=== PATIENT | female | born 1955 | race Caucasian/White ===

== ENCOUNTER → 2020-03-30 | Outpatient (BNVA) | payer OTHER, SELFPAY | PROVIDERS: PCP Internal Medicine; Referring Provider Internal Medicine; Visit Provider Nurse Practitioner Gerontology | CPT/HCPCS: 99213 ==

== ENCOUNTER → 2020-05-26 10:14 | Outpatient (BNVA) | payer OTHER, SELFPAY | PROVIDERS: PCP Internal Medicine; Referring Provider Internal Medicine; Visit Provider Nurse Practitioner | DX: Z76.89 Persons encountering health services in other specified circumstances (principal) ==

== ENCOUNTER → 2020-06-22 10:46 | Outpatient (BNVA) | payer OTHER, SELFPAY | PROVIDERS: PCP Internal Medicine; Visit Provider Advanced Practice Midwife | DX: Z76.89 Persons encountering health services in other specified circumstances (principal) ==

== ENCOUNTER → 2020-07-04 08:49 | Outpatient (BNVA) | payer OTHER, SELFPAY | PROVIDERS: PCP Internal Medicine; Visit Provider Nurse Practitioner Gerontology | DX: Z76.89 Persons encountering health services in other specified circumstances (principal) ==

== ENCOUNTER 2020-09-14 12:01 | Outpatient (REF) | payer OTHER, SELFPAY ==
--- NOTE | ~2020-09-14 | MM_ITS ---
EXAMINATION: MM SCREENING DIGITAL BREAST TOMOSYNTHESIS, BILATERAL CLINICAL INFORMATION: Screening. Asymptomatic. The lifetime risk of breast cancer based on the Tyrer-Cuzick Model is 4%. COMPARISON: Mammography: 07/14/2019, 04/14/2019, 09/26/2018, 09/11/2017 TECHNIQUE: Digital breast tomosynthesis is performed in both the craniocaudal and mediolateral oblique views along with computer-aided detection (CAD). Synthesized 2D images are generated from the tomosynthesis. FINDINGS: The breasts are almost entirely fatty (ACR BI-RADS breast composition Category a). There are no significant masses, abnormal calcifications, or other abnormalities. There is a small nodule mid upper outer right breast decreased in size 2018. No significant changes from prior studies. MM/MM tomosynthesis screening BI IMPRESSION: No mammographic evidence of malignancy. ASSESSMENT: BI-RADS 2: Benign RECOMMENDATION: Routine annual mammography screening. This patient's information was entered into a reminder system with a target due date for their next mammogram.
== END 2020-09-14 12:02 | disposition home or self-care (01) ==
LOC: HO.MAMMO 12:01
PROVIDERS: Visit Provider Internal Medicine
DX: Z12.31 Encounter for screening mammogram for malignant neoplasm of breast (principal)
CPT/HCPCS: 77063; 77067

== ENCOUNTER → 2020-11-24 10:02 | Outpatient (BNVA) | payer OTHER, SELFPAY | PROVIDERS: PCP Internal Medicine; Visit Provider Nurse Practitioner ==

== ENCOUNTER → 2020-12-28 12:03 | Outpatient (BNVA) | payer OTHER, SELFPAY | PROVIDERS: PCP Internal Medicine; Visit Provider Nurse Practitioner Gerontology | DX: E11.65 Type 2 diabetes mellitus with hyperglycemia (principal); E78.5 Hyperlipidemia, unspecified; E66.01 Morbid (severe) obesity due to excess calories; I10 Essential (primary) hypertension; L60.0 Ingrowing nail; Z79.4 Long term (current) use of insulin; Z68.36 Body mass index [BMI] 36.0-36.9, adult | CPT/HCPCS: 82947; 99212 ==

== ENCOUNTER 2021-06-16 10:15 | Outpatient (REF) | payer MEDICARE, MEDICAID, SELFPAY ==
[2021-06-16 11:06] LABS: Alanine Aminotransferase 41 U/L (0-31); Albumin Level 3.8 g/dL (3.5-5.0); Alkaline Phosphatase 112 U/L (39-117); Anion Gap 11 (12-20); Aspartate Amino Transferase 37 U/L (5-31); Bilirubin Total 0.8 mg/dL (0.0-1.0); Blood Urea Nitrogen 19 mg/dL (9-16); Calcium 9.2 mg/dL (8.4-10.2); Carbon Dioxide 27 mmol/L (22-29); Chloride 106 mmol/L (96-108); Cholesterol 202 mg/dL; Estimated Glomerular Filt Rate > 60; Glucose Fasting 164 mg/dL (60-99); HDL Cholesterol 40 mg/dL; LDL Cholesterol Calculated 139 mg/dl; Potassium 4.5 mmol/L (3.3-5.1); Sodium 139 mmol/L (135-145); Triglycerides 119 mg/dL
[2021-06-16 11:24] LABS: Microalbum/Creatinine Ratio Ur 44.4 ug/mg cr
[2021-06-18 06:16] LABS: LDL Cholesterol Direct 159 mg/dL (<100)
== END 2021-06-16 10:16 | disposition home or self-care (01) ==
LOC: HO.LAB 10:15
PROVIDERS: Absent Provider Nurse Practitioner Gerontology; Visit Provider Internal Medicine
DX: E11.65 Type 2 diabetes mellitus with hyperglycemia (principal); E78.5 Hyperlipidemia, unspecified; Z79.4 Long term (current) use of insulin
CPT/HCPCS: 36415; 80053; 80061; 82043; 83721

== ENCOUNTER → 2021-08-09 12:29 | Outpatient (BNVA) | payer MEDICARE, MEDICAID, SELFPAY | PROVIDERS: PCP Internal Medicine; Visit Provider Nurse Practitioner Gerontology | DX: E11.65 Type 2 diabetes mellitus with hyperglycemia (principal); E78.5 Hyperlipidemia, unspecified; E66.01 Morbid (severe) obesity due to excess calories; I10 Essential (primary) hypertension; L60.0 Ingrowing nail; Z79.4 Long term (current) use of insulin; Z68.35 Body mass index [BMI] 35.0-35.9, adult | CPT/HCPCS: 82947; 99212 ==

== ENCOUNTER → 2021-08-29 13:15 | Outpatient (BNVA) | payer MEDICARE, MEDICAID, SELFPAY | PROVIDERS: PCP Internal Medicine; Referring Provider Internal Medicine; Visit Provider Nurse Practitioner | DX: K21.9 Gastro-esophageal reflux disease without esophagitis (principal); K59.00 Constipation, unspecified; I10 Essential (primary) hypertension | CPT/HCPCS: 99212 ==

== ENCOUNTER → 2021-09-14 14:04 | Outpatient (BNVA) | payer MEDICARE, MEDICAID, SELFPAY | PROVIDERS: Visit Provider Advanced Practice Midwife | DX: Z13.89 Encounter for screening for other disorder (principal) ==

== ENCOUNTER 2021-09-18 12:18 | Outpatient (REF) | payer MEDICARE, MEDICAID, SELFPAY ==
--- NOTE | ~2021-09-18 | MM_ITS ---
EXAMINATION: MM SCREENING DIGITAL BREAST TOMOSYNTHESIS, BILATERAL CLINICAL INFORMATION: Screening. Asymptomatic. The lifetime risk of breast cancer based on the Tyrer-Cuzick Model is 4%. COMPARISON: Mammography: 09/14/2020, 07/14/2019, 04/14/2019, 09/26/2018 TECHNIQUE: Digital breast tomosynthesis is performed in both the craniocaudal and mediolateral oblique views along with computer-aided detection (CAD). Synthesized 2D images are generated from the tomosynthesis. FINDINGS: The breasts are almost entirely fatty (ACR BI-RADS breast composition Category a). Background stromal markings are stable. There are no significant masses, abnormal calcifications, or other abnormalities. There is no developing density or interval mass or architectural abnormality. No significant change from prior study. The axilla are unremarkable. MM/MM tomosynthesis screening BI IMPRESSION: No mammographic evidence of malignancy. ASSESSMENT: BI-RADS 2: Benign RECOMMENDATION: Routine annual mammography screening. This patient's information was entered into a reminder system with a target due date for their next mammogram.
== END 2021-09-18 12:19 | disposition home or self-care (01) ==
LOC: HO.MAMMO 12:18
PROVIDERS: Visit Provider Internal Medicine
DX: Z12.31 Encounter for screening mammogram for malignant neoplasm of breast (principal)
CPT/HCPCS: 77063; 77067

== ENCOUNTER → 2021-10-20 13:38 | Outpatient (BNVA) | payer MEDICARE, MEDICAID, SELFPAY | PROVIDERS: Visit Provider Nurse Practitioner | DX: K59.00 Constipation, unspecified (principal); K21.9 Gastro-esophageal reflux disease without esophagitis | CPT/HCPCS: 99212 ==

== ENCOUNTER → 2021-10-23 13:57 | Outpatient (BNVA) | payer MEDICARE, MEDICAID, SELFPAY | PROVIDERS: Visit Provider Registered Nurse Diabetes Educator | DX: E11.9 Type 2 diabetes mellitus without complications (principal) | CPT/HCPCS: 95250 ==

== ENCOUNTER → 2021-11-06 13:14 | Outpatient (BNVA) | payer MEDICARE, MEDICAID, SELFPAY | PROVIDERS: PCP Internal Medicine; Visit Provider Nurse Practitioner Gerontology | DX: E78.5 Hyperlipidemia, unspecified (principal); E11.9 Type 2 diabetes mellitus without complications; E66.01 Morbid (severe) obesity due to excess calories; I10 Essential (primary) hypertension; Z68.35 Body mass index [BMI] 35.0-35.9, adult; Z79.84 Long term (current) use of oral hypoglycemic drugs; Z79.4 Long term (current) use of insulin | CPT/HCPCS: 82947; 99212 ==

== ENCOUNTER → 2022-03-21 14:38 | Outpatient (BNVA) | payer MEDICARE, MEDICAID, SELFPAY | PROVIDERS: PCP Internal Medicine; Visit Provider Nurse Practitioner | DX: K21.9 Gastro-esophageal reflux disease without esophagitis (principal); E73.9 Lactose intolerance, unspecified; K59.00 Constipation, unspecified | CPT/HCPCS: 99212 ==

== ENCOUNTER → 2022-05-23 12:13 | Outpatient (BNVA) | payer MEDICARE, MEDICAID, SELFPAY | PROVIDERS: PCP Internal Medicine; Referring Provider Internal Medicine; Visit Provider Nurse Practitioner | DX: K21.9 Gastro-esophageal reflux disease without esophagitis (principal); K59.00 Constipation, unspecified | CPT/HCPCS: 99212 ==

== ENCOUNTER 2022-09-20 12:04 | Outpatient (REF) | payer MEDICARE, MEDICAID, SELFPAY ==
--- NOTE | ~2022-09-20 | MM_ITS ---
EXAMINATION: MM SCREENING DIGITAL BREAST TOMOSYNTHESIS, BILATERAL CLINICAL INFORMATION: Screening. Asymptomatic. The lifetime risk of breast cancer based on the Tyrer-Cuzick Model is 3.7%. COMPARISON: Mammography: September 18, 2021 and studies dating back to September 11, 2017 TECHNIQUE: Digital breast tomosynthesis is performed in both the craniocaudal and mediolateral oblique views along with computer-aided detection (CAD). Synthesized 2D images are generated from the tomosynthesis. FINDINGS: The breasts are almost entirely fatty (ACR BI-RADS breast composition Category a). There are no new significant masses, abnormal calcifications, or other abnormalities. MM/MM tomosynthesis screening BI IMPRESSION: No significant changes from prior exam. ASSESSMENT: BI-RADS 1: Negative RECOMMENDATION: Routine annual mammography screening. This patient's information was entered into a reminder system with a target due date for their next mammogram.
== END 2022-09-20 12:05 | disposition home or self-care (01) ==
LOC: HO.MAMMO 12:04
PROVIDERS: PCP Internal Medicine; Visit Provider Internal Medicine
DX: Z12.31 Encounter for screening mammogram for malignant neoplasm of breast (principal)
CPT/HCPCS: 77063; 77067

== ENCOUNTER 2022-10-02 12:27 | Outpatient (REF) | payer MEDICARE, MEDICAID, SELFPAY ==
--- NOTE | ~2022-10-02 | US_ITS ---
EXAMINATION: US SOFT TISSUE HEAD/NECK CLINICAL INFORMATION: Benign lipomatous neoplasm, unspecified, right supraclavicular fossa. COMPARISON: None available. TECHNIQUE: Linear transducer grayscale and color Doppler examination of the right supraclavicular area with left side for comparison. FINDINGS: Ultrasound imaging to the right supraclavicular area reveals isoechoic lesion to surrounding fat measuring 2.6 x 1.2 x 2.8 cm consistent with lipoma. Imaging of left supra clavicular area was performed for comparison. No abnormality seen. US/US soft tiss head and/or neck IMPRESSION: Benign lipoma right supraclavicular area.
== END 2022-10-02 12:28 | disposition home or self-care (01) ==
LOC: HO.US 12:27
PROVIDERS: Visit Provider Internal Medicine
DX: D17.9 Benign lipomatous neoplasm, unspecified (principal)
CPT/HCPCS: 76536

== ENCOUNTER 2022-10-25 12:06 | Outpatient (REF) | payer MEDICARE, MEDICAID, SELFPAY ==
[2022-10-25 13:29] LABS: Alanine Aminotransferase 31 U/L (0-31); Albumin Level 3.8 g/dL (3.5-5.0); Alkaline Phosphatase 129 U/L (39-117); Anion Gap 15 (12-20); Aspartate Amino Transferase 25 U/L (5-31); Bilirubin Total 0.5 mg/dL (0.0-1.0); Blood Urea Nitrogen 23 mg/dL (9-16); Calcium 9.1 mg/dL (8.4-10.2); Carbon Dioxide 27 mmol/L (22-29); Chloride 104 mmol/L (96-108); Cholesterol 174 mg/dL; Estimated Glomerular Filt Rate > 60; Glucose Fasting 145 mg/dL (60-99); HDL Cholesterol 33 mg/dL; LDL Cholesterol Calculated 121 mg/dl; Potassium 5.6 mmol/L (3.3-5.1); Sodium 140 mmol/L (135-145); Total Protein 6.8 g/dL (6.5-8.0); Triglycerides 101 mg/dL
[2022-10-25 13:37] LABS: Vitamin D 25-OH Total 24.6 ng/mL (>30)
[2022-10-25 15:29] LABS: Creatinine Urine 112.03 mg/dL; Microalbumin Urine < 5.0 mg/L
== END 2022-10-25 12:07 | disposition home or self-care (01) ==
LOC: HO.LAB 12:06
PROVIDERS: PCP Internal Medicine; Referring Provider Nurse Practitioner; Visit Provider Internal Medicine
DX: E11.9 Type 2 diabetes mellitus without complications (principal); E78.5 Hyperlipidemia, unspecified; E55.9 Vitamin D deficiency, unspecified
CPT/HCPCS: 36415; 80053; 80061; 82043; 82306

== ENCOUNTER 2022-11-06 11:27 | Outpatient (REF) | payer MEDICARE, MEDICAID, SELFPAY ==
--- NOTE | 2022-11-06 11:33 | ECG_ITS ---
Test Reason : HYPERKALEMIA Blood Pressure : / mmHG Vent. Rate : 063 BPM Atrial Rate : 063 BPM P-R Int : 154 ms QRS Dur : 080 ms QT Int : 410 ms P-R-T Axes : 042 023 013 degrees QTc Int : 419 ms Normal sinus rhythm Normal ECG When compared with ECG of 21-APR-2019 09:49, T wave inversion now evident in Inferior leads Referred By: Carolina Mahoney Electronically Signed By:Kris Villarreal
[2022-11-06 13:14] LABS: Alanine Aminotransferase 23 U/L (0-31); Albumin Level 3.9 g/dL (3.5-5.0); Alkaline Phosphatase 110 U/L (39-117); Anion Gap 12 (12-20); Aspartate Amino Transferase 23 U/L (5-31); Bilirubin Total 0.6 mg/dL (0.0-1.0); Blood Urea Nitrogen 18 mg/dL (9-16); Calcium 9.1 mg/dL (8.4-10.2); Carbon Dioxide 28 mmol/L (22-29); Chloride 105 mmol/L (96-108); Cholesterol 201 mg/dL; Estimated Glomerular Filt Rate > 60; Glucose Fasting 159 mg/dL (60-99); Glucose Random 158 mg/dL (60-115); HDL Cholesterol 38 mg/dL; LDL Cholesterol Calculated 137 mg/dl; Potassium 5.1 mmol/L (3.3-5.1); Sodium 140 mmol/L (135-145); Triglycerides 131 mg/dL
[2022-11-06 13:17] LABS: Vitamin D 25-OH Total 21.4 ng/mL (>30)
[2022-11-06 13:25] LABS: Creatinine Urine 140.67 mg/dL; Microalbum/Creatinine Ratio Ur 4.2 ug/mg cr
== END 2022-11-06 11:28 | disposition home or self-care (01) ==
LOC: HO.LAB 11:27
PROVIDERS: PCP Internal Medicine; Visit Provider Internal Medicine
DX: E55.9 Vitamin D deficiency, unspecified (principal); E78.5 Hyperlipidemia, unspecified; E87.5 Hyperkalemia; E11.9 Type 2 diabetes mellitus without complications
CPT/HCPCS: 36415; 80053; 80061; 82043; 82306; 93005

== ENCOUNTER → 2022-11-08 08:06 | Outpatient (BNVA) | payer MEDICARE, MEDICAID, SELFPAY | PROVIDERS: PCP Internal Medicine; Referring Provider Internal Medicine; Visit Provider Surgery | DX: D17.0 Benign lipomatous neoplasm of skin and subcutaneous tissue of head, face and neck (principal) | CPT/HCPCS: 99202 ==

== ENCOUNTER → 2022-11-21 12:52 | Outpatient (BNVA) | payer MEDICARE, MEDICAID, SELFPAY | PROVIDERS: PCP Internal Medicine; Visit Provider Nurse Practitioner | DX: K21.9 Gastro-esophageal reflux disease without esophagitis (principal); E73.9 Lactose intolerance, unspecified; K59.00 Constipation, unspecified; Z79.899 Other long term (current) drug therapy | CPT/HCPCS: 99212 ==

== ENCOUNTER 2023-01-03 12:21 | Outpatient (REF) | payer MEDICARE, MEDICAID, SELFPAY ==
[2023-01-03 12:28] VITALS: BP 148/74; PULSE 62; RESP 16; TEMP 36.3; O2SAT 97
[2023-01-03 12:29] VITALS: BMI 32.6
[2023-01-03 13:38] VITALS: BP 165/7; PULSE 62; RESP 16; O2SAT 96
--- NOTE | 2023-01-03 13:46 | W.PM.OPN ---
Operative Note Operative Note Date of Service: 01/03/23 Narrative: Preoperative diagnosis: Right supraclavicular lipoma Postoperative diagnosis: Same Procedure: Excision of right supraclavicular lipoma Surgeon: Maged Stokes MD Director Of Customer Service: None Anesthesia: Local Indications for procedure: 67-year-old female patient presenting with a soft tissue mass located over the right supraclavicular region, lesion measures approximately 3 cm in diameter and is mobile within the subcutaneous tissue. Operative findings: Lipoma measuring 3 cm in diameter Specimen: Lipoma Estimated blood loss: Less than 1 mL Complications: None Procedure details: Patient was brought to the minor surgery suite and placed in a supine position. The site of surgery was confirmed by the patient in the right supraclavicular region. After assuring informed consent the patient is right supraclavicular region was prepped with Betadine and draped in a sterile fashion. Local anesthesia was then infiltrated in a longitudinal fashion over the lesion. Incision was then made with a scalpel carried out through subcutaneous tissue up to the lipoma. The lipoma was then grasped with an Allis clamp and gently dissected from the surrounding subcutaneous tissue using Metzenbaum scissors. Lesion was completely excised and sent to pathology for further examination. Hemostasis was assured using 3-0 Polysorb suture ligature. Dermis was then reapproximated using interrupted 3-0 Polysorb sutures. Skin was closed using a running subcuticular 4-0 Polysorb suture. Steri-Strips, 2 x 2 gauze and Tegaderm were then applied. The patient tolerated the procedure well. She was discharged to home in stable condition.
== END 2023-01-03 12:22 | disposition home or self-care (01) ==
LOC: HO.MS 12:21
PROVIDERS: PCP Internal Medicine; Visit Provider Surgery
PROC: (CPT 11403; principal; 2023-01-03 13:20)
DX: D17.1 Benign lipomatous neoplasm of skin and subcutaneous tissue of trunk (principal)
CPT/HCPCS: 11403; 88304

== ENCOUNTER → 2023-01-03 12:21 | Outpatient (BNV) | payer MEDICARE, MEDICAID, SELFPAY | PROVIDERS: PCP Internal Medicine; Visit Provider Surgery | DX: D17.0 Benign lipomatous neoplasm of skin and subcutaneous tissue of head, face and neck (principal) | CPT/HCPCS: 21552 ==

== ENCOUNTER 2023-01-10 10:12 | Outpatient (AMB) | payer MEDICARE, MEDICAID, SELFPAY ==
--- NOTE | 2023-01-10 10:31 | MHC.OFFVIS ---
Intake Vital Signs 01/10/23 10:41 Height 5 ft 3 in Weight 195 lb 6 oz BMI 34.6 BP 164/79 H Blood Pressure Location Lt brachial Position Sitting Pulse 58 Intake Visit Reasons: S/P exc. lipoma Rt supraclavicular fossa Intake Note: Patient is seen in office for post excision of lipoma of the right supraclavicular fossa. Patient c/o: denies any concerns at the time of visit Extension Course Counselor Required: Yes Extension Course Counselor Language: Label Press Operator Name: Lynnette PRICE Accompanied by: Self / Same As Patient Allergies penicillin G [Penicillin G] Allergy (Severe, Verified 01/10/23 10:38) RASH,SWELLING atorvastatin Allergy (Intermediate, Verified 01/10/23 10:38) myalgia, muscle cramps latex [LATEX] Allergy (Intermediate, Verified 01/10/23 10:38) ITCHY,SKIN TEARS simvastatin Allergy (Intermediate, Verified 01/10/23 10:38) sedation Medication List - Last Reconciled 01/10/23 by Maged Stokes MD albuterol sulfate 90 mcg/actuation 1 puff PO Q4H PRN 30 days alcohol swabs (Alcohol Prep Pads) 1 pad topical DAILY amlodipine 10 mg PO DAILY aspirin 81 mg PO BEDTIME bisacodyl 10 mg (2 x 5 mg) PO BEDTIME blood sugar diagnostic (FreeStyle Lite Strips) As directed twice a day blood sugar diagnostic (FreeStyle Lite Strips) 1 strip miscellaneous QID 30 days blood-glucose meter (FreeStyle Lite Meter kit) As directed 2 times a day jskntkyklm-upoxtqpagqrqp-nays 50-325-40 mg 1 tab PO ONCE PRN 90 days cholecalciferol (vitamin D3) 50 mcg PO DAILY 90 days clonazepam 1 mg PO BID PRN clotrimazole 1% 1 appl topical BID [diabetic sandals As directed] [diabetic shoes with inserts with template As directed] [diabetic sneakers As directed] diclofenac sodium 75 mg PO BID dicyclomine 20 mg (2 x 10 mg) PO QID PRN ezetimibe 10 mg PO DAILY fluticasone furoate 100 mcg/actuation (Arnuity Ellipta) 1 inh inhalation DAILY hydrocortisone 2.5% (Proctosol HC) 1 appl [place] BID PRN insulin glargine (Lantus Solostar U-100 Insulin) 25 units (0.25 mL) subcut DAILY 90 days lancets (TRUEplus Lancets) 1 gauge miscellaneous TID 30 days loperamide mg PO magnesium hydroxide (Milk of Magnesia) 5 mL PO BEDTIME metformin 1,000 mg (2 x 500 mg) PO BID miconazole nitrate 2% 1 appl topical DAILY PRN 30 days montelukast 10 mg PO QPM oxycodone-acetaminophen 5-325 mg 1 tab PO Q6H PRN 30 days pantoprazole 40 mg PO QAM peg [id number] 1-0.2-0.2 % drps ophthalmic (eye) DAILY PRN pen needle, diabetic As directed rosuvastatin 40 mg PO DAILY 90 days sertraline 200 mg PO QAM sodium polystyrene sulfonate 15 grams PO DAILY 3 days valsartan 160 mg PO BEDTIME zolpidem 10 mg PO BEDTIME PRN HPI HPI Comments History of Present Illness Details 57-year-old female patient returning 1 week following excision of a lipoma of the right supraclavicular fossa. She reports a small amount of tenderness in the upper portion of the incision but otherwise feels well. She denies any bleeding or discharge from the incision. [facility] Medical History (Updated 11/26/22 @ 14:24 by Carolina Mahoney MD) Diabetes mellitus with hyperglycemia Diarrhea DM2 (diabetes mellitus, type 2) Essential hypertension Hyperlipidemia LDL goal <100 Knee osteoarthritis Mild asthma Mild recurrent major depression Obesity due to excess calories Physical exam Surgical History (Updated 01/09/23 @ 10:06 by DEE Feldman) History of excision of lesion (05/09/17) History of left knee replacement History of phacoemulsification of cataract of left eye with intraocular lens implantation History of phacoemulsification of cataract of right eye with intraocular lens implantation History of surgery on right wrist (01/31/16) Hx of section Hx of cholecystectomy (05/09/17) Hx of colonoscopy S/P excision of lipoma (01/03/23) Family History Father Ischemic cardiomyopathy CVD (cardiovascular disease) Mother No problems noted. Brother Diabetes Social History Household Members: Children Housing: Apartment Alcohol intake: never Patient Tobacco Use Status: Never used Tobacco e-Cigarette/Vaping Use: Never Used Second Hand Smoke Exposure: No service: No Current occupational status: disabled Cognitive needs: Yes Hearing needs: No Vision needs: Yes Physical Exam Const General: no acute distress Nutritional Appearance: well nourished Orientation/consciousness: patient oriented x3 Chest Other: Excision site in the right supraclavicular fossa is clean, dry, and intact without redness, seroma or hematoma. Chest/axillae images: 1. Incision right supraclavicular fossa. Skin Other: Warm, dry, no rash Neuro General: patient oriented x3 Extrem Other: No edema Assessment & Plan Assessment & Plan (1) Lipoma: Code(s): D17.9 - Benign lipomatous neoplasm, unspecified Plan 67-year-old female patient status post excision of a lipoma of the right supraclavicular fossa. She tolerated the procedure well the wounds are healing nicely. She should follow up as needed. Coding Level of Care Code Global (47613) Diagnoses Lipoma D17.9
[2023-01-10 10:41] VITALS: BP 164/79; PULSE 58; BMI 34.6
== END 2023-01-10 10:44 | disposition home or self-care (01) ==
PROVIDERS: PCP Internal Medicine; Visit Provider Surgery
DX: D17.9 Benign lipomatous neoplasm, unspecified (principal)
CPT/HCPCS: 99024

== ENCOUNTER → 2023-01-10 10:12 | Outpatient (BNVA) | payer MEDICARE, MEDICAID, SELFPAY | PROVIDERS: PCP Internal Medicine; Visit Provider Surgery ==

== ENCOUNTER 2023-01-16 12:46 | Outpatient (AMB) | payer MEDICARE, MEDICAID, SELFPAY ==
[2023-01-16 12:53] VITALS: BP 142/90; PULSE 60; O2SAT 99; BMI 34.7
--- NOTE | 2023-01-16 12:53 | MHC.PC.OV ---
Vital Signs 01/16/23 12:53 Height 5 ft 3 in Weight 196 lb BMI 34.7 BP 142/90 H Blood Pressure Location Lt brachial Position Sitting Pulse 60 Pulse Source Pulse Oximeter Temp Source Skin Pulse Oximetry (%) 99 Oxygen Delivery Method Room Air Intake Visit Reasons: Otalgia Intake Note: pt states right ear discomfort with trouble hearing X3days Operations Manager Assistant Required: Yes Operations Manager Assistant Language: Bruneian Allergies penicillin G [Penicillin G] Allergy (Severe, Verified 01/16/23 13:18) RASH,SWELLING atorvastatin Allergy (Intermediate, Verified 01/16/23 13:18) myalgia, muscle cramps latex [LATEX] Allergy (Intermediate, Verified 01/16/23 13:18) ITCHY,SKIN TEARS simvastatin Allergy (Intermediate, Verified 01/16/23 13:18) sedation Medication List - Last Reconciled 01/16/23 by Silvano English PA-C albuterol sulfate 90 mcg/actuation 1 puff PO Q4H PRN 30 days alcohol swabs (Alcohol Prep Pads) 1 pad topical DAILY amlodipine 10 mg PO DAILY aspirin 81 mg PO BEDTIME bisacodyl 10 mg (2 x 5 mg) PO BEDTIME blood sugar diagnostic (FreeStyle Lite Strips) As directed twice a day blood sugar diagnostic (FreeStyle Lite Strips) 1 strip miscellaneous QID 30 days blood-glucose meter (FreeStyle Lite Meter kit) As directed 2 times a day umocoavrqh-ujvsjlhdtcchh-ygoe 50-325-40 mg 1 tab PO ONCE PRN 90 days cholecalciferol (vitamin D3) 50 mcg PO DAILY 90 days clonazepam 1 mg PO BID PRN clotrimazole 1% 1 appl topical BID [diabetic sandals As directed] [diabetic shoes with inserts with template As directed] [diabetic sneakers As directed] diclofenac sodium 75 mg PO BID dicyclomine 20 mg (2 x 10 mg) PO QID PRN ezetimibe 10 mg PO DAILY fluticasone furoate 100 mcg/actuation (Arnuity Ellipta) 1 inh inhalation DAILY hydrocortisone 2.5% (Proctosol HC) 1 appl [place] BID PRN insulin glargine (Lantus Solostar U-100 Insulin) 25 units (0.25 mL) subcut DAILY 90 days lancets (TRUEplus Lancets) 1 gauge miscellaneous TID 30 days loperamide mg PO magnesium hydroxide (Milk of Magnesia) 5 mL PO BEDTIME metformin 1,000 mg (2 x 500 mg) PO BID miconazole nitrate 2% 1 appl topical DAILY PRN 30 days montelukast 10 mg PO QPM oxycodone-acetaminophen 5-325 mg 1 tab PO Q6H PRN 30 days pantoprazole 40 mg PO QAM peg [id number] 1-0.2-0.2 % drps ophthalmic (eye) DAILY PRN pen needle, diabetic As directed rosuvastatin 40 mg PO DAILY 90 days sertraline 200 mg PO QAM sodium polystyrene sulfonate 15 grams PO DAILY 3 days valsartan 160 mg PO BEDTIME zolpidem 10 mg PO BEDTIME PRN Tobacco use date assessed: 01/16/23 Fall risk assessment: No Falls in past year Last assessed Fall Risk: 01/16/23 Dental Screening Dental Screen Date: 01/16/23 Did you have a dental visit in the last 12 months?: Yes Did you have a dental problem in the last 6 months where you did not have access to dental care?: No Was dental information given to patient?: Patient has dentist HPI Otalgia HPI Details Reports having right distortions in her right ear and ear congestion. Also report some light headedness over the last week. She reports she had watched her hearing and gotten water in her ear. She has since been having a feeling of congestion in her right ear. [facility] Medical History (Updated 01/16/23 @ 13:25 by Silvano English PA-C) Diabetes mellitus with hyperglycemia Diarrhea DM2 (diabetes mellitus, type 2) Essential hypertension Hyperlipidemia LDL goal <100 Knee osteoarthritis Mild asthma Mild recurrent major depression Obesity due to excess calories Physical exam Surgical History History of excision of lesion (05/09/17) History of left knee replacement History of phacoemulsification of cataract of left eye with intraocular lens implantation History of phacoemulsification of cataract of right eye with intraocular lens implantation History of surgery on right wrist (01/31/16) Hx of section Hx of cholecystectomy (05/09/17) Hx of colonoscopy S/P excision of lipoma (01/03/23) Family History Father Ischemic cardiomyopathy CVD (cardiovascular disease) Mother No problems noted. Brother Diabetes Social History Household Members: Children Housing: Apartment Alcohol intake: never Patient Tobacco Use Status: Never used Tobacco e-Cigarette/Vaping Use: Never Used Second Hand Smoke Exposure: No service: No Current occupational status: disabled Cognitive needs: Yes Hearing needs: No Vision needs: Yes Questionnaire PHQ-9 Over the last 2 weeks, how often have you been bothered by any of the following problems? 1. Little interest or pleasure in doing things: not at all 2. Feeling down, depressed, or hopeless: several days 3. Trouble falling or staying asleep, or sleeping too much: several days 4. Feeling tired or having little energy: several days 5. Poor appetite or overeating: not at all 6. Feeling bad about yourself - or that you are a failure or have let yourself or your family down: not at all 7. Trouble concentrating on things, such as reading the newspaper or watching television: not at all 8. Moving or speaking so slowly that other people could have noticed. Or the opposite - being so fidgety or restless that you have been moving around a lot more than usual: not at all 9. Thoughts that you would be better off or of hurting yourself in some way: not at all Total score: 3 Depression Screening Interpretation: Positive Depression Screening Follow-up: Existing condition and In treatment 68860 - PHQ-9 Billing: Yes Source: Developed by Drs. Haroon Valencia, Colleen Tam, Jose Guadalupe Castellanos and colleagues, with an educational varinder from [employer]. Thrive Questionnaire Date Thrive assessed: 07/25/22 AUDIT C Alcohol Use Questionnaire (AUDIT-C) 1. How often do you have a drink containing alcohol?: Never 3. How often do you have six or more drinks on one occasion?: Never Total Score: 0 Score Reviewed/Action Taken: No ROBERTA-7 AMB Questionnaire ROBERTA-7 Date ROBERTA - 7 assessed: 07/25/22 Source: Developed by Drs. Haroon Valencia, Jose Guadalupe Harriske and colleagues, with an educational varinder from [employer]. Review of Systems Const Denies headache(s) Eyes Denies loss of vision ENT Denies vertigo, Denies dizziness, Denies headache(s) and Denies sore throat Card Denies chest pain, Denies leg edema and Denies lightheadedness Resp Denies cough, Denies hemoptysis and Denies wheezing GI Denies abdominal pain, Denies melena, Denies constipation, Denies diarrhea and Denies vomiting Denies urinary frequency, Denies dysuria and Denies urinary urgency Musc Denies arthralgias, Denies joint swelling, Denies numbness and Denies tingling Neuro Denies Abnormal speech present, Denies behavioral changes, Denies vertigo, Denies dizziness, Denies headache(s), Denies loss of vision, Denies memory loss, Denies numbness and Denies tingling Psych Denies anxiety, Denies behavioral changes, Denies depression, Denies memory loss and Denies panic attacks Shaan/Lymph Denies easy bleeding and Denies easy bruising Aller/Immun Denies wheezing Physical exam (Primary Care) Vital Signs: Last Vital Signs Pulse 60 01/16/23 12:53 BP 142/90 H 01/16/23 12:53 Pulse Ox 99 01/16/23 12:53 Oxygen Delivery Method Room Air 01/16/23 12:53 BMI result Body Mass Index 34.7 Tobacco/Smoking Status: Tobacco use Status Tobacco use date assessed 01/16/23 01/16/23 12:54 Patient Tobacco Use Status Never used Tobacco 01/16/23 12:54 e-Cigarette/Vaping Use Never Used 01/16/23 12:54 PHQ-9: PHQ-9 Score PHQ-9: Total score 3 01/16/23 13:32 Depression Screening Interpretation: Positive Depression Screening Follow-up: Existing condition and In treatment Thrive Assessment: Date of Thrive Assessment Date Thrive assessed 07/25/22 01/16/23 12:54 Const General: healthy appearing, no acute distress, alert and awake Nutritional Appearance: well nourished Orientation/consciousness: oriented to person, oriented to place and oriented to time HENMT Other: RIGHT EAR TYMPANIC MEMBRANE SLIGHTLY ERYTHEMATOUS AND BULGING General nose exam: Normal nasal mucous membranes and turbinates present Eyes Conjunctivae: conjunctivae normal Sclerae: sclerae normal Pupils: Equal, round and reactive pupils present Neck Neck: Yes no lymphadenopathy and Yes no JVD Thyroid: Thyroid normal Carotids: no bruits Resp Effort & Inspection: normal respiratory effort and not tachypneic Auscultation: no crackles, no rales, no rhonchi and no wheezes Cardio Rate: regular rate Rhythm: regular rhythm Heart sounds: no murmurs and normal S1 and S2 GI Palpation (GI): Soft to palpation, nontender, no hepatomegaly and no splenomegaly Auscultation: normal bowel sounds Skin General skin exam: no rashes or lesions noted and dry skin Neuro General: oriented to person, oriented to place and oriented to time Cranial nerves: Yes Equal, round and reactive pupils present Speech: No Abnormal speech present Gait exam (Neuro): Normal gait present Motor exam (neuro): no tremor noted Extrem Right upper extremity: full ROM Left upper extremity: full ROM Right lower extremity: full ROM; no edema Left lower extremity: full ROM; no edema Psych Mental Status: mental status grossly normal Speech and movement: Normal speech and movement present Affect: normal affect Attitude: cooperative Thought process: Normal thought process present Assessment and Plan Assessment & Plan (1) Right otitis media: Code(s): H66.91 - Otitis media, unspecified, right ear Qualifiers: Chronicity: acute Otitis media type: suppurative Recurrence: non-recurrent Spontaneous tympanic membrane rupture: without spontaneous rupture Qualified Code(s): H66.001 - Acute suppurative otitis media without spontaneous rupture of ear drum, right ear Plan: Six patient's signs and symptoms most consistent with a right-sided otitis media. Like I has somewhat of order eustachian tube dysfunction as well. Advised on how to medication and nasal spray use. Will supply patient with antibiotic for possible infection as well. Medications: New doxycycline monohydrate 100 mg PO BID 5 days 10 caps 0RF H66.001 - Acute suppurative otitis media without spontaneous rupture of ear drum, right ear loratadine (Allergy Relief (loratadine)) 10 mg PO DAILY 14 days 14 tabs 0RF H66.001 - Acute suppurative otitis media without spontaneous rupture of ear drum, right ear fluticasone propionate 50 mcg/actuation (Flonase Allergy Relief) administer into each nostril 1 spray intranasal BID 30 days 16 grams 0RF H66.001 - Acute suppurative otitis media without spontaneous rupture of ear drum, right ear Coding Level of Care Code Est Pt Level 3 (04215) Diagnoses Right otitis media H66.001 Chronicity: acute Otitis media type: suppurative Recurrence: non-recurrent Spontaneous tympanic membrane rupture: without spontaneous rupture
== END 2023-01-16 13:34 | disposition home or self-care (01) ==
PROVIDERS: PCP Internal Medicine; Visit Provider Physician Assistant
DX: H66.001 Acute suppurative otitis media without spontaneous rupture of ear drum, right ear (principal)
CPT/HCPCS: 99213

== ENCOUNTER 2023-04-04 12:51 | Outpatient (AMB) | payer MEDICARE, MEDICAID, SELFPAY ==
--- NOTE | 2023-04-04 13:03 | MHC.PC.OV ---
Vital Signs 04/04/23 13:04 04/04/23 14:03 Height 5 ft 3 in Weight 194 lb BMI 34.4 BP 140/92 H 140/90 H Blood Pressure Location Lt brachial Lt brachial Position Sitting Sitting Pulse 71 Pulse Source Pulse Oximeter Pulse Oximetry (%) 96 Oxygen Delivery Method Room Air Intake Visit Reasons: dm Intake Note: Patient here for a follow up DM, c/o right hand arm pain Clinical Trials Systems Administrator Required: No Accompanied by: Significant Other Allergies penicillin G [Penicillin G] Allergy (Severe, Verified 04/04/23 13:28) RASH,SWELLING atorvastatin Allergy (Intermediate, Verified 04/04/23 13:28) myalgia, muscle cramps latex [LATEX] Allergy (Intermediate, Verified 04/04/23 13:28) ITCHY,SKIN TEARS simvastatin Allergy (Intermediate, Verified 04/04/23 13:28) sedation Medication List - Last Reconciled 04/04/23 by Carolina Mahoney MD albuterol sulfate 90 mcg/actuation 1 puff PO Q4H PRN 30 days alcohol swabs (Alcohol Prep Pads) 1 pad topical DAILY amlodipine 10 mg PO DAILY aspirin 81 mg PO BEDTIME bisacodyl 10 mg (2 x 5 mg) PO BEDTIME blood sugar diagnostic (FreeStyle Lite Strips) As directed twice a day blood sugar diagnostic (FreeStyle Lite Strips) 1 strip miscellaneous QID 30 days blood-glucose meter (FreeStyle Lite Meter kit) As directed 2 times a day [id number]-gekwzxluhzpfw-ydqp 50-325-40 mg 1 tab PO ONCE PRN 90 days cholecalciferol (vitamin D3) 50 mcg PO DAILY 90 days clonazepam 1 mg PO BID PRN clotrimazole 1% 1 appl topical BID [diabetic sandals As directed] [diabetic shoes with inserts with template As directed] [diabetic sneakers As directed] diclofenac sodium 75 mg PO BID dicyclomine 20 mg (2 x 10 mg) PO QID PRN ezetimibe 10 mg PO DAILY flu vacc [id number] 6mos up(PF) 0.5 mL IM ONCE fluticasone furoate 100 mcg/actuation (Arnuity Ellipta) 1 inh inhalation DAILY fluticasone propionate 50 mcg/actuation (Flonase Allergy Relief) 1 spray intranasal BID 30 days hydrocortisone 2.5% 1 appl SD BID PRN insulin glargine (Lantus Solostar U-100 Insulin) 25 units (0.25 mL) subcut DAILY 90 days lancets (TRUEplus Lancets) 1 gauge miscellaneous TID 30 days loperamide mg PO loratadine (Allergy Relief (loratadine)) 10 mg PO DAILY 14 days magnesium hydroxide (Milk of Magnesia) 5 mL PO BEDTIME metformin 1,000 mg (2 x 500 mg) PO BID miconazole nitrate 2% 1 appl topical DAILY PRN 30 days montelukast 10 mg PO QPM oxycodone-acetaminophen 5-325 mg 1 tab PO Q6H PRN 30 days pantoprazole 40 mg PO QAM peg [id number]-jcamordn 1-0.2-0.2 % drps ophthalmic (eye) DAILY PRN pen needle, diabetic As directed rosuvastatin 40 mg PO DAILY 90 days sertraline 200 mg PO QAM sodium polystyrene sulfonate 15 grams PO DAILY 3 days valsartan 160 mg PO BEDTIME zolpidem 10 mg PO BEDTIME PRN Tobacco use date assessed: 01/16/23 Fall risk assessment: No Falls in past year Last assessed Fall Risk: 04/04/23 Dental Screening Dental Screen Date: 04/04/23 Did you have a dental visit in the last 12 months?: Yes Did you have a dental problem in the last 6 months where you did not have access to dental care?: No Was dental information given to patient?: Patient has dentist HPI HPI Comments History of Present Illness Details This is a 68-year-old female with diabetes mellitus type 2 on long-term current use of insulin, hypertension, hyperlipidemia and mild recurrent major depression that comes accompanied by complaining of right wrist pain and right elbow pain that has been present for few weeks. Has full active range of motion. A1c slightly elevated and she admits not been compliant with diet. She refused to change her medications and said will do a change in diet. Blood pressure borderline normal to elevated and will be recheck in 3 weeks by nurse navigator. LDL not on goal and she admits not been compliant with diet. Lipid panel and other labs will be repeated in 4 months. Depression stable with medications. No chest pain or shortness of breath. [facility] Medical History (Updated 04/04/23 @ 13:37 by Carolina Mahoney MD) DM2 (diabetes mellitus, type 2) Physical exam Mild recurrent major depression Mild asthma Obesity due to excess calories Diarrhea Diabetes mellitus with hyperglycemia Hyperlipidemia LDL goal <100 Essential hypertension Knee osteoarthritis Surgical History S/P excision of lipoma (01/03/23) History of excision of lesion (05/09/17) History of surgery on right wrist (01/31/16) History of phacoemulsification of cataract of right eye with intraocular lens implantation History of phacoemulsification of cataract of left eye with intraocular lens implantation Hx of colonoscopy Hx of cholecystectomy (05/09/17) History of left knee replacement Hx of section Family History Father Ischemic cardiomyopathy CVD (cardiovascular disease) Mother No problems noted. Brother Diabetes Social History Household Members: Children Housing: Apartment Alcohol intake: never Patient Tobacco Use Status: Never used Tobacco e-Cigarette/Vaping Use: Never Used Second Hand Smoke Exposure: No service: No Current occupational status: disabled Cognitive needs: Yes Hearing needs: No Vision needs: Yes Questionnaire Thrive Questionnaire Date Thrive assessed: 07/25/22 ROBERTA-7 AMB Questionnaire ROBERTA-7 Date ROBERTA - 7 assessed: 07/25/22 Source: Developed by Drs. Haroon Valencia, Colleen Tam, Jose Guadalupe Castellanos and colleagues, with an educational varinder from [employer]. Review of Systems Const All systems reviewed & are unremarkable except as noted in HPI and below Eyes Reports no additional complaints, Denies change in vision and Denies other visual disturbances Card Denies chest pain at rest, Denies chest pain with activity, Denies edema, Denies irregular heart rhythm, Denies claudication, Denies dyspnea, Denies dyspnea on exertion, Denies orthopnea, Denies paroxysmal nocturnal dyspnea and Denies slow heart rate Resp Denies cough, Denies dyspnea and Denies dyspnea on exertion GI Denies abdominal pain, Denies change in bowel habits, Denies excessive flatus, Denies nausea and Denies vomiting Denies urinary incontinence, Denies urinary hesitancy and Denies urinary urgency Musc Denies abnormal gait, Denies atrophy, Denies deformity and Denies limited range of motion Skin/Breast Denies bleeding lesions, Denies changing lesions and Denies rash Neuro Denies abnormal gait and Denies lack of coordination Physical exam (Primary Care) Vital Signs: Last Vital Signs Pulse 71 04/04/23 13:04 BP 140/92 H 04/04/23 13:04 Pulse Ox 96 04/04/23 13:04 Oxygen Delivery Method Room Air 04/04/23 13:04 BMI result Body Mass Index 34.4 Tobacco/Smoking Status: Tobacco use Status Tobacco use date assessed 01/16/23 04/04/23 13:14 Patient Tobacco Use Status Never used Tobacco 04/04/23 13:14 e-Cigarette/Vaping Use Never Used 04/04/23 13:14 Thrive Assessment: Date of Thrive Assessment Date Thrive assessed 07/25/22 04/04/23 13:14 Eyes General: appearance normal, both eyes and all related structures Eyelids: Yes eyelids normal Conjunctivae: conjunctivae normal Neck Neck: Yes normal visual inspection and Yes supple Resp Effort & Inspection: normal respiratory effort Auscultation: clear to auscultation bilaterally Cardio Jugular venous distension: no JVD Rate: regular rate Rhythm: regular rhythm Heart sounds: S1 normal heart sound present and S2 normal heart sound present Extrem General: Yes full ROM Office Procedures Flu Questionnaire Does the patient have a severe egg allergy?: No Does the patient have severe life threatening allergies?: No Does the patient have a fever or illness today?: No Has the patient ever had Guillain-Renault Syndrome?: No Has the patient ever had any past reaction to a flu shot?: No Results AMB Hemoglobin A1c AMB Hemoglobin A1c 7.7 % Last Edit by DEE Mancera on 04/04/23 13:20 Immunizations flu vacc [id number] 6mos up(PF) 60 mcg(15 mcgx4)/0.5 mL IM syringe Performing Provider: Carolina Mahoney MD Performing Location[facility] Administered by: DEE Mancera on 04/04/23 13:39 Dose Route Admin Location Dispensed Lot Number Expiration Date NDC Senior Project Manager 0.5 mL IM Left Deltoid 0.5 mL [id number] 12/22/23 72286-921-64 [employer] VIS Given Date VIS Provided VIS Publication Date 04/04/23 Single Vaccine 21 Eligibility Eligibility Date Funding Source Not VFC Eligible 04/04/23 Private Results Reviewed Results Reviewed: Laboratory Last Values Hgb A1c (Clinic) 7.7 % (4.0-6.0) H 04/04/23 13:03 Assessment and Plan Assessment & Plan (1) DM2 (diabetes mellitus, type 2): Code(s): E11.9 - Type 2 diabetes mellitus without complications Plan: Continue metformin and insulin. A1c goal is equal or less than 7%. (2) Hyperlipidemia LDL goal <70: Code(s): E78.5 - Hyperlipidemia, unspecified Plan: Continue statins and ezetimibe. LDL goal is less than 70. (3) Mild recurrent major depression: Code(s): F33.0 - Major depressive disorder, recurrent, mild Plan: Continue SSRIs. (4) Essential hypertension: Code(s): I10 - Essential (primary) hypertension Plan: Continue amlodipine and valsartan. Blood pressure goal is equal or less than 130/80. Recheck blood pressure with nurse navigator in 3 weeks. Orders: Orders XR wrist RT 2V Today M25.531 - Pain in right wrist XR elbow RT 2V Today M25.521 - Pain in right elbow Lipid Panel 4 Months E78.5 - Hyperlipidemia, unspecified Comprehensive [place]. Panel Fast 4 Months E78.5 - Hyperlipidemia, unspecified PT Evaluation and Treatment Today M54.31 - Sciatica, right side AMB Hemoglobin A1c Today E11.9 - Type 2 diabetes mellitus without complications Influenza [id number] Immunization Today Z23 - Encounter for immunization Microalbumin, Random (w Creat) 4 Months E11.9 - Type 2 diabetes mellitus without complications Vitamin D 25-OH Total 4 Months E55.9 - Vitamin D deficiency, unspecified Coding Level of Care Code Est Pt Level 4 (51244) Diagnoses DM2 (diabetes mellitus, type 2) E11.9 Hyperlipidemia LDL goal <70 E78.5 Mild recurrent major depression F33.0 Essential hypertension I10 Time Spent (min) 24
[2023-04-04 13:04] VITALS: BP 140/92; PULSE 71; O2SAT 96; BMI 34.4
[2023-04-04 14:03] VITALS: BP 140/90
== END 2023-04-04 13:39 | disposition home or self-care (01) ==
PROVIDERS: PCP Internal Medicine; Visit Provider Internal Medicine
DX: E11.9 Type 2 diabetes mellitus without complications (principal); E78.5 Hyperlipidemia, unspecified; F33.0 Major depressive disorder, recurrent, mild; I10 Essential (primary) hypertension; Z23 Encounter for immunization
CPT/HCPCS: 83036; 90471; 90686; 99214

== ENCOUNTER 2023-04-08 10:25 | Outpatient (REF) | payer MEDICARE, MEDICAID, SELFPAY ==
--- NOTE | ~2023-04-08 | XR_ITS ---
EXAMINATION: XR WRIST, RIGHT CLINICAL INFORMATION: Pain in the right wrist COMPARISON: None available. TECHNIQUE: PA, lateral, and oblique views of the right wrist. FINDINGS: There are changes of degenerative osteoarthritis of the first carpometacarpal joint with soft tissue calcifications, marginal spurring, narrowing of the joint space and subchondral sclerosis. There are mild degenerative changes at the radioulnar junction also. XR/XR wrist RT 2V IMPRESSION: Changes of osteoarthritis of the first carpometacarpal joint on the right
--- NOTE | ~2023-04-08 | XR_ITS ---
EXAMINATION: XR ELBOW, RIGHT CLINICAL INFORMATION: Pain in right elbow COMPARISON: None available. TECHNIQUE: AP, lateral, and oblique views of the right elbow. FINDINGS: There is soft tissue calcification adjacent to the medial epicondyles consistent with medial epicondylitis. There is minimal spurring of the radial head also. There is no fracture or joint effusion seen. XR/XR elbow RT 2V IMPRESSION: Medial epicondylitis on the right
== END 2023-04-08 10:26 | disposition home or self-care (01) ==
LOC: HO.XRAY 10:25
PROVIDERS: PCP Internal Medicine; Visit Provider Internal Medicine
DX: M25.531 Pain in right wrist (principal); M25.521 Pain in right elbow
CPT/HCPCS: 73070; 73100

== ENCOUNTER 2023-04-19 09:53 | Outpatient (REF) | payer MEDICARE, MEDICAID, SELFPAY ==
--- NOTE | ~2023-04-19 | XR_ITS ---
EXAMINATION: XR HIP, LEFT CLINICAL INFORMATION: Pain in left hip COMPARISON: KUB 12/09/2017 TECHNIQUE: Two views of the left hip. FINDINGS: Mild degenerative changes in the left hip with joint space narrowing and hypertrophic change. Rounded pelvic calcifications redemonstrated, likely vascular. Alignment preserved. XR/XR hip LT min 2V IMPRESSION: Mild degenerative changes in the left hip. Additional imaging with CT scan or MRI should be considered for better visualization as these modalities are much more sensitive for detection of fracture or other underlying pathology.
== END 2023-04-19 09:54 | disposition home or self-care (01) ==
LOC: HO.XRAY 09:53
PROVIDERS: PCP Internal Medicine; Visit Provider Internal Medicine
DX: M25.552 Pain in left hip (principal)
CPT/HCPCS: 73502

== ENCOUNTER 2023-05-23 14:49 | Outpatient (AMB) | payer MEDICARE, MEDICAID, SELFPAY ==
--- NOTE | 2023-05-23 14:52 | A.OFFVIS_ITS ---
Intake Vital Signs 05/23/23 14:53 Height 5 ft 3 in Weight 195 lb BMI 34.5 BP 152/76 H Blood Pressure Location Lt brachial Position Sitting Pulse 68 Intake Visit Reasons: 6 month fu Intake Note: Patient presents to in office 6 months follow up. CC: Patient reports having constipation, abdominal bloating, and LUQ abd inflammation when constipated. Patient states that MOM helps her have BMs but small ones. Denies other GI symptoms. Studio Artist Required: Yes Accompanied by: Self / Same As Patient Allergies penicillin G [Penicillin G] Allergy (Severe, Verified 05/23/23 14:55) RASH,SWELLING atorvastatin Allergy (Intermediate, Verified 05/23/23 14:55) myalgia, muscle cramps latex [LATEX] Allergy (Intermediate, Verified 05/23/23 14:55) ITCHY,SKIN TEARS simvastatin Allergy (Intermediate, Verified 05/23/23 14:55) sedation HPI 6 month fu HPI Details Assessment & Plan (1) GERD (gastroesophageal reflux diseas e): Code(s): K21.9 - Gastro-esophageal reflux disease without esophagitis Plan: [place]ian #Lopez, Mazin She continues on biscodyl and MOM although there was some confusion about what laxative did not sit well with her (? senna). She is happy with this. The TSH I wanted last visit was not obtained, given her new onset CIC we will re order this. She continues to avoid lactose. She also continues on protonix 40mg qd and bentyl. She asks me why do I keep losing wt even if I am not dieting? This is a big multifactorial question. She is NOT on any of the newer NIDDM meds that promote wt loss, she is on metformin and lantus. She says her diabetes is well controlled. She is active with housework etc all day long. She is down 3 lbs since the past few months. I encouraged her to continue to work with her primary care provider on this but it may just be that she is eating better and exercising The roid cream helped her very well. ROV in 6 months (2) Lactose intolerance: Code(s): E73.9 - Lactose intolerance, unspecified (3) Constipation: Code(s): K59.00 - Constipation, unspecified Orders: Orders TSH reflex Free T4 Today K59.00 - Constipation, unspecified Medications: New magnesium hydroxide (Milk of Magnesia) 5 mL PO BEDTIME 355 mL 6RF bisacodyl 10 mg (2 x 5 mg) PO BEDTIME 60 tabs 6RF Refilled dicyclomine 20 mg (2 x 10 mg) PO QID PRN 240 caps 1R F for cramps hydrocortisone 2.5% (Proctosol HC) 1 appl MI BID PRN 30 grams 3RF hemorrho ids Discontinued docusate sodium Discontinued Reason: Doctor's Order 100 mg PO QPM 30 caps 6RF TODAY'S VISIT Panamanian #[id number] Efra She says she is doing much better with the constipation utilizing bisacodyl and milk of magnesia along with dicyclomine for occasional cramping. She also continues on her pantoprazole with good control of her GERD. With this she is happy with her GI regimen. She has no new health problems to report. Her last colonoscopy was in 2018 and since she has no family history of colon cancer or polyps we can repeat this in 10 years or 2028. Return office visit in 6 months. [facility] Medical History DM2 (diabetes mellitus, type 2) Physical exam Mild recurrent major depression Mild asthma Obesity due to excess calories Diarrhea Diabetes mellitus with hyperglycemia Hyperlipidemia LDL goal <100 Essential hypertension Knee osteoarthritis Surgical History (Updated 05/23/23 @ 16:17 by JOSE FRANCISCO Bradley) S/P excision of lipoma (01/03/23) History of excision of lesion (05/09/17) History of surgery on right wrist (01/31/16) History of phacoemulsification of cataract of right eye with intraocular lens implantation History of phacoemulsification of cataract of left eye with intraocular lens implantation Hx of colonoscopy Hx of cholecystectomy (05/09/17) History of left knee replacement Hx of section Family History Father Ischemic cardiomyopathy CVD (cardiovascular disease) Mother No problems noted. Brother Diabetes Social History (Reviewed 05/23/23 @ 15:04 by Jered Wilson CCMAlicia Household Members: Children Housing: Apartment Alcohol intake: never Patient Tobacco Use Status: Never used Tobacco e-Cigarette/Vaping Use: Never Used Second Hand Smoke Exposure: No service: No Current occupational status: disabled Cognitive needs: Yes Hearing needs: No Vision needs: Yes Review of Systems Const Denies fatigue, Denies fever(s), Denies night sweats, Denies poor appetite and Denies weight loss Eyes Details: glasses Reports requires corrective lenses ENT Reports Normal hearing present, Denies dental pain, Denies dysphagia, Denies hearing loss, Denies mouth pain, Denies odynophagia, Denies throat swelling, Denies tongue swelling and Reports other (Dentition adequate) Card Reports no additional complaints Resp Reports no additional complaints GI Denies abdominal pain, Denies melena, Reports bloating, Denies hematochezia, Reports constipation, Denies GI cramping, Denies dysphagia, Denies excessive flatus, Denies early satiety, Reports heartburn, Denies diarrhea, Denies nausea, Denies odynophagia, Denies vomiting and Denies hematemesis Skin/Breast Denies pruritus, Denies lesions, Denies rash and Denies jaundice Neuro Reports Normal hearing present and Denies Abnormal speech present Endo Denies fatigue Aller/Immun Denies throat swelling and Denies tongue swelling Physical Exam Vital Signs: Last Vital Signs Pulse 68 05/23/23 14:53 BP 152/76 H 05/23/23 14:53 BMI result Body Mass Index 34.5 Const General: cooperative, no acute distress, well developed and well groomed Nutritional Appearance: well nourished and obese Orientation/consciousness: oriented to person, oriented to place and oriented to time Limitations: language barrier HEENT Head: Yes normocephalic and Yes atraumatic Eyes General: appearance normal, both eyes and all related structures Pupils: Equal, round and reactive pupils present Neck Neck: Yes normal visual inspection and Yes no lymphadenopathy Thyroid: Thyroid normal Resp Effort & Inspection: normal respiratory effort and able to speak in complete sentences Auscultation: clear to auscultation bilaterally Cardio Rate: regular rate Rhythm: regular rhythm Heart sounds: Normal, physiologic split S2 sound present Peripheral pulses: radial pulses present and posterior tibial pulses present GI Inspection: No distended, No Abdominal panniculus present and Yes obesity Palpation (GI): Soft to palpation, nontender, no guarding, not rigid and No hepatosplenomegaly present Percussion: Yes normal to percussion Auscultation: normal bowel sounds Rectal Exam - Female: deferred Skin General skin exam: no rashes or lesions noted, turgor normal, skin not dry, no jaundice, No spider nevi and no striae Rashes: no rashes Nails: normal Neuro General: oriented to person, oriented to place and oriented to time Cranial nerves: Yes Equal, round and reactive pupils present and Yes Normal hearing present Speech: No Abnormal speech present Extrem General: Yes normal to inspection, No clubbing, No cyanosis and No edema Psych Appearance: grossly normal and well kempt Mental Status: mental status grossly normal Speech and movement: Normal speech and movement present Affect: normal affect Attitude: cooperative Thought process: Normal thought process present and not confabulating Thought content: Normal thought content present Insight: Limited insight present (Psych) Judgement: Limited judgement present (Psych) Assessment & Plan Assessment & Plan (1) GERD (gastroesophageal reflux disease): Code(s): K21.9 - Gastro-esophageal reflux disease without esophagitis (2) Lactose intolerance: Code(s): E73.9 - Lactose intolerance, unspecified (3) Constipation: Code(s): K59.00 - Constipation, unspecified Plan Pan[place]ian #[id number] Efra She says she is doing much better with the constipation utilizing bisacodyl and milk of magnesia along with dicyclomine for occasional cramping. She also continues on her pantoprazole with good control of her GERD. With this she is happy with her GI regimen. She has no new health problems to report. Her last colonoscopy was in 2019 and since she has no family history of colon cancer or polyps we can repeat this in 10 years or 2028. Return office visit in 6 months. Medications: Refilled bisacodyl 10 mg (2 x 5 mg) PO BEDTIME 60 tabs 6RF dicyclomine 20 mg (2 x 10 mg) PO QID PRN 240 caps 1RF for cramps magnesium hydroxide (Milk of Magnesia) 5 mL PO BEDTIME 355 mL 6RF pantoprazole 40 mg PO QAM 30 tabs 6RF K21.9 - Gastro-esophageal reflux disease without esophagitis Coding Level of Care Code Est Pt Level 3 (51242) Diagnoses GERD (gastroesophageal reflux disease) K21.9 Lactose intolerance E73.9 Constipation K59.00
[2023-05-23 14:53] VITALS: BP 152/76; PULSE 68; BMI 34.5
== END 2023-05-23 16:19 | disposition home or self-care (01) ==
PROVIDERS: Visit Provider Nurse Practitioner
DX: K21.9 Gastro-esophageal reflux disease without esophagitis (principal); E73.9 Lactose intolerance, unspecified; K59.00 Constipation, unspecified
CPT/HCPCS: 99213

== ENCOUNTER → 2023-05-23 14:49 | Outpatient (BNVA) | payer MEDICARE, MEDICAID, SELFPAY | PROVIDERS: Visit Provider Nurse Practitioner | DX: K21.9 Gastro-esophageal reflux disease without esophagitis (principal); K59.00 Constipation, unspecified; E73.9 Lactose intolerance, unspecified | CPT/HCPCS: 99212 ==

== ENCOUNTER 2023-06-10 13:11 | Outpatient (AMB) | payer MEDICARE, MEDICAID, SELFPAY ==
--- NOTE | 2023-06-10 13:19 | MHC.OFFVIS ---
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 She is doing well with no concerns. Attempting to eat a healthy diet with calcium and vitamin D and stays active with exercise. Currently not sexually active. Denies any vaginal dryness or irritation. Last mammogram; August 2022, BI-RADS 1. Pap 2019. Colonoscopy is UTD. Denies any family history of breast, ovarian or colon cancer. [facility] Medical History DM2 (diabetes mellitus, type 2) Physical exam Mild recurrent major depression Mild asthma Obesity due to excess calories Diarrhea Diabetes mellitus with hyperglycemia Hyperlipidemia LDL goal <100 Essential hypertension Knee osteoarthritis Surgical History S/P excision of lipoma (01/03/23) History of excision of lesion (05/09/17) History of surgery on right wrist (01/31/16) History of phacoemulsification of cataract of right eye with intraocular lens implantation History of phacoemulsification of cataract of left eye with intraocular lens implantation Hx of colonoscopy Hx of cholecystectomy (05/09/17) History of left knee replacement Hx of section Family History Father Ischemic cardiomyopathy CVD (cardiovascular disease) Mother No problems noted. Brother Diabetes Social History Household Members: Children Housing: Apartment Alcohol intake: never Patient Tobacco Use Status: Never used Tobacco e-Cigarette/Vaping Use: Never Used Second Hand Smoke Exposure: No service: No Current occupational status: disabled Cognitive needs: Yes Hearing needs: No Vision needs: Yes Female Reproductive History Menstrual Total pregnancies: 3 Full term: 3 Number of Living Children: 3 Date of last pap smear: 04/13/19 (neg pap and hpv) Date of Mammogram: 09/20/22 (Birad 1) Review of Systems Const All systems reviewed & are unremarkable except as noted in HPI and below Reports as per HPI Eyes Reports no additional complaints ENT Reports no additional complaints Card Reports no additional complaints Resp Reports no additional complaints GI Reports as per HPI and Reports no additional complaints Reports as per HPI Musc Reports no additional complaints Skin/Breast Reports as per HPI Neuro Reports no additional complaints Psych Reports no additional complaints Endo Reports no additional complaints Shaan/Lymph Reports no additional complaints Aller/Immun Reports no additional complaints Physical Exam Vital Signs: Last Vital Signs BP 110/78 06/10/23 13:21 BMI result Body Mass Index 34.7 Const General: cooperative, healthy appearing, no acute distress, well developed and alert Orientation/consciousness: patient oriented x3 HEENT Head: Yes normal to inspection Eyes General: appearance normal, both eyes and all related structures Neck Neck: Yes normal visual inspection Thyroid: Thyroid normal Chest Chest palpation & inspection: normal inspection of the chest and other (no puckering, dimpling, peau de orange, retraction, discharge, masses) Breast/axilla inspection: normal inspection of the breasts Breast/axilla palpation: normal palpation of the breasts Resp Effort & Inspection: normal respiratory effort GI Inspection: Yes normal to inspection and Yes scar Palpation (GI): Soft to palpation Rectal Exam - Female: deferred General: Yes bladder normal to palpation External Female Exam: normal external appearance and normal appearance of the urethra Speculum Exam - Vagina: normal appearance of the vagina, normal palpation and normal vaginal discharge Speculum Exam - Cervix: normal appearance of the cervix and normal palpation Bimanual exam- vagina & uterus: normal bimanual exam, normal palpation, uterine size normal, bladder normal to palpation, normal palpation and non-tender Bimanual Exam- Adnexa, other: no masses Skin General skin exam: no rashes or lesions noted Rashes: no rashes Neuro General: patient oriented x3 Cognition (Neuro): normal cognition Extrem General: Yes normal to inspection Psych Attitude: cooperative Thought process: Normal thought process present Assessment & Plan Assessment & Plan (1) Encounter for well woman exam with routine gynecological exam: Code(s): Z01.419 - Encounter for gynecological examination (general) (routine) without abnormal findings Plan Discussed: Current recommendations for pap smears per ASCCP guidelines. Breast awareness, periodic self breast exams and yearly mammogram. Maintain a healthy lifestyle, well balanced diet including Calcium 1,200 mg and Vitamin D 600 IU daily, and routine exercise. Contact the office with any postmenopausal bleeding. All of her questions and concerns were addressed to the best of my ability. RTO in 1 year for annual gynecology teacher exam. This note is constructed using voice recognition software. While every effort has been made to ensure accuracy, business technology architect errors may have been included. Coding Level of Care Code Est Pt Prev Care >65y(37284) Diagnoses Encounter for well woman exam with routine gynecological exam Z01.419
--- NOTE | 2023-06-10 13:19 | MHC.OFFVIS ---
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 Instrument Inspector Required: Yes Bookbinder Apprentice Language: Optical Instrument Inspector Name: Neris Information Interpreted: non-clinical & clinical Research And Development Technician: Research And Development Technician Present (Neris) Allergies penicillin G [Penicillin G] Allergy (Severe, Verified 06/10/23 13:21) RASH,SWELLING atorvastatin Allergy (Intermediate, Verified 06/10/23 13:21) myalgia, muscle cramps latex [LATEX] Allergy (Intermediate, Verified 06/10/23 13:21) ITCHY,SKIN TEARS simvastatin Allergy (Intermediate, Verified 06/10/23 13:21) sedation PFSH Medical History DM2 (diabetes mellitus, type 2) Physical exam Mild recurrent major depression Mild asthma Obesity due to excess calories Diarrhea Diabetes mellitus with hyperglycemia Hyperlipidemia LDL goal <100 Essential hypertension Knee osteoarthritis Surgical History S/P excision of lipoma (01/03/23) History of excision of lesion (05/09/17) History of surgery on right wrist (01/31/16) History of phacoemulsification of cataract of right eye with intraocular lens implantation History of phacoemulsification of cataract of left eye with intraocular lens implantation Hx of colonoscopy Hx of cholecystectomy (05/09/17) History of left knee replacement Hx of section Family History Father Ischemic cardiomyopathy CVD (cardiovascular disease) Mother No problems noted. Brother Diabetes Social History Household Members: Children Housing: Apartment Alcohol intake: never Patient Tobacco Use Status: Never used Tobacco e-Cigarette/Vaping Use: Never Used Second Hand Smoke Exposure: No service: No Current occupational status: disabled Cognitive needs: Yes Hearing needs: No Vision needs: Yes Female Reproductive History Menstrual Total pregnancies: 3 Full term: 3 Number of Living Children: 3 Date of last pap smear: 04/13/19 (neg pap and hpv) Date of Mammogram: 09/20/22 (Birad 1) Coding
[2023-06-10 13:21] VITALS: BP 110/78; BMI 34.7
== END 2023-06-10 13:50 | disposition home or self-care (01) ==
PROVIDERS: PCP Internal Medicine; Visit Provider Advanced Practice Midwife
DX: Z01.419 Encounter for gynecological examination (general) (routine) without abnormal findings (principal)
CPT/HCPCS: G0101

== ENCOUNTER → 2023-06-10 13:11 | Outpatient (BNVA) | payer MEDICARE, MEDICAID, SELFPAY | PROVIDERS: PCP Internal Medicine; Visit Provider Advanced Practice Midwife | DX: Z01.419 Encounter for gynecological examination (general) (routine) without abnormal findings (principal) | CPT/HCPCS: G0101 ==

== ENCOUNTER 2023-08-05 13:16 | Outpatient (AMB) | payer MEDICARE, MEDICAID, SELFPAY ==
[2023-08-05 13:23] VITALS: BP 130/90; BMI 33.7
--- NOTE | 2023-08-05 13:23 | A.OFFPC_ITS ---
Vital Signs 08/05/23 13:23 Height 5 ft 3 in Weight 190 lb BMI 33.7 BP 130/90 H Blood Pressure Location Lt brachial Position Sitting Intake Visit Reasons: Annual exam Intake Note: Patient here for an annual physical exam, c/o constipation Set Key Driver Required: No Accompanied by: Spouse Allergies penicillin G [Penicillin G] Allergy (Severe, Verified 08/05/23 13:34) RASH,SWELLING atorvastatin Allergy (Intermediate, Verified 08/05/23 13:34) myalgia, muscle cramps latex [LATEX] Allergy (Intermediate, Verified 08/05/23 13:34) ITCHY,SKIN TEARS simvastatin Allergy (Intermediate, Verified 08/05/23 13:34) sedation Medication List - Last Reconciled 08/05/23 by Carolina Mahoney MD albuterol sulfate 90 mcg/actuation 1 puff PO Q4H PRN 30 days alcohol swabs (Alcohol Prep Pads) 1 pad topical DAILY amlodipine 10 mg PO DAILY aspirin 81 mg PO BEDTIME bisacodyl 10 mg (2 x 5 mg) PO BEDTIME blood sugar diagnostic (FreeStyle Lite Strips) As directed twice a day blood sugar diagnostic (FreeStyle Lite Strips) 1 strip miscellaneous QID 30 days blood-glucose meter (FreeStyle Lite Meter kit) As directed 2 times a day tzliycnaoy-euwmensvqierx-wfwz 50-325-40 mg 1 tab PO ONCE PRN 90 days cholecalciferol (vitamin D3) 50 mcg PO DAILY 90 days clonazepam 1 mg PO BID PRN clotrimazole 1% 1 appl topical BID [diabetic sandals As directed] [diabetic shoes with inserts with template As directed] [diabetic sneakers As directed] diclofenac sodium 75 mg PO BID dicyclomine 20 mg (2 x 10 mg) PO QID PRN ezetimibe 10 mg PO DAILY fluticasone furoate 100 mcg/actuation (Arnuity Ellipta) 1 inh inhalation DAILY fluticasone propionate 50 mcg/actuation (Flonase Allergy Relief) 1 spray intranasal BID 30 days hydrocortisone 2.5% 1 appl IN BID PRN insulin glargine (Lantus Solostar U-100 Insulin) 25 units (0.25 mL) subcut DAILY 90 days lancets (TRUEplus Lancets) 1 gauge miscellaneous TID 30 days loratadine (Allergy Relief (loratadine)) 10 mg PO DAILY 14 days magnesium hydroxide (Milk of Magnesia) 5 mL PO BEDTIME metformin 1,000 mg (2 x 500 mg) PO BID miconazole nitrate 2% 1 appl topical DAILY PRN 30 days montelukast 10 mg PO QPM oxycodone-acetaminophen 5-325 mg 1 tab PO Q6H PRN 30 days pantoprazole 40 mg PO QAM peg [id number] 1-0.2-0.2 % drps ophthalmic (eye) DAILY PRN pen needle, diabetic As directed rosuvastatin 40 mg PO DAILY 90 days sertraline 200 mg PO QAM valsartan 160 mg PO BEDTIME zolpidem 10 mg PO BEDTIME PRN Tobacco use date assessed: 08/05/23 Fall risk assessment: No Falls in past year Last assessed Fall Risk: 08/05/23 Dental Screening Dental Screen Date: 08/05/23 Did you have a dental visit in the last 12 months?: No Did you have a dental problem in the last 6 months where you did not have access to dental care?: No Was dental information given to patient?: Patient has dentist HPI HPI Comments History of Present Illness Details This is a 68-year-old female with mild recurrent major depression and diabetes mellitus type 2 on long-term current use of insulin that comes for her physical exam accompanied by . A1c elevated and I will increase Lantus. Depression stable with medications. Last mammogram was August 2022. Last colonoscopy was 2019 and gastroenterology wanted to repeated in 7 years. No need for Pap smear due to age. Complains of right elbow pain due to medial epicondylitis and would like to see ortho. [facility] Medical History (Updated 08/05/23 @ 13:53 by Carolina Mahoney MD) DM2 (diabetes mellitus, type 2) Physical exam Mild recurrent major depression Mild asthma Obesity due to excess calories Diarrhea Diabetes mellitus with hyperglycemia Hyperlipidemia LDL goal <100 Essential hypertension Knee osteoarthritis Surgical History S/P excision of lipoma (01/03/23) History of excision of lesion (05/09/17) History of surgery on right wrist (01/31/16) History of phacoemulsification of cataract of right eye with intraocular lens implantation History of phacoemulsification of cataract of left eye with intraocular lens implantation Hx of colonoscopy Hx of cholecystectomy (05/09/17) History of left knee replacement Hx of section Family History Father Ischemic cardiomyopathy CVD (cardiovascular disease) Mother No problems noted. Brother Diabetes Social History Household Members: Children Housing: Apartment Alcohol intake: never Patient Tobacco Use Status: Never used Tobacco e-Cigarette/Vaping Use: Never Used Second Hand Smoke Exposure: No service: No Current occupational status: disabled Cognitive needs: Yes Hearing needs: No Vision needs: Yes Questionnaire PHQ-9 Over the last 2 weeks, how often have you been bothered by any of the following problems? 1. Little interest or pleasure in doing things: not at all 2. Feeling down, depressed, or hopeless: several days 3. Trouble falling or staying asleep, or sleeping too much: not at all 4. Feeling tired or having little energy: not at all 5. Poor appetite or overeating: several days 6. Feeling bad about yourself - or that you are a failure or have let yourself or your family down: not at all 7. Trouble concentrating on things, such as reading the newspaper or watching television: not at all 8. Moving or speaking so slowly that other people could have noticed. Or the opposite - being so fidgety or restless that you have been moving around a lot more than usual: not at all 9. Thoughts that you would be better off or of hurting yourself in some way: not at all Total score: 2 Depression Screening Interpretation: Negative Depression Screening Done: Yes 30676 - PHQ-9 Billing: Yes Source: Developed by Drs. Haroon Valencia, Colleen Tam, Jose Guadalupe Castellanos and colleagues, with an educational varinder from [employer]. Thrive Questionnaire Date Thrive assessed: 07/25/22 ROBERTA-7 AMB Questionnaire ROBERTA-7 Date ROBERTA - 7 assessed: 08/05/23 Feeling nervous, anxious, or on edge: 1 = Several days Not being able to stop or control worryin = Not at all Worrying too much about different things: 1 = Several days Trouble relaxin = Not at all Being so restless that it is hard to sit still: 0 = Not at all Becoming easily annoyed or irritable: 1 = Several days Feeling afraid as if something awful might happen: 1 = Several days Total ROBERTA-7 score (0-4 normal; 5-9 mild; 10-14 moderate; 15-21 severe): 4 Source: Developed by Drs. Haroon Valencia, Colleen Tam, Jose Guadalupe Castellanos and colleagues, with an educational varinder from [employer]. ROBERTA-7 Assessment Billing ROBERTA-7 Assessment Tool: ROBERTA-7 Assessment 87261 Review of Systems Const All systems reviewed & are unremarkable except as noted in HPI and below Eyes Reports no additional complaints, Denies change in vision and Denies other visual disturbances Card Denies chest pain at rest, Denies chest pain with activity, Denies edema, Denies irregular heart rhythm, Denies claudication, Denies dyspnea, Denies dyspnea on exertion, Denies orthopnea, Denies paroxysmal nocturnal dyspnea and Denies slow heart rate Resp Denies cough, Denies dyspnea and Denies dyspnea on exertion GI Denies abdominal pain, Denies change in bowel habits, Denies excessive flatus, Denies nausea and Denies vomiting Denies urinary incontinence, Denies urinary hesitancy and Denies urinary urgency Musc Denies abnormal gait, Denies atrophy, Denies deformity and Denies limited range of motion Skin/Breast Denies bleeding lesions, Denies changing lesions and Denies rash Neuro Denies abnormal gait, Denies behavioral changes, Denies confusion and Denies lack of coordination Psych Denies behavioral changes and Denies confusion Physical exam (Primary Care) Vital Signs: Last Vital Signs BP 130/90 H 08/05/23 13:23 BMI result Body Mass Index 33.7 Tobacco/Smoking Status: Tobacco use Status Tobacco use date assessed 08/05/23 08/05/23 13:28 Patient Tobacco Use Status Never used Tobacco 08/05/23 13:28 e-Cigarette/Vaping Use Never Used 08/05/23 13:28 PHQ-9: PHQ-9 Score PHQ-9: Total score 2 08/05/23 13:28 Depression Screening Interpretation: Negative Thrive Assessment: Date of Thrive Assessment Date Thrive assessed 07/25/22 08/05/23 13:28 Const General: No confusion Orientation/consciousness: patient oriented x3 and No confusion HENMT Head: Yes normal to inspection, Yes normocephalic and Yes atraumatic Ears: external ears normal Eyes General: appearance normal, both eyes and all related structures Eyelids: Yes eyelids normal Conjunctivae: conjunctivae normal Neck Neck: Yes normal visual inspection and Yes supple Resp Effort & Inspection: normal respiratory effort Auscultation: clear to auscultation bilaterally Cardio Jugular venous distension: no JVD Rate: regular rate Rhythm: regular rhythm Heart sounds: S1 normal heart sound present and S2 normal heart sound present GI Inspection: Yes normal to inspection Palpation (GI): Soft to palpation and nontender Auscultation: normal bowel sounds Skin General skin exam: no rashes or lesions noted Neuro General: patient oriented x3, no focal motor deficits and No confusion Extrem General: Yes full ROM Psych Appearance: grossly normal Results AMB Hemoglobin A1c AMB Hemoglobin A1c 7.4 % Last Edit by DEE Mancera on 08/05/23 13:3 0 Results Reviewed Results Reviewed: Laboratory Last Values Hgb A1c (Clinic) 7.4 % (4.0-6.0) H 08/05/23 13:29 Assessment and Plan Assessment & Plan (1) Physical exam: Code(s): Z00.00 - Encounter for general adult medical examination without abnormal findings Plan: Repeat in a year. (2) Mild recurrent major depression: Code(s): F33.0 - Major depressive disorder, recurrent, mild Plan: Continue SSRIs. 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 A1c goal is equal or less than 7%. 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 To insulin glargine (Lantus Solostar U-100 Insulin) 28 units (0.28 mL) subcut DAILY 90 days 25.2 mL 3RF E11.65 - Type 2 diabetes mellitus with hyperglycemia, 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
== END 2023-08-05 13:48 | disposition home or self-care (01) ==
PROVIDERS: Visit Provider Internal Medicine
DX: Z00.00 Encounter for general adult medical examination without abnormal findings (principal); F33.0 Major depressive disorder, recurrent, mild; E11.65 Type 2 diabetes mellitus with hyperglycemia; Z79.4 Long term (current) use of insulin
CPT/HCPCS: 83036; 99397

== ENCOUNTER 2023-09-12 08:45 | Outpatient (AMB) | payer MEDICARE, MEDICAID, SELFPAY ==
[2023-09-12 09:07] VITALS: BMI 34.4
--- NOTE | 2023-09-12 09:07 | A.OFFVIS_ITS ---
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 States she has had pain for the last 2-3 months and has been constant with no improvement. States its worse in cold weather, not able to lift anything heavy, and pain increase with over use of elbow. At times she has a sharp shooting down her arm. Denies any recent falls, injury to elbow, or past treatment. Allergies penicillin G [Penicillin G] Allergy (Severe, Verified 09/12/23 09:10) RASH,SWELLING atorvastatin Allergy (Intermediate, Verified 09/12/23 09:10) myalgia, muscle cramps latex [LATEX] Allergy (Intermediate, Verified 09/12/23 09:10) ITCHY,SKIN TEARS simvastatin Allergy (Intermediate, Verified 09/12/23 09:10) sedation HPI HPI Comments History of Present Illness Details 2-3 months of right elbow pain. Right rondon nded. On disability. House duties. Points to lateral epicondyle, says it swells 2-3 times a week, feels like electricity. No fever. Denies redness. Admits to nighttime numbness on right hand. Tends to drop things. Noticed on EMR that she had xray done in March 2023 showing calcification medial epicondyle right. Treatment done so far: NSAIDs No brace or therapy yet. [facility] Medical History DM2 (diabetes mellitus, type 2) Physical exam Mild recurrent major depression Mild asthma Obesity due to excess calories Diarrhea Diabetes mellitus with hyperglycemia Hyperlipidemia LDL goal <100 Essential hypertension Knee osteoarthritis Surgical History S/P excision of lipoma (01/03/23) History of excision of lesion (05/09/17) History of surgery on right wrist (01/31/16) History of phacoemulsification of cataract of right eye with intraocular lens implantation History of phacoemulsification of cataract of left eye with intraocular lens implantation Hx of colonoscopy Hx of cholecystectomy (05/09/17) History of left knee replacement Hx of section Family History Father Ischemic cardiomyopathy CVD (cardiovascular disease) Mother No problems noted. 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 MSK: Inspection reveals appropriate head and neck positioning. No pain with palpation over the neck musculature. Cervical ROM was full. Spurling's sign negative. Bilateral shoulder ROM WNL. No ligamentous laxity or crepitance. No increased effusion. Hawkin's test is negative. No intrinsic hand weakness noted. No atrophy noted. Annette test negative. Carpal compression test positive right. Tinel sign negative. Tender along the right common extensor tendons proximal to the lateral epicondyle. No effusion or swelling. Increased pain on lateral epicondyle with resisted wrist extension. Tender along the right common flexor tendons proximal to the medial epicondyle. No effusion or swelling. Increased pain on medial epicondyle with resisted wrist flexion. Strength is 5/5 in all muscle groups tested. No increased tone noted. Neurological: Neurologic examination of the upper and lower extremities was nonfocal with intact sensation, muscle stretch reflexes and without focal motor deficits . Garcia?s negative bilaterally. Gait is non-antalgic without loss of balance. Results Reviewed Results Reviewed: I independently reviewed the results of the following: xray done in March 2023 showing calcification medial epicondyle r I reviewed records from the following: PCP Assessment & Plan Assessment & Plan (1) Right elbow pain: Code(s): M25.521 - Pain in right elbow (2) Medial epicondylitis of right elbow: Code(s): M77.01 - Medial epicondylitis, right elbow (3) Numbness of right hand: Code(s): R20.0 - Anesthesia of skin (4) Left hip pain: Code(s): M25.552 - Pain in left hip Plan Right recurrent chronic elbow pain, with signs of both medial and lateral epicondylitis. No signs of infection on exam today. Will resend for elbow xray today because findings from last March only showed in medial area, there were no findings laterally where she has more pain nowadays. Advised to use counterforce brace daily. Will refer to OT. Will also schedule for EMG to rule out ulnar neuropathy. She mentions left hip/groin pain. She wants to be seen for this on next appointment. Will send for left hip xray today to rule out DJD. Assessment and plan discussed with patient, and patient was agreeable. All questions were answered thoroughly. Ella Sabillon MD, JOSHUA Board Certified, [place] Board [employer] and Rehabilitation (ABPMR) Board Certified, [place] Board of Electrodiagnostic Medicine (ABEM) Orders: Orders XR elbow RT 2V Today M25.521 - Pain in right elbow OT Evaluation and Treatment Today M77.01 - Medial epicondylitis, right elbow, M77.11 - Lateral epicondylitis, right elbow XR hip LT min 2V Today M25.552 - Pain in left hip NE electromyogram (EMG) Today M77.01 - Medial epicondylitis, right elbow, M77.11 - Lateral epicondylitis, right elbow, R20.0 - Anesthesia of skin NE nerve conduction velocity Today M77.01 - Medial epicondylitis, right elbow, M77.11 - Lateral epicondylitis, right elbow, R20.0 - Anesthesia of skin Coding Level of Care Code New Pt Level 4 (74855) Diagnoses Right elbow pain M25.521 Medial epicondylitis of right elbow M77.01 Numbness of right hand R20.0 Left hip pain M25.552
== END 2023-09-12 09:36 | disposition home or self-care (01) ==
PROVIDERS: PCP Internal Medicine; Visit Provider Physical Medicine & Rehabilitation
DX: M25.521 Pain in right elbow (principal); M77.01 Medial epicondylitis, right elbow; R20.0 Anesthesia of skin; M25.552 Pain in left hip
CPT/HCPCS: 99204

== ENCOUNTER 2023-09-12 08:45 | Outpatient (REF) | payer MEDICARE, MEDICAID, SELFPAY ==
--- NOTE | ~2023-09-12 | XR_ITS ---
EXAMINATION: XR ELBOW, RIGHT CLINICAL INFORMATION: Pain COMPARISON: 04/08/2023 TECHNIQUE: AP, lateral, and oblique views of the right elbow. FINDINGS: There is persistent spurring causing medial epicondyles on the right consistent with medial epicondylitis there is minimal spurring of the radial head is well there is no joint effusion seen. XR/XR elbow RT 2V IMPRESSION: Medial epicondylitis and degenerative changes at the radial head. No acute abnormalities
--- NOTE | ~2023-09-12 | XR_ITS ---
EXAMINATION: XR HIP, LEFT CLINICAL INFORMATION: Left hip pain COMPARISON: 04/19/2023 TECHNIQUE: Two views of the left hip. FINDINGS: No fracture. Alignment is anatomic. Hip joint space is maintained. There is mild changes of enthesopathy in the greater trochanter Soft tissues are unremarkable. XR/XR hip LT min 2V IMPRESSION: No interval change
== END 2023-09-12 08:46 | disposition home or self-care (01) ==
LOC: HO.HOSX 08:45
PROVIDERS: PCP Internal Medicine; Visit Provider Physical Medicine & Rehabilitation
DX: M25.521 Pain in right elbow (principal); M77.01 Medial epicondylitis, right elbow; R20.0 Anesthesia of skin; M25.552 Pain in left hip
CPT/HCPCS: 73070; 73502; 99202

== ENCOUNTER → 2023-09-26 11:30 | Outpatient (BNV) | payer MEDICARE, MEDICAID, SELFPAY | PROVIDERS: PCP Internal Medicine; Visit Provider Radiology Diagnostic Radiology | DX: Z12.31 Encounter for screening mammogram for malignant neoplasm of breast (principal) | CPT/HCPCS: 77063; 77067 ==

== ENCOUNTER 2023-09-26 11:33 | Outpatient (REF) | payer MEDICARE, MEDICAID, SELFPAY ==
--- NOTE | ~2023-09-26 | MM_ITS ---
EXAMINATION: BONE DENSITOMETRY CLINICAL INDICATION: Unspecified menopausal and perimenopausal disorder. COMPARISON: Previous BD dated 01/03/2018 and baseline BD dated 08/02/2009. TECHNIQUE: Using a [employer] DXA System (software version: 13.1) manufactured by [employer], dual-energy x-ray absorptiometry was performed of the lumbar spine and left hip. The images are of good technical quality. Summary results are attached. FINDINGS: LEFT FEMUR, NECK: Current: BMD 0.953 g/cm2, Z-score 0.2, T-score -0.6, normal. Prior: BMD 0.985 g/cm2. Baseline: BMD 1.105 g/cm2. LEFT FEMUR, TOTAL: Current: BMD 1.004 g/cm2, Z-score 0.5, T-score 0.0, normal, 6.9% decrease from previous, 18.2% decrease from baseline (<5% change is not significant). Prior: BMD 1.078 g/cm2. Baseline: BMD 1.228 g/cm2. AP SPINE L1-L4: Current: BMD 1.272 g/cm2, Z-score 1.2, T-score 0.8, normal, 0.7% decrease from previous, 15.4% increase from baseline (<5% change is not significant). Prior: BMD 1.281 g/cm2. Baseline: BMD 1.102 g/cm2. IDENTIFIED RISK FACTORS: Menopause, glucocorticoids. HISTORY OF FRACTURE: None listed. MEDICATIONS: Vitamin D. MM/XR DEXA axial skeleton IMPRESSION: 1. DIAGNOSIS: Normal bone density based on the lowest T-score value of -0.6 in the femoral neck applying World Health Organization criteria. 2. 10-YEAR FRACTURE RISK PREDICTION, FRAX: According to the guidelines, FRAX calculation should only be performed on patients in the osteopenia bone density category. Therefore, FRAX was not performed on this patient. 3. Treatment Recommendations: NOF guidelines recommend consideration for treatment in postmenopausal women and men age 50 and older presenting with the following: -A hip or vertebral (clinical or morphometric) fracture. -T-score less than or equal to -2.5 at the femoral neck or spine after appropriate evaluation to exclude secondary causes. -Low bone mass at the hip or spine and a 10-year fracture probability by FRAX of greater than or equal to 3% for hip fracture or greater than or equal to 20% for major osteoporotic fracture based on the [place] adapted WHO algorithm. 4. Other Recommendations: All treatment decisions require clinical judgment and consideration of individual patient factors, including patient preferences, comorbidities, previous drug use, risk factors not captured in the FRAX model (e.g. frailty, falls, vitamin D deficiency, increased bone turnover, interval significant decline in bone density) and possible under or overestimation of fracture risk by FRAX. FUTURE SCAN RECOMMENDATION: People with diagnosed cases of osteoporosis or at high risk for fracture should have regular bone mineral density tests. For patients eligible for Medicare, routine testing is allowed once every 2 years. The testing frequency can be increased to one year for patients who have rapidly progressing disease, those who are receiving or discontinuing medical therapy to restore bone mass, or have additional risk factors.
--- NOTE | 2023-09-26 12:28 | EMG_ITS ---
Chief complaint: Right elbow pain Reason for referral: Evaluate for ulnar neuropathy Procedure done: Right upper extremity NCS/EMG Precautions and/or limitations: None The limb temperature was monitored continuously and remained between 32-36 degrees C during the performance of the NCS. Ulnar motor NCS was performed with moderate elbow flexion between 70-90 degrees, with across-elbow distance of 10 cm. Nerve Conduction Studies Anti Sensory Summary Table ?Stim Site NR Onset (ms) Norm Onset (ms) Peak (ms) Norm Peak (ms) O-P Amp (?V) Norm O-P Amp Site1 Site2 Delta-0 (ms) Dist (cm) Darius (m/s) Norm Darius (m/s) Right Median Anti Sensory (2nd Digit) Wrist ? 3.2 4.1 <3.6 13.8 >10 Wrist 2nd Digit 3.2 14.0 44 Right Radial Anti Sensory (Thumb) Forearm ? 1.4 2.1 <3.1 19.6 Forearm Thumb 1.4 0.0 Right Ulnar Anti Sensory (5th Digit) Wrist ? 1.9 2.8 <3.7 14.4 >15.0 Wrist 5th Digit 1.9 14.0 74 Motor Summary Table ?Stim Site NR Onset (ms) Norm Onset (ms) O-P Amp (mV) Norm O-P Amp iAmp (mV) Amp (1st) (%) Site1 Site2 Delta-0 (ms) Dist (cm) Darius (m/s) Norm Darius (m/s) Right Median Motor (Abd Poll Brev) Wrist ? 4.4 <3.9 3.9 >4.5 5.0 100.0 Elbow Wrist 3.6 20.0 56 >45 Elbow ? 8.0 3.5 4.6 89.7 Right Ulnar Motor (Abd Dig Minimi) Wrist ? 2.8 <3.0 7.0 >5 9.1 100.0 B Elbow Wrist 3.1 18.5 60 >45 B Elbow ? 5.9 6.1 8.0 87.1 A Elbow B Elbow 1.4 10.0 71 >45 A Elbow ? 7.3 6.2 8.0 88.6 EMG ?Side Muscle Nerve Root Ins Act Fibs Psw Amp Dur Poly Recrt Int Pat Comment Right 1stDorInt Ulnar C8-T1 Nml Nml Nml Nml Nml 0 Nml Complete Right FlexCarRad Median C6-7 Nml Nml Nml Nml Nml 0 Nml Complete Right Biceps Musculocut C5-6 Nml Nml Nml Nml Nml 0 Nml Complete Right Triceps Radial C6-7-8 Nml Nml Nml Nml Nml 0 Nml Complete Right Deltoid Axillary C5-6 Nml Nml Nml Nml Nml 0 Nml Complete FINDINGS: Right median motor nerve showed prolonged distal latency, small amplitude and normal conduction velocity. Right median sensory nerve showed prolonged peak latency. All other nerves tested were within normal. Concentric needle EMG was performed in selected muscles of the right upper extremity. Study did not reveal signs of electric abnormalities as shown in the table below. IMPRESSION: 1. This is an abnormal study. 2. There is electrodiagnostic evidence for right moderate-severe median neuropathy at the wrist, consistent with carpal tunnel syndrome. 3. There is no electrodiagnostic evidence for ulnar neuropathy, brachial plexopathy, or cervical radiculopathy. CLINICAL COMMENT: Elbow pain improving with OT. Continue OT. We will refer to Dr. Huynh for right Carpal Tunnel Syndrome surgery. Thank you for your kind referral. Ella Sabillon MD, JOSHUA Board Certified, [place] Board [employer] Physical Medicine and Rehabilitation (ABPMR) Board Certified, [place] Board of Electrodiagnostic Medicine (ABEM) [place] [id number] [facility]
== END 2023-09-26 11:34 | disposition home or self-care (01) ==
LOC: HO.MAMMO 11:33
PROVIDERS: PCP Internal Medicine; Visit Provider Internal Medicine
DX: M77.11 Lateral epicondylitis, right elbow (principal); M77.01 Medial epicondylitis, right elbow; R20.0 Anesthesia of skin; N95.9 Unspecified menopausal and perimenopausal disorder; N20.0 Calculus of kidney; Z78.0 Asymptomatic menopausal state; Z12.31 Encounter for screening mammogram for malignant neoplasm of breast
CPT/HCPCS: 77063; 77067; 77080; 95886; 95909

== ENCOUNTER → 2023-09-26 12:28 | Outpatient (BNV) | payer MEDICARE, MEDICAID, SELFPAY | PROVIDERS: PCP Internal Medicine; Visit Provider Physical Medicine & Rehabilitation | DX: G56.01 Carpal tunnel syndrome, right upper limb (principal) | CPT/HCPCS: 95886; 95909 ==

== ENCOUNTER 2023-10-08 10:00 | Outpatient (RCR) | payer MEDICARE, MEDICAID, SELFPAY ==
--- NOTE | 2023-12-17 16:11 | MHC.OT.DC ---
[address] [phone] F: [phone] Occupational Therapy Discharge Note Patient Name: Dot Gil Provider: Ella Sabillon Diagnosis: Lateral epicondylitis , right elbow Medial epicondylitis , right elbow Date of Surgery: Date of Evaluation: 09/13/23 Date of Discharge: Treatments to Date: 6 Cancellations to Date: 2 No Shows to Date: Discharge Status: Discharge Summary: Dot reports right medial and lateral elbow pain improved and upper arm pain improving. Muscle tender points palpated with firm pressure.at biceps , posterior deltoid muscles. She reports improved pain with elbow extension after treatment. Continued mild elbow flexion contracture noted. Upper arm pain probably due to use of cane with ambulation. Dot is independent with self massage and ROM exercise. She reports CTS symptoms improved with wearing her night wrist splint. She has a follow up with Orthopedics for CTS sx. Dot has not scheduled for further OT Electronically Signed By: Leona Wang OT CHT CLT Reviewed/agree with student documentation: Therapist: Please Sign and return to therapist, thank you for your referral.
== END 2023-12-17 16:13 | disposition home or self-care (01) ==
LOC: HO.OT 10:00
PROVIDERS: PCP Internal Medicine; Visit Provider Physical Medicine & Rehabilitation
DX: M77.11 Lateral epicondylitis, right elbow (principal); M77.01 Medial epicondylitis, right elbow
CPT/HCPCS: 97035; 97110; 97140; 97166; 97760

== ENCOUNTER 2023-10-09 13:16 | Outpatient (AMB) | payer MEDICARE, MEDICAID, SELFPAY ==
[2023-10-09 13:22] VITALS: BMI 34.4
--- NOTE | 2023-10-09 13:22 | MHC.OFFVIS ---
Intake Vital Signs 10/09/23 13:22 Height 5 ft 3 in Weight 194 lb BMI 34.4 Intake Visit Reasons: OV - Discuss CTR surgery Intake Note: Dot 68 yr old right hand dominant female presents today to review EMG and discuss surgery. Allergies penicillin G [Penicillin G] Allergy (Severe, Verified 10/09/23 13:23) RASH,SWELLING atorvastatin Allergy (Intermediate, Verified 10/09/23 13:23) myalgia, muscle cramps latex [LATEX] Allergy (Intermediate, Verified 10/09/23 13:23) ITCHY,SKIN TEARS simvastatin Allergy (Intermediate, Verified 10/09/23 13:23) sedation HPI OV - Discuss CTR surgery HPI Details Dot is a 68 year old right hand dominant Bermudian speaking Diabetic woman who presents for a NCS review of her right hand numbness. She complains of numbness in her right thumb, index, and middle finger. Symptoms intermittent, but daily, worse at night. She has been seen by Dr. Fairbanks for right lateral epicondylitis, and has been attending OT for this. She complains of left knee pain and would like to be seen for this. She is a Diabetic, her most recent HgA1c was 7.4% on 08/05/23 [facility] Medical History DM2 (diabetes mellitus, type 2) Physical exam Mild recurrent major depression Mild asthma Obesity due to excess calories Diarrhea Diabetes mellitus with hyperglycemia Hyperlipidemia LDL goal <100 Essential hypertension Knee osteoarthritis Surgical History S/P excision of lipoma (01/03/23) History of excision of lesion (05/09/17) History of surgery on right wrist (01/31/16) History of phacoemulsification of cataract of right eye with intraocular lens implantation History of phacoemulsification of cataract of left eye with intraocular lens implantation Hx of colonoscopy Hx of cholecystectomy (05/09/17) History of left knee replacement Hx of section Family History Father Ischemic cardiomyopathy CVD (cardiovascular disease) Mother No problems noted. 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 Cognitive needs: Yes Hearing needs: No Vision needs: Yes Review of Systems Const All systems reviewed & are unremarkable except as noted in HPI and below Physical Exam Vital Signs: BMI result Body Mass Index 34.4 Const General: cooperative, healthy appearing and no acute distress Orientation/consciousness: patient oriented x3 HEENT Head: Yes normocephalic and Yes atraumatic Eyes EOM: EOMs intact bilaterally Resp Effort & Inspection: normal respiratory effort and able to speak in complete sentences Cardio Jugular venous distension: no JVD Skin General skin exam: turgor normal Rashes: no rashes Neuro General: patient oriented x3 Extrem Other: Evaluation of Right Upper Extremity: The patient is alert, oriented, and in no acute distress Neuro: Persistent mild tingling to the tips of the median nerve distribution. Normal sensation to the ulnar nerve distribution No thenar or intrinsic wasting Good APB muscle belly firing and good finger cross Vascular: Cap refill brisk ROM: She can make a fist and extend all her digits Skin: No lacerations or abrasions. General: No Ecchymosis. No Erythema or evidence of infection. Nerve Conduction Study: Right-side only IMPRESSION: 1. This is an abnormal study. 2. There is electrodiagnostic evidence for right moderate-severe median neuropathy at the wrist, consistent with carpal tunnel syndrome. 3. There is no electrodiagnostic evidence for ulnar neuropathy, brachial plexopathy, or cervical radiculopathy. CLINICAL COMMENT: Elbow pain improving with OT. Continue OT. We will refer to Dr. Huynh for right Carpal Tunnel Syndrome surgery. Ella Sabillon MD, JOSHUA 09/26/23 Psych Appearance: grossly normal Affect: normal affect Attitude: cooperative Assessment & Plan Assessment & Plan (1) Carpal tunnel syndrome of right wrist: Code(s): G56.01 - Carpal tunnel syndrome, right upper limb (2) DM2 (diabetes mellitus, type 2): Code(s): E11.9 - Type 2 diabetes mellitus without complications Qualifiers: Diabetes mellitus complication status: with hyperglycemia Diabetes mellitus long-term insulin use: with long-term use Qualified Code(s): E11.65 - Type 2 diabetes mellitus with hyperglycemia; Z79.4 - senior care (current) use of insulin (3) Left knee pain: Code(s): M25.562 - Pain in left knee Plan Assessment & Plan: 1. Right carpal tunnel syndrome, moderate-severe Symptoms intermittent, but daily, worse at night I educated her about this condition I discussed operative and non-operative treatment options The patient would like to proceed with surgery The risks and benefits of operative treatment were discussed with the patient and the patient wishes to proceed with surgery. These risks include, but are not limited to risk of damage to blood vessels, nerves, tendons, infection, recurrence, incomplete relief of preoperative symptoms, persistent pain, possible need for further surgery and the risks associated with regional blocks and anesthesia. The plan is to take the patient to the operating room sometime in the next few weeks for the following procedures: 1. Right carpal tunnel release, under local All of the preoperative paperwork including the consent was reviewed today. All the patient's questions were answered. The patient understands that they will be contacted by our manager strategic marketing soon to schedule this procedure She denies blood thinners, asthma, heart, lung, kidney issues She is a Diabetic, her most recent HgA1c was 7.4% on 08/05/23. 2. Left knee pain Referred to Dr. Martin for assessment Scribed for Makayla Huynh MD by Daniel De La Torre, medical billing and coding specialist, on 10/09/23 at 1:30 PM, EST. 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
== END 2023-10-09 13:43 | disposition home or self-care (01) ==
PROVIDERS: PCP Internal Medicine; Visit Provider Orthopaedic Surgery
DX: G56.01 Carpal tunnel syndrome, right upper limb (principal); E11.65 Type 2 diabetes mellitus with hyperglycemia; Z79.4 Long term (current) use of insulin; M25.562 Pain in left knee
CPT/HCPCS: 99214

== ENCOUNTER → 2023-10-09 13:16 | Outpatient (BNVA) | payer MEDICARE, MEDICAID, SELFPAY | PROVIDERS: PCP Internal Medicine; Visit Provider Orthopaedic Surgery | DX: G56.01 Carpal tunnel syndrome, right upper limb (principal); M25.562 Pain in left knee; E11.65 Type 2 diabetes mellitus with hyperglycemia; Z79.4 Long term (current) use of insulin | CPT/HCPCS: 99212 ==

== ENCOUNTER 2023-10-31 10:00 | Outpatient (REF) | payer MEDICARE, MEDICAID, SELFPAY ==
--- NOTE | ~2023-10-31 | XR_ITS ---
EXAM: X-RAY LUMBAR SPINE X-RAY SACRUM/COCCYX CLINICAL INFORMATION: Back pain, sacrococcygeal disorders not otherwise classified. COMPARISON: X-ray lumbar spine 12/09/2017. TECHNIQUE: 3 views of the lumbar spine. 3 views of the sacrum/coccyx. FINDINGS: Lumbar spine: The bones are diffusely demineralized. S-shaped thoracolumbar scoliosis. Surgical clips in the right upper quadrant. Facet arthritis in the lower lumbar spine. Interval progression of multilevel degenerative changes in the lumbar spine. Multilevel lumbar spondylosis with advanced degenerative changes and loss of disc space height again most severe at L1-L2. Progression of loss of disc space height with degenerative changes at L4-L5 and L5-S1. Redemonstration of multilevel superior and inferior endplate concavities as previously noted most notable at L1 and L3. Sacrum/coccyx: Moderate degenerative changes in the bilateral sacroiliac joints. Pubic symphysis is maintained. Multiple rounded calcifications in the pelvis. XR/XR sacrum coccyx min 2V IMPRESSION: 1. Interval progression of multilevel degenerative changes in the lumbar spine. 2. Moderate degenerative changes in the bilateral sacroiliac joints. 3. MRI recommended for further evaluation if there is clinical concern for fracture or other underlying pathology.
--- NOTE | ~2023-10-31 | XR_ITS ---
EXAMINATION: XR KNEE, LEFT CLINICAL INFORMATION: Reason for Exam M25.562 - Pain in left knee COMPARISON: Knee radiographs 08/07/2018 TECHNIQUE: 2 views of the left knee. One view of the bilateral knees standing. FINDINGS: No acute fracture or dislocation. Status post total knee arthroplasty in anatomic alignment without evidence of hardware failure or dislocation. No joint effusion. Soft tissues are unremarkable. SINGLE VIEW OF THE CONTRALATERAL RIGHT KNEE: No acute fracture or dislocation. Moderate degenerative changes of the right knee progressed from prior with loss of lateral compartment joint space and medial and lateral compartment osteophytes. Soft tissues are unremarkable. XR/XR knee LT 3V IMPRESSION: 1. Status post left total knee arthroplasty in anatomic alignment without evidence of hardware failure or dislocation. 2. Moderate degenerative changes of the right knee progressed from prior.
--- NOTE | ~2023-10-31 | XR_ITS ---
EXAM: X-RAY LUMBAR SPINE X-RAY SACRUM/COCCYX CLINICAL INFORMATION: Back pain, sacrococcygeal disorders not otherwise classified. COMPARISON: X-ray lumbar spine 12/09/2017. TECHNIQUE: 3 views of the lumbar spine. 3 views of the sacrum/coccyx. FINDINGS: Lumbar spine: The bones are diffusely demineralized. S-shaped thoracolumbar scoliosis. Surgical clips in the right upper quadrant. Facet arthritis in the lower lumbar spine. Interval progression of multilevel degenerative changes in the lumbar spine. Multilevel lumbar spondylosis with advanced degenerative changes and loss of disc space height again most severe at L1-L2. Progression of loss of disc space height with degenerative changes at L4-L5 and L5-S1. Redemonstration of multilevel superior and inferior endplate concavities as previously noted most notable at L1 and L3. Sacrum/coccyx: Moderate degenerative changes in the bilateral sacroiliac joints. Pubic symphysis is maintained. Multiple rounded calcifications in the pelvis. XR/XR lumbar spine 2-3V IMPRESSION: 1. Interval progression of multilevel degenerative changes in the lumbar spine. 2. Moderate degenerative changes in the bilateral sacroiliac joints. 3. MRI recommended for further evaluation if there is clinical concern for fracture or other underlying pathology.
== END 2023-10-31 10:01 | disposition home or self-care (01) ==
LOC: HO.HOSX 10:00
PROVIDERS: PCP Internal Medicine; Visit Provider Physical Medicine & Rehabilitation
DX: M53.3 Sacrococcygeal disorders, not elsewhere classified (principal); Z96.651 Presence of right artificial knee joint; M23.8X1 Other internal derangements of right knee; M46.1 Sacroiliitis, not elsewhere classified; M47.26 Other spondylosis with radiculopathy, lumbar region; M47.27 Other spondylosis with radiculopathy, lumbosacral region
CPT/HCPCS: 72100; 72220; 73562; 99212

== ENCOUNTER 2023-10-31 10:00 | Outpatient (AMB) | payer MEDICARE, MEDICAID, SELFPAY ==
--- NOTE | 2023-10-31 10:11 | A.OFFVIS_ITS ---
Vital Signs 10/31/23 10:29 Height 5 ft 3 in Weight 194 lb BMI 34.4 Intake Visit Reasons: NEWPROB- LT Hip pain Intake Note: Dot 68 yr old female presents today for a new problem visit for her left hip pain. States she is having pain in her left buttocks, radiates down her leg and causes weakness thats has worsen in the last 2 months. States it worsen with prolong sitting and walking. She is also having a hard time when laying on her left side. Denies falling. Last seen for her right elbow, states she will be having CTR sx in 12/12/[address] Huynh. Artist Agent Required: Yes Allergies penicillin G [Penicillin G] Allergy (Severe, Verified 10/31/23 10:30) RASH,SWELLING atorvastatin Allergy (Intermediate, Verified 10/31/23 10:30) myalgia, muscle cramps latex [LATEX] Allergy (Intermediate, Verified 10/31/23 10:30) ITCHY,SKIN TEARS simvastatin Allergy (Intermediate, Verified 10/31/23 10:30) sedation Medication List - Last Reconciled 10/31/23 by Ella Sabillon MD albuterol sulfate 90 mcg/actuation 1 puff PO Q4H PRN 30 days alcohol swabs (Alcohol Prep Pads) 1 pad topical DAILY amlodipine 10 mg PO DAILY aspirin 81 mg PO BEDTIME bisacodyl 10 mg (2 x 5 mg) PO BEDTIME blood sugar diagnostic (FreeStyle Lite Strips) As directed twice a day blood sugar diagnostic (FreeStyle Lite Strips) 1 strip miscellaneous QID 30 days blood-glucose meter (FreeStyle Lite Meter kit) As directed 2 times a day jzszabnzgp-[id number]-lzfm 50-325-40 mg 1 tab PO DAILY PRN 30 days cholecalciferol (vitamin D3) 50 mcg PO DAILY 90 days clonazepam 1 mg PO BID PRN clotrimazole 1% 1 appl topical BID [diabetic sandals As directed] [diabetic shoes with inserts with template As directed] [diabetic sneakers As directed] diclofenac sodium 75 mg PO BID dicyclomine 20 mg (2 x 10 mg) PO QID PRN ezetimibe 10 mg PO DAILY fluticasone furoate 100 mcg/actuation (Arnuity Ellipta) 1 inh inhalation DAILY fluticasone propionate 50 mcg/actuation (Flonase Allergy Relief) 1 spray intranasal BID 30 days hydrocortisone 2.5% 1 appl WA BID PRN insulin glargine (Lantus Solostar U-100 Insulin) 28 units (0.28 mL) subcut DAILY 90 days lancets (TRUEplus Lancets) 1 gauge miscellaneous TID 30 days loratadine (Allergy Relief (loratadine)) 10 mg PO DAILY 14 days magnesium hydroxide (Milk of Magnesia) 5 mL PO BEDTIME metformin 1,000 mg (2 x 500 mg) PO BID miconazole nitrate 2% 1 appl topical DAILY PRN 30 days montelukast 10 mg PO QPM oxycodone-acetaminophen 5-325 mg 1 tab PO Q6H PRN 30 days pantoprazole 40 mg PO QAM peg [id number]-afegidad 1-0.2-0.2 % drps ophthalmic (eye) DAILY PRN pen needle, diabetic As directed rosuvastatin 40 mg PO DAILY 90 days sertraline 200 mg PO QAM valsartan 160 mg PO BEDTIME zolpidem 10 mg PO BEDTIME PRN HPI Comments Details: Initiallyl seen for right elbow pain. Right handed. On disability. House duties. Pointed to lateral epicondyle, says it swells 2-3 times a week, feels like electricity. No fever. Denies redness. Admits to nighttime numbness on right hand. Tends to drop things. Noticed on EMR that she had xray done in March 2023 showing calcification medial epicondyle right. Repeat xray showed medial epicondylitis and arthritic changes. Repeat EMG (see below) showed CTS. To see Dr. Huynh for consideration of surgery for CTS. She has hip pain and wanted to been seen for this today. Pointing to left buttocks and left lateral hip, down to left knee. History of knee replacement, left. Xray left hip did not show arthritis of hip joint. DM good control per patient. [facility] Medical History DM2 (diabetes mellitus, type 2) Physical exam Mild recurrent major depression Mild asthma Obesity due to excess calories Diarrhea Diabetes mellitus with hyperglycemia Hyperlipidemia LDL goal <100 Essential hypertension Knee osteoarthritis Surgical History S/P excision of lipoma (01/03/23) History of excision of lesion (05/09/17) History of surgery on right wrist (01/31/16) History of phacoemulsification of cataract of right eye with intraocular lens implantation History of phacoemulsification of cataract of left eye with intraocular lens implantation Hx of colonoscopy Hx of cholecystectomy (05/09/17) History of left knee replacement Hx of section Family History Father Ischemic cardiomyopathy CVD (cardiovascular disease) Mother No problems noted. 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 Patient was appropriately conversant and oriented. Good historian. MSK: No specific abnormalities found on inspection of the spine and all extremities. Tender left GT, ITB, piriformis and lumbar paraspinals. No tendeness over spinous processes and SI joints. Lumbar ROM was full. Strength is 5/5 in all muscle groups tested. No increased tone noted. Neurological: Neurologic examination of the upper and lower extremities was nonfocal with intact sensation, muscle stretch reflexes and without focal motor deficits . Garcia?s negative bilaterally. Babinski was down going bilaterally. Clonus was negative. Gait is antalgic without loss of balance. Results Reviewed Results Reviewed: EMG 09/26/23: IMPRESSION: 1. This is an abnormal study. 2. There is electrodiagnostic evidence for right moderate-severe median neuropathy at the wrist, consistent with carpal tunnel syndrome. 3. There is no electrodiagnostic evidence for ulnar neuropathy, brachial plexopathy, or cervical radiculopathy. Ordering Physician: Ella Fairbanks Date of Service: 09/12/23 Procedure(s): XR elbow RT 2V Accession Number(s): [id number] cc: Carolina Mendoza MD; Ella Fairbanks~ EXAMINATION: XR ELBOW, RIGHT CLINICAL INFORMATION: Pain COMPARISON: 04/08/2023 TECHNIQUE: AP, lateral, and oblique views of the right elbow. FINDINGS: There is persistent spurring causing medial epicondyles on the right consistent with medial epicondylitis there is minimal spurring of the radial head is well there is no joint effusion seen. XR/XR elbow RT 2V IMPRESSION: Medial epicondylitis and degenerative changes at the radial head. No acute abnormalities Ordering Physician: Ella Fairbanks Date of Service: 09/12/23 Procedure(s): XR hip LT min 2V Accession Number(s): [id number] cc: Carolina Mendoza MD; Ella Fairbanks~ EXAMINATION: XR HIP, LEFT CLINICAL INFORMATION: Left hip pain COMPARISON: 04/19/2023 TECHNIQUE: Two views of the left hip. FINDINGS: No fracture. Alignment is anatomic. Hip joint space is maintained. There is mild changes of enthesopathy in the greater trochanter Soft tissues are unremarkable. XR/XR hip LT min 2V IMPRESSION: No interval change Assessment & Plan Assessment & Plan (1) Trochanteric bursitis, left hip: Code(s): M70.62 - Trochanteric bursitis, left hip Category: Medical (2) Piriformis syndrome of left side: Code(s): G57.02 - Lesion of sciatic nerve, left lower limb Category: Medical (3) Lumbar paraspinal muscle spasm: Code(s): M62.830 - Muscle spasm of back Category: Medical Plan She has several areas of pain, not just left hip. Xray actually did not show hip DJD. Pain areas include ITB/trochanter, piriformis and lumbar paraspinals. Will send to PT to work on these areas. Will do lumbar and tailbone xrays given other history of chronic intermittent back pain and history of tailbone fracture. We would consider injection to either piriformis or GT if not improved with PT. Assessment and plan discussed with patient, and patient was agreeable. All questions were answered thoroughly. Follow up 3 weeks. Ella Sabillon MD, JOSHUA Board Certified, [place] [employer] and [employer] (ABPMR) Board Certified, [place] [employer] Electro[employer] (ABEM) Orders: Orders PT Evaluation and Treatment Today G57.02 - Lesion of sciatic nerve, left lower limb, M62.830 - Muscle spasm of back, M70.62 - Trochanteric bursitis, left hip XR lumbar spine 2-3V Today M54.9 - Dorsalgia, unspecified XR sacrum coccyx min 2V Today M53.3 - Sacrococcygeal disorders, not elsewhere classified Coding Level of Care Code Est Pt Level 4 (76160) Diagnoses Trochanteric bursitis, left hip M70.62 Piriformis syndrome of left side G57.02 Lumbar paraspinal muscle spasm M62.830
[2023-10-31 10:29] VITALS: BMI 34.4
== END 2023-10-31 14:32 | disposition home or self-care (01) ==
PROVIDERS: PCP Internal Medicine; Visit Provider Physical Medicine & Rehabilitation
DX: M70.62 Trochanteric bursitis, left hip (principal); G57.02 Lesion of sciatic nerve, left lower limb; M62.830 Muscle spasm of back
CPT/HCPCS: 99214

== ENCOUNTER 2023-10-31 13:19 | Outpatient (AMB) | payer MEDICARE, MEDICAID, SELFPAY ==
--- NOTE | 2023-10-31 13:38 | A.OFFVIS_ITS ---
Intake Visit Reasons: newprob- LT knee pain had surgery with [facility] 8yrs ago Intake Note: Dot is a 68 year old female who presents today for a new problem visit with complaints of left knee pain. Hx of Left TKA 01/31/2016 Allergies penicillin G [Penicillin G] Allergy (Severe, Verified 10/31/23 13:38) RASH,SWELLING atorvastatin Allergy (Intermediate, Verified 10/31/23 13:38) myalgia, muscle cramps latex [LATEX] Allergy (Intermediate, Verified 10/31/23 13:38) ITCHY,SKIN TEARS simvastatin Allergy (Intermediate, Verified 10/31/23 13:38) sedation HPI HPI newprob- LT knee pain had surgery with [facility] 8yrs ago: Details: Dot is a 68 year old female who presents today for a new problem visit with complaints of left knee pain. Hx of Left TKA 01/31/2016. She states that she was doing extremely well until about 2 months ago when she started having left lateral knee pain. This is aching and she also feels pain in the posterior buttock extending down into the thigh. This is a burning type of pain. She denies fevers and chills. [facility] Medical History (Updated 10/31/23 @ 10:44 by Ella Sabillon MD) DM2 (diabetes mellitus, type 2) Physical exam Mild recurrent major depression Mild asthma Obesity due to excess calories Diarrhea Diabetes mellitus with hyperglycemia Hyperlipidemia LDL goal <100 Essential hypertension Knee osteoarthritis Surgical History (Updated 10/31/23 @ 16:10 by Justin Martin MD) S/P excision of lipoma (01/03/23) History of excision of lesion (05/09/17) History of surgery on right wrist (01/31/16) History of phacoemulsification of cataract of right eye with intraocular lens implantation History of phacoemulsification of cataract of left eye with intraocular lens implantation Hx of colonoscopy Hx of cholecystectomy (05/09/17) History of left knee replacement Hx of section Family History Father Ischemic cardiomyopathy CVD (cardiovascular disease) Mother No problems noted. 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 Resp Other: No audible wheezing Effort & Inspection: normal respiratory effort Back/Spine/Pelvis Cervical Spine: normal cervical lordosis Skin General skin exam: no rashes or lesions noted Neuro General: no focal motor deficits Extrem Other: Sharp tenderness to palpation over the anterolateral tibia. There is trace effusion. 0-120 degrees of motion Psych Appearance: grossly normal and well kempt Mental Status: mental status grossly normal Speech and movement: Normal speech and movement present Affect: normal affect Attitude: cooperative Results Reviewed Results Reviewed: I personally reviewed relevant radiographs. Left total knee arthroplasty in expected post operative position with no hardware complications or evidence of loosening Assessment & Plan Assessment & Plan (1) History of left knee replacement: Comment: 09/06/2015 Code(s): Z96.652 - Presence of left artificial knee joint Category: Surgical Plan: This is a 68-year-old woman with 8 year history of left knee replacement. She was doing very well until about 2 months ago when she has been having increasing lateral pain. Her radiographs are largely unremarkable. I think it is reasonable to obtain a CT scan or loosening although I think this is unlikely. Orders: Orders XR knee LT 3V Today M25.562 - Pain in left knee CT knee LT wo IV con Today Z96.652 - Presence of left artificial knee joint Coding Level of Care Code Est Pt Level 4 (24781) Diagnoses History of left knee replacement Z96.652
== END 2023-10-31 14:31 | disposition home or self-care (01) ==
LOC: HO.HOS 13:19
PROVIDERS: PCP Internal Medicine; Visit Provider Orthopaedic Surgery
DX: M25.562 Pain in left knee (principal); Z96.652 Presence of left artificial knee joint
CPT/HCPCS: 99213

== ENCOUNTER 2023-11-08 14:15 | Outpatient (REF) | payer MEDICARE, MEDICAID, SELFPAY ==
--- NOTE | ~2023-11-08 | CT_ITS ---
EXAMINATION: CT KNEE WITHOUT CONTRAST, LEFT CLINICAL INFORMATION: Left knee pain. Left knee arthroplasty. COMPARISON: Left knee radiograph dated 10/31/2023. TECHNIQUE: Contiguous axial CT images of the left knee were obtained without contrast. Multiplanar reformats were provided and reviewed. This CT examination was performed using dose optimization techniques as appropriate, variously including the following: *Automated exposure control *Adjustment of mA and/or kV according to patient size (this includes techniques or standardized protocols for targeted exams where dose is matched to indication/reason for exam; i.e. extremities or head) *Use of iterative reconstruction technique DLP: 160 mGy-cm. FINDINGS: Left knee arthroplasty in expected anatomic alignment. No hardware fracture or dislocation. No perihardware lucency to suggest loosening or infection. Normal patellofemoral alignment. No acute osseous fracture. No concerning lytic or blastic osseous lesion. No significant joint effusion. Ossified loose body posterosuperior to the medial femoral condyle, measuring up to 2.7 cm in ML dimension. The visualized muscles and tendons are grossly intact; however, evaluation is significantly limited on CT examination. CT/CT knee LT wo IV con IMPRESSION: 1. Left knee arthroplasty in expected anatomic alignment. No evidence of hardware complication. 2. No acute osseous abnormality. 3. Ossified loose body posterosuperior to the medial femoral condyle, measuring up to 2.7 cm.
== END 2023-11-08 14:16 | disposition home or self-care (01) ==
LOC: HO.CT 14:15
PROVIDERS: PCP Internal Medicine; Visit Provider Orthopaedic Surgery
DX: Z96.652 Presence of left artificial knee joint (principal)
CPT/HCPCS: 73700

== ENCOUNTER 2023-11-20 08:34 | Outpatient (AMB) | payer MEDICARE, MEDICAID, SELFPAY ==
[2023-11-20 08:38] VITALS: BMI 34.4
--- NOTE | 2023-11-20 08:38 | MHC.OFFVIS ---
Vital Signs 11/20/23 08:38 Height 5 ft 3 in Weight 194 lb BMI 34.4 Intake Visit Reasons: EP, Lt hip F/U post PT, poss inj Intake Note: Dot is a 68 year old female who presents today for a follow up of her left hip bursitis, left sided sciatica and muscle spasms of the back. At her last visit on 10/31/23 piriformis injection or geniculate trials were discussed. Patient reports that she is feeling mild improvements but is interesting in trying injections. Adult Education Manager Required: Yes Allergies penicillin G [Penicillin G] Allergy (Severe, Verified 11/20/23 08:42) RASH,SWELLING atorvastatin Allergy (Intermediate, Verified 11/20/23 08:42) myalgia, muscle cramps latex [LATEX] Allergy (Intermediate, Verified 11/20/23 08:42) ITCHY,SKIN TEARS simvastatin Allergy (Intermediate, Verified 11/20/23 08:42) sedation Medication List - Last Reconciled 11/20/23 by Ella Sabillon MD albuterol sulfate 90 mcg/actuation 1 puff PO Q4H PRN 30 days alcohol swabs (Alcohol Prep Pads) 1 pad topical DAILY amlodipine 10 mg PO DAILY aspirin 81 mg PO BEDTIME bisacodyl 10 mg (2 x 5 mg) PO BEDTIME blood sugar diagnostic (FreeStyle Lite Strips) As directed twice a day blood sugar diagnostic (FreeStyle Lite Strips) 1 strip miscellaneous QID 30 days blood-glucose meter (FreeStyle Lite Meter kit) As directed 2 times a day tzqtwazwpo-qyqwgzjqepean-ckob 50-325-40 mg 1 tab PO DAILY PRN 30 days cholecalciferol (vitamin D3) 50 mcg PO DAILY 90 days clonazepam 1 mg PO BID PRN clotrimazole 1% 1 appl topical BID [diabetic sandals As directed] [diabetic shoes with inserts with template As directed] [diabetic sneakers As directed] diclofenac sodium 75 mg PO BID dicyclomine 20 mg (2 x 10 mg) PO QID PRN ezetimibe 10 mg PO DAILY fluticasone furoate 100 mcg/actuation (Arnuity Ellipta) 1 inh inhalation DAILY fluticasone propionate 50 mcg/actuation (Flonase Allergy Relief) 1 spray intranasal BID 30 days hydrocortisone 2.5% 1 appl [place] BID PRN insulin glargine (Lantus Solostar U-100 Insulin) 28 units (0.28 mL) subcut DAILY 90 days lancets (TRUEplus Lancets) 1 gauge miscellaneous TID 30 days loratadine (Allergy Relief (loratadine)) 10 mg PO DAILY 14 days magnesium hydroxide (Milk of Magnesia) 5 mL PO BEDTIME metformin 1,000 mg (2 x 500 mg) PO BID miconazole nitrate 2% 1 appl topical DAILY PRN 30 days montelukast 10 mg PO QPM oxycodone-acetaminophen 5-325 mg 1 tab PO Q6H PRN 30 days pantoprazole 40 mg PO QAM peg [id number]-nykptoaj 1-0.2-0.2 % drps ophthalmic (eye) DAILY PRN pen needle, diabetic As directed rosuvastatin 40 mg PO DAILY 90 days sertraline 200 mg PO QAM valsartan 160 mg PO BEDTIME zolpidem 10 mg PO BEDTIME PRN HPI Comments Details: Initiallyl seen for right elbow pain. Right handed. On disability. House duties. Pointed to lateral epicondyle, says it swells 2-3 times a week, feels like electricity. No fever. Denies redness. Admits to nighttime numbness on right hand. Tends to drop things. Noticed on EMR that she had xray done in March 2023 showing calcification medial epicondyle right. Repeat xray showed medial epicondylitis and arthritic changes. Repeat EMG (see below) showed CTS. Now scheduled for surgery for CTS. Seen also has left hip pain. Pointing to left buttocks and left lateral hip, down to left knee. History of knee replacement, left. Xray left hip did not show arthritis of hip joint. Lumbar xrays as below. Has not gone to PT. Says never received a call. DM good control per patient. Denies history in family of RA or rheumatologic disorders. [facility] Medical History (Updated 11/20/23 @ 09:02 by Ella Sabillon MD) Sacroiliac joint dysfunction of left side DM2 (diabetes mellitus, type 2) Physical exam Mild recurrent major depression Mild asthma Obesity due to excess calories Diarrhea Diabetes mellitus with hyperglycemia Hyperlipidemia LDL goal <100 Essential hypertension Knee osteoarthritis Surgical History (Updated 10/31/23 @ 16:10 by Justin Martin MD) S/P excision of lipoma (01/03/23) History of excision of lesion (05/09/17) History of surgery on right wrist (01/31/16) History of phacoemulsification of cataract of right eye with intraocular lens implantation History of phacoemulsification of cataract of left eye with intraocular lens implantation Hx of colonoscopy Hx of cholecystectomy (05/09/17) History of left knee replacement Hx of section Family History Father Ischemic cardiomyopathy CVD (cardiovascular disease) Mother No problems noted. 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 Patient was appropriately conversant and oriented. Good historian. MSK: No specific abnormalities found on inspection of the spine and all extremities. Most of the tenderness is on left SI joint. Mild tenderness over left piriformis. Left GT nontender. Paraspinals nontender. Lumbar ROM was full. Fabere positive left. SLR negative. Strength is 5/5 in all muscle groups tested. No increased tone noted. Neurological: Neurologic examination of the upper and lower extremities was nonfocal with intact sensation, muscle stretch reflexes and without focal motor deficits . Garcia?s negative bilaterally. Babinski was down going bilaterally. Clonus was negative. Gait is non antalgic without loss of balance. Uses cane. Results Reviewed Results Reviewed: Ordering Physician: Ella Fairbanks Date of Service: 10/31/23 Procedure(s): XR sacrum coccyx min 2V Accession Number(s): [id number] cc: Carolina Mendoza MD; Ella Fairbanks~ EXAM: X-RAY LUMBAR SPINE X-RAY SACRUM/COCCYX CLINICAL INFORMATION: Back pain, sacrococcygeal disorders not otherwise classified. COMPARISON: X-ray lumbar spine 12/09/2017. TECHNIQUE: 3 views of the lumbar spine. 3 views of the sacrum/coccyx. FINDINGS: Lumbar spine: The bones are diffusely demineralized. S-shaped thoracolumbar scoliosis. Surgical clips in the right upper quadrant. Facet arthritis in the lower lumbar spine. Interval progression of multilevel degenerative changes in the lumbar spine. Multilevel lumbar spondylosis with advanced degenerative changes and loss of disc space height again most severe at L1-L2. Progression of loss of disc space height with degenerative changes at L4-L5 and L5-S1. Redemonstration of multilevel superior and inferior endplate concavities as previously noted most notable at L1 and L3. Sacrum/coccyx: Moderate degenerative changes in the bilateral sacroiliac joints. Pubic symphysis is maintained. Multiple rounded calcifications in the pelvis. XR/XR sacrum coccyx min 2V IMPRESSION: 1. Interval progression of multilevel degenerative changes in the lumbar spine. 2. Moderate degenerative changes in the bilateral sacroiliac joints. 3. MRI recommended for further evaluation if there is clinical concern for fracture or other underlying pathology. EMG 09/26/23: IMPRESSION: 1. This is an abnormal study. 2. There is electrodiagnostic evidence for right moderate-severe median neuropathy at the wrist, consistent with carpal tunnel syndrome. 3. There is no electrodiagnostic evidence for ulnar neuropathy, brachial plexopathy, or cervical radiculopathy. Ordering Physician: Ella Fairbanks Date of Service: 09/12/23 Procedure(s): XR elbow RT 2V Accession Number(s): [id number] cc: Carolina Mendoza MD; [facility] EXAMINATION: XR ELBOW, RIGHT CLINICAL INFORMATION: Pain COMPARISON: 04/08/2023 TECHNIQUE: AP, lateral, and oblique views of the right elbow. FINDINGS: There is persistent spurring causing medial epicondyles on the right consistent with medial epicondylitis there is minimal spurring of the radial head is well there is no joint effusion seen. XR/XR elbow RT 2V IMPRESSION: Medial epicondylitis and degenerative changes at the radial head. No acute abnormalities Ordering Physician: Ella Fairbanks Date of Service: 09/12/23 Procedure(s): XR hip LT min 2V Accession Number(s): [id number] cc: Carolina Mendoza MD; Ella Oneil EXAMINATION: XR HIP, LEFT CLINICAL INFORMATION: Left hip pain COMPARISON: 04/19/2023 TECHNIQUE: Two views of the left hip. FINDINGS: No fracture. Alignment is anatomic. Hip joint space is maintained. There is mild changes of enthesopathy in the greater trochanter Soft tissues are unremarkable. XR/XR hip LT min 2V IMPRESSION: No interval change I reviewed records from the following: sees ortho Dr. Martin for knee pain Assessment & Plan Assessment & Plan (1) Sacroiliac joint dysfunction of left side: Code(s): M53.3 - Sacrococcygeal disorders, not elsewhere classified Category: Medical Plan Symptoms and exam suggestive of left SI joint dysfunction. X-rays did show degenerative changes on SI joints. We looked at her schedule, and it appears that she is starting PT tomorrow. We discussed trial of left SI joint injection. Referring her to pain management for the injection under fluoroscopy or ultrasound. Patient eager to proceed. I will see her after the injection. If not improved, we will consider ordering a lumbar MRI. Assessment and plan discussed with patient, and patient was agreeable. All questions were answered thoroughly. Follow-up after injection. Ella Sabillon MD, JOSHUA Board Certified, [place] [employer] and Rehabilitation (ABPMR) Board Certified, [place] Board [employer] Electrodiagnostic [employer] (ABEM) Orders: Referrals Pain Management Referral M53.3 - Sacrococcygeal disorders, not elsewhere classified Coding Level of Care Code Est Pt Level 4 (37798) Diagnoses Sacroiliac joint dysfunction of left side M53.3
== END 2023-11-20 09:34 | disposition home or self-care (01) ==
PROVIDERS: PCP Internal Medicine; Visit Provider Physical Medicine & Rehabilitation
DX: M53.3 Sacrococcygeal disorders, not elsewhere classified (principal)
CPT/HCPCS: 99213

== ENCOUNTER → 2023-11-20 08:34 | Outpatient (BNVA) | payer MEDICARE, MEDICAID, SELFPAY | PROVIDERS: PCP Internal Medicine; Visit Provider Physical Medicine & Rehabilitation | DX: M53.3 Sacrococcygeal disorders, not elsewhere classified (principal) | CPT/HCPCS: 99212 ==

== ENCOUNTER 2023-11-21 14:51 | Outpatient (AMB) | payer MEDICARE, MEDICAID, SELFPAY ==
--- NOTE | 2023-11-21 14:58 | A.OFFVIS_ITS ---
Vital Signs 11/21/23 14:59 Height 5 ft 3 in Weight 198 lb BMI 35.1 BP 160/95 H Blood Pressure Location Rt brachial Position Sitting Pulse 67 Intake Visit Reasons: 6 month follow up Intake Note: Dot presents to in office 6 months follow up of GERD. CC: Patient states that she is a little bit constipated and sometimes gets a little bit of abd pain but she is doing a lot better with medications. Manufacturer Representative Required: Yes Allergies penicillin G [Penicillin G] Allergy (Severe, Verified 12/04/23 13:57) RASH,SWELLING atorvastatin Allergy (Intermediate, Verified 12/04/23 13:57) myalgia, muscle cramps latex [LATEX] Allergy (Intermediate, Verified 12/04/23 13:57) ITCHY,SKIN TEARS simvastatin Allergy (Intermediate, Verified 12/04/23 13:57) sedation HPI HPI 6 month follow up: Details: Assessment & Plan (1) GERD (gastroesophageal reflux disease): Code(s): K21.9 - Gastro-esophageal reflux disease without esophagitis (2) Lactose intolerance: Code(s): E73.9 - Lactose intolerance, unspecified (3) Constipation: Code(s): K59.00 - Constipation, unspecified Plan [place] #[id number] Efra She says she is doing much better with the constipation utilizing bisacodyl and milk of magnesia along with dicyclomine for occasional cramping. She also continues on her pantoprazole with good control of her GERD. With this she is happy with her GI regimen. She has no new health problems to report. Her last colonoscopy was in 2019 and since she has no family history of colon cancer or polyps we can repeat this in 10 years or 2028. Return office visit in 6 months. Medications: Refilled bisacodyl 10 mg (2 x 5 mg) PO BEDTIME 60 tabs 6RF dicyclomine 20 mg (2 x 10 mg) PO QID PRN 240 caps 1RF for cramps magnesium hydroxide (Milk of Magnesia) 5 mL PO BEDTIME 355 mL 6RF pantoprazole 40 mg PO QAM 30 tabs 6RF K21.9 - Gastro-esophageal reflux disease without esophagitis TODAY'S VISIT [place] #Dot Retana She is here today with her who is supportive. She continues on her bisacodyl and milk of magnesia along with dicyclomine for occasional cramping. She also continues on her pantoprazole with good control of her GERD. With this she is happy with her GI regimen. She seems to have a bit of a rectal prolapse as she says when I push sometimes the rectum comes out a little bit. I explain the physiology of this and that it is not uncommon in women, and if it worsens she may need to consider surgery; but hopefully not so long as we control the CIC. ROV 6 mos. [facility] Medical History (Updated 12/04/23 @ 14:57 by Carolina Mahoney MD) Physical exam Encounter for annual routine gynecological examination Physical exam Sacroiliac joint dysfunction of left side DM2 (diabetes mellitus, type 2) Mild recurrent major depression Mild asthma Obesity due to excess calories Diarrhea Diabetes mellitus with hyperglycemia Hyperlipidemia LDL goal <100 Essential hypertension Knee osteoarthritis Surgical History S/P excision of lipoma (01/03/23) History of excision of lesion (05/09/17) History of surgery on right wrist (01/31/16) History of phacoemulsification of cataract of right eye with intraocular lens implantation History of phacoemulsification of cataract of left eye with intraocular lens implantation Hx of colonoscopy Hx of cholecystectomy (05/09/17) History of left knee replacement Hx of section Family History Father Ischemic cardiomyopathy CVD (cardiovascular disease) Mother No problems noted. 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 Cognitive needs: Yes Hearing needs: No Vision needs: Yes Review of Systems Const Denies fatigue, Denies fever(s), Denies night sweats, Denies poor appetite and Denies weight loss ENT Reports Normal hearing present, Denies dental pain, Denies dysphagia, Denies hearing loss, Denies mouth pain, Denies odynophagia, Denies throat swelling, Denies tongue swelling and Reports other (Dentition adequate) Card Reports no additional complaints Resp Reports no additional complaints GI Details: Denies abdominal pain, Denies melena, Denies bloating, Denies hematochezia, Reports constipation, Reports GI cramping, Denies dysphagia, Denies excessive flatus, Denies early satiety, Reports heartburn, Denies diarrhea, Denies nausea, Denies odynophagia, Denies vomiting and Denies hematemesis Skin/Breast Denies pruritus, Denies lesions, Denies rash and Denies jaundice Neuro Reports Normal hearing present and Denies Abnormal speech present Endo Denies fatigue Aller/Immun Denies throat swelling and Denies tongue swelling Physical Exam Vital Signs: Last Vital Signs Pulse 67 11/21/23 14:59 BP 160/95 H 11/21/23 14:59 BMI result Body Mass Index 35.1 Const General: cooperative, no acute distress, well developed and well groomed Nutritional Appearance: well nourished and obese Orientation/consciousness: oriented to person, oriented to place and oriented to time Limitations: language barrier and ambulation with cane HEENT Head: Yes normocephalic and Yes atraumatic Eyes General: appearance normal, both eyes and all related structures Pupils: Equal, round and reactive pupils present Neck Neck: Yes normal visual inspection and Yes no lymphadenopathy Thyroid: Thyroid normal Resp Effort & Inspection: normal respiratory effort and able to speak in complete sentences Auscultation: clear to auscultation bilaterally Cardio Rate: regular rate Rhythm: regular rhythm Heart sounds: Normal, physiologic split S2 sound present Peripheral pulses: radial pulses present and posterior tibial pulses present GI Inspection: No distended, No Abdominal panniculus present and Yes obesity Palpation (GI): Soft to palpation, nontender, no guarding, not rigid and No hepatosplenomegaly present Percussion: Yes normal to percussion Auscultation: normal bowel sounds Rectal Exam - Female: deferred Skin General skin exam: no rashes or lesions noted, turgor normal, skin not dry, no jaundice, No spider nevi and no striae Rashes: no rashes Nails: normal Neuro General: oriented to person, oriented to place and oriented to time Cranial nerves: Yes Equal, round and reactive pupils present and Yes Normal hearing present Speech: No Abnormal speech present Extrem General: Yes normal to inspection, No clubbing, No cyanosis and No edema Psych Appearance: grossly normal and well kempt Mental Status: mental status grossly normal Speech and movement: Normal speech and movement present Affect: normal affect Attitude: cooperative Thought process: Normal thought process present and not confabulating Thought content: Normal thought content present Insight: Limited insight present (Psych) Judgement: Limited judgement present (Psych) Assessment & Plan Assessment & Plan (1) GERD (gastroesophageal reflux disease): Code(s): K21.9 - Gastro-esophageal reflux disease without esophagitis Category: Medical Plan [place] #Dot Retana She is here today with her who is supportive. She continues on her bisacodyl and milk of magnesia along with dicyclomine for occasional cramping. She also continues on her pantoprazole with good control of her GERD. With this she is happy with her GI regimen. She seems to have a bit of a rectal prolapse as she says when I push sometimes the rectum comes out a little bit. I explain the physiology of this and that it is not uncommon in women, and if it worsens she may need to consider surgery; but hopefully not so long as we control the CIC. ROV 6 mos. Medications: Refilled magnesium hydroxide (Milk of Magnesia) 5 mL PO BEDTIME 355 mL 6RF pantoprazole 40 mg PO QAM 30 tabs 6RF K21.9 - Gastro-esophageal reflux disease without esophagitis hydrocortisone 2.5% 1 appl [place] BID PRN 30 grams 3RF hemorrhoids bisacodyl 10 mg (2 x 5 mg) PO BEDTIME 60 tabs 6RF dicyclomine 20 mg (2 x 10 mg) PO QID PRN 240 caps 1RF for cramps Coding Level of Care Code Est Pt Level 3 (69307) Diagnoses GERD (gastroesophageal reflux disease) K21.9
[2023-11-21 14:59] VITALS: BP 160/95; PULSE 67; BMI 35.1
== END 2023-11-21 15:22 | disposition home or self-care (01) ==
PROVIDERS: PCP Internal Medicine; Visit Provider Nurse Practitioner
DX: K21.9 Gastro-esophageal reflux disease without esophagitis (principal)
CPT/HCPCS: 99213

== ENCOUNTER → 2023-11-21 14:51 | Outpatient (BNVA) | payer MEDICARE, MEDICAID, SELFPAY | PROVIDERS: PCP Internal Medicine; Visit Provider Nurse Practitioner | DX: K21.9 Gastro-esophageal reflux disease without esophagitis (principal) | CPT/HCPCS: 99212 ==

== ENCOUNTER 2023-12-04 13:35 | Outpatient (AMB) | payer MEDICARE, MEDICAID, SELFPAY ==
--- NOTE | 2023-12-04 13:41 | A.OFFPC_ITS ---
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 Required: No Accompanied by: Spouse Allergies penicillin G [Penicillin G] Allergy (Severe, Verified 12/04/23 13:57) RASH,SWELLING atorvastatin Allergy (Intermediate, Verified 12/04/23 13:57) myalgia, muscle cramps latex [LATEX] Allergy (Intermediate, Verified 12/04/23 13:57) ITCHY,SKIN TEARS simvastatin Allergy (Intermediate, Verified 12/04/23 13:57) sedation Medication List - Last Reconciled 12/04/23 by Carolina Mahoney MD albuterol sulfate 90 mcg/actuation 1 puff PO Q4H PRN 30 days alcohol swabs (Alcohol Prep Pads) 1 pad topical DAILY amlodipine 10 mg PO DAILY aspirin 81 mg PO BEDTIME bisacodyl 10 mg (2 x 5 mg) PO BEDTIME blood pressure monitor As directed blood sugar diagnostic (FreeStyle Lite Strips) As directed twice a day blood sugar diagnostic (FreeStyle Lite Strips) 1 strip miscellaneous QID 30 days blood-glucose meter (FreeStyle Lite Meter kit) As directed 2 times a day qqbxgfmjuh-zwtqctdadqsil-ojkq 50-325-40 mg 1 tab PO DAILY PRN 30 days cholecalciferol (vitamin D3) 50 mcg PO DAILY 90 days clonazepam 1 mg PO BID PRN clotrimazole 1% 1 appl topical BID [diabetic sandals As directed] [diabetic shoes with inserts with template As directed] [diabetic sneakers As directed] diclofenac sodium 75 mg PO BID dicyclomine 20 mg (2 x 10 mg) PO QID PRN ezetimibe 10 mg PO DAILY fluticasone furoate 100 mcg/actuation (Arnuity Ellipta) 1 inh inhalation DAILY fluticasone propionate 50 mcg/actuation (Flonase Allergy Relief) 1 spray intranasal BID 30 days hydrocortisone 2.5% 1 appl MO BID PRN insulin glargine (Lantus Solostar U-100 Insulin) 28 units (0.28 mL) subcut DAILY 90 days lancets (TRUEplus Lancets) 1 gauge miscellaneous TID 30 days loratadine (Allergy Relief (loratadine)) 10 mg PO DAILY 14 days magnesium hydroxide (Milk of Magnesia) 5 mL PO BEDTIME metformin 1,000 mg (2 x 500 mg) PO BID miconazole nitrate 2% 1 appl topical DAILY PRN 30 days montelukast 10 mg PO QPM oxycodone-acetaminophen 5-325 mg 1 tab PO Q6H PRN 30 days pantoprazole 40 mg PO QAM peg [id number] 1-0.2-0.2 % drps ophthalmic (eye) DAILY PRN pen needle, diabetic As directed [pillow As directed] sertraline 200 mg PO QAM valsartan 160 mg PO BEDTIME zolpidem 10 mg PO BEDTIME PRN Tobacco use date assessed: 08/05/23 Fall risk assessment: No Falls in past year Last assessed Fall Risk: 12/04/23 Dental Screening Dental Screen Date: 08/05/23 HPI HPI Comments History of Present Illness Details This is a 68-year-old female with diabetes mellitus type 2 on long-term current use of insulin, hypertension, hyperlipidemia and mild recurrent major depression that complains today of left buttock pain that radiates to the front associated with vesicle like rash that started less than 3 days ago most likely due to herpes zoster. This has happened in the past in the same area. I will start her on valacyclovir. A1c elevated and I will increase Lantus. Her BMI is 34.7 and she does not have any interest in losing weight. Blood pressure stable. Last LDL was not on goal and lipid panel will be repeated. Depression stable with medications and this is follow by Psychiatry. She walks with a cane for gait stability due to knee osteoarthritis and will benefit from having a pillow between her legs. She is accompanied by . [facility] Medical History (Updated 12/04/23 @ 14:57 by Carolina Mahoney MD) Physical exam Encounter for annual routine gynecological examination Physical exam Sacroiliac joint dysfunction of left side DM2 (diabetes mellitus, type 2) Mild recurrent major depression Mild asthma Obesity due to excess calories Diarrhea Diabetes mellitus with hyperglycemia Hyperlipidemia LDL goal <100 Essential hypertension Knee osteoarthritis Surgical History S/P excision of lipoma (01/03/23) History of excision of lesion (05/09/17) History of surgery on right wrist (01/31/16) History of phacoemulsification of cataract of right eye with intraocular lens im plantation History of phacoemulsification of cataract of left eye with intraocular lens implantation Hx of colonoscopy Hx of cholecystectomy (05/09/17) History of left knee replacement Hx of section Family History Father Ischemic cardiomyopathy CVD (cardiovascular disease) Mother No problems noted. 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 1. Little interest or pleasure in doing things: several days 2. Feeling down, depressed, or hopeless: several days 3. Trouble falling or staying asleep, or sleeping too much: several days 4. Feeling tired or having little energy: several days 5. Poor appetite or overeating: several days 6. Feeling bad about yourself - or that you are a failure or have let yourself or your family down: not at all 7. Trouble concentrating on things, such as reading the newspaper or watching television: not at all 8. Moving or speaking so slowly that other people could have noticed. Or the opposite - being so fidgety or restless that you have been moving around a lot more than usual: not at all 9. Thoughts that you would be better off or of hurting yourself in some way: not at all Total score: 5 Depression Screening Interpretation: Positive Depression Screening Follow-up: Existing condition, In treatment, Community Mental Health Worker F/U and Follow- up Visit Requested Depression Screening Done: Yes 32197 - PHQ-9 Billing: Yes Source: Developed by Drs. Haroon Valencia, Colleen Tam, Jose Guadalupe Castellanos and colleagues, with an educational varinder from [employer] Thrive Questionnaire Date Thrive assessed: 07/25/22 Currently or been in a relationship where the following occur: no concerns reported THRIVE Score: 0 ROBERTA-7 AMB Questionnaire ROBERTA-7 Date ROBERTA - 7 assessed: 08/05/23 Source: Developed by Drs. Haroon Valencia, Colleen Tam, Jose Guadalupe Castellanos and colleagues, with an educational varinder from [employer]. Review of Systems Const All systems reviewed & are unremarkable except as noted in HPI and below Card Denies chest pain at rest, Denies chest pain with activity, Denies edema, Denies irregular heart rhythm, Denies claudication, Denies dyspnea, Denies dyspnea on exertion, Denies orthopnea, Denies paroxysmal nocturnal dyspnea and Denies slow heart rate Resp Denies cough, Denies dyspnea and Denies dyspnea on exertion Physical exam (Primary Care) Vital Signs: Last Vital Signs BP 128/80 12/04/23 13:42 BMI result Body Mass Index 34.7 BMI Assessment/Plan discussion: High BMI High, discussed plan: lifestyle, weight reduction, dietary and physical activity Tobacco/Smoking Status: Tobacco use Status Tobacco use date assessed 08/05/23 12/04/23 13:51 Patient Tobacco Use Status Never used Tobacco 12/04/23 13:51 e-Cigarette/Vaping Use Never Used 12/04/23 13:51 Depression Screening Interpretation: Positive Depression Screening Follow-up: Existing condition, In treatment, Community Mental Health Worker F/U and Follow- up Visit Requested Thrive Assessment: Date of Thrive Assessment Date Thrive assessed 07/25/22 12/04/23 13:51 Currently or been in a relationship where the following occur: no concerns reported Const General: cooperative Nutritional Appearance: obese Limitations: ambulation with cane Resp Effort & Inspection: normal respiratory effort Auscultation: clear to auscultation bilaterally Cardio Jugular venous distension: no JVD Rate: regular rate Rhythm: regular rhythm Heart sounds: S1 normal heart sound present and S2 normal heart sound present Extrem General: Yes full ROM Results AMB Hemoglobin A1c AMB Hemoglobin A1c 7.6 % Last Edit by DEE Mancera on 12/04/23 13:5 4 Results Reviewed Results Reviewed: Laboratory Last Values Hgb A1c (Clinic) 7.6 % (4.0-6.0) H 12/04/23 13:41 Assessment and Plan Assessment & Plan (1) Mild recurrent major depression: Code(s): F33.0 - Major depressive disorder, recurrent, mild Plan: Continue sertraline. Follow-up with psychiatry. (2) DM2 (diabetes mellitus, type 2): Code(s): E11.9 - Type 2 diabetes mellitus without complications Qualifiers: Diabetes mellitus mcfp insulin use: with mcfp use Diabetes mellitus complication status: with hyperglycemia Qualified Code(s): E11.65 - Type 2 diabetes mellitus with hyperglycemia; Z79.4 - meterman (current) use of insulin Plan: Continue metformin. Increase Lantus from 28 units to 38 units once a day. A1c goal is equal or less than 7%. (3) Hyperlipidemia LDL goal <70: Code(s): E78.5 - Hyperlipidemia, unspecified Plan: Continue Zetia. Repeat lipid panel. LDL goal is less than 70. (4) Essential hypertension: Code(s): I10 - Essential (primary) hypertension Plan: Continue amlodipine and valsartan. Blood pressure goal is equal or less than 130/80. (5) Herpes zoster: Code(s): B02.9 - Zoster without complications Qualifiers: Herpes zoster complications: without complications Qualified Code(s): B02.9 - Zoster without complications Plan: Start valacyclovir. Orders: Orders AMB Hemoglobin A1c Today E11.65 - Type 2 diabetes mellitus with hyperglycemia, Z79.4 - meterman (current) use of insulin Medications: New blood pressure monitor As directed 1 ea 0RF I10 - Essential (primary) hypertension [pillow] As directed 1 ea 0RF M53.3 - Sacrococcygeal disorders, not elsewhere classified, M54.31 - Sciatica, right side valacyclovir 1,000 mg PO Q8H 7 days 21 tabs 0RF Changed From insulin glargine (Lantus Solostar U-100 Insulin) 28 units (0.28 mL) subcut DAILY 90 days 25.2 mL 3RF E11.65 - Type 2 diabetes mellitus with hyperglycemia, Z79.4 - meterman (current) use of insulin To insulin glargine (Lantus Solostar U-100 Insulin) 32 units (0.32 mL) subcut DAILY 90 days 28.8 mL 3RF E11.65 - Type 2 diabetes mellitus with hyperglycemia, Z79.4 - meterman (current) use of insulin Refilled blood-glucose meter (FreeStyle Lite Meter kit) As directed 2 times a day 1 ea 0RF E11.65 - Type 2 diabetes mellitus with hyperglycemia, Z79.4 - retirement (current) use of insulin Coding Level of Care Code Est Pt Level 4 (26068) Complex EM visit Add On G2211 Diagnoses Mild recurrent major depression F33.0 Type 2 diabetes mellitus with hyperglycemia, with long-term current use of insulin E11.65; Z79.4 Diabetes mellitus mcfp insulin use: with meterman use Diabetes mellitus complication status: with hyperglycemia Hyperlipidemia LDL goal <70 E78.5 Essential hypertension I10 Herpes zoster without complication B02.9 Herpes zoster complications: without complications Time Spent (min) 25
[2023-12-04 13:42] VITALS: BP 128/80; BMI 34.7
== END 2023-12-04 14:13 | disposition home or self-care (01) ==
PROVIDERS: PCP Internal Medicine; Visit Provider Internal Medicine
DX: F33.0 Major depressive disorder, recurrent, mild (principal); E11.65 Type 2 diabetes mellitus with hyperglycemia; Z79.4 Long term (current) use of insulin; E78.5 Hyperlipidemia, unspecified; I10 Essential (primary) hypertension; B02.9 Zoster without complications
CPT/HCPCS: 83036; 99214; G2211

== ENCOUNTER 2023-12-05 13:10 | Outpatient (AMB) | payer MEDICARE, MEDICAID, SELFPAY ==
[2023-12-05 13:13] VITALS: BMI 34.7
--- NOTE | 2023-12-05 13:13 | MHC.OFFVIS ---
Vital Signs 12/05/23 13:13 Height 5 ft 3 in Weight 196 lb BMI 34.7 Intake Visit Reasons: O/V left knee replacement/01/31/2016/ PER [place] Intake Note: Dot is a 68 year old female who presents today for a follow up of her left knee pain. Hx of Left TKA, a CT scan was ordered to rule out hardware loosening. She states that her pain is minimal today due to physical therapy helping her. IMPRESSION: 1. Left knee arthroplasty in expected anatomic alignment. No evidence of hardware complication. 2. No acute osseous abnormality. 3. Ossified loose body posterosuperior to the medial femoral condyle, measuring up to 2.7 cm. Allergies penicillin G [Penicillin G] Allergy (Severe, Verified 12/04/23 13:57) RASH,SWELLING atorvastatin Allergy (Intermediate, Verified 12/04/23 13:57) myalgia, muscle cramps latex [LATEX] Allergy (Intermediate, Verified 12/04/23 13:57) ITCHY,SKIN TEARS simvastatin Allergy (Intermediate, Verified 12/04/23 13:57) sedation HPI HPI O/V left knee replacement/01/31/2016/ PER [place]: Details: Dot returns following CT scan of left knee. She states her knee feels fine but it is her lateral hip and buttock that is problematic. She is scheduled for an injection with pain management. She describes radiating pain in a dermatomal distribution c/w lumbar radicular pain. [facility] Medical History (Updated 12/04/23 @ 14:57 by Carolina Mahoney MD) Physical exam Encounter for annual routine gynecological examination Physical exam Sacroiliac joint dysfunction of left side DM2 (diabetes mellitus, type 2) Mild recurrent major depression Mild asthma Obesity due to excess calories Diarrhea Diabetes mellitus with hyperglycemia Hyperlipidemia LDL goal <100 Essential hypertension Knee osteoarthritis Surgical History S/P excision of lipoma (01/03/23) History of excision of lesion (05/09/17) History of surgery on right wrist (01/31/16) History of phacoemulsification of cataract of right eye with intraocular lens implantation History of phacoemulsification of cataract of left eye with intraocular lens implantation Hx of colonoscopy Hx of cholecystectomy (05/09/17) History of left knee replacement Hx of section Family History Father Ischemic cardiomyopathy CVD (cardiovascular disease) Mother No problems noted. 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 Resp Other: No audible wheezing Effort & Inspection: normal respiratory effort Back/Spine/Pelvis Cervical Spine: normal cervical lordosis Skin General skin exam: no rashes or lesions noted Neuro General: no focal motor deficits Extrem Other: No ttp. There is trace effusion. 0-120 degrees of motion. stable and min pain compared to prior Psych Appearance: grossly normal and well kempt Mental Status: mental status grossly normal Speech and movement: Normal speech and movement present Affect: normal affect Attitude: cooperative Results Reviewed Results Reviewed: I personally reviewed relevant radiographs. 1. Left knee arthroplasty in expected anatomic alignment. No evidence of hardware complication. 2. No acute osseous abnormality. 3. Ossified loose body posterosuperior to the medial femoral condyle, measuring up to 2.7 cm. Assessment & Plan Assessment & Plan (1) History of left knee replacement: Comment: 09/06/2015 Code(s): Z96.652 - Presence of left artificial knee joint Category: Surgical Plan: This is stable. There is no evidence of loosening or infection. She does have intermittant pain and I discussed this with her. I agree that she should focus on her bakd/SI/piriformis with pain/physiatry. (2) Lumbar paraspinal muscle spasm: Code(s): M62.830 - Muscle spasm of back Category: Medical Plan: (3) Sacroiliac joint dysfunction of left side: Code(s): M53.3 - Sacrococcygeal disorders, not elsewhere classified Category: Medical Plan: Coding Level of Care Code Est Pt Level 4 (89508) Diagnoses History of left knee replacement Z96.652 Lumbar paraspinal muscle spasm M62.830 Sacroiliac joint dysfunction of left side M53.3
== END 2023-12-05 13:52 | disposition home or self-care (01) ==
PROVIDERS: PCP Internal Medicine; Visit Provider Orthopaedic Surgery
DX: M25.562 Pain in left knee (principal); Z96.652 Presence of left artificial knee joint; M62.830 Muscle spasm of back; M53.3 Sacrococcygeal disorders, not elsewhere classified
CPT/HCPCS: 99213

== ENCOUNTER → 2023-12-05 13:10 | Outpatient (BNVA) | payer MEDICARE, MEDICAID, SELFPAY | PROVIDERS: PCP Internal Medicine; Visit Provider Orthopaedic Surgery | DX: M25.562 Pain in left knee (principal); M53.3 Sacrococcygeal disorders, not elsewhere classified; M62.830 Muscle spasm of back; Z96.652 Presence of left artificial knee joint | CPT/HCPCS: 99212 ==

== ENCOUNTER 2023-12-27 13:00 | Outpatient (RCR) | payer MEDICARE, MEDICAID, SELFPAY ==
--- NOTE | 2023-11-22 10:29 | MHC.PT.EP ---
[facility] [place] [facility] [place] [facility] [place] [facility] [address] Anh Tavarez [address] [phone] F: [phone] F: [phone] F: [phone] F: [phone] Physical Therapy Plan of Care Date of Evaluation: 11/21/23 Date of Surgery: Diagnosis: LEFT hip trochanteric bursitis, LEFT lower limp lesion of sciatic nerve, muscle spasm of back (MD Dx) LEFT lumbar radiculopathy, LEFT sciatica (PT Dx) (RS) [ End ] Assessment: Patient is a pleasant 68 y.o. [place] speaking female who is referred to PT by Dr. Ella Sabillon MD with Dx of LEFT hip trochanteric bursitis, LEFT lower limp lesion of sciatic nerve, muscle spasm of back. PT diagnosis is LEFT lumbar radiculopathy, LEFT sciatica. Patient impairments include poor posture, pain, weakness, limited ROM, labored transfers, antalgic gait. Patient current functional limitations are difficulty sitting, standing for prolonged period of time, ascend/descend stairs, bending, cooking, cleaning, dressing. Patient will benefit from skilled PT to address aforementioned impairments and functional limitations to meet established goals. Frequency and Duration: The patient will be seen 2x/week for 4 weeks Short Term Goals: 2 weeks Patient demonstrates consistency and independence with HEP to self manage symptoms. Speech Therapy Director Goals: 4 weeks Patient presents with L hip flexion 4+/5 to be able to ascend/descend stairs reciprocally with railing. Patient presents with increased lumbar spine flexion 80 degrees to be able to perform lower body dressing independently Treatment Plan: Modalities to reduce pain, spasms and effusion. Manual therapy to restore motion and function. Therapeutic exercise to improve strength and flexibility. Neuromuscular re-education for posture and balance. Therapeutic activities to return to functional activities of daily living. Electronically signed by: Estrella Simental, PT, DPT Please sign and return to therapist. Thank you for your referral.
--- NOTE | 2024-02-13 10:56 | MHC.PT.DC ---
[facility] [place] Office [place] Office [place] Office [address] Anh Tavarez [address] [phone] F: [phone] F: [phone] F: [phone] F: [phone] Physical Therapy Discharge Report Diagnosis: LEFT hip trochanteric bursitis, LEFT lower limp lesion of sciatic nerve, muscle spasm of back (MD Dx) LEFT lumbar radiculopathy, LEFT sciatica (PT Dx) (RS) [ End ] Date of Surgery: Date of Evaluation: 11/21/23 Date of Discharge: 02/13/24 Treatments to Date: 10 Cancellations to Date: 3 No Shows to Date: 1 Discharge Status: Independent with HEP Patient Elected to Stop Discharge Summary: Dot ceased attending PT on her own accord as she was having a scheduled injection for her sxs. Her last PT session was on 12/27/23 and the assessment reads, Pt was sore at start of session so PT was focused on STM and gentle table level exercises. PT displayed extreme tightness in L ITB, quad, TFL, and hamstring. Pt had difficulty w/ SLR d/t hamstring cramp but pt could do bent knee fall out and reverse clamshells w/o pain. Pt also displayed tightness in hip flexors so she completed standing hip flexor stretch. Pt is getting injections in L hip on December 30 so pt was educated on not attending PT a few days after injection. Future sessions will continue hip (especially quad strengthening) in comfortable range. She is discharged from PT at this time. Electronically signed by: Estrella Simental, PT, DPT Please sign and return to therapist. Thank you for your referral.
== END 2024-02-13 10:57 | disposition home or self-care (01) ==
LOC: HO.PT 13:00
PROVIDERS: PCP Internal Medicine; Visit Provider Physical Medicine & Rehabilitation
DX: G57.02 Lesion of sciatic nerve, left lower limb (principal); M70.62 Trochanteric bursitis, left hip; M62.830 Muscle spasm of back
CPT/HCPCS: 97110; 97140; 97162; 97530; 97535

== ENCOUNTER 2023-12-31 06:14 | Outpatient (REF) | payer MEDICARE, MEDICAID, SELFPAY ==
--- NOTE | ~2023-12-31 | FL_ITS ---
EXAMINATION: XR FLUOROSCOPY WITH IMAGES CLINICAL INFORMATION: Sacrococcygeal disorders. COMPARISON: None available. TECHNIQUE: Fluoroscopy Supervised By: Dr. Lavon Roberts. Fluoroscopy Time: 0.2 minutes. Cumulative Dose: 2.63 mGy. DAP: 0.0456 Gycm2. Images: 1. FINDINGS: Intraoperative fluoroscopy and spot films were performed during a procedure in the OR. There is a needle seen in the region of the left SI joint with contrast media seen largely medial to the tip. Please correlate with Dr. Roberts's report for complete details. FL/FL guidance in treatment room IMPRESSION: Intraoperative fluoroscopy and spot films were obtained. Please see Dr. Roberts's report for complete details.
== END 2023-12-31 06:15 | disposition home or self-care (01) ==
LOC: CF 06:14
PROVIDERS: Visit Provider Anesthesiology
DX: M53.3 Sacrococcygeal disorders, not elsewhere classified (principal)
CPT/HCPCS: 27096; J2795; J3301; Q9967

== ENCOUNTER 2023-12-31 10:49 | Outpatient (AMB) | payer MEDICARE, MEDICAID, SELFPAY ==
--- NOTE | 2023-12-31 10:58 | A.OFFVIS_ITS ---
Vital Signs 12/31/23 12:40 12/31/23 12:41 Height 5 ft 3 in 5 ft 3 in Weight 196 lb 196 lb BMI 34.7 34.7 BP 162/85 H 164/92 H Blood Pressure Location Lt brachial Lt brachial Position Sitting Sitting Respiration 16 16 Pulse 64 66 Pulse Source Pulse Oximeter Pulse Oximeter Pulse Oximetry (%) 95 96 Oxygen Delivery Method Room Air Room Air Comment pre-op post-op Intake Visit Reasons: LEFT SIJ INJECTION Allergies penicillin G [Penicillin G] Allergy (Severe, Verified 12/31/23 12:42) RASH,SWELLING atorvastatin Allergy (Intermediate, Verified 12/31/23 12:42) myalgia, muscle cramps latex [LATEX] Allergy (Intermediate, Verified 12/31/23 12:42) ITCHY,SKIN TEARS simvastatin Allergy (Intermediate, Verified 12/31/23 12:42) sedation [facility] Medical History (Updated 12/04/23 @ 14:57 by Carolina Mahoney MD) Physical exam Encounter for annual routine gynecological examination Physical exam Sacroiliac joint dysfunction of left side DM2 (diabetes mellitus, type 2) Mild recurrent major depression Mild asthma Obesity due to excess calories Diarrhea Diabetes mellitus with hyperglycemia Hyperlipidemia LDL goal <100 Essential hypertension Knee osteoarthritis Surgical History S/P excision of lipoma (01/03/23) History of excision of lesion (05/09/17) History of surgery on right wrist (01/31/16) History of phacoemulsification of cataract of right eye with intraocular lens implantation History of phacoemulsification of cataract of left eye with intraocular lens implantation Hx of colonoscopy Hx of cholecystectomy (05/09/17) History of left knee replacement Hx of section Family History Father Ischemic cardiomyopathy CVD (cardiovascular disease) Mother No problems noted. 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 This patient was referred to us by Dr. Martin. His diagnosis is sacroiliac joint dysfunction on the left. My brief examination was concurrent with this diagnosis. Patient was given an option to have either diagnostic or therapeutic sacroiliac joint injection. [facility] [place] us to maintain the conversation with the patient. Informed consent was explained thoroughly to the patient.? All questions about benefits and risks for the procedure were answered. Patient came to the operating room and was positioned prone on the operating table with the pillow under the pelvis.? The lower back and buttocks of the patient were prepped with ChloraPrep prepped and draped with sterile utility towels.? Sterilely draped C-arm was brought over the operating field and sq picture of patient's pelvis was demonstrated on the screen.? For the left joint tilting C-arm contralateral to the site of the joint the most posterior portion of the joints was superimposed with anterior silhouette of the joint.? Skin was injected in the projection of the joint slightly medial to the location of the joint with 25 gauge 1/2 inch needle using local lidocaine 2% . After that 22 gauge 3 and 1/2 inch needle was driven to the left joint in tunnel vision fashion.? When needle entered the joint capsule injection of the contrast was performed demonstrating intra-articular and minimally periarticular spread of the contrast.? After that 4 cc. of ropivacaine 0.5% mixed with Kenalog 40 mg was injected into each joint.? Upon completion of the injections the needle was removed and Band-Aid dressing was applied.? Upon completion of the injection patient was taken outside of the operating room to the recovery room where she recovered uneventfully. Orders: Orders FL guidance in treatment room 12/31/23 M53.3 - Sacrococcygeal disorders, not elsewhere classified Coding Level of Care Code Procedure Only Diagnoses Sacroiliac joint dysfunction of left side M53.3
[2023-12-31 12:40] VITALS: BP 162/85; PULSE 64; RESP 16; O2SAT 95; BMI 34.7
[2023-12-31 12:41] VITALS: BP 164/92; PULSE 66; RESP 16; O2SAT 96; BMI 34.7
== END 2023-12-31 11:52 | disposition home or self-care (01) ==
LOC: HO.PMCPRC 10:49
PROVIDERS: PCP Internal Medicine; Visit Provider Anesthesiology
DX: M53.3 Sacrococcygeal disorders, not elsewhere classified (principal)
CPT/HCPCS: 27096

== ENCOUNTER 2024-01-20 10:32 | Outpatient (AMB) | payer MEDICARE, MEDICAID, SELFPAY ==
[2024-01-20 10:36] VITALS: BP 148/87; BMI 34.2
--- NOTE | 2024-01-20 10:36 | A.OFFVIS_ITS ---
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 This patient was referred to this office by Dr. Martin orthopedic surgeon. She reports that her pain started 2 years ago after accidental fall at home. She reports that cause of the problem is arthritis. She reports today minor ache in the projection of the LS trochanter. She denies low back pain associated with sacroiliitis has she had before. She admits pain in projection of the trochanter as 3/10. Because of her pain she reports that she could not sleep normally. She could not do activities of daily living she can take care of herself but she can not function normally. She stated that she is unemployed. She is 69 years old. Per the changes in movements aggravate her pain. Heat is the oral medications alleviate her pain. In terms of tissue damage he reports her pain is dull, sore, hurting, aching, heavy sensation. She had x-rays and CT scans of her lumbar spine. She had physical therapy. Her past medical history significant for hypertension asthma diabetes gallstones and arthritis. Her past surgical history significant for carotid endarterectomy, total knee replacement and gallbladder surgery. She denies smoking cigarettes drinking alcohol she admits coffee but not soda and she denies recreational drugs. [facility] Medical History (Updated 01/20/24 @ 12:44 by Lavon Roberts MD) Physical exam Encounter for annual routine gynecological examination Physical exam Sacroiliac joint dysfunction of left side DM2 (diabetes mellitus, type 2) Mild recurrent major depression Mild asthma Obesity due to excess calories Diarrhea Diabetes mellitus with hyperglycemia Hyperlipidemia LDL goal <100 Essential hypertension Knee osteoarthritis Surgical History S/P excision of lipoma (01/03/23) History of excision of lesion (05/09/17) History of surgery on right wrist (01/31/16) History of phacoemulsification of cataract of right eye with intraocular lens implantation History of phacoemulsification of cataract of left eye with intraocular lens implantation Hx of colonoscopy Hx of cholecystectomy (05/09/17) History of left knee replacement Hx of section Family History Father Ischemic cardiomyopathy CVD (cardiovascular disease) Mother No problems noted. 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 Cognitive needs: Yes Hearing needs: No Vision needs: Yes Review of Systems Const All systems reviewed & are unremarkable except as noted in HPI and below Card Denies chest pain at rest, Denies chest pain with activity, Denies edema, Denies irregular heart rhythm and Denies claudication Resp Denies cough Musc Reports as per HPI Neuro Reports no additional complaints Psych Reports no additional complaints Endo Reports as per HPI Physical Exam Vital Signs: Last Vital Signs BP 148/87 H 01/20/24 10:36 BMI result Body Mass Index 34.2 Const General: cooperative, healthy appearing, no acute distress, well developed and alert HEENT Head: Yes normal to inspection, Yes normocephalic and Yes atraumatic Mouth: moist mucous membranes Eyes General: appearance normal, both eyes and all related structures EOM: EOMs intact bilaterally Back/Spine/Pelvis Other: On the physical exam before the injection Johnny test was positive on the left as well as Gaenslen test was positive on the left, as well as 14 finger test was positive on the left as well as Stinchfield test was positive on the left. Cervical Spine: normal cervical lordosis Skin General skin exam: no rashes or lesions noted Neuro General: no focal motor deficits Extrem Other: No ttp. There is trace effusion. 0-120 degrees of motion. stable and min pain compared to prior Psych Appearance: grossly normal and well kempt Mental Status: mental status grossly normal Speech and movement: Normal speech and movement present Affect: normal affect Attitude: cooperative Assessment & Plan Assessment & Plan (1) Sacroiliitis: Code(s): M46.1 - Sacroiliitis, not elsewhere classified Category: Medical (2) Left-sided temporomandibular joint pain-dysfunction syndrome: Code(s): M26.622 - Arthralgia of left temporomandibular joint Category: Medical (3) Trochanteric bursitis, left hip: Code(s): M70.62 - Trochanteric bursitis, left hip Category: Medical (4) Chronic pain syndrome: Code(s): G89.4 - Chronic pain syndrome Category: Medical Plan Very good and impressive results of the left sacroiliac joint injection. I will be willing to see and observed for how long this therapeutic injection w ill last. Further treatment of this patient's pain as a series of sacroiliac joint injection versus sacroiliac joint stabilization with fusion versus sacroiliac joint innervation stimulation were carefully explained to the patient. The patient expressed understanding. She will give us a call when her sacroiliac joint pain will come back and injection will become necessary. I will see this patient in the future as needed. Coding Level of Care Code New Pt Level 3 (26088) Diagnoses Sacroiliitis M46.1 Left-sided temporomandibular joint pain-dysfunction syndrome M26.622 Trochanteric bursitis, left hip M70.62 Chronic pain syndrome G89.4
== END 2024-01-20 11:40 | disposition home or self-care (01) ==
PROVIDERS: PCP Internal Medicine; Visit Provider Anesthesiology
DX: M46.1 Sacroiliitis, not elsewhere classified (principal); M26.622 Arthralgia of left temporomandibular joint; M70.62 Trochanteric bursitis, left hip; G89.4 Chronic pain syndrome
CPT/HCPCS: 99213

== ENCOUNTER → 2024-01-20 10:32 | Outpatient (BNVA) | payer MEDICARE, MEDICAID, SELFPAY | PROVIDERS: PCP Internal Medicine; Visit Provider Anesthesiology | DX: M46.1 Sacroiliitis, not elsewhere classified (principal); M26.622 Arthralgia of left temporomandibular joint; M70.62 Trochanteric bursitis, left hip; G89.4 Chronic pain syndrome | CPT/HCPCS: 99212 ==

== ENCOUNTER 2024-04-27 13:13 | Outpatient (AMB) | payer MEDICARE, MEDICAID, SELFPAY ==
--- NOTE | 2024-04-27 13:19 | MHC.PC.OV ---
Vital Signs 04/27/24 13:27 Height 5 ft 3 in Weight 192 lb BMI 34.0 BP 140/80 H Blood Pressure Location Lt brachial Position Sitting Intake Visit Reasons: 4mth f/u Intake Note: Patient here for a 4 month follow up, abdominal pain, bloating, urinary incontinence Professor Of Chemistry Required: No Accompanied by: Self / Same As Patient Allergies penicillin G [Penicillin G] Allergy (Severe, Verified 04/27/24 13:34) RASH,SWELLING atorvastatin Allergy (Intermediate, Verified 04/27/24 13:34) myalgia, muscle cramps latex [LATEX] Allergy (Intermediate, Verified 04/27/24 13:34) ITCHY,SKIN TEARS simvastatin Allergy (Intermediate, Verified 04/27/24 13:34) sedation Medication List - Last Reconciled 04/27/24 by Carolina Mahoney MD albuterol sulfate 90 mcg/actuation 1 puff PO Q4H PRN 30 days alcohol swabs (Alcohol Prep Pads) 1 pad topical DAILY amlodipine 10 mg PO DAILY aspirin 81 mg PO BEDTIME bisacodyl 10 mg (2 x 5 mg) PO BEDTIME blood pressure monitor As directed blood sugar diagnostic (FreeStyle Lite Strips) As directed twice a day blood sugar diagnostic (FreeStyle Lite Strips) 1 strip miscellaneous QID 30 days blood-glucose meter (FreeStyle Lite Meter kit) As directed 2 times a day tglwizejpa-tuduwosspyuje-dnuj 50-325-40 mg 1 tab PO DAILY PRN 30 days cholecalciferol (vitamin D3) 50 mcg PO DAILY 90 days clonazepam 1 mg PO BID PRN clotrimazole 1% 1 appl topical BID [diabetic sandals As directed] [diabetic shoes with inserts with template As directed] [diabetic sneakers As directed] diclofenac sodium 75 mg PO BID dicyclomine 20 mg (2 x 10 mg) PO QID PRN ezetimibe 10 mg PO DAILY fluticasone furoate 100 mcg/actuation (Arnuity Ellipta) 1 inh inhalation DAILY fluticasone propionate 50 mcg/actuation (Flonase Allergy Relief) 1 spray intranasal BID 30 days hydrocortisone 2.5% 1 appl TN BID PRN insulin glargine (Lantus Solostar U-100 Insulin) 32 units (0.32 mL) subcut DAILY 90 days lancets (TRUEplus Lancets) 1 gauge miscellaneous TID 30 days loratadine (Allergy Relief (loratadine)) 10 mg PO DAILY 14 days magnesium hydroxide (Milk of Magnesia) 5 mL PO BEDTIME metformin 1,000 mg (2 x 500 mg) PO BID miconazole nitrate 2% 1 appl topical DAILY PRN 30 days montelukast 10 mg PO QPM oxycodone-acetaminophen 5-325 mg 1 tab PO Q6H PRN 30 days pantoprazole 40 mg PO QAM peg [id number] 1-0.2-0.2 % drps ophthalmic (eye) DAILY PRN pen needle, diabetic As directed [pillow As directed] rosuvastatin 40 mg PO DAILY 90 days sertraline 200 mg PO QAM valacyclovir 1,000 mg PO Q8H 7 days valsartan 160 mg PO BEDTIME zolpidem 10 mg PO BEDTIME PRN Tobacco use date assessed: 08/05/23 Dental Screening Dental Screen Date: 08/05/23 HPI HPI Comments History of Present Illness Details This is a 69 year old female with diabetes mellitus type 2 on long-term current use of insulin, hypertension, hyperlipidemia and mild major depression that complains of abdominal pain more prominent in the epigastrium and bilateral lower quadrants that started 3 weeks ago. Associated with bloating. Also complains of urge urinary incontinence wetting the bed. Needs bed under pads. A1c slightly elevated but she says at home is 146 to 170. Blood pressure borderline normal to elevated. Lipid panel will be order and her LDL goal should be less than 70. Depression stable with SSRIs. [facility] Medical History Physical exam Encounter for annual routine gynecological examination Physical exam Sacroiliac joint dysfunction of left side DM2 (diabetes mellitus, type 2) Mild recurrent major depression Mild asthma Obesity due to excess calories Diarrhea Diabetes mellitus with hyperglycemia Hyperlipidemia LDL goal <100 Essential hypertension Knee osteoarthritis Surgical History S/P excision of lipoma (01/03/23) History of excision of lesion (05/09/17) History of surgery on right wrist (01/31/16) History of phacoemulsification of cataract of right eye with intraocular lens implantation History of phacoemulsification of cataract of left eye with intraocular lens implantation Hx of colonoscopy Hx of cholecystectomy (05/09/17) History of left knee replacement Hx of section Family History Father Ischemic cardiomyopathy CVD (cardiovascular disease) Mother No problems noted. 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 Haroon Valencia, Colleen Tam, Jose Guadalupe Castellanos and colleagues, with an educational varinder from [employer]. Review of Systems Const All systems reviewed & are unremarkable except as noted in HPI and below Card Denies chest pain at rest, Denies chest pain with activity, Denies edema, Denies irregular heart rhythm, Denies claudication, Denies dyspnea, Denies dyspnea on exertion, Denies orthopnea, Denies paroxysmal nocturnal dyspnea and Denies slow heart rate Resp Denies cough, Denies dyspnea and Denies dyspnea on exertion GI Reports abdominal pain, Denies change in bowel habits, Denies excessive flatus, Denies nausea and Denies vomiting Reports urinary incontinence, Denies urinary hesitancy and Denies urinary urgency Musc Denies abnormal gait, Denies atrophy, Denies deformity and Denies limited range of motion Skin/Breast Denies bleeding lesions, Denies changing lesions and Denies rash Neuro Denies abnormal gait, Denies behavioral changes and Denies lack of coordination Psych Denies behavioral changes Physical exam (Primary Care) Vital Signs: Last Vital Signs BP 140/80 H 04/27/24 13:27 BMI result Body Mass Index 34.0 BMI Assessment/Plan discussion: High BMI High, discussed plan: lifestyle, weight reduction, dietary and physical activity Tobacco/Smoking Status: Tobacco use Status Tobacco use date assessed 08/05/23 04/27/24 13:19 Patient Tobacco Use Status Never used Tobacco 04/27/24 13:19 e-Cigarette/Vaping Use Never Used 04/27/24 13:19 Thrive Assessment: Date of Thrive Assessment Date Thrive assessed 07/25/22 04/27/24 13:19 HENMT Head: Yes normal to inspection, Yes normocephalic and Yes atraumatic Ears: external ears normal General nose exam: Normal external nose present and No nasal discharge present Face and sinus: Yes sinuses nontender Mouth: lip normal Resp Effort & Inspection: normal respiratory effort Auscultation: clear to auscultation bilaterally Cardio Jugular venous distension: no JVD Rate: regular rate Rhythm: regular rhythm Heart sounds: S1 normal heart sound present and S2 normal heart sound present GI Inspection: Yes normal to inspection Palpation (GI): Soft to palpation and Tenderness to palpation present (GI) in the epigastrum, in the LLQ and in the RLQ Auscultation: normal bowel sounds Office Procedures Flu Questionnaire Does the patient have a severe egg allergy?: No Results AMB Hemoglobin A1c AMB Hemoglobin A1c 8.3 % Last Edit by DEE Mancera on 04/27/24 14:03 Immunizations Fluarix Triv [id number] (PF) 45 mcg (15 mcg x 3)/0.5 mL IM syringe Performing Provider: Carolina Mahoney MD [facility] [facility] [place] [facility] Documented (not given) by: DEE Mancera on 04/27/24 13:26 Reason Not Given: Patient Refused Results Reviewed Results Reviewed: Laboratory Last Values Hgb A1c (Clinic) 8.3 % (4.0-6.0) H 04/27/24 13:21 Coding Level of Care Code Est Pt Level 4 (17863) Complex EM visit Add On G2211 Diagnoses Type 2 diabetes mellitus with hyperglycemia, with long-term current use of insulin E11.65; Z79.4 Diabetes mellitus complication status: with hyperglycemia Diabetes mellitus longterm insulin use: with longterm use Mild recurrent major depression F33.0 Hyperlipidemia LDL goal <70 E78.5 Essential hypertension I10 Urge urinary incontinence N39.41 Time Spent (min) 22 Assessment & Plan Assessment & Plan (1) DM2 (diabetes mellitus, type 2): Code(s): E11.9 - Type 2 diabetes mellitus without complications Category: Medical Qualifiers: Diabetes mellitus complication status: with hyperglycemia 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 A1c goal is equal or less than 7%. A1c today of 8.3%. (2) Mild recurrent major depression: Code(s): F33.0 - Major depressive disorder, recurrent, mild Category: Medical Plan: Continue SSRIs. (3) Hyperlipidemia LDL goal <70: Code(s): E78.5 - Hyperlipidemia, unspecified Category: Medical Plan: Continue statins and Zetia. LDL goal is less than 70. (4) Essential hypertension: Code(s): I10 - Essential (primary) hypertension Category: Medical Plan: Continue amlodipine and losartan. Blood pressure goal is equal or less than 130/80. (5) Urge urinary incontinence: Code(s): N39.41 - Urge incontinence Category: Medical Plan: Use bed under pads as needed. Advised to do time bathroom visits also. Orders: Orders US abdomen comp w elastography Today R10.9 - Unspecified abdominal pain Complete Blood Count Auto Diff Today D64.9 - Anemia, unspecified Microalbumin, Random (w Creat) Today R80.9 - Proteinuria, unspecified IRON PROFILE Today D64.9 - Anemia, unspecified Influenza [id number] Immunization Today Z23 - Encounter for immunization AMB Hemoglobin A1c Today E11.65 - Type 2 diabetes mellitus with hyperglycemia, Z13.9 - Encounter for screening, unspecified, Z79.4 - detention (current) use of insulin Lipid Panel Today E78.5 - Hyperlipidemia, unspecified Vitamin B12 and Folate Today E53.8 - Deficiency of other specified B group vitamins Vitamin D 25-OH Total Today E55.9 - Vitamin D deficiency, unspecified Comprehensive [place]. Panel Fast Today E11.65 - Type 2 diabetes mellitus with hyperglycemia, Z79.4 - detention (current) use of insulin Medications: New sennosides (senna) 8.6 mg PO BEDTIME PRN 30 tabs 1RF constipation 30 days underpads (Bed Underpads) Use 5 pads per day prn 150 ea 11RF N39.41 - Urge incontinence
[2024-04-27 13:27] VITALS: BP 140/80; BMI 34.0
== END 2024-04-27 13:45 | disposition home or self-care (01) ==
LOC: HO.HMCH 13:17
PROVIDERS: PCP Internal Medicine; Visit Provider Internal Medicine
DX: E11.65 Type 2 diabetes mellitus with hyperglycemia (principal); Z79.4 Long term (current) use of insulin; F33.0 Major depressive disorder, recurrent, mild; E78.5 Hyperlipidemia, unspecified; I10 Essential (primary) hypertension; N39.41 Urge incontinence; Z13.9 Encounter for screening, unspecified; Z23 Encounter for immunization

== ENCOUNTER → 2024-04-27 13:13 | Outpatient (BNVA) | payer MEDICARE, MEDICAID, SELFPAY | PROVIDERS: PCP Internal Medicine; Visit Provider Internal Medicine | DX: E11.65 Type 2 diabetes mellitus with hyperglycemia (principal); Z79.4 Long term (current) use of insulin; F33.0 Major depressive disorder, recurrent, mild; E78.5 Hyperlipidemia, unspecified; I10 Essential (primary) hypertension; N39.41 Urge incontinence | CPT/HCPCS: 83036; 90471; 99212 ==

== ENCOUNTER 2024-05-04 15:13 | Emergency (ER) | payer MEDICARE, MEDICAID, SELFPAY ==
--- NOTE | ~2024-05-04 | CT_ITS ---
EXAMINATION: CT ABDOMEN AND PELVIS WITH CONTRAST CLINICAL INFORMATION: Left lower quadrant pain. History of diverticulitis. COMPARISON: CT abdomen and pelvis 03/19/2019. TECHNIQUE: Multidetector volumetric images were obtained from the superior aspect of the liver through the pubic symphysis following administration 85 mL of Omnipaque 350 intravenous contrast. Sagittal and coronal reformatted images were obtained on the technologist's workstation. Oral contrast: No This CT examination was performed using dose optimization techniques as appropriate, variously including the following: *Automated exposure control *Adjustment of mA and/or kV according to patient size (this includes techniques or standardized protocols for targeted exams where dose is matched to indication/reason for exam; i.e. extremities or head) *Use of iterative reconstruction technique DLP: 843 mGy-cm FINDINGS: LUNG BASES: A 2 mm calcified pulmonary granulomas present in the right lung base and is benign in appearance watching additional imaging follow-up. Partial visualization is made of at least mild to moderate scattered coronary artery calcific atherosclerosis LIVER, GALLBLADDER, AND BILIARY TREE: The liver is normal in size, shape, and attenuation. No focal hepatic lesion or biliary ductal dilatation is present. Cholecystectomy clips noted. PANCREAS: Unremarkable. SPLEEN: Unremarkable. ADRENAL GLANDS: Unremarkable. KIDNEYS AND URETERS: The kidneys are normal in size, shape, and attenuation. No hydronephrosis, hydroureter, or calculi seen. No perinephric stranding. BLADDER: Unremarkable. GASTROINTESTINAL TRACT: Marked sigmoid diverticulosis. Mild focal mural thickening of the proximal sigmoid colon with minimal reticulation of the adjacent sigmoid mesenteric fat (series 3 image 67). Findings are suspicious for possible acute diverticulitis. Normal appearance of the terminal ileum. The appendix is not visualized. No pericecal inflammatory changes noted. No free intraperitoneal fluid or gas collections identified. Normal appearance of the stomach and duodenum. ABDOMINAL WALL: No significant hernia is appreciated. LYMPH NODES: Normal. VASCULAR: Mild scattered calcific atherosclerosis PELVIC VISCERA: Normal appearance of the uterus and. No adnexal lesions. OSSEOUS STRUCTURES: No suspicious skeletal lesions. Multilevel intervertebral disc space narrowing and vacuum phenomenon of the thoracolumbar spine CT/CT abdomen pelvis w IV con IMPRESSION: *Findings suspicious for acute uncomplicated diverticulitis. Marked sigmoid diverticulosis is present. Mild focal mural thickening and findings suspicious for minimal inflammatory changes of the adjacent sigmoid mesentery are noted in association with the proximal sigmoid colon. No evidence of intestinal perforation. No free intraperitoneal fluid or gas collections. *Status post cholecystectomy. Electronically signed by: Arjun Sharpe MD 05/05/2024 02:23 AM JEIMY PINEDA
[2024-05-04 15:19] VITALS: BP 144/95; PULSE 80; RESP 20; TEMP 37.2; O2SAT 97; BMI 26.6
--- NOTE | 2024-05-04 15:22 | ED.GENADULT ---
HPI - General Adult General Chief complaint: Abdominal Pain Stated complaint: Abd pain Time Seen by Provider: 05/05/24 00:27 Source: patient, old records reviewed and historic interpreter Mode of arrival: ambulatory Limitations: no limitations History of Present Illness ED Provider: GEOVANNY VALENTINE narrative: 69 yo female with PMH of headaches, HLD, DM2, asthma, recurrent depression, GERD, HTN here with c/o LLQ pain and hard stools with straining, pain initially diffuse now LLQ. No fevers, n/v. She is passing flatus and hard stools. No GIB reported. No recent change in meds or diet to cause constipation MD complaint: abdominal pain Onset (ago): week(s) (2) Location: abdomen Radiation: non-radiation Severity: moderate Quality: aching Pain Consistency: constant Relieving factors: none Exacerbating factors: movement Associated symptoms: other (constipation) Related Data Home Medications ?Medication ?Instructions ?Recorded ?Confirmed clonazepam 1 mg tablet 1 mg PO BID PRN anxiety 03/30/20 04/27/24 peg [id number] 1 drp ophthalmic (eye) DAILY PRN 03/30/20 04/27/24 %-0.2 %-0.2 % eye drops sertraline 100 mg tablet 200 mg PO QAM 03/30/20 04/27/24 zolpidem 10 mg tablet 10 mg PO BEDTIME PRN 03/30/20 04/27/24 Previous Rx's ?Medication ?Instructions ?Recorded clotrimazole 1 % topical cream 1 appl topical BID #30 grams 08/30/20 blood sugar diagnostic (FreeStyle 1 strip miscellaneous QID for 10/06/20 Lite Strips) diabetes mellitus 30 days #50 strips diabetic shoes with inserts with #1 ea 12/29/20 template albuterol sulfate 90 mcg/actuation 1 puff PO Q4H PRN bronchospasm 30 03/27/21 aerosol inhaler days #18 grams miconazole nitrate 2 % topical 1 appl topical DAILY PRN rash 30 08/14/21 ointment days #1,692 grams diabetic sandals #1 ea 10/29/22 diabetic sneakers #1 ea 12/03/22 loratadine 10 mg tablet (Allergy 10 mg PO DAILY 14 days #30 tabs 06/19/23 Relief (loratadine)) aspirin 81 mg tablet,delayed 81 mg PO BEDTIME #30 tabs 07/23/23 release pen needle, diabetic 32 gauge x #100 ea 08/09/23 blood sugar diagnostic (FreeStyle #50 ea 09/18/23 Lite Strips) alcohol swabs (Alcohol Prep Pads) 1 pad topical DAILY #100 pad 10/06/23 lancets 33 gauge (TRUEplus Lancets) 1 gauge miscellaneous TID for 10/16/23 diabetes mellitus 30 days #100 ea bisacodyl 5 mg tablet,delayed 10 mg (2 x 5 mg) PO BEDTIME #60 11/21/23 release tabs hydrocortisone 2.5 % topical cream 1 appl VT BID PRN hemorrhoids #30 11/21/23 with perineal applicator grams magnesium hydroxide 400 mg/5 mL 5 ml PO BEDTIME #355 mL 11/21/23 oral suspension (Milk of Magnesia) pantoprazole 40 mg tablet,delayed 40 mg PO QAM #30 tabs 11/21/23 release blood pressure monitor #1 ea 12/04/23 blood-glucose meter (FreeStyle #1 ea 12/04/23 Lite Meter kit) insulin glargine 100 unit/mL (3 32 unit (0.32 mL) subcut DAILY 90 12/04/23 mL) subcutaneous pen ( #28.8 mL Solostar U-100 Insulin) pillow #1 ea 12/04/23 valacyclovir 1 gram tablet 1,000 mg PO Q8H 7 days #21 tabs 12/04/23 cholecalciferol (vitamin D3) 50 50 mcg PO DAILY 90 days #90 caps 12/10/23 mcg (2,000 unit) capsule diclofenac sodium 75 mg 75 mg PO BID #60 tabs 02/02/24 tablet,delayed release fluticasone propionate 50 1 spray intranasal BID 30 days #16 03/01/24 mcg/actuation nasal grams spray,suspension (Flonase Allergy Relief) fluticasone furoate 100 1 inh inhalation DAILY #30 caps 03/06/24 mcg/actuation blister powder for inhalation (Arnuity Ellipta) ezetimibe 10 mg tablet 10 mg PO DAILY #90 tabs 04/02/24 rosuvastatin 40 mg tablet 40 mg PO DAILY 90 days #90 tabs 10/10/24 ijhpexhqkx-dpcrebrgmvfgz-jzywgymb 1 tab PO DAILY PRN pain 30 days 04/03/24 50 mg-325 mg-40 mg tablet #20 tabs amlodipine 10 mg tablet 10 mg PO DAILY #30 tabs 04/04/24 metformin 500 mg tablet 1,000 mg (2 x 500 mg) PO BID #120 04/04/24 tabs montelukast 10 mg tablet 10 mg PO QPM #30 tabs 04/04/24 valsartan 160 mg tablet 160 mg PO BEDTIME #30 tabs 04/04/24 sennosides 8.6 mg tablet (senna) 8.6 mg PO BEDTIME PRN constipation 04/27/24 30 days #30 tabs underpads (Bed Underpads) #150 ea 04/27/24 dicyclomine 10 mg capsule 20 mg (2 x 10 mg) PO QID PRN for 05/04/24 cramps #240 caps oxycodone-acetaminophen 5 mg-325 1 tab PO Q6H PRN pain 30 days #120 05/04/24 mg tablet tabs levofloxacin 750 mg tablet 750 mg PO DAILY #9 tabs 05/05/24 metronidazole 500 mg tablet 500 mg PO BID 10 days #20 tabs 05/05/24 Allergies Allergy/AdvReac Type Severity Reaction Status Date / Time penicillin G [Penicillin G] Allergy Severe RASH,SWELLI Verified 05/04/24 15:21 NG atorvastatin Allergy Intermediate myalgia, Verified 05/04/24 15:21 muscle cramps latex [LATEX] Allergy Intermediate ITCHY,SKIN Verified 05/04/24 15:21 TEARS simvastatin Allergy Intermediate sedation Verified 05/04/24 15:21 Review of Systems Review of Systems: Constitutional : No Weight loss, No Fever, No Chills ENT/Mouth : No sore throat, No Rhinorrhea Eyes: No Swelling, No Redness Cardiovascular : No Chest Pain, No SOB, NoEdema Respiratory : No Cough, No Sputum, No Wheezing Gastrointestinal : Positive Nausea, Positive Vomiting, positive Diarrhea, positive abdominal Pain, No Hematochezia, No Melena Genitourinary : No Dysuria, No Urinary Frequency, No Hematuria, No Urgency Musculoskeletal : No joint pain, No Myalgias, No Joint Swelling Skin : No Skin Lesions, No rash Neuro : No Weakness, No Numbness, No Dizziness, No Headache Psych : No Anxiety/Panic, No Depression All other systems reviewed and are negative. [facility] Past Medical History Attestation statement: The following information was validated with the patient. Source: old records reviewed Medical History Physical exam Encounter for annual routine gynecological examination Physical exam Sacroiliac joint dysfunction of left side DM2 (diabetes mellitus, type 2) Mild recurrent major depression Mild asthma Obesity due to excess calories Diarrhea Diabetes mellitus with hyperglycemia Hyperlipidemia LDL goal <100 Essential hypertension Knee osteoarthritis Surgical History S/P excision of lipoma (01/03/23) History of excision of lesion (05/09/17) History of surgery on right wrist (01/31/16) History of phacoemulsification of cataract of right eye with intraocular lens implantation History of phacoemulsification of cataract of left eye with intraocular lens implantation Hx of colonoscopy Hx of cholecystectomy (05/09/17) History of left knee replacement Hx of section Family History Family History Father Ischemic cardiomyopathy CVD (cardiovascular disease) Mother No problems noted. 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 Oriented X3. No acute distress. Eyes: Pupils equal, round and reactive to light. ENT: Pharynx normal. Neck: Normal inspection. Neck supple. CVS: Normal heart rate and rhythm. Pulses normal. Respiratory: No respiratory distress. Breath sounds normal. Abdomen: Soft and moderate LLQ ttp with rebound or guarding Skin: Skin warm and dry. Normal skin color. Normal skin turgor. Extremities: No lower extremity edema. Neuro: Oriented X 3. No motor deficit. No sensory deficit. Course Course Course Narrative: RME performed by Inocencia Little PA-C. Patient is a 69 year old assigned female at presenting to the emergency department with abdominal pain and constipation. Detailed physical exam and review of systems are deferred to the plastics fabricator and assembler. Labs ordered. Patient placed back in the waiting room pending room availability and results. Medications Administered Discontinued Medications Generic Name Dose Route Start Last Admin Trade Name Freq PRN Reason Stop Dose Admin Iohexol 85 ml 05/05/24 01:26 05/05/24 01:27 Iohexol 350 Mg/Ml 100 Ml Infus..Btl IV 05/05/24 01:27 85 ml ONCE ONE Administration Medical Decision Making Medical Decision Making [facility] Narrative: 69 yo female with PMH of headaches, HLD, DM2, asthma, recurrent depression, GERD, HTN here with c/o constipation and now diffuse abdominal pain has moved to LLQ at this time will obtain basic labs, CT scan for diverticulits. Differential Diagnosis Differential Diagnoses: The differential diagnosis associated with the presentation includes constipation, diverticulitis Admission/Observation Consideration of admission/observation: Escalation of care including admission/observation considered tolerating PO labs reassuring can be treated as outpatient Lab Data [facility] Lab Attestation statement: I reviewed the patient's lab results. 05/04/24 15:31 05/04/24 15:31 Labs: Lab Results 05/04/24 05/04/24 Range/Units 15:31 23:35 WBC 8.6 (4.8-10.8) X10*3/uL RBC 5.07 (4.20-5.50) X10*6/uL Hgb 15.3 (12.0-16.0) g/dl Hct 44.0 (37.0-47.0) % MCV 86.8 (80.0-98.0) fL MCH 30.2 (27.0-33.0) pg MCHC 34.8 (31.0-35.0) g/dl RDW 12.4 (11.0-16.0) % Plt Count 262 (160-400) X10*3/uL MPV 9.5 (9.4-12.3) fL Immature Gran % (Auto) 0.2 (0.0-0.4) % Neut % (Auto) 52.0 (45-73) % Lymph % (Auto) 33.6 (20-40) % [place] % (Auto) 10.8 (2-11) % Eos % (Auto) 2.1 (0-4) % Baso % (Auto) 1.3 (0-2) % Lymph # (Auto) 2.9 (1.2-4.9) X10*3/uL [place] # (Auto) 0.9 (0.1-1.2) X10*3/uL Eos # (Auto) 0.2 (0.0-0.4) X10*3/uL Baso # (Auto) 0.1 (0.0-0.2) X10*3/uL Abs Immat Gran (auto) 0.02 (0.00-0.03) X10*3/uL Absolute Neuts (auto) 4.5 (2.0-8.3) x10*3/uL Absolute Nucleated RBC 0.000 (0.0-0.012) X10*3/uL Nucleated RBC % (auto) 0.0 (0.0-0.2) /100WBC Sodium 140 (135-145) mmol/L Potassium 4.7 (3.3-5.1) mmol/L Chloride 103 (96-108) mmol/L Carbon Dioxide 28 (22-29) mmol/L Anion Gap 14 (12-20) BUN 15 (9-16) mg/dL Creatinine 0.92 (0.5-1.4) mg/dL Estim Creat Clear Calc 60.5 Estimated GFR > 60 Random Glucose 223 H (60-115) mg/dL Calcium 9.7 D (8.4-10.2) mg/dL Magnesium 2.2 (1.6-2.6) mg/dL Total Bilirubin 0.5 (0.0-1.0) mg/dL AST 35 H (5-31) U/L ALT 33 H (0-31) U/L Alkaline Phosphatase 103 (39-117) U/L Total Protein 7.6 (6.5-8.0) g/dL Albumin 4.0 (3.5-5.0) g/dL Lipase 17 (8-78) U/L Urine Color Yellow Urine Appearance Cloudy Urine pH 5.5 (5.0-9.0) Ur Specific Spencer 1.020 (1.005-1.025) Urine Protein Negative (Neg-Trace) mg/dL Urine Glucose (UA) 100 H (Negative) mg/dL Urine Ketones Negative (Negative) mg/dL Urine Blood Negative (Negative) Urine Nitrite Negative (Negative) Ur Leukocyte Esterase Moderate (2+) H (Negative) Urine RBC 0-2 (0-2) /HPF Urine WBC >50 H (0-5) /HPF Ur Squamous Epith Cells 6-10 (0-2) /HPF Urine Bacteria None Seen (None Seen) Hyaline Casts 0-2 (0-2) /LPF Independent Interpretation I performed an independent interpretation of an: CT Scan (uncomplicated diverticulitis) Radiology Impression Discussion of test interpretation with radiology: I have reviewed the radiologist's reading. Independent Historian Clinical information obtained from an independent historian. History obtained from or confirmed by: Spouse External Record Review External record reviewed: Inpatient record and Office record Prescription Management I considered prescription management with: Pain Medication and Antibiotic Discharge Plan Discharge Clinical Impression: Diverticulitis Patient Disposition: Home, Self-Care Instructions: Diverticulitis (ED), Diverticulitis Diet (ED) Additional Instructions: labs reassuring finish all antibioticcs follow up with your doctor return for fevers, vomiting, severe pain, unable to eat or drink or any other concerns. you have diverticulitis on your CT scan CT/CT abdomen pelvis w IV con IMPRESSION: *Findings suspicious for acute uncomplicated diverticulitis. Marked sigmoid diverticulosis is present. Mild focal mural thickening and findings suspicious for minimal inflammatory changes of the adjacent sigmoid mesentery are noted in association with the proximal sigmoid colon. No evidence of intestinal perforation. No free intraperitoneal fluid or gas collections. Prescriptions: New levofloxacin 750 mg tablet 750 mg PO DAILY Qty: 9 0RF metronidazole 500 mg tablet 500 mg PO BID 10 Days Qty: 20 0RF No Action clotrimazole 1 % cream 1 appl topical BID Qty: 30 2RF blood sugar diagnostic [FreeStyle Lite Strips] Strip 1 strip miscellaneous QID 30 Days Qty: 50 1RF (DME) diabetic shoes with inserts with template 8 See Rx Instructions .Route .MEDSUPPLY Qty: 1 0RF Rx Instructions: As directed albuterol sulfate 90 mcg/actuation HFA aerosol inhaler 1 puff PO Q4H PRN (Reason: bronchospasm) 30 Days Qty: 18 6RF Aloe Hyannis Antifungal (micon) 2 % ointment 1 appl topical DAILY PRN (Reason: rash) 30 Days Qty: 1692 3RF (DME) diabetic sandals See Rx Instructions .Route .MEDSUPPLY Qty: 1 0RF Rx Instructions: As directed (DME) diabetic sneakers See Rx Instructions .Route .MEDSUPPLY Qty: 1 0RF Rx Instructions: As directed loratadine [Allergy Relief (loratadine)] 10 mg tablet 10 mg PO DAILY 14 Days Qty: 30 2RF aspirin 81 mg tablet,delayed release (DR/EC) 81 mg PO BEDTIME Qty: 30 11RF (DME) pen needle, diabetic 32 gauge x 5/32 needle See Rx Instructions .ROUTE .MEDSUPPLY Qty: 100 11RF Rx Instructions: As directed (DME) FreeStyle Lite Strips Strip See Rx Instructions .ROUTE .MEDSUPPLY Qty: 50 11RF Rx Instructions: As directed twice a day alcohol swabs [Alcohol Prep Pads] Pads, Medicated 1 pad topical DAILY Qty: 100 11RF lancets [TRUEplus Lancets] 33 gauge misc 1 gauge miscellaneous TID 30 Days Qty: 100 6RF cholecalciferol (vitamin D3) 50 mcg (2,000 unit) capsule 50 mcg PO DAILY 90 Days Qty: 90 1RF diclofenac sodium 75 mg tablet,delayed release (DR/EC) 75 mg PO BID Qty: 60 3RF fluticasone propionate [Flonase Allergy Relief] 50 mcg/actuation spray,suspension 1 spray intranasal BID 30 Days Qty: 16 2RF Rx Instructions: administer into each nostril Arnuity Ellipta 100 mcg/actuation blister with device 1 inh inhalation DAILY Qty: 30 4RF ezetimibe 10 mg tablet 10 mg PO DAILY Qty: 90 1RF rosuvastatin 40 mg tablet 40 mg PO DAILY 90 Days Qty: 90 1RF mgrshvsjev-yngfucmkqcxlv-flvl 50-325-40 mg tablet 1 tab PO DAILY PRN (Reason: pain) 30 Days Qty: 20 0RF amlodipine 10 mg tablet 10 mg PO DAILY Qty: 30 1RF metformin 500 mg tablet 1,000 mg PO BID Qty: 120 1RF montelukast 10 mg tablet 10 mg PO QPM Qty: 30 6RF valsartan 160 mg tablet 160 mg PO BEDTIME Qty: 30 11RF dicyclomine 10 mg capsule 20 mg PO QID PRN (Reason: for cramps) Qty: 240 1RF oxycodone-acetaminophen 5-325 mg tablet 1 tab PO Q6H PRN (Reason: pain) 30 Days Qty: 120 0RF (DME) blood pressure monitor Kit See Rx Instructions .Route Qty: 1 0RF Rx Instructions: As directed (DME) blood-glucose meter [FreeStyle Lite Meter] Kit See Rx Instructions .ROUTE .MEDSUPPLY Qty: 1 0RF Rx Instructions: As directed 2 times a day (DME) pillow See Rx Instructions .Route .MEDSUPPLY Qty: 1 0RF Rx Instructions: As directed insulin glargine [Lantus Solostar U-100 Insulin] 100 unit/mL (3 mL) insulin pen 32 unit subcut DAILY 90 Days Qty: 28.8 3RF valacyclovir 1 gram tablet 1,000 mg PO Q8H 7 Days Qty: 21 0RF clonazepam 1 mg tablet 1 mg PO BID PRN (Reason: anxiety) zolpidem 10 mg tablet 10 mg PO BEDTIME PRN Dry Eye Relief 1-0.2-0.2 % drops ophthalmic (eye) DAILY PRN sertraline 100 mg tablet 200 mg PO QAM bisacodyl 5 mg tablet,delayed release (DR/EC) 10 mg PO BEDTIME Qty: 60 6RF magnesium hydroxide [Milk of Magnesia] 400 mg/5 mL suspension 5 ml PO BEDTIME Qty: 355 6RF pantoprazole 40 mg tablet,delayed release (DR/EC) 40 mg PO QAM Qty: 30 6RF hydrocortisone 2.5 % cream with perineal applicator 1 appl VT BID PRN (Reason: hemorrhoids) Qty: 30 3RF sennosides [senna] 8.6 mg tablet 8.6 mg PO BEDTIME PRN (Reason: constipation) 30 Days Qty: 30 1RF (DME) underpads [Bed Underpads] Pad See Rx Instructions .Route Qty: 150 11RF Rx Instructions: Use 5 pads per day prn Print Language: Singaporean
[2024-05-04 15:36] LABS: Basophils Absolute Auto 0.1 X10*3/uL (0.0-0.2); Basophils Percent Auto 1.3 % (0-2); Eosinophils Absolute Auto 0.2 X10*3/uL (0.0-0.4); Eosinophils Percent Auto 2.1 % (0-4); Hemoglobin 15.3 g/dl (12.0-16.0); Imm Gran Abs Auto 0.02 X10*3/uL (0.00-0.03); Imm Gran Pct Auto 0.2 % (0.0-0.4); Lymphocytes Absolute Auto 2.9 X10*3/uL (1.2-4.9); Lymphocytes Percent Auto 33.6 % (20-40); MANUAL DIFF FLAG NO; Mean Corpuscular HGB Conc 34.8 g/dl (31.0-35.0); Mean Corpuscular Hemoglobin 30.2 pg (27.0-33.0); Mean Corpuscular Volume 86.8 fL (80.0-98.0); Mean Platelet Volume 9.5 fL (9.4-12.3); Monocytes Absolute Auto 0.9 X10*3/uL (0.1-1.2); Monocytes Percent Auto 10.8 % (2-11); Neutrophils Absolute Auto 4.5 x10*3/uL (2.0-8.3); Platelet Count 262 X10*3/uL (160-400); Red Blood Count 5.07 X10*6/uL (4.20-5.50); Red Cell Distribution Width 12.4 % (11.0-16.0); White Blood Count 8.6 X10*3/uL (4.8-10.8)
[2024-05-04 16:06] LABS: Alanine Aminotransferase 33 U/L (0-31); Alkaline Phosphatase 103 U/L (39-117); Anion Gap 14 (12-20); Aspartate Amino Transferase 35 U/L (5-31); Bilirubin Total 0.5 mg/dL (0.0-1.0); Blood Urea Nitrogen 15 mg/dL (9-16); Calcium 9.7 mg/dL (8.4-10.2); Carbon Dioxide 28 mmol/L (22-29); Chloride 103 mmol/L (96-108); Creatinine Clr Calc Pharmacy 60.5; Estimated Glomerular Filt Rate > 60; Glucose Random 223 mg/dL (60-115); Magnesium 2.2 mg/dL (1.6-2.6); Potassium 4.7 mmol/L (3.3-5.1); Sodium 140 mmol/L (135-145); Total Protein 7.6 g/dL (6.5-8.0)
[2024-05-04 23:35] VITALS: BP 168/91; PULSE 65; RESP 15; TEMP 36.9; O2SAT 96
--- NOTE | 2024-05-04 23:37 | MHC.EDTECH ---
Patient urine sample collected and sent to lab ,Patient vitals was recheck in triage by this pct .
[2024-05-05 00:01] LABS: Appearance Urine Cloudy; Color Urine Yellow; Glucose Urine UA 100 mg/dL (Negative); Leukocyte Esterase Urine Moderate (2+) (Negative); Nitrite Urine Negative (Negative); PH 5.5 (5.0-9.0); UMIC TRIGGER UACC YES; Urine Blood Negative (Negative); Urine Ketones Negative (Negative); Urine Protein Negative (Neg-Trace)
[2024-05-05 00:07] LABS: Bacteria Urine None Seen (None Seen); Hyaline Casts Urine 0-2 /LPF (0-2); RBC Urine 0-2 /HPF (0-2); UACC Culture Trigger YES; WBC Urine >50 /HPF (0-5)
[2024-05-05 00:44] LABS: Lipase 17 U/L (8-78)
[2024-05-05] MEDS: iohexoL 350 MG/ML 100 ML INFUS..BTL 85 ML IV (01:27)
[2024-05-05 01:51] VITALS: BP 144/76; PULSE 75; RESP 16; TEMP 36.7; O2SAT 97
[2024-05-05] MEDS: Acetaminophen 325 MG TABLET 650 MG PO (03:08)
[2024-05-05] MEDS: metroNIDAZOLE 500 MG TABLET PO (03:09)
[2024-05-05] MEDS: levoFLOXacin 750 MG TABLET PO (03:09)
[2024-05-05 05:21] VITALS: BP 144/76; PULSE 75; RESP 16; TEMP 36.7; O2SAT 97
== END 2024-05-05 03:15 | disposition home or self-care (01) ==
PROVIDERS: Physician Assistant Medical; Emergency Provider Emergency Medicine; PCP Internal Medicine
DX: K57.32 Diverticulitis of large intestine without perforation or abscess without bleeding (principal); R10.32 Left lower quadrant pain; Z79.899 Other long term (current) drug therapy
CPT/HCPCS: 36415; 74177; 80053; 81001; 81003; 83690; 83735; 85025; 87086; 99284; Q9967

== ENCOUNTER 2024-05-05 10:02 | Outpatient (REF) | payer MEDICARE, MEDICAID, SELFPAY ==
[2024-05-05 10:39] LABS: MANUAL DIFF FLAG NO
[2024-05-05 11:56] LABS: Basophils Absolute Auto 0.1 X10*3/uL (0.0-0.2); Basophils Percent Auto 1.4 % (0-2); Eosinophils Absolute Auto 0.3 X10*3/uL (0.0-0.4); Eosinophils Percent Auto 3.9 % (0-4); Hematocrit 44.8 % (37.0-47.0); Hemoglobin 15.2 g/dl (12.0-16.0); Imm Gran Abs Auto 0.02 X10*3/uL (0.00-0.03); Imm Gran Pct Auto 0.3 % (0.0-0.4); Lymphocytes Absolute Auto 1.9 X10*3/uL (1.2-4.9); Lymphocytes Percent Auto 27.1 % (20-40); Mean Corpuscular HGB Conc 33.9 g/dl (31.0-35.0); Mean Corpuscular Hemoglobin 29.6 pg (27.0-33.0); Mean Corpuscular Volume 87.3 fL (80.0-98.0); Mean Platelet Volume 10.3 fL (9.4-12.3); Monocytes Absolute Auto 0.7 X10*3/uL (0.1-1.2); Monocytes Percent Auto 9.1 % (2-11); Neutrophils Absolute Auto 4.2 x10*3/uL (2.0-8.3); Neutrophils Percent Auto 58.2 % (45-73); Platelet Count 247 X10*3/uL (160-400); Red Blood Count 5.13 X10*6/uL (4.20-5.50); Red Cell Distribution Width 12.1 % (11.0-16.0); White Blood Count 7.2 X10*3/uL (4.8-10.8)
[2024-05-05 12:35] LABS: Creatinine Urine 294.59 mg/dL; Microalbum/Creatinine Ratio Ur 47.8 ug/mg cr (<30)
[2024-05-05 12:44] LABS: Alanine Aminotransferase 27 U/L (0-31); Albumin Level 3.9 g/dL (3.5-5.0); Alkaline Phosphatase 99 U/L (39-117); Anion Gap 15 (12-20); Aspartate Amino Transferase 32 U/L (5-31); Bilirubin Total 0.8 mg/dL (0.0-1.0); Blood Urea Nitrogen 12 mg/dL (9-16); Calcium 9.5 mg/dL (8.4-10.2); Carbon Dioxide 26 mmol/L (22-29); Chloride 103 mmol/L (96-108); Cholesterol 206 mg/dL (<200); Estimated Glomerular Filt Rate > 60; Glucose Fasting 183 mg/dL (60-99); HDL Cholesterol 39 mg/dL (>40); Iron 109 mcg/dL (30-160); LDL Cholesterol Calculated 144 mg/dL (<100); Percent Iron Saturation 48 % (15-50); Sodium 140 mmol/L (135-145); Total Iron Binding Capacity 225 mcg/dL (228-428); Total Protein 7.4 g/dL (6.5-8.0); Triglycerides 117 mg/dL (<150); Unsaturated Iron Binding 116 ug/dL; Vitamin D 25-OH Total 33.4 ng/mL (>30)
[2024-05-05 12:54] LABS: Folate 14.1 ng/mL (> or = 4.0); Vitamin B12 414 pg/mL (200-900)
[2024-05-08 05:28] LABS: TS Negative Control Passed; TS Panel A 0; TS Panel B 0; TS Positive Control Passed; TSpotTB Negative (Negative)
== END 2024-05-05 10:03 | disposition home or self-care (01) ==
LOC: HO.LAB 10:02
PROVIDERS: PCP Internal Medicine; Visit Provider Internal Medicine
DX: D64.9 Anemia, unspecified (principal); E78.5 Hyperlipidemia, unspecified; E11.9 Type 2 diabetes mellitus without complications; E53.8 Deficiency of other specified B group vitamins; Z11.1 Encounter for screening for respiratory tuberculosis; E55.9 Vitamin D deficiency, unspecified
CPT/HCPCS: 36415; 80053; 80061; 82043; 82306; 82570; 82607; 82746; 83540; 85025; 86481

== ENCOUNTER 2024-05-12 13:57 | Outpatient (AMB) | payer MEDICARE, MEDICAID, SELFPAY ==
--- NOTE | 2024-05-12 14:15 | A.OFFPC_ITS ---
Vital Signs 05/12/24 14:16 Height 5 ft 6 in Weight 191 lb 2 oz BMI 30.8 BP 136/84 Blood Pressure Location Lt brachial Position Sitting Pulse 74 Pulse Source Pulse Oximeter Pulse Oximetry (%) 98 Oxygen Delivery Method Room Air Intake Visit Reasons: [facility] 05/04 Diverculitis Trackman Required: Yes Trackman Language: Vietnamese Accompanied by: Significant Other Allergies penicillin G [Penicillin G] Allergy (Severe, Verified 05/12/24 14:15) RASH,SWELLING atorvastatin Allergy (Intermediate, Verified 05/12/24 14:15) myalgia, muscle cramps latex [LATEX] Allergy (Intermediate, Verified 05/12/24 14:15) ITCHY,SKIN TEARS simvastatin Allergy (Intermediate, Verified 05/12/24 14:15) sedation Tobacco use date assessed: 08/05/23 Fall risk assessment: No Falls in past year Last assessed Fall Risk: 05/12/24 Dental Screening Dental Screen Date: 08/05/23 HPI HPI Comments History of Present Illness Details 69 y/o female patient who [facility] for EDF. Pt was admitted at [facility] on 05/04/24 due to Acute Diverticulitis. She was discharged home on oral Abx (Metronidazole and Levaquin). Today reports feeling much better. [facility] Medical History Physical exam Encounter for annual routine gynecological examination Physical exam Sacroiliac joint dysfunction of left side DM2 (diabetes mellitus, type 2) Mild recurrent major depression Mild asthma Obesity due to excess calories Diarrhea Diabetes mellitus with hyperglycemia Hyperlipidemia LDL goal <100 Essential hypertension Knee osteoarthritis Surgical History S/P excision of lipoma (01/03/23) History of excision of lesion (05/09/17) History of surgery on right wrist (01/31/16) History of phacoemulsification of cataract of right eye with intraocular lens implantation History of phacoemulsification of cataract of left eye with intraocular lens implantation Hx of colonoscopy Hx of cholecystectomy (05/09/17) History of left knee replacement Hx of section Family History Father Ischemic cardiomyopathy CVD (cardiovascular disease) Mother No problems noted. 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 Haroon Valencia, Colleen Tam, Jose Guadalupe Castellanos and colleagues, with an educational varinder from [employer]. Review of Systems Const All systems reviewed & are unremarkable except as noted in HPI and below Physical exam (Primary Care) Vital Signs: Last Vital Signs Pulse 74 05/12/24 14:16 BP 136/84 05/12/24 14:16 Pulse Ox 98 05/12/24 14:16 Oxygen Delivery Method Room Air 05/12/24 14:16 BMI result Body Mass Index 30.8 Tobacco/Smoking Status: Tobacco use Status Tobacco use date assessed 08/05/23 05/12/24 14:17 Patient Tobacco Use Status Never used Tobacco 05/12/24 14:17 e-Cigarette/Vaping Use Never Used 05/12/24 14:17 Thrive Assessment: Date of Thrive Assessment Date Thrive assessed 07/25/22 05/12/24 14:17 Const General: comfortable and no acute distress Nutritional Appearance: obese Orientation/consciousness: patient oriented x3 Resp Effort & Inspection: normal respiratory effort Auscultation: clear to auscultation bilaterally Cardio Heart sounds: S1 normal heart sound present and S2 normal heart sound present GI Inspection: Yes Abdominal panniculus present and Yes obesity Palpation (GI): Soft to palpation, not firm, nontender, no guarding and not rigid Auscultation: normal bowel sounds Neuro General: patient oriented x3 Office Procedures Flu Questionnaire Does the patient have a severe egg allergy?: No Does the patient have severe life threatening allergies?: No Does the patient have a fever or illness today?: No Has the patient ever had Guillain-Camden Syndrome?: No Has the patient ever had any past reaction to a flu shot?: No Immunizations Fluarix Triv [id number] (PF) 45 mcg (15 mcg x 3)/0.5 mL IM syringe Performing Provider: Alta Pham NP Performing Location: [facility] Adult Primary [facility] Documented (not given) by: ED Funez on 05/12/24 14:18 Reason Not Given: Patient Refused Coding Level of Care Code Est Pt Level 4 (15627) Diagnoses Diverticulitis K57.92 Time Spent (min) 20 Assessment & Plan Assessment & Plan (1) Diverticulitis: Code(s): K57.92 - Diverticulitis of intestine, part unspecified, without perforation or abscess without bleeding Plan: Continue on Abx as prescribed. Orders: Orders Influenza [id number] Immunization Today Z23 - Encounter for immunization
[2024-05-12 14:16] VITALS: BP 136/84; PULSE 74; O2SAT 98; BMI 30.8
== END 2024-05-12 15:06 | disposition home or self-care (01) ==
PROVIDERS: PCP Internal Medicine; Visit Provider Nurse Practitioner Family
DX: Z23 Encounter for immunization (principal); K57.92 Diverticulitis of intestine, part unspecified, without perforation or abscess without bleeding

== ENCOUNTER → 2024-05-12 13:57 | Outpatient (BNVA) | payer MEDICARE, MEDICAID, SELFPAY | PROVIDERS: PCP Internal Medicine; Visit Provider Nurse Practitioner Family | DX: K57.92 Diverticulitis of intestine, part unspecified, without perforation or abscess without bleeding (principal) | CPT/HCPCS: 90471; 99212 ==

== ENCOUNTER 2024-06-12 13:56 | Outpatient (AMB) | payer MEDICARE, MEDICAID, SELFPAY ==
--- NOTE | 2024-06-12 14:09 | A.OFFVIS_ITS ---
Vital Signs 06/12/24 14:12 Height 5 ft 6 in Weight 191 lb BMI 30.8 BP 142/80 H Intake Visit Reasons: [employer] annual exam/30 mins Intake Note: no concerns Medical Administrative Technician Required: Yes Medical Administrative Technician Language: Manager Purchasing Services: Medical Administrative Technician Present (in person) Medical Administrative Technician Name: Neris PRICE Information Interpreted: non-clinical & clinical Resident Care Manager: Resident Care Manager Present (Neris Red DEE) Accompanied by: Self / Same As Patient Allergies penicillin G [Penicillin G] Allergy (Severe, Verified 06/12/24 14:17) RASH,SWELLING atorvastatin Allergy (Intermediate, Verified 06/12/24 14:17) myalgia, muscle cramps latex [LATEX] Allergy (Intermediate, Verified 06/12/24 14:17) ITCHY,SKIN TEARS simvastatin Allergy (Intermediate, Verified 06/12/24 14:17) sedation Post menopausal: Yes HPI Comments Details: 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 Currently not sexually active. Denies any vaginal dryness or irritation. STI testing offered; she declined. Attempting to eat a healthy diet with calcium and vitamin D, no exercise-knee and back pain. Last pap smear; 2018. Last mammogram; 2023. Colonoscopy is UTD. Denies any family history of breast, ovarian or colon cancer. [facility] Medical History Physical exam Encounter for annual routine gynecological examination Physical exam Sacroiliac joint dysfunction of left side DM2 (diabetes mellitus, type 2) Mild recurrent major depression Mild asthma Obesity due to excess calories Diarrhea Diabetes mellitus with hyperglycemia Hyperlipidemia LDL goal <100 Essential hypertension Knee osteoarthritis Surgical History S/P excision of lipoma (01/03/23) History of excision of lesion (05/09/17) History of surgery on right wrist (01/31/16) History of phacoemulsification of cataract of right eye with intraocular lens implantation History of phacoemulsification of cataract of left eye with intraocular lens implantation Hx of colonoscopy Hx of cholecystectomy (05/09/17) History of left knee replacement Hx of section Family History Father Ischemic cardiomyopathy CVD (cardiovascular disease) Mother No problems noted. 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 Cognitive needs: Yes Hearing needs: No Vision needs: Yes Female Reproductive History Menstrual Menopause type: natural Total pregnancies: 3 Full term: 3 Number of Living Children: 3 Date of last pap smear: 04/13/19 (neg pap and hpv) Date of Mammogram: 09/26/23 (Birad 1) Date of last Bone Density Screenin09/26/23 Review of Systems Const All systems reviewed & are unremarkable except as noted in HPI and below Reports as per HPI Eyes Reports no additional complaints ENT Reports no additional complaints Card Reports no additional complaints Resp Reports no additional complaints GI Reports as per HPI and Reports no additional complaints Reports as per HPI Musc Reports no additional complaints Skin/Breast Reports as per HPI Neuro Reports no additional complaints Psych Reports no additional complaints Endo Reports no additional complaints Shaan/Lymph Reports no additional complaints Aller/Immun Reports no additional complaints Physical Exam Vital Signs: Last Vital Signs BP 142/80 H 06/12/24 14:12 BMI result Body Mass Index 30.8 Const General: cooperative, healthy appearing, no acute distress, well developed and alert Orientation/consciousness: patient oriented x3 HEENT Head: Yes normal to inspection Eyes General: appearance normal, both eyes and all related structures Neck Neck: Yes normal visual inspection Thyroid: Thyroid normal Chest Chest palpation & inspection: normal inspection of the chest and other (no puckering, dimpling, peau de orange, retraction, discharge, masses) Breast/axilla inspection: normal inspection of the breasts Breast/axilla palpation: normal palpation of the breasts Resp Effort & Inspection: normal respiratory effort GI Inspection: Yes normal to inspection and Yes scar Palpation (GI): Soft to palpation Rectal Exam - Female: deferred General: Yes bladder normal to palpation External Female Exam: normal external appearance and normal appearance of the urethra Speculum Exam - Vagina: normal appearance of the vagina, normal palpation, normal vaginal discharge and vagina atrophic Speculum Exam - Cervix: normal appearance of the cervix and normal palpation Bimanual exam- vagina & uterus: normal bimanual exam, normal palpation, uterine size normal, bladder normal to palpation, normal palpation and non-tender Bimanual Exam- Adnexa, other: no masses Skin General skin exam: no rashes or lesions noted Rashes: no rashes Neuro General: patient oriented x3 Cognition (Neuro): normal cognition Extrem General: Yes normal to inspection Psych Attitude: cooperative Thought process: Normal thought process present Assessment & Plan Assessment & Plan (1) Encounter for well woman exam with routine gynecological exam: Code(s): Z01.419 - Encounter for gynecological examination (general) (routine) without abnormal findings Category: Medical Plan Discussed: Current recommendations for pap smears per ASCCP guidelines. Breast awareness, periodic self breast exams and yearly mammogram. Maintain a healthy lifestyle, well balanced diet including Calcium 1,200 mg and Vitamin D 600 IU daily, and routine exercise. Contact the office with any postmenopausal bleeding. Patient verbalizes understanding and agrees to the plan of care. She was given opportunity to ask questions and all questions were answered to the best of my ability. RTO in 1 year for annual freight hustler exam. This note is constructed using voice recognition software. While every effort has been made to ensure accuracy, food and beverage assistant manager errors may have been included. Coding Level of Care Code Est Pt Prev Care >65y(36921) Diagnoses Encounter for well woman exam with routine gynecological exam Z01.419
[2024-06-12 14:12] VITALS: BP 142/80; BMI 30.8
== END 2024-06-12 15:42 | disposition home or self-care (01) ==
LOC: HO.HWS 13:56
PROVIDERS: PCP Internal Medicine; Visit Provider Advanced Practice Midwife
DX: Z72.51 High risk heterosexual behavior (principal)
CPT/HCPCS: G0101

== ENCOUNTER → 2024-06-12 13:56 | Outpatient (BNVA) | payer MEDICARE, MEDICAID, SELFPAY | PROVIDERS: PCP Internal Medicine; Visit Provider Advanced Practice Midwife | DX: Z01.419 Encounter for gynecological examination (general) (routine) without abnormal findings (principal) | CPT/HCPCS: G0101 ==

== ENCOUNTER 2024-08-10 12:33 | Outpatient (AMB) | payer MEDICARE, MEDICAID, SELFPAY ==
--- OUTSIDE RECORDS SUMMARY | 2024-08-10 12:35 | XMS_ITS | Encounter Summary ---
Author Organization [employer] Address [address] [place] [address] [address] [place] [address] Care Team Providers Care Reliability Technologist Name Role Phone Unavailable Primary Care Provider Unavailabl e Encounter Details Date Type Department Care Team (Late st Contact Info) Description 11/29/2022 [facility] Health Information Management [address] [place] [address] Lazaro Edmonds MD Social History Tobacco Use Types Packs/Day Years Used Date Smoking Tobacco: Never Assessed Comments Unknown Sex and Gender Information Value Date Recorded Sex Assigned at Female 04/23/2022 10:17 AM EDT Legal Sex Female 10:17 AM EDT Gender Identity Female 04/23/2022 10:17 AM EDT Sexual Orientation Straight 04/23/2022 10 :17 AM EDT documented as of this encounter Plan of Treatment Upcoming Encounters Date Type Department Care Team (Late st Contact Info) Description 08/19/2024 11:30 AM EST Nurse Only [facility] [address] [place] [address] documented as of this encounter Visit Diagnoses Not on filedocumented in this encounter
--- NOTE | 2024-08-10 12:39 | AM.OFFVISMDC ---
Intake Vital Signs 08/10/24 12:41 Height 5 ft 6 in Weight 190 lb BMI 30.7 BP 132/80 Blood Pressure Location Lt brachial Position Sitting Intake Visit Reasons: awv Shadow Graph Weight Operator Required: Yes Shadow Graph Weight Operator Language: Cleaning Technician Name: Carolina Mahoney MD Information Interpreted: non-clinical & clinical Accompanied by: Spouse Allergies penicillin G [Penicillin G] Allergy (Severe, Verified 08/10/24 13:07) RASH,SWELLING atorvastatin Allergy (Intermediate, Verified 08/10/24 13:07) myalgia, muscle cramps latex [LATEX] Allergy (Intermediate, Verified 08/10/24 13:07) ITCHY,SKIN TEARS simvastatin Allergy (Intermediate, Verified 08/10/24 13:07) sedation Medication List - Last Reconciled 08/10/24 by Carolina Mahoney MD albuterol sulfate 90 mcg/actuation 1 puff PO Q4H PRN 30 days alcohol swabs (Alcohol Prep Pads) 1 pad topical DAILY amlodipine 10 mg PO DAILY aspirin 81 mg PO BEDTIME bisacodyl 10 mg (2 x 5 mg) PO BEDTIME blood pressure monitor As directed blood sugar diagnostic (FreeStyle Lite Strips) As directed twice a day blood sugar diagnostic (FreeStyle Lite Strips) 1 strip miscellaneous QID 30 days blood-glucose meter (FreeStyle Lite Meter kit) As directed 2 times a day yapmyljlfw-rfdflhtmgdsbv-xraz 50-325-40 mg 1 tab PO Q6H PRN 30 days jmdlxavpiz-wcdirjogenqnt-vkkd 50-325-40 mg 1 tab PO DAILY PRN 30 days cholecalciferol (vitamin D3) 50 mcg PO DAILY 90 days clonazepam 1 mg PO BID PRN clotrimazole 1% 1 appl topical BID [diabetic sandals As directed] [diabetic shoes with inserts with template As directed] [diabetic sneakers As directed] diclofenac sodium 75 mg PO BID dicyclomine 20 mg (2 x 10 mg) PO QID PRN ezetimibe 10 mg PO DAILY fluticasone furoate 100 mcg/actuation (Arnuity Ellipta) 1 inh inhalation DAILY fluticasone propion-salmeterol 100-50 mcg/dose (Advair Diskus) 1 inh inhalation BID 30 days fluticasone propion-salmeterol 100-50 mcg/dose 1 inh inhalation BID 30 days fluticasone propionate 50 mcg/actuation (Flonase Allergy Relief) 1 spray intranasal BID 30 days hydrocortisone 2.5% 1 appl topical BID PRN insulin glargine (Lantus Solostar U-100 Insulin) 32 units (0.32 mL) subcut DAILY 90 days lancets (TRUEplus Lancets) 1 gauge miscellaneous BID 30 days levofloxacin 750 mg PO DAILY loratadine (Allergy Relief (loratadine)) 10 mg PO DAILY 14 days magnesium hydroxide (Milk of Magnesia) 5 mL PO BEDTIME metformin 1,000 mg (2 x 500 mg) PO BID metronidazole 500 mg PO BID 10 days miconazole nitrate 2% 1 appl topical DAILY PRN 30 days montelukast 10 mg PO QPM oxycodone-acetaminophen 5-325 mg 1 tab PO Q6H PRN 30 days oxycodone-acetaminophen 5-325 mg 1 tab PO Q6H PRN 30 days pantoprazole 40 mg PO QAM peg 170-utbksoywvozt-tlytltmj 1-0.2-0.2 % drps ophthalmic (eye) DAILY PRN pen needle, diabetic As directed [pillow As directed] rosuvastatin 40 mg PO DAILY 90 days sennosides (senna) 8.6 mg PO BEDTIME PRN 30 days sertraline 200 mg PO QAM underpads (Bed Underpads) Use 5 pads per day prn valacyclovir 1,000 mg PO Q8H 7 days valsartan 160 mg PO BEDTIME Ventolin HFA 90 mcg/actuation (albuterol sulfate) 2 puffs inhalation Q6H PRN 30 days NS zolpidem 10 mg PO BEDTIME PRN HPI HPI Comments History of Present Illness Details The patient is a 69-year-old female presenting for a Medicare annual wellness exam. The patient's primary concern is vaccine updates and management of asthma and diabetes. The patient received the pneumonia vaccine at age 63 and now requires an additional dose. The patient has a history of asthma with symptoms worsening during exertion and recent exacerbations. Asthma management is complicated by lack of inhaler use due to insufficient insurance coverage and prior denial of Advair. The patient reports experiencing mild chest congestion without recent fever and occasional severe sweating. The patient has uncontrolled diabetes with recent A1c of 9.3% and manages it with metformin 1200 mg daily and 32 units of Lantus insulin. Past diverticulitis episode last treated in late 2023 at the ER. Additionally, the patient experiences depression and anxiety, managed with sertraline. The history of diverticulitis, past right wrist surgery, and left knee replacement were mentioned in relation to overall health status. PPP handed to patient. [place] of care reviewed and updated. - Updated pneumonia vaccine recommended - Proper follow-up of diabetes management due to high A1c at 9.3% - Scheduled for colorectal cancer screening with a colonoscopy in 2028 - Bone density scan discussed for osteoporosis screening strategy after 60 PFSH Medical History (Updated 08/10/24 @ 13:36 by Carolina Mahoney MD) Sacroiliitis Physical exam Encounter for annual routine gynecological examination Physical exam Sacroiliac joint dysfunction of left side DM2 (diabetes mellitus, type 2) Mild recurrent major depression Mild asthma Obesity due to excess calories Diarrhea Diabetes mellitus with hyperglycemia Hyperlipidemia LDL goal <100 Essential hypertension Knee osteoarthritis Surgical History S/P excision of lipoma (01/03/23) History of excision of lesion (05/09/17) History of surgery on right wrist (01/31/16) History of phacoemulsification of cataract of right eye with intraocular lens implantation History of phacoemulsification of cataract of left eye with intraocular lens implantation Hx of colonoscopy Hx of cholecystectomy (05/09/17) History of left knee replacement Hx of section Family History Father Ischemic cardiomyopathy CVD (cardiovascular disease) Mother No problems noted. 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 Cognitive needs: Yes Hearing needs: No Vision needs: Yes Questionnaire Medicare Wellness Checkup What [age] What gender do you identify with?: female During the past 4 weeks, how much have you been bothered by emotional problems such as feeling anxious, depressed, irritable, sad or downhearted, and blue?: quite a bit During the past 4 weeks, has your physical & emotional health limited your social activities with family, friends, neighbors, or groups?: moderately During the past 4 weeks, how much bodily pain have you generally had?: severe pain During the past 4 weeks, was someone available to help you if you needed & wanted help?: yes, some During the past 4 weeks, what was the hardest physical activity you could do for at least 2 minutes?: very light Can you get to places out of walking distance without help? (For eg., can you travel alone on buses, taxis or drive your car?): No Can you go shopping for groceries or clothes without someone's help?: No Can you prepare your own meals?: No Can you do your housework without help?: No Because of any health problems, do you need the help of another person with your personal care needs such as eating, bathing, dressing or getting around the house?: Yes Can you handle your own money without help?: No During the past 4 weeks, how would you rate your health in general?: fair During the past 4 weeks how have things been going for you?: good & bad parts about equal Are you having difficulties driving your car?: no Do you always fasten your seat belt when you are in a car?: yes, usually During past 4 weeks, have you been bothered by the following: never: Sexual problems?, Trouble eating well?, Teeth or denture problems? and Problems using the telephone? and often: Falling or dizzy when standing up and Tiredness or fatigue? Have you fallen 2 or more times in the past year?: No Are you afraid of falling?: Yes Are you a smoker?: no During the past 4 weeks, how many drinks of wine, beer, or other alcoholic beverages did you have?: no alcohol at all Do you exercise for about 20 minutes 3 or more times a week?: no, I usually do not exercise this much Have you been given information to help with the following?: no: Hazards in your house that might hurt you? and no: Keeping track of your medications? How often do you have trouble taking medicines the way you have been told to take them?: I always take medicine as prescribed How confident are you that you can control & manage most of your health problems?: somewhat confident What is your race?: or origin or descent Mini Mental State Exam (MMSE) Orientation What is the (year) (season) (date) (day) (month)?: year, season, date, day and month Where are we (state) (county) (town or city) (hospital) (floor)?: state, county, town or city, hospital/clinic and floor Registration Name of 3 unrelated objects clearly and slowly, then ask patient to repeat all 3 of them. (1st repeat determines score. Make sure they can repeat all three): object 1, object 2 and object 3 Attention & Calculation (CHOOSE ONE) Spell WORLD backwards (DLROW): 5 letters Recall Ask patient to repeat the 3 items from question #3.: object 1, object 2 and object 3 Language Show patient a wristwatch & ask what it is. Repeat for pencil.: watch and pencil Ask the patient to repeat the phrase 'No ifs, ands, or buts' after you.: correct Ask the patient to 'take a piece of paper with their right hand' 'fold paper in half' 'place paper on floor': take paper in right hand, fold paper in half and place paper on floor Give patient a blank piece of paper & ask to write a sentence. Score if it contains a noun & verb.: sentence contains subject and verb Score Score: 28 Activity of Daily Living Bathing - sponge bath, tub bath or shower: receives help in bathing more than one body part (or not bathed) Dressing - getting clothes from closets & drawers, including inner/outer garments & fasteners.: gets clothes & gets dressed without help, except for help tying shoes Toileting - going to the 'toilet room' for urine/bowel elimination & cleaning self/arranging clothes: goes to toilet room, cleans self, arranges clothes without help Transfer: moves in & out of bed or chair with help Continence: has occasional 'accidents' Feeding: feeds self without help Total Score: 1 Information obtained from: patient Using telephone: independent Traveling: needs assistance Shopping: needs assistance Preparing meals: needs assistance Housework: needs assistance Taking medicine: independent Managing money: independent PHQ-9 Over the last 2 weeks, how often have you been bothered by any of the following problems? 1. Little interest or pleasure in doing things: several days 2. Feeling down, depressed, or hopeless: several days 3. Trouble falling or staying asleep, or sleeping too much: several days 4. Feeling tired or having little energy: several days 5. Poor appetite or overeating: not at all 6. Feeling bad about yourself - or that you are a failure or have let yourself or your family down: not at all 7. Trouble concentrating on things, such as reading the newspaper or watching television: not at all 8. Moving or speaking so slowly that other people could have noticed. Or the opposite - being so fidgety or restless that you have been moving around a lot more than usual: not at all 9. Thoughts that you would be better off or of hurting yourself in some way: not at all Total score: 4 Depression Screening Interpretation: Positive Depression Screening Follow-up: Existing condition, In treatment, Community Mental Health Worker F/U and Follow-up Visit Requested Depression Screening Done: Yes 57511 - PHQ-9 Billing: Yes Source: Developed by Drs. Haroon Valencia, Colleen Tam, Jose Guadalupe Castellanos and colleagues, with an educational varinder from [employer]. Fall Risk Assessment Fall Risk Assessment Fall risk assessment: No Falls in past year ROBERTA-7 AMB Questionnaire ROBERTA-7 Date ROBERTA - 7 assessed: 08/10/24 Feeling nervous, anxious, or on edge: 1 = Several days Not being able to stop or control worryin = Not at all Worrying too much about different things: 1 = Several days Trouble relaxin = Not at all Being so restless that it is hard to sit still: 0 = Not at all Becoming easily annoyed or irritable: 1 = Several days Feeling afraid as if something awful might happen: 0 = Not at all Total ROBERTA-7 score (0-4 normal; 5-9 mild; 10-14 moderate; 15-21 severe): 3 Source: Developed by Drs. Haroon Valencia, Colleen Tam, Jose Guadalupe Castellanos and colleagues, with an educational varinder from [employer]. ROBERTA-7 Assessment Billing ROBERTA-7 Assessment Tool: ROBERTA-7 Assessment 02320 Thrive Questionnaire Date Thrive assessed: 08/10/24 I am a: Patient What is your living situation today?: I have a steady place to live Within the past 12 months, did the food you bought not last and you didn't have the money to get more?: Never true Within the past 12 months, did you worry whether your food would run out before you got money to buy more?: Never true Do you have trouble paying for medicines?: No Do you have trouble getting transportation to medical appointments?: No Do you have trouble paying your heating and electricity bill?: No Do you have trouble taking care of your child, family member or friend?: No Do you have trouble with day-to-day activities such as bathing, preparing meals, shopping, managing finances, etc.?: No Are you currently unemployed and looking for a job?: No Are you interested in more education?: No Please select the resources that you would like help with: None Currently or been in a relationship where the following occur: No concerns reported THRIVE Score: 0 Review of Systems Const All systems reviewed & are unremarkable except as noted in HPI and below Card Denies chest pain at rest, Denies chest pain with activity, Denies edema, Denies irregular heart rhythm, Denies claudication, Denies dyspnea, Denies dyspnea on exertion, Denies orthopnea, Denies paroxysmal nocturnal dyspnea and Denies slow heart rate Resp Denies cough, Denies dyspnea and Denies dyspnea on exertion GI Denies abdominal pain, Denies change in bowel habits, Denies excessive flatus, Denies nausea and Denies vomiting Reports urinary incontinence, Denies urinary hesitancy and Denies urinary urgency Musc Denies abnormal gait, Reports back pain, Denies atrophy, Denies deformity, Reports arthralgias and Denies limited range of motion Skin/Breast Denies bleeding lesions, Denies changing lesions and Denies rash Neuro Denies abnormal gait, Denies behavioral changes, Denies confusion and Denies lack of coordination Psych Denies behavioral changes and Denies confusion Physical Exam Vital Signs: Last Vital Signs BP 132/80 08/10/24 12:41 BMI result Body Mass Index 30.7 Const General: No confusion Orientation/consciousness: patient oriented x3 and No confusion Resp Effort & Inspection: normal respiratory effort Auscultation: clear to auscultation bilaterally Cardio Jugular venous distension: no JVD Rate: regular rate Rhythm: regular rhythm Heart sounds: S1 normal heart sound present and S2 normal heart sound present Neuro General: patient oriented x3, no focal motor deficits and No confusion Romberg Test: Negative Extrem General: Yes full ROM Psych Appearance: grossly normal Results AMB Hemoglobin A1c AMB Hemoglobin A1c 9.3 % Last Edit by DEE Mancera on 08/10/24 13:14 Immunizations pneumoc 20-corey conj-dip cr(PF) 0.5 mL IM syringe Performing Provider: Carolina Mahoney MD Performing Location: [facility] Administered by: DEE Mancera on 08/10/24 13:31 Dose Route Admin Location Dispensed Lot Number Expiration Date [facility] Humanities Teacher 0.5 mL IM Left Deltoid 0.5 mL [id number] 09/22/25 [id number] [employer] VIS Given Date VIS Provided VIS Publication Date 08/10/24 Single Vaccine 21 Eligibility Eligibility Date Funding Source Not [facility] Eligible 08/10/24 Private Results Reviewed Results Reviewed: Laboratory Last Values Hgb A1c (Clinic) 9.3 % (4.0-6.0) H 08/10/24 13:08 Assessment & Plan Assessment & Plan (1) Encounter for Medicare annual wellness exam: Code(s): Z00.00 - Encounter for general adult medical examination without abnormal findings (2) Moderate persistent asthma: Code(s): J45.40 - Moderate persistent asthma, uncomplicated (3) Mild recurrent major depression: Code(s): F33.0 - Major depressive disorder, recurrent, mild (4) DM2 (diabetes mellitus, type 2): Code(s): E11.9 - Type 2 diabetes mellitus without complications Qualifiers: Diabetes mellitus half-way insulin use: with half-way use Diabetes mellitus complication status: with hyperglycemia Qualified Code(s): E11.65 - Type 2 diabetes mellitus with hyperglycemia; Z79.4 - senior care (current) use of insulin Plan - Administer pneumonia vaccination noting the prior vaccine was given at age 63 - Explore new inhaler options including Brio, and manage asthma with potential addition when insurance allows - Insulin dosage adjustment discussed to better control diabetes, with prescription to be sent to the pharmacy - Continue sertraline for depression and anxiety as prescribed by psychiatry - Recall patient for follow-up testing, particularly for diabetes control targeting a lower A1c Patient was informed and verbally consented to the use of an ambient scribe for clinic note documentation during this visit. I discussed the need for updated pneumonia vaccination due to the patient receiving the initial dose prior to age 66. The patient agreed to take the vaccine. We also focused on uncontrolled diabetes management, discussing increasing insulin dosages given the current high A1c result. Regarding asthma, alternative inhaler options were reviewed given prior insurance issues with prescribed inhalers. Another prescription will be sent pending coverage verification. The patient was advised on the continuation of psychiatric medication for depression and anxiety, confirming these meet her needs. Strategies for ensuring preventative measures like colon cancer screening were reiterated. I emphasized the importance of monitoring diabetes control closely with regular follow-ups, considering potential future complications. Orders: Orders AMB Hemoglobin A1c Today E11.65 - Type 2 diabetes mellitus with hyperglycemia, Z79.4 - customer support technician (current) use of insulin Pneumococcal 20 Immunization Today Z23 - Encounter for immunization Vitamin D 25-OH Total 4 Months E55.9 - Vitamin D deficiency, unspecified Microalbumin, Random (w Creat) 4 Months R80.9 - Proteinuria, unspecified XR DEXA axial skeleton Today Z78.0 - Asymptomatic menopausal state Lipid Panel 4 Months E78.5 - Hyperlipidemia, unspecified Comprehensive [place]. Panel Fast 4 Months E11.65 - Type 2 diabetes mellitus with hyperglycemia, Z79.4 - customer support technician (current) use of insulin Referrals Pulmonology Referral J45.40 - Moderate persistent asthma, uncomplicated Medications: New umeclidinium-vilanterol 62.5-25 mcg/actuation (Anoro Ellipta) 1 inh inhalation DAILY 60 days 60 ea 6RF J45.40 - Moderate persistent asthma, uncomplicated Changed From insulin glargine (Lantus Solostar U-100 Insulin) 32 units (0.32 mL) subcut DAILY 90 days 28.8 mL 3RF E11.65 - Type 2 diabetes mellitus with hyperglycemia, Z79.4 - customer support technician (current) use of insulin To insulin glargine (Lantus Solostar U-100 Insulin) 36 units (0.36 mL) subcut DAILY 90 days 32.4 mL 3RF E11.65 - Type 2 diabetes mellitus with hyperglycemia, Z79.4 - senior care (current) use of insulin Refilled pen needle, diabetic As directed 100 ea 11RF E11.65 - Type 2 diabetes mellitus with hyperglycemia, Z79.4 - senior care (current) use of insulin underpads (Bed Underpads) Use 5 pads per day prn 150 ea 11RF M70.62 - Trochanteric bursitis, left hip, N39.41 - Urge incontinence Patient Instructions: - Receive the recommended pneumonia vaccine at today's visit - Follow the new insulin regimen as prescribed and review glucose levels regularly - Be aware of any respiratory changes and update asthma medication as discussed pending insurance approval - Continue sertraline as directed and remain engaged with existing psychiatric treatment - Schedule follow-up appointment in four months for further labs and ongoing diabetes management Quality Reporting (2019) Fall Risk Screening ([facility] 139) Fall risk assessment: No Falls in past year Depression/Bipolar (159/160/161/177) PHQ-9: Total score: 4 Coding Level of Care Code Medicare First (G0438) Est Pt Level 3 (50323) Diagnoses Encounter for Medicare annual wellness exam Z00.00 Moderate persistent asthma J45.40 Mild recurrent major depression F33.0 Type 2 diabetes mellitus with hyperglycemia, with long-term current use of insulin E11.65; Z79.4 Diabetes mellitus tool and die manager insulin use: with half-way use Diabetes mellitus complication status: with hyperglycemia Additional Codes PHQ-9 - 04705 - PHQ-9 Billing: Yes ([id number]) ROBERTA-7 Assessment Billing - ROBERTA-7 Assessment Tool: ROBERTA-7 Assessment 08068 ([id number]) Time Spent (min) 36 Advance Care Planning Advance Care Planning discussion: Exists, not on file
[2024-08-10 12:41] VITALS: BP 132/80; BMI 30.7
== END 2024-08-10 13:33 | disposition home or self-care (01) ==
PROVIDERS: PCP Internal Medicine; Visit Provider Internal Medicine
DX: Z00.00 Encounter for general adult medical examination without abnormal findings (principal); E11.65 Type 2 diabetes mellitus with hyperglycemia; F33.0 Major depressive disorder, recurrent, mild; Z79.4 Long term (current) use of insulin; J45.40 Moderate persistent asthma, uncomplicated; Z23 Encounter for immunization

== ENCOUNTER → 2024-08-10 12:33 | Outpatient (BNVA) | payer MEDICARE, MEDICAID, SELFPAY | PROVIDERS: PCP Internal Medicine; Visit Provider Internal Medicine | DX: Z00.00 Encounter for general adult medical examination without abnormal findings (principal); Z23 Encounter for immunization; J45.40 Moderate persistent asthma, uncomplicated; F33.0 Major depressive disorder, recurrent, mild; E11.65 Type 2 diabetes mellitus with hyperglycemia; Z79.4 Long term (current) use of insulin; I10 Essential (primary) hypertension | CPT/HCPCS: 83036; 90471; 90677; 96127; 99212 ==

== ENCOUNTER 2024-08-28 09:27 | Outpatient (AMB) | payer MEDICARE, MEDICAID, SELFPAY ==
[2024-08-28 09:32] VITALS: BP 132/74; PULSE 86; O2SAT 96; BMI 30.3
--- NOTE | 2024-08-28 09:32 | MHC.OFFVIS ---
Vital Signs 08/28/24 09:32 Height 5 ft 6 in Weight 187 lb 11.198 oz BMI 30.3 BP 132/74 Blood Pressure Location Rt brachial Position Sitting Pulse 86 Pulse Oximetry (%) 96 Oxygen Delivery Method Room Air Intake Visit Reasons: Asthma Access Clinician Required: Yes Access Clinician Name: Griselda Carpio Allergies penicillin G [Penicillin G] Allergy (Severe, Verified 08/28/24 09:39) RASH,SWELLING atorvastatin Allergy (Intermediate, Verified 08/28/24 09:39) myalgia, muscle cramps latex [LATEX] Allergy (Intermediate, Verified 08/28/24 09:39) ITCHY,SKIN TEARS simvastatin Allergy (Intermediate, Verified 08/28/24 09:39) sedation HPI HPI Asthma: Details: 69-year-old lady, nonsmoker, with underlying history of asthma for 50 years, also environmental allergies, referred for evaluation of chronic cough for the last month that started after an upper respiratory infection and has not resolved. Patient stated her cough does get worse after eating or when laying down. She does have underlying GERD suboptimally controlled on current regimen of pantoprazole once a day. She denies family history of lung disease. She denies exposure to industrial dusts. She does have a dog at home. Patient does not have recent pulmonary function or allergy testing. [facility] Medical History (Updated 08/28/24 @ 10:03 by Caden Irving MD) Sacroiliitis Physical exam Encounter for annual routine gynecological examination Physical exam Sacroiliac joint dysfunction of left side DM2 (diabetes mellitus, type 2) Mild recurrent major depression Mild asthma Obesity due to excess calories Diarrhea Diabetes mellitus with hyperglycemia Hyperlipidemia LDL goal <100 Essential hypertension Knee osteoarthritis Surgical History S/P excision of lipoma (01/03/23) History of excision of lesion (05/09/17) History of surgery on right wrist (01/31/16) History of phacoemulsification of cataract of right eye with intraocular lens implantation History of phacoemulsification of cataract of left eye with intraocular lens implantation Hx of colonoscopy Hx of cholecystectomy (05/09/17) History of left knee replacement Hx of section Family History Father Ischemic cardiomyopathy CVD (cardiovascular disease) Mother No problems noted. 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 Cognitive needs: Yes Hearing needs: No Vision needs: Yes Review of Systems Const Denies daytime sleepiness, Denies excessive sweating, Denies fatigue, Denies fever(s), Denies lethargy, Denies malaise, Denies night sweats, Denies snoring and Denies weight loss Eyes Denies blurry vision and Denies itchy eyes ENT Denies nasal congestion, Denies post nasal drip, Denies sinus pain, Denies sinus pressure and Denies other ( Thrush) Card Denies chest pain, Denies pedal edema, Denies dyspnea, Denies orthopnea and Denies paroxysmal nocturnal dyspnea Resp Reports cough, Denies hemoptysis, Denies excessive phlegm production, Denies dyspnea, Denies snoring and Denies wheezing GI Denies abdominal pain and Reports heartburn Musc Denies myalgias, Denies arthralgias and Denies joint swelling Skin/Breast Denies rash Neuro Denies memory loss and Denies seizure-like activity Psych Denies abnormal sleep pattern, Denies anxiety and Denies memory loss Endo Denies excessive sweating, Denies fatigue and Denies heat intolerance Shaan/Lymph Denies easy bruising Aller/Immun Denies itchy eyes, Denies seasonal rhinorrhea and Denies wheezing Physical Exam Vital Signs: Last Vital Signs Pulse 86 08/28/24 09:32 BP 132/74 08/28/24 09:32 Pulse Ox 96 08/28/24 09:32 Oxygen Delivery Method Room Air 08/28/24 09:32 BMI result Body Mass Index 30.3 Const General: no acute distress and alert Nutritional Appearance: not obese Orientation/consciousness: Other orientation findings ( oriented) HEENT Head: Yes atraumatic Eyes General: appearance normal, both eyes and all related structures Sclerae: sclerae normal EOM: EOMs intact bilaterally Neck Neck: Yes supple Lymphatic: no lymphadenopathy noted Resp Effort & Inspection: normal respiratory effort and no use of accessory muscles Auscultation: clear to auscultation bilaterally Cardio Rate: regular rate Rhythm: regular rhythm Heart sounds: no gallops, no murmurs and no rubs Skin General skin exam: other ( warm) Extrem General: No clubbing, No cyanosis and No edema Assessment & Plan Assessment & Plan (1) Moderate persistent asthma: Code(s): J45.40 - Moderate persistent asthma, uncomplicated Category: Medical Plan: Suboptimally controlled without inhaled corticosteroid. Will change Anoro to Trelegy. Will obtain full PFT. Continue albuterol MDI. (2) Environmental allergies: Code(s): Z91.09 - Other allergy status, other than to drugs and biological substances Category: Medical Plan: Will obtain IgE level, CBC with differential, and RAST panel for further evaluation. Will continue on Flonase at this time. (3) GERD (gastroesophageal reflux disease): Code(s): K21.9 - Gastro-esophageal reflux disease without esophagitis Category: Medical Plan: GERD contributing to underlying cough, suboptimally controlled on PPI once a day. Will increase pantoprazole to 40 mg twice a day and reassess symptoms in 4 weeks. Orders: Orders Complete Blood Count Auto Diff Today J45.40 - Moderate persistent asthma, uncomplicated Resp Allergy Profile Region I Today J45.40 - Moderate persistent asthma, uncomplicated PFT pulmonary function test Today J45.40 - Moderate persistent asthma, uncomplicated Medications: New nulknpsmvlx-lglfkbzfo-qpribnvz 200-62.5-25 mcg (Trelegy Ellipta) 1 inh inhalation DAILY 1 ea 6RF J45.40 - Moderate persistent asthma, uncomplicated Changed From pantoprazole 40 mg PO QAM 30 tabs 6RF K21.9 - Gastro-esophageal reflux disease without esophagitis To pantoprazole 40 mg PO BID 60 tabs 6RF 30 days K21.9 - Gastro-esophageal reflux disease without esophagitis Discontinued levofloxacin Discontinued Reason: Doctor's Order 750 mg PO DAILY 9 tabs 0RF umeclidinium-vilanterol 62.5-25 mcg/actuation (Anoro Ellipta) Discontinued Reason: Doctor's Order 1 inh inhalation DAILY 60 days 60 ea 6RF J45.40 - Moderate persistent asthma, uncomplicated Coding Level of Care Code New Pt Level 4 (67280) Diagnoses Moderate persistent asthma J45.40 Environmental allergies Z91.09 GERD (gastroesophageal reflux disease) K21.9
--- OUTSIDE RECORDS SUMMARY | 2024-08-28 10:12 | XMS_ITS | Encounter Summary ---
Author Organization [employer] Address [address] [place] [address] [address] [place] [address] Care Team Providers Care Table Cover Folder Name Role Phone Unavailable Primary Care Provider Unavailabl e Encounter Details Date Type Department Care Team (Late st Contact Info) Description 11/29/2022 Abstract [facility] [address] [place] [address] Lazaro Edmonds MD Social History Tobacco Use Types Packs/Day Years Used Date Smoking Tobacco: Never Assessed Comments Unknown Sex and Gender Information Value Date Recorded Sex Assigned at Female 04/23/2022 10:17 AM EDT Legal Sex Female 10:17 AM EDT Gender Identity Female 04/23/2022 10:17 AM EDT Sexual Orientation Straight 04/23/2022 10 :17 AM EDT documented as of this encounter Plan of Treatment Not on file documented as of this encounter Visit Diagnoses Not on filedocumented in this encounter
--- OUTSIDE RECORDS SUMMARY | 2024-08-28 10:12 | XMS_ITS | Clinical Summary ---
Author Organization [employer] Address [address] [place] [address] Care Team Providers Care Nursery Teacher Name Role Phone Unavailable Primary Care Provider Unavailabl e Medications ProAir HFA 108 (90 Base) MCG/ACT inhaler Inhale. 8 Active Alcohol Swabs (Alcohol Prep) 70 % pads 5 Active Norvasc 10 MG tablet Take 10 mg by mouth. 8 Active Aspirin EC Adult Low Dose 81 MG EC tablet Take 81 mg by mouth at bedtime. Active Bisacodyl EC 5 MG EC tablet take 2 tablets by mouth every day at bedtime 4 Active butalbital-rean taminophen-caf feine 50-325-40 MG tablet Take 1 tablet by mouth every 6 (six) hours if needed for pain. 5 Active D3 Super Strength 50 MCG (2000 UT) capsule Take 1 capsule by mouth Once per day. 4 Active clonazePAM (KlonoPIN) 1 MG tablet Take 1 tablet by mouth if needed in the morning and at bedtime for anxiety. 5 Active diclofenac (Voltaren) 75 MG EC tablet 5 Active dicyclomine (Bentyl) 10 MG capsule TAKE 2 CAPSULES BY MOUTH FOUR TIMES A DAY NEEDED FOR CRAMPS 4 Active ezetimibe (Zetia) 10 MG tablet 5 Active fluticasone (Flonase) 50 MCG/ACT nasal spray 5 Active FREESTYLE LITE test strip TEST BLOOD SUGAR TWICE DAILY Active hydrocortisone (Anusol-HC) 2.5 % rectal cream 5 Active Lantus SoloStar 100 UNIT/ML pen INJECT 32 UNITS SUBCUTANEOUSLY EVERY DAY 4 Active BD Pen Needle Inez U/F 32G X 4 MM misc 5 Active TRUEplus Lancets 33G [facility] [place] TEST BLOOD SUGAR THREE TIMES DAILY 4 Active Milk of Magnesia 400 MG/5ML suspension TAKE 5 ML BY MOUTH AT BEDTIME 4 Active metFORMIN (Glucophage) 500 MG tablet 5 Active Singulair 10 MG tablet Take 10 mg by mouth. 8 Active oxyCODONE-acet aminophen (Percocet) 5-325 MG tablet Take 1 tablet by mouth every 6 (six) hours if needed for pain. 5 Active Protonix 40 MG EC tablet Take 1 tablet by mouth at bed time. Active rosuvastatin (Crestor) 40 MG tablet Take 40 mg by mouth at bedtime. 4 Active senna (Senokot) 8.6 MG tablet TAKE 1 TABLET BY MOUTH AT BEDTIME NEEDED FOR CONSTIPATION 4 Active sertraline (Zoloft) 100 MG tablet Take 1 tablet by mouth at bed time. Active zolpidem (Ambien) 10 MG tablet Take 10 mg by mouth at bedtime. Active Immunizations Name Administration Dates Next Due Influenza injectable quadriv alent IIV4 with preservative 06/10/2018 Influenza injectable quadriv alent preservative free 04/04/2023,06/15/2021,09/14/2020 Influenza, Split (incl. isai fied surface antigen) 06/02/2013,03/07/2012 Pneumococcal Polysaccharide PPSV23 06/10/2018, TD (adult), 2 Lf tetanus tox oid, preservative free, adsorbed 02/10/2007 Td (adult), 5 Lf tetanus tox oid, preservative free, adsorbed 07/27/2015 Tdap 10/29/2013 Social History Tobacco Use Types Packs/Day Years Used Date Smoking Tobacco: Never Assessed Comments Unknown Sex and Gender Information Value Date Recorded Sex Assigned at Female 04/23/2022 10:17 AM EDT Legal Sex Female 10:17 AM EDT Gender Identity Female 04/23/2022 10:17 AM EDT Sexual Orientation Straight 04/23/2022 10 :17 AM EDT Plan of Treatment Health Maintenance Due Date Last Done Comments CT Colonography 1956 Colonoscopy 1956 Colorectal Cancer Screening 1956 Depression Screening 1956 FIT DNA/Cologuard 1956 FIT 1956 FOBT 1956 Lipid Panel 1956 SDOH Screening 1956 Sigmoidoscopy 1956 Alcohol/Substance Use Screening 1968 Tobacco Screening 1968 Hepatitis C Screening 1974 Mammogram 1996 Zoster Vaccines (1 of 2) 2006 RSV Patients and Patients Aged 60 years or older (1 - Risk 60-74 years 1-dose series) 2016 Pneumococcal Vaccine: 50+ Years (2 of 2 - PCV) 06/10/2019 06/10/2018, 02/10/2007 COVID-19 Vaccine ( - season) 2024 01/23/2022, 06/12/2021, 10/27/2020, Additional history exists Influenza Vaccine (#1) 2024 3, 06/15/2021, 09/14/2020, Additional history exists DTaP/Tdap/Td Vaccines (3 - Td or Tdap) 07/27/2025 07/27/2015, 10/29/2013, 02/10/2007 HIB Vaccines Aged Out No longer eligi ble based on patient's age to complete this topic HPV Vaccines Aged Out No longer eligi ble based on patient's age to complete this topic Hepatitis A Vaccines Aged Out No long er eligible based on patient's age to complete this topic Hepatitis B Vaccines Aged Out No long er eligible based on patient's age to complete this topic IPV Vaccines Aged Out No longer eligi ble based on patient's age to complete this topic Meningococcal Vaccine Aged Out No jeanne nickie eligible based on patient's age to complete this topic RSV under 20 months Aged Out No longe r eligible based on patient's age to complete this topic Rotavirus Vaccines Aged Out No longer eligible based on patient's age to complete this topic Insurance [employer] STANDARD MEDICARE
== END 2024-08-28 10:02 | disposition home or self-care (01) ==
PROVIDERS: PCP Internal Medicine; Referring Provider Internal Medicine; Visit Provider Internal Medicine Pulmonary Disease
DX: J45.40 Moderate persistent asthma, uncomplicated (principal); Z91.09 Other allergy status, other than to drugs and biological substances; K21.9 Gastro-esophageal reflux disease without esophagitis
CPT/HCPCS: 99204

== ENCOUNTER → 2024-08-28 09:27 | Outpatient (BNVA) | payer MEDICARE, MEDICAID, SELFPAY | PROVIDERS: PCP Internal Medicine; Referring Provider Internal Medicine; Visit Provider Internal Medicine Pulmonary Disease | DX: J45.40 Moderate persistent asthma, uncomplicated (principal); K21.9 Gastro-esophageal reflux disease without esophagitis; Z91.09 Other allergy status, other than to drugs and biological substances | CPT/HCPCS: 99202 ==

== ENCOUNTER 2024-09-14 07:37 | Outpatient (REF) | payer MEDICARE, MEDICAID, SELFPAY ==
--- NOTE | ~2024-09-14 | XR_ITS ---
CLINICAL HISTORY: M25.519 - Pain in unspecified shoulder Three views of the left shoulder. COMPARISON: None FINDINGS: Complete loss of glenohumeral joint space with [id number] apposition and prominent osteophytes and sclerosis along the humeral head and acetabulum. Small well corticated ossifications present along the inferior margin of the glenoid measuring 1.5 x 1.1 cm and 1.3 x 0.7 cm. Visualized portions of the proximal left humerus, scapula and clavicle appear intact. Acromioclavicular joint appears maintained. Visualized portions of the left lung are clear. IMPRESSION: 1. Advanced glenohumeral joint degenerative changes with [id number] apposition. 2. Suspect intra-articular ossifications along the inferior margin of the glenoid This document has been electronically signed by: Jose D Adamson MD on 09/15/2024 15:12:10
== END 2024-09-14 07:38 | disposition home or self-care (01) ==
LOC: HO.HOSX 07:37
PROVIDERS: Visit Provider Orthopaedic Surgery
DX: M25.512 Pain in left shoulder (principal); M19.012 Primary osteoarthritis, left shoulder
CPT/HCPCS: 20610; 73030; 99212; J0665; J1100; J2003

== ENCOUNTER 2024-09-14 08:50 | Outpatient (AMB) | payer MEDICARE, MEDICAID, SELFPAY ==
--- NOTE | 2024-09-14 08:54 | MHC.OFFVIS ---
Vital Signs 09/14/24 09:11 Height 5 ft 6 in Weight 187 lb BMI 30.2 Intake Visit Reasons: New prob- LT shoulder pain Intake Note: Dot is a 69 year old female who presents today for a new problem visit with complaints of left shoulder pain.Pt states the pain has been going on for a few years. Pt states she was scheduled for surgery but due to high potassium she has been unable to do the surgery. Pt states she is in worse pain than before. Pt states her ROM is limited. Pt states she has tried PT with no help. Spinning Room Worker Required: Yes Spinning Room Worker Language: Developmental Psychologist Services: Spinning Room Worker Present Spinning Room Worker Name: ROVERTO BrittonA-LM Allergies penicillin G [Penicillin G] Allergy (Severe, Verified 09/14/24 08:54) RASH,SWELLING atorvastatin Allergy (Intermediate, Verified 09/14/24 08:54) myalgia, muscle cramps latex [LATEX] Allergy (Intermediate, Verified 09/14/24 08:54) ITCHY,SKIN TEARS simvastatin Allergy (Intermediate, Verified 09/14/24 08:54) sedation HPI HPI New prob- LT shoulder pain: Details: Dot is a 69 year old female who presents today for a new problem visit with complaints of left shoulder pain.Pt states the pain has been going on for a few years. Pt states she was scheduled for surgery but due to high potassium she has been unable to do the surgery. Pt states she is in worse pain than before. Pt states her ROM is limited. Pt states she has tried PT with no help. [facility] Medical History Sacroiliitis Physical exam Encounter for annual routine gynecological examination Physical exam Sacroiliac joint dysfunction of left side DM2 (diabetes mellitus, type 2) Mild recurrent major depression Mild asthma Obesity due to excess calories Diarrhea Diabetes mellitus with hyperglycemia Hyperlipidemia LDL goal <100 Essential hypertension Knee osteoarthritis Surgical History S/P excision of lipoma (01/03/23) History of excision of lesion (05/09/17) History of surgery on right wrist (01/31/16) History of phacoemulsification of cataract of right eye with intraocular lens implantation History of phacoemulsification of cataract of left eye with intraocular lens implantation Hx of colonoscopy Hx of cholecystectomy (05/09/17) History of left knee replacement Hx of section Family History Father Ischemic cardiomyopathy CVD (cardiovascular disease) Mother No problems noted. 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 Cognitive needs: Yes Hearing needs: No Vision needs: Yes Physical Exam Vital Signs: BMI result Body Mass Index 30.2 Extrem Other: pain with passive ROM Office Procedures Joint Inj/Aspir; Non-Pain Clin Joint Injection/Drain Details: Injected 1 mL of Decadron and 3 mL 1% lidocaine and 3 mL of 0.25% Marcaine. Site was prepped using aseptic technique. Patient tolerated the procedure well. Shoulders, Hips, Knees, Shoulder Injection Large joint : Left Shoulder Coding Procedure code (CPT) selection complete Results Reviewed Results Reviewed: I personally reviewed relevant radiographs. Severe left shoulder OA Assessment & Plan Assessment & Plan (1) Osteoarthritis of left shoulder: Code(s): M19.012 - Primary osteoarthritis, left shoulder Category: Medical Plan: Dot has severe left shoulder OA. Her ROM is limited and she has pain that is preventing her from sleeping and prevents her from engaging in daily activity. I discussed treament options including non operative and operative treatments. I recommend arthroplasty giveh her agen ad limited function. I discussed the risks benefits and alternatives including but not limited to the risk of pain, infection, stiffness, need for further surgery as well as potential medical complications such as blood clots, pulmonary embolism and cardiac complications. She would like to proceed forward with that but in the fall and so I injected her left hsoulder and will put her in touch with Sobia, our nurse navigator. She will f/u in 3 months. Orders: Orders XR shoulder LT min 2V Today M25.519 - Pain in unspecified shoulder Coding Level of Care Code Est Pt Level 4 (58007) Diagnoses Osteoarthritis of left shoulder M19.012 CPT Codes Shoulders, Hips, Knees, - Shoulder Injection Large joint : Left Shoulder ([id number])
[2024-09-14 09:11] VITALS: BMI 30.2
== END 2024-09-14 09:44 | disposition home or self-care (01) ==
LOC: HO.HOS 08:51
PROVIDERS: PCP Internal Medicine; Visit Provider Orthopaedic Surgery
DX: M19.012 Primary osteoarthritis, left shoulder (principal)
CPT/HCPCS: 20610; 99214

== ENCOUNTER → 2024-09-14 08:56 | Outpatient (BNV) | payer MEDICARE, MEDICAID, SELFPAY | PROVIDERS: Visit Provider Radiology Diagnostic Radiology | DX: M25.512 Pain in left shoulder (principal) | CPT/HCPCS: 73030 ==

== ENCOUNTER 2024-09-16 12:17 | Outpatient (AMB) | payer MEDICARE, MEDICAID, SELFPAY ==
[2024-09-16 12:34] VITALS: BP 156/72; PULSE 64; BMI 30.2
--- NOTE | 2024-09-16 12:34 | A.OFFVIS_ITS ---
Vital Signs 09/16/24 12:34 Height 5 ft 6 in Weight 187 lb 6.287 oz BMI 30.2 BP 156/72 H Blood Pressure Location Rt brachial Position Sitting Pulse 64 Intake Visit Reasons: CIC , GERD F/u r/s 07/15 Intake Note: Dot presents to in office follow up of CIC and GERD. CC: Patient c/o constipation LLQ abdominal pain, and lower abdominal pain and cramping. Nipping Machine Operator Required: Yes Allergies penicillin G [Penicillin G] Allergy (Severe, Verified 09/16/24 13:23) RASH,SWELLING atorvastatin Allergy (Intermediate, Verified 09/16/24 13:23) myalgia, muscle cramps latex [LATEX] Allergy (Intermediate, Verified 09/16/24 13:23) ITCHY,SKIN TEARS simvastatin Allergy (Intermediate, Verified 09/16/24 13:23) sedation HPI HPI CIC , GERD F/u r/s 07/15: Details: Assessment & Plan (1) GERD (gastroesophageal reflux disease): Code(s): K21.9 - Gastro-esophageal reflux disease without esophagitis Category: Medical Plan Dominican #Dot Retana She is here today with her who is supportive. She continues on her bisacodyl and milk of magnesia along with dicyclomine for occasional cramping. She also continues on her pantoprazole with good control of her GERD. With this she is happy with her GI regimen. She seems to have a bit of a rectal prolapse as she says when I push sometimes the rectum comes out a little bit. I explain the physiology of this and that it is not uncommon in women, and if it worsens she may need to consider surgery; but hopefully not so long as we control the CIC. ROV 6 mos. Medications: Refilled magnesium hydroxide (Milk of Magnesia) 5 mL PO BEDTIME 355 mL 6RF pantoprazole 40 mg PO QAM 30 tabs 6RF K21.9 - Gastro-esophageal reflux disease without esophagitis hydrocortisone 2.5% 1 appl VA BID PRN 30 grams 3RF hemorrhoids bisacodyl 10 mg (2 x 5 mg) PO BEDTIME 60 tabs 6RF dicyclomine 20 mg (2 x 10 mg) PO QID PRN 240 caps 1RF for cramps TODAY'S VISIT Dominican #Carlotta Retana She is now much more constipated, and she shows me a picture of her rectum that appears to be a rectal prolapse. She has failed MOM, Miralax, colace, fiber, senna and bisacodyl so we will progress to LInzess 145mcg and titrate to effect or s/e. She continues on her pantoprazole and her bentyl. ROV next avail. [facility] Medical History Hyperkalemia Numbness of right hand Left knee pain Herpes zoster Ingrown nail Right wrist pain Right elbow pain Right otitis media Left hip pain Lumbar paraspinal muscle spasm Encounter for well woman exam with routine gynecological exam Encounter for Medicare annual wellness exam Sacroiliitis Physical exam Encounter for annual routine gynecological examination Physical exam Sacroiliac joint dysfunction of left side DM2 (diabetes mellitus, type 2) Mild recurrent major depression Mild asthma Obesity due to excess calories Diarrhea Diabetes mellitus with hyperglycemia Hyperlipidemia LDL goal <100 Essential hypertension Knee osteoarthritis Surgical History History of left knee replacement S/P excision of lipoma (01/03/23) History of excision of lesion (05/09/17) History of surgery on right wrist (01/31/16) History of phacoemulsification of cataract of right eye with intraocular lens implantation History of phacoemulsification of cataract of left eye with intraocular lens implantation Hx of colonoscopy Hx of cholecystectomy (05/09/17) Hx of section Family History Father Ischemic cardiomyopathy CVD (cardiovascular disease) Mother No problems noted. 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 Cognitive needs: Yes Hearing needs: No Vision needs: Yes Review of Systems Const Denies fatigue, Denies fever(s), Denies night sweats, Denies poor appetite and Denies weight loss Eyes Details: glasses Reports requires corrective lenses ENT Reports Normal hearing present, Denies dental pain, Denies dysphagia, Denies hearing loss, Denies mouth pain, Denies odynophagia, Denies throat swelling, Denies tongue swelling and Reports other (Dentition adequate) Card Reports no additional complaints Resp Reports no additional complaints GI Details: Reports abdominal pain, Denies melena, Denies bloating, Denies hematochezia, Reports constipation, Denies GI cramping, Denies dysphagia, Denies excessive flatus, Denies early satiety, Reports heartburn, Denies diarrhea, Denies nausea, Denies odynophagia, Denies vomiting and Denies hematemesis Skin/Breast Denies pruritus, Denies lesions, Denies rash and Denies jaundice Neuro Reports Normal hearing present and Denies Abnormal speech present Endo Denies fatigue Aller/Immun Denies throat swelling and Denies tongue swelling Physical Exam Vital Signs: Last Vital Signs Pulse 64 09/16/24 12:34 BP 156/72 H 09/16/24 12:34 BMI result Body Mass Index 30.2 Const General: cooperative, no acute distress, well developed and well groomed Nutritional Appearance: well nourished and obese Orientation/consciousness: oriented to person, oriented to place and oriented to time Limitations: language barrier HEENT Head: Yes normocephalic and Yes atraumatic Eyes General: appearance normal, both eyes and all related structures Pupils: Equal, round and reactive pupils present Neck Neck: Yes normal visual inspection and Yes no lymphadenopathy Thyroid: Thyroid normal Resp Effort & Inspection: normal respiratory effort and able to speak in complete sentences Auscultation: clear to auscultation bilaterally Cardio Rate: regular rate Rhythm: regular rhythm Heart sounds: Normal, physiologic split S2 sound present Peripheral pulses: radial pulses present and posterior tibial pulses present GI Inspection: Yes distended, No Abdominal panniculus present and Yes obesity Palpation (GI): Soft to palpation, Tenderness to palpation present (GI) in the LLQ, in the LUQ and suprapubicly, no guarding, not rigid and No hepatosplenomegaly present Percussion: Yes normal to percussion Auscultation: normal bowel sounds Rectal Exam - Female: deferred Skin General skin exam: no rashes or lesions noted, turgor normal, skin not dry, no jaundice, No spider nevi and no striae Rashes: no rashes Nails: normal Neuro General: oriented to person, oriented to place and oriented to time Cranial nerves: Yes Equal, round and reactive pupils present and Yes Normal hearing present Speech: No Abnormal speech present Extrem General: Yes normal to inspection, No clubbing, No cyanosis and No edema Psych Appearance: grossly normal and well kempt Mental Status: mental status grossly normal Speech and movement: Normal speech and movement present Affect: normal affect Attitude: cooperative Thought process: Normal thought process present and not confabulating Thought content: Normal thought content present Insight: Limited insight present (Psych) Judgement: Limited judgement present (Psych) Assessment & Plan Assessment & Plan (1) GERD (gastroesophageal reflux disease): Code(s): K21.9 - Gastro-esophageal reflux disease without esophagitis Category: Medical (2) Chronic idiopathic constipation: Code(s): K59.04 - Chronic idiopathic constipation Category: Medical Plan Dominican #Carlotta Live She is now much more constipated, and she shows me a picture of her rectum that appears to be a rectal prolapse. She has failed MOM, Miralax, colace, fiber, senna and bisacodyl so we will progress to LInzess 145mcg and titrate to effect or s/e. She continues on her pantoprazole and her bentyl. ROV next avail. Orders: Orders TSH reflex Free T4 Today K59.04 - Chronic idiopathic constipation Medications: New linaclotide (Linzess) Take first thing in the morning with a full glass of water. 145 mcg PO QAM 30 caps 3RF K58.1 - Irritable bowel syndrome with constipation Refilled magnesium hydroxide (Milk of Magnesia) 5 mL PO BEDTIME 355 mL 6RF On Hold bisacodyl Hold Comment: Doctor's Order 10 mg (2 x 5 mg) PO BEDTIME 60 tabs 6RF sennosides (senna) Hold Comment: Doctor's Order 8.6 mg PO BEDTIME 30 days PRN 30 tabs 1RF constipation Coding Level of Care Code Est Pt Level 3 (60794) Diagnoses GERD (gastroesophageal reflux disease) K21.9 Chronic idiopathic constipation K59.04
--- OUTSIDE RECORDS SUMMARY | 2024-09-16 14:38 | XMS_ITS | Encounter Summary ---
Author Organization [employer] Address [address] [place] [address] 7 [place] [address] Care Team Providers Care Hand Method Lasting Machine Operator Name Role Phone Unavailable Primary Care Provider Unavailabl e Encounter Details Date Type Department Care Team (Late st Contact Info) Description 11/29/2022 Abstract [place] [address] [place] [address] Lazaro Edmonds MD Social History Tobacco Use [...]
--- OUTSIDE RECORDS SUMMARY | 2024-09-16 14:38 | XMS_ITS | Clinical Summary ---
Author Organization [employer] Address [address] [facility] [address] [place] [address] Care Team Providers Care Medical Receptionist Medical Assistant Name Role Phone Unavailable Primary Care Provider [...] mouth every day at bedtime 4 Active butalbital-rena taminophen-caf feine 50-325-40 MG tablet Take 1 [...] MM misc 5 Active TRUEplus Lancets 33G [facility] TEST BLOOD SUGAR THREE TIMES DAILY 4 [...] patient's age to complete this topic Insurance [facility] STANDARD MEDICARE
== END 2024-09-16 14:09 | disposition home or self-care (01) ==
LOC: HO.HGI 12:18
PROVIDERS: PCP Internal Medicine; Visit Provider Nurse Practitioner
DX: K21.9 Gastro-esophageal reflux disease without esophagitis (principal); K59.04 Chronic idiopathic constipation
CPT/HCPCS: 99213

== ENCOUNTER → 2024-09-16 12:17 | Outpatient (BNVA) | payer MEDICARE, MEDICAID, SELFPAY | PROVIDERS: PCP Internal Medicine; Visit Provider Nurse Practitioner | DX: K21.9 Gastro-esophageal reflux disease without esophagitis (principal); K59.04 Chronic idiopathic constipation | CPT/HCPCS: 99212 ==

== ENCOUNTER 2024-10-01 13:36 | Outpatient (REF) | payer MEDICARE, MEDICAID, SELFPAY ==
--- NOTE | 2024-10-01 13:45 | PFT_ITS ---
Flows: FEV1: 98 % of predicted at 2.28 L FVC: 89 % of predicted at 2.67 L FEV1/FVC: 85 % Bronchodilator response: Absent Volumes: Total lung capacity: 75 % of predicted at 3.91 L Residual volume: 59 % of predicted at 1.17 L Slow vital capacity: 87 % of predicted at 2.74 L Expiratory reserve volume: 34 % of predicted at 0.25 L Diffusion capacity: Normal Impression: Mild restrictive ventilatory defect with no bronchodilator response. Decreased expiratory reserve volume suggests extrathoracic restriction likely secondary to abdominal obesity. MTDD
[2024-10-01 14:26] VITALS: PULSE 62; O2SAT 98
--- OUTSIDE RECORDS SUMMARY | 2024-10-01 16:26 | XMS_ITS | Encounter Summary ---
Author Organization [employer] Address [address] [place] [address] [address] [place] [address] Care Team Providers Care Water Filterer Helper Name Role Phone Unavailable Primary Care Provider Unavailabl e Encounter Details Date Type Department Care Team (Late st Contact Info) Description 11/29/2022 Abstract [place] [facility] [address] [place] [address] Lazaro Edmonds MD Social History Tobacco Use [...]
--- OUTSIDE RECORDS SUMMARY | 2024-10-01 16:26 | XMS_ITS | Clinical Summary ---
Author Organization [employer] Address [address] [facility] [address] [place] [address] Care Team Providers Care Slot Floorman Name Role Phone Unavailable Primary Care Provider [...] MM misc 5 Active TRUEplus Lancets 33G [facility] [place] BLOOD SUGAR THREE TIMES DAILY 4 [...] patient's age to complete this topic Insurance [facility] STANDARD MEDICARE
== END 2024-10-01 13:37 | disposition home or self-care (01) ==
LOC: HO.RESP 13:36
PROVIDERS: PCP Internal Medicine; Visit Provider Internal Medicine Pulmonary Disease
DX: J45.40 Moderate persistent asthma, uncomplicated (principal)
CPT/HCPCS: 94010; 94640; 94727; 94729

== ENCOUNTER → 2024-10-01 13:45 | Outpatient (BNV) | payer MEDICARE, MEDICAID, SELFPAY | PROVIDERS: PCP Internal Medicine; Visit Provider Internal Medicine Pulmonary Disease | DX: J45.40 Moderate persistent asthma, uncomplicated (principal) | CPT/HCPCS: 94060; 94727; 94729 ==

== ENCOUNTER 2024-10-13 12:34 | Outpatient (AMB) | payer MEDICARE, MEDICAID, SELFPAY ==
--- NOTE | 2024-10-13 13:19 | MHC.OFFVIS ---
Vital Signs 10/13/24 13:20 Height 5 ft 6 in Weight 188 lb BMI 30.3 BP 130/87 Blood Pressure Location Rt brachial Position Sitting Pulse 65 Pulse Source Doppler Pulse Oximetry (%) 97 Oxygen Delivery Method Room Air Intake Visit Reasons: Asthma Retail Business Development Manager Required: Yes Retail Business Development Manager Name: Griselda NicholsDeborahSeven Allergies penicillin G [Penicillin G] Allergy (Severe, Verified 10/13/24 13:26) RASH,SWELLING atorvastatin Allergy (Intermediate, Verified 10/13/24 13:26) myalgia, muscle cramps latex [LATEX] Allergy (Intermediate, Verified 10/13/24 13:26) ITCHY,SKIN TEARS simvastatin Allergy (Intermediate, Verified 10/13/24 13:26) sedation HPI HPI Asthma: Details: 69-year-old lady, nonsmoker, now followed for asthma, environmental allergies, and cough with significant GERD component. After the last office visit patient increased her PPI to twice a day with significant improvement in her cough/GERD. She also started on Trelegy with significant improvement in her asthma control. She denies recent exacerbations. She did complete her pulmonary function test that showed no significant obstruction, but some restriction likely secondary to abdominal obesity. [facility] Medical History Hyperkalemia Numbness of right hand Left knee pain Herpes zoster Ingrown nail Right wrist pain Right elbow pain Right otitis media Left hip pain Lumbar paraspinal muscle spasm Encounter for well woman exam with routine gynecological exam Encounter for Medicare annual wellness exam Sacroiliitis Physical exam Encounter for annual routine gynecological examination Physical exam Sacroiliac joint dysfunction of left side DM2 (diabetes mellitus, type 2) Mild recurrent major depression Mild asthma Obesity due to excess calories Diarrhea Diabetes mellitus with hyperglycemia Hyperlipidemia LDL goal <100 Essential hypertension Knee osteoarthritis Surgical History History of left knee replacement S/P excision of lipoma (01/03/23) History of excision of lesion (05/09/17) History of surgery on right wrist (01/31/16) History of phacoemulsification of cataract of right eye with intraocular lens implantation History of phacoemulsification of cataract of left eye with intraocular lens implantation Hx of colonoscopy Hx of cholecystectomy (05/09/17) Hx of section Family History Father Ischemic cardiomyopathy CVD (cardiovascular disease) Mother No problems noted. 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 Cognitive needs: Yes Hearing needs: No Vision needs: Yes Review of Systems Const Denies daytime sleepiness, Denies excessive sweating, Denies fatigue, Denies fever(s), Denies lethargy, Denies malaise, Denies night sweats, Denies snoring and Denies weight loss Eyes Denies blurry vision and Denies itchy eyes ENT Denies nasal congestion, Denies post nasal drip, Denies sinus pain, Denies sinus pressure and Denies other ( Thrush) Card Denies chest pain, Denies pedal edema, Denies dyspnea, Denies orthopnea and Denies paroxysmal nocturnal dyspnea Resp Denies cough, Denies hemoptysis, Denies excessive phlegm production, Denies dyspnea, Denies snoring and Denies wheezing GI Denies abdominal pain and Denies heartburn Musc Denies myalgias, Denies arthralgias and Denies joint swelling Skin/Breast Denies rash Neuro Denies memory loss and Denies seizure-like activity Psych Denies abnormal sleep pattern, Denies anxiety and Denies memory loss Endo Denies excessive sweating, Denies fatigue and Denies heat intolerance Shaan/Lymph Denies easy bruising Aller/Immun Denies itchy eyes, Denies seasonal rhinorrhea and Denies wheezing Physical Exam Vital Signs: Last Vital Signs Pulse 65 10/13/24 13:20 BP 130/87 10/13/24 13:20 Pulse Ox 97 10/13/24 13:20 Oxygen Delivery Method Room Air 10/13/24 13:20 BMI result Body Mass Index 30.3 Const General: no acute distress and alert Nutritional Appearance: not obese Orientation/consciousness: Other orientation findings ( oriented) HEENT Head: Yes atraumatic Eyes General: appearance normal, both eyes and all related structures Sclerae: sclerae normal EOM: EOMs intact bilaterally Neck Neck: Yes supple Lymphatic: no lymphadenopathy noted Resp Effort & Inspection: normal respiratory effort and no use of accessory muscles Auscultation: clear to auscultation bilaterally Cardio Rate: regular rate Rhythm: regular rhythm Heart sounds: no gallops, no murmurs and no rubs Skin General skin exam: other ( warm) Extrem General: No clubbing, No cyanosis and No edema Assessment & Plan Assessment & Plan (1) Moderate persistent asthma: Code(s): J45.40 - Moderate persistent asthma, uncomplicated Category: Medical Plan: Significantly improved controlled on Trelegy. Continue current regimen of Treelegy, duo nebs, and albuterol MDI. (2) Environmental allergies: Code(s): Z91.09 - Other allergy status, other than to drugs and biological substances Category: Medical Plan: RAST panel is pending. (3) GERD (gastroesophageal reflux disease): Code(s): K21.9 - Gastro-esophageal reflux disease without esophagitis Category: Medical Plan: Significantly improved control on b.i.d. PPI. Continue current regimen. Medications: New ipratropium-albuterol 0.5 mg-3 mg(2.5 mg base)/3 mL 3 mL inhalation Q4-6H PRN 180 mL 6RF wheezing Coding Level of Care Code Est Pt Level 4 (84310) Diagnoses Moderate persistent asthma J45.40 Environmental allergies Z91.09 GERD (gastroesophageal reflux disease) K21.9
[2024-10-13 13:20] VITALS: BP 130/87; PULSE 65; O2SAT 97; BMI 30.3
--- OUTSIDE RECORDS SUMMARY | 2024-10-13 14:54 | XMS_ITS | Clinical Summary ---
Author Organization [employer] Address [address] [facility] [address] [place] [address] Care Team Providers Care Glass Inserter Name Role Phone Unavailable Primary Care Provider [...] MM misc 5 Active TRUEplus Lancets 33G [facility] [place] [place] BLOOD SUGAR THREE TIMES DAILY 4 [...] patient's age to complete this topic Insurance [facility] STANDARD MEDICARE
--- OUTSIDE RECORDS SUMMARY | 2024-10-13 14:54 | XMS_ITS | Encounter Summary ---
Author Organization [employer] Address [address] [place] [address] [address] [place] [address] Care Team Providers Care Multiple Coil Winder Name Role Phone Unavailable Primary Care Provider Unavailabl e Encounter Details Date Type Department Care Team (Late st Contact Info) Description 11/29/2022 Abstract [place] [facility] [address] [place] [address] Lazaro Edmonds MD Social History Tobacco Use [...]
== END 2024-10-13 13:37 | disposition home or self-care (01) ==
LOC: HO.HPS 12:35
PROVIDERS: PCP Internal Medicine; Visit Provider Internal Medicine Pulmonary Disease
DX: J45.40 Moderate persistent asthma, uncomplicated (principal); Z91.09 Other allergy status, other than to drugs and biological substances; K21.9 Gastro-esophageal reflux disease without esophagitis
CPT/HCPCS: 99214

== ENCOUNTER → 2024-10-13 12:34 | Outpatient (BNVA) | payer MEDICARE, MEDICAID, SELFPAY | PROVIDERS: PCP Internal Medicine; Visit Provider Internal Medicine Pulmonary Disease | DX: J45.40 Moderate persistent asthma, uncomplicated (principal); K21.9 Gastro-esophageal reflux disease without esophagitis; Z91.09 Other allergy status, other than to drugs and biological substances | CPT/HCPCS: 99212 ==

== ENCOUNTER 2024-10-26 07:47 | Outpatient (REF) | payer MEDICARE, MEDICAID, SELFPAY ==
--- NOTE | ~2024-10-26 | CT_ITS ---
CLINICAL HISTORY: M19.012 - Primary osteoarthritis, left shoulder --- Additional Notes or Special Ins tructions: No official read required CT scan of the left shoulder without contrast. Comparisons: Plain films of the left shoulder dated 09/14/2024. Findings: There are severe chronic osteoarthritic changes of the glenohumeral joint with joint space narrowing, bony productive changes and remodeling of the humeral head. Multiple synovial osteochondromas are noted located just inferior to the coracoid process and anterior aspect of the glenohumeral joint. Several additional synovial osteochondromas are seen along humeral neck. Impression: Severe degenerative changes of the glenohumeral joint as above. Multiple synovial osteochondromas. This document has been electronically signed by: Carlos Perea MD on 10/27/2024 11:53:30
--- OUTSIDE RECORDS SUMMARY | 2024-10-26 07:49 | XMS_ITS | Clinical Summary ---
Author Organization [employer] Address [address] [facility] [address] [place] [address] Care Team Providers Care Ecd Name Role Phone Unavailable Primary Care Provider [...] MM misc 5 Active TRUEplus Lancets 33G [facility] TEST BLOOD SUGAR THREE TIMES DAILY 4 [...] patient's age to complete this topic Insurance [facility] STANDARD MEDICARE
--- OUTSIDE RECORDS SUMMARY | 2024-10-26 07:49 | XMS_ITS | Encounter Summary ---
Author Organization [employer] Address [address] [place] [address] [address] [place] [address] Care Team Providers Care Mingle Operator Name Role Phone Unavailable Primary Care Provider Unavailabl e Encounter Details Date Type Department Care Team (Late st Contact Info) Description 11/29/2022 Abstract [place] [facility] [address] [place] [address] Lazaro Edmonds MD Social History Tobacco Use [...]
== END 2024-10-26 07:48 | disposition home or self-care (01) ==
LOC: HO.CT 07:47
PROVIDERS: PCP Internal Medicine; Visit Provider Physician Assistant
DX: M19.012 Primary osteoarthritis, left shoulder (principal)
CPT/HCPCS: 73200

== ENCOUNTER → 2024-10-26 07:48 | Outpatient (BNV) | payer MEDICARE, MEDICAID, SELFPAY | PROVIDERS: PCP Internal Medicine; Visit Provider Radiology Diagnostic Radiology | DX: M19.012 Primary osteoarthritis, left shoulder (principal); M24.012 Loose body in left shoulder | CPT/HCPCS: 73200 ==

== ENCOUNTER 2024-12-08 12:32 | Outpatient (AMB) | payer OTHER, SELFPAY ==
--- NOTE | 2024-12-08 12:53 | A.OFFPC_ITS ---
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 Required: No Accompanied by: Self / Same As Patient Allergies penicillin G [Penicillin G] Allergy (Severe, Verified 12/08/24 13:29) RASH,SWELLING atorvastatin Allergy (Intermediate, Verified 12/08/24 13:29) myalgia, muscle cramps latex [LATEX] Allergy (Intermediate, Verified 12/08/24 13:29) ITCHY,SKIN TEARS simvastatin Allergy (Intermediate, Verified 12/08/24 13:29) sedation Medication List - Last Reconciled 12/08/24 by Carolina Mahoney MD alcohol swabs (Alcohol Prep Pads) 1 pad topical DAILY amlodipine 10 mg PO DAILY aspirin 81 mg PO BEDTIME bisacodyl 10 mg (2 x 5 mg) PO BEDTIME blood pressure monitor As directed blood sugar diagnostic (FreeStyle Lite Strips) 1 strip miscellaneous QID 30 days blood sugar diagnostic (FreeStyle Lite Strips) As directed twice a day blood-glucose meter (FreeStyle Lite Meter kit) As directed 2 times a day enhrdmuutp-arqxxhcdfmziq-unmq 50-325-40 mg 1 tab PO Q6H PRN 30 days cane As directed cholecalciferol (vitamin D3) 50 mcg PO DAILY 90 days clonazepam 1 mg PO BID PRN clotrimazole 1% 1 appl topical BID [diabetic sandals As directed] [diabetic shoes with inserts with template As directed] [diabetic sneakers As directed] diclofenac sodium 75 mg PO BID dicyclomine 20 mg (2 x 10 mg) PO QID PRN ezetimibe 10 mg PO DAILY fluticasone propionate 50 mcg/actuation (Flonase Allergy Relief) 1 spray intranasal BID 30 days ohwapxxkupn-qnqctyypd-ikdrkbrr 200-62.5-25 mcg (Trelegy Ellipta) 1 inh inhalation DAILY hydrocortisone 2.5% 1 appl topical BID PRN insulin glargine (Lantus Solostar U-100 Insulin) 36 units (0.36 mL) subcut DAILY 90 days ipratropium-albuterol 0.5 mg-3 mg(2.5 mg base)/3 mL 3 mL inhalation Q4-6H PRN lancets (TRUEplus Lancets) 1 gauge miscellaneous BID 30 days linaclotide (Linzess) 145 mcg PO QAM loratadine (Allergy Relief (loratadine)) 10 mg PO DAILY 14 days magnesium hydroxide (Milk of Magnesia) 5 mL PO BEDTIME metformin 1,000 mg (2 x 500 mg) PO BID miconazole nitrate 2% 1 appl topical DAILY PRN 30 days montelukast 10 mg PO QPM oxycodone-acetaminophen 5-325 mg 1 tab PO Q6H PRN 30 days pantoprazole 40 mg PO BID 30 days peg 393-hlcdgqhuxiqj-brizibii 1-0.2-0.2 % drps ophthalmic (eye) DAILY PRN pen needle, diabetic As directed [pillow As directed] rosuvastatin 40 mg PO DAILY 90 days sennosides (senna) 8.6 mg PO BEDTIME PRN 30 days sertraline 200 mg PO QAM underpads As directed underpads (Bed Underpads) Use 10 disposable bedpads daily valacyclovir 1,000 mg PO Q8H 7 days valsartan 160 mg PO BEDTIME Ventolin HFA 90 mcg/actuation (albuterol sulfate) 2 puffs inhalation Q6H PRN 30 days NS zolpidem 10 mg PO BEDTIME PRN Tobacco use date assessed: 12/08/24 Fall risk assessment: No Falls in past year Last assessed Fall Risk: 12/08/24 Dental Screening Dental Screen Date: 12/08/24 Did you have a dental visit in the last 12 months?: No Did you have a dental problem in the last 6 months where you did not have access to dental care?: No Was dental information given to patient?: Patient has dentist HPI HPI Comments History of Present Illness Details The patient is a 69-year-old female presenting with right inguinal pain. The pain initially started on the left side but has since moved to the right side, described as severe and persistent. The patient denies diarrhea but reports constipation, which has been a recurring issue. The patient also presents with elevated Hemoglobin A1c, currently at 8.7%, which is an improvement from a previous level of 9.3%. The goal is to reduce the A1c to 7%. The patient has a history of allergies to penicillin, latex, and simvastatin. Current medications include amlodipine, aspirin, vitamin D, clonazepam, diclofenac, rosuvastatin, metformin, sertraline, valsartan, and zolpidem. The patient is under the care of a psychiatrist for depression management. Last LDL was not on goal and this will be repeated. Blood pressure slightly elevated today and will be recheck in 3 weeks by nurse navigator. [facility] Medical History (Updated 12/08/24 @ 13:39 by Carolina Mahoney MD) Hyperkalemia Numbness of right hand Left knee pain Herpes zoster Ingrown nail Right wrist pain Right elbow pain Right otitis media Left hip pain Lumbar paraspinal muscle spasm Encounter for well woman exam with routine gynecological exam Encounter for Medicare annual wellness exam Sacroiliitis Physical exam Encounter for annual routine gynecological examination Physical exam Sacroiliac joint dysfunction of left side DM2 (diabetes mellitus, type 2) Mild recurrent major depression Mild asthma Obesity due to excess calories Diarrhea Diabetes mellitus with hyperglycemia Hyperlipidemia LDL goal <100 Essential hypertension Knee osteoarthritis Surgical History History of left knee replacement S/P excision of lipoma (01/03/23) History of excision of lesion (05/09/17) History of surgery on right wrist (01/31/16) History of phacoemulsification of cataract of right eye with intraocular lens implantation History of phacoemulsification of cataract of left eye with intraocular lens implantation Hx of colonoscopy Hx of cholecystectomy (05/09/17) Hx of section Family History Father Ischemic cardiomyopathy CVD (cardiovascular disease) Mother No problems noted. 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 Yonatan, Jose Guadalupe Castellanos and colleagues, with an educational varinder from [employer]. Review of Systems Const All systems reviewed & are unremarkable except as noted in HPI and below Card Denies chest pain at rest, Denies chest pain with activity, Denies edema, Denies irregular heart rhythm, Denies claudication, Denies dyspnea, Denies dyspnea on exertion, Denies orthopnea, Denies paroxysmal nocturnal dyspnea and Denies slow heart rate Resp Denies cough, Denies dyspnea and Denies dyspnea on exertion GI Reports abdominal pain, Denies change in bowel habits, Reports constipation, Denies excessive flatus, Denies nausea and Denies vomiting Denies urinary incontinence, Denies urinary hesitancy and Denies urinary urgency Musc Denies atrophy, Denies deformity and Denies limited range of motion Skin/Breast Denies bleeding lesions, Denies changing lesions and Denies rash Physical exam (Primary Care) Vital Signs: Last Vital Signs BP 152/90 H 12/08/24 13:11 BMI result Body Mass Index 30.7 BMI Assessment/Plan discussion: High BMI High, discussed plan: lifestyle, weight reduction, dietary and physical activity Tobacco/Smoking Status: Tobacco use Status Tobacco use date assessed 12/08/24 12/08/24 13:19 Patient Tobacco Use Status Never used Tobacco 12/08/24 12:53 e-Cigarette/Vaping Use Never Used 12/08/24 12:53 Thrive Assessment: Date of Thrive Assessment Date Thrive assessed 08/10/24 12/08/24 12:53 Resp Effort & Inspection: normal respiratory effort Auscultation: clear to auscultation bilaterally Cardio Jugular venous distension: no JVD Rate: regular rate Rhythm: regular rhythm Heart sounds: S1 normal heart sound present and S2 normal heart sound present GI Palpation (GI): Tenderness to palpation present (GI) in the RLQ Extrem General: Yes full ROM Results AMB Hemoglobin A1c AMB Hemoglobin A1c 8.7 % Last Edit by DEE Mancera on 12/08/24 13:2 6 Results Reviewed Results Reviewed: Laboratory Last Values Hgb A1c (Clinic) 8.7 % (4.0-6.0) H 12/08/24 12:55 Coding Level of Care Code Est Pt Level 4 (13529) Complex EM visit Add On G2211 Diagnoses Right lower quadrant abdominal pain R10.31 Chronic idiopathic constipation K59.04 Type 2 diabetes mellitus with hyperglycemia, with long-term current use of insulin E11.65; Z79.4 Diabetes mellitus senior care insulin use: with senior care use Diabetes mellitus complication status: with hyperglycemia Mild recurrent major depression F33.0 Hyperlipidemia LDL goal <70 E78.5 Essential hypertension I10 Time Spent (min) 22 Assessment & Plan Assessment & Plan (1) Right lower quadrant abdominal pain: Code(s): R10.31 - Right lower quadrant pain Category: Medical (2) Chronic idiopathic constipation: Code(s): K59.04 - Chronic idiopathic constipation Category: Medical (3) DM2 (diabetes mellitus, type 2): Code(s): E11.9 - Type 2 diabetes mellitus without complications Category: Medical Qualifiers: Diabetes mellitus senior care insulin use: with vermin exterminator use Diabetes mellitus complication status: with hyperglycemia Qualified Code(s): E11.65 - Type 2 diabetes mellitus with hyperglycemia; Z79.4 - skilled nursing (current) use of insulin (4) Mild recurrent major depression: Code(s): F33.0 - Major depressive disorder, recurrent, mild Category: Medical (5) Hyperlipidemia LDL goal <70: Code(s): E78.5 - Hyperlipidemia, unspecified Category: Medical (6) Essential hypertension: Code(s): I10 - Essential (primary) hypertension Category: Medical Plan The plan includes managing the patient's right inguinal pain and addressing the elevated Hemoglobin A1c. For the inguinal pain, further evaluation and imaging may be necessary to determine the underlying cause. For the elevated A1c, the goal is to reduce it to 7%, possibly by adjusting current medications and monitoring dietary habits. The patient should continue current medications, including metformin for diabetes management, and follow up with her psychiatrist for depression management. Regular follow-up appointments are recommended to monitor blood pressure and adjust medications as needed. Patient was informed and verbally consented to the use of an ambient scribe for clinic note documentation during this visit. Orders: Orders AMB Hemoglobin A1c Today E11.65 - Type 2 diabetes mellitus with hyperglycemia, Z79.4 - terminal supervisor (current) use of insulin CT abdomen pelvis wo/w IV con Today R10.31 - Right lower quadrant pain Complete Blood Count Auto Diff Today R10.31 - Right lower quadrant pain Lipase Today R10.9 - Unspecified abdominal pain
[2024-12-08 13:11] VITALS: BP 152/90; BMI 30.7
--- OUTSIDE RECORDS SUMMARY | 2024-12-08 14:12 | XMS_ITS | Clinical Summary ---
Author Organization [employer] Address [address] [place] [address] Care Team Providers Care Perfect Binder Feeder Offbearer Name Role Phone Unavailable Primary Care Provider [...] MM misc 5 Active TRUEplus Lancets 33G [facility] TEST BLOOD SUGAR THREE TIMES DAILY 4 [...] mg by mouth at bedtime. Active Immunizations Immunization Administration Dates Next Due Influenza injectable quadriv [...] PCV) 06/10/2019 06/10/2018, 02/10/2007 COVID-19 Vaccine ( season) 2024 01/23/2022, 06/12/2021, 10/27/2020, Additional history exists Influenza Vaccine (Season Ended) 2025 04/04/2023, 06/15/2021, 09/14/2020, Additional history exists DTaP/Tdap/Td Vaccines [...] patient's age to complete this topic Meningococcal B Vaccine Aged Out No l onger eligible based on patient's age to complete this topic Meningococcal Vaccine Aged Out No jeanne nickie eligible based on patient's age to complete this topic RSV under 20 months Aged Out No longe r eligible based on patient's age to complete this topic Rotavirus Vaccines Aged Out No longer eligible based on patient's age to complete this topic Insurance [facility] STANDARD MEDICARE
== END 2024-12-08 13:47 | disposition home or self-care (01) ==
LOC: HO.HMCH 12:33
PROVIDERS: PCP Internal Medicine; Visit Provider Internal Medicine
DX: R10.31 Right lower quadrant pain (principal); K59.04 Chronic idiopathic constipation; E11.65 Type 2 diabetes mellitus with hyperglycemia; Z79.4 Long term (current) use of insulin; F33.0 Major depressive disorder, recurrent, mild; E78.5 Hyperlipidemia, unspecified; I10 Essential (primary) hypertension

== ENCOUNTER → 2024-12-08 12:32 | Outpatient (BNVA) | payer OTHER, SELFPAY | PROVIDERS: PCP Internal Medicine; Visit Provider Internal Medicine | DX: R10.31 Right lower quadrant pain (principal); K59.04 Chronic idiopathic constipation; E11.65 Type 2 diabetes mellitus with hyperglycemia; F33.0 Major depressive disorder, recurrent, mild; E78.5 Hyperlipidemia, unspecified; I10 Essential (primary) hypertension; Z79.4 Long term (current) use of insulin | CPT/HCPCS: 83036; 99212 ==

== ENCOUNTER 2024-12-09 09:34 | Outpatient (REF) | payer OTHER, SELFPAY ==
[2024-12-09 09:58] LABS: MANUAL DIFF FLAG NO
--- OUTSIDE RECORDS SUMMARY | 2024-12-09 10:34 | XMS_ITS | Clinical Summary ---
Author Organization [employer] Address [address] [place] [address] Care Team Providers Care Rehabilitation Coordinator Name Role Phone Unavailable Primary Care Provider [...] patient's age to complete this topic Insurance [facility] STANDARD MEDICARE
[2024-12-09 10:45] LABS: Basophils Absolute Auto 0.1 X10*3/uL (0.0-0.2); Basophils Percent Auto 1.6 % (0-2); Eosinophils Absolute Auto 0.3 X10*3/uL (0.0-0.4); Eosinophils Percent Auto 4.5 % (0-4); Hematocrit 44.8 % (37.0-47.0); Hemoglobin 15.2 g/dl (12.0-16.0); Imm Gran Abs Auto 0.01 X10*3/uL (0.00-0.03); Imm Gran Pct Auto 0.2 % (0.0-0.4); Lymphocytes Percent Auto 31.2 % (20-40); Mean Corpuscular HGB Conc 33.9 g/dl (31.0-35.0); Mean Corpuscular Hemoglobin 29.4 pg (27.0-33.0); Mean Corpuscular Volume 86.7 fL (80.0-98.0); Mean Platelet Volume 10.1 fL (9.4-12.3); Monocytes Absolute Auto 0.5 X10*3/uL (0.1-1.2); Monocytes Percent Auto 7.8 % (2-11); Neutrophils Absolute Auto 3.5 x10*3/uL (2.0-8.3); Neutrophils Percent Auto 54.7 % (45-73); Platelet Count 270 X10*3/uL (160-400); Red Blood Count 5.17 X10*6/uL (4.20-5.50); White Blood Count 6.3 X10*3/uL (4.8-10.8)
[2024-12-09 10:48] LABS: Basophils Absolute Auto 0.1 X10*3/uL (0.0-0.2); Basophils Percent Auto 1.3 % (0-2); Eosinophils Absolute Auto 0.3 X10*3/uL (0.0-0.4); Eosinophils Percent Auto 4.4 % (0-4); Hematocrit 45.2 % (37.0-47.0); Hemoglobin 15.2 g/dl (12.0-16.0); Imm Gran Abs Auto 0.01 X10*3/uL (0.00-0.03); Imm Gran Pct Auto 0.2 % (0.0-0.4); Lymphocytes Absolute Auto 1.9 X10*3/uL (1.2-4.9); Lymphocytes Percent Auto 30.3 % (20-40); Mean Corpuscular HGB Conc 33.6 g/dl (31.0-35.0); Mean Corpuscular Hemoglobin 29.2 pg (27.0-33.0); Mean Corpuscular Volume 86.8 fL (80.0-98.0); Mean Platelet Volume 10.1 fL (9.4-12.3); Monocytes Absolute Auto 0.5 X10*3/uL (0.1-1.2); Monocytes Percent Auto 7.7 % (2-11); Neutrophils Absolute Auto 3.4 x10*3/uL (2.0-8.3); Neutrophils Percent Auto 56.1 % (45-73); Platelet Count 265 X10*3/uL (160-400); Red Blood Count 5.21 X10*6/uL (4.20-5.50); Red Cell Distribution Width 13.1 % (11.0-16.0); White Blood Count 6.1 X10*3/uL (4.8-10.8)
[2024-12-09 11:29] LABS: Alanine Aminotransferase 25 U/L (0-31); Albumin Level 4.2 g/dL (3.5-5.0); Alkaline Phosphatase 99 U/L (39-117); Anion Gap 11 (12-20); Aspartate Amino Transferase 31 U/L (5-31); Bilirubin Total 0.6 mg/dL (0.0-1.0); Blood Urea Nitrogen 15 mg/dL (9-16); Calcium 9.2 mg/dL (8.4-10.2); Carbon Dioxide 29 mmol/L (22-29); Chloride 105 mmol/L (96-108); Cholesterol 216 mg/dL (<200); Estimated Glomerular Filt Rate > 60; Glucose Fasting 193 mg/dL (60-99); HDL Cholesterol 42 mg/dL (>40); LDL Cholesterol Calculated 147 mg/dL (<100); Lipase 20 U/L (8-78); Potassium 4.3 mmol/L (3.3-5.1); Sodium 141 mmol/L (135-145); Total Protein 7.5 g/dL (6.5-8.0); Triglycerides 139 mg/dL (<150)
[2024-12-09 11:42] LABS: Vitamin D 25-OH Total 34.4 ng/mL (>30)
[2024-12-09 11:47] LABS: TSH reflex Free T4 2.46 uIU/mL (0.32-4.0)
[2024-12-09 12:51] LABS: Microalbum/Creatinine Ratio Ur 179.9 ug/mg cr (<30)
[2024-12-16 17:59] LABS: Class Alternaria alternata 0; Class Aspergillus fumigatus 0; Class Bermuda Grass 0; Class Birch 0; Class Cat Dander 0; Class Cladosporium herbarum 0; Class Cockroach 0; Class Derm. pterony 0; Class Dermatophagoides farinae 0; Class Dog Dander 0; Class Maple Box Elder 0; Class Mountain Cedar 0; Class Mouse Urine Protein 0; Class Penicillium crysogenum 0; Class Timothy Grass 0; D001 IgE D pteronyssinus <0.10 kU/L; D002 - IgE D farinae <0.10 kU/L; E001 - IgE Cat Dander <0.10 kU/L; E005 - IgE Dog Dander <0.10 kU/L; E072-IgE Mouse Urine <0.10 kU/L; G002 IgE Bermuda Grass <0.10 kU/L; G006 - IgE Timothy Grass <0.10 kU/L; I006-IgE Cockroach, German <0.10 kU/L; Immunoglobulin E 7 kU/L (<OR=114); M001 IgE Penicillium chrysogen <0.10 kU/L; M002 - IgE Cladosporium herbar <0.10 kU/L; M003 - IgE Aspergillus fumigat <0.10 kU/L; M006 - IgE Alternaria alternat <0.10 kU/L; T001 IgE Maple/Box Elder <0.10 kU/L; T003 IgE Common Silver Birch <0.10 kU/L; T006 - IgE Cedar, Mountain <0.10 kU/L
== END 2024-12-09 09:35 | disposition home or self-care (01) ==
LOC: HO.LAB 09:34
PROVIDERS: Nurse Practitioner; Absent Provider Internal Medicine Pulmonary Disease; PCP Internal Medicine; Visit Provider Internal Medicine
DX: K59.04 Chronic idiopathic constipation (principal); J45.40 Moderate persistent asthma, uncomplicated; R80.9 Proteinuria, unspecified; E55.9 Vitamin D deficiency, unspecified; E11.65 Type 2 diabetes mellitus with hyperglycemia; Z79.4 Long term (current) use of insulin; E78.5 Hyperlipidemia, unspecified; R10.31 Right lower quadrant pain
CPT/HCPCS: 36415; 80053; 80061; 82043; 82306; 82570; 82785; 83690; 84443; 85025; 86003

== ENCOUNTER 2024-12-10 11:22 | Outpatient (AMB) | payer OTHER, SELFPAY ==
[2024-12-10 11:49] VITALS: BP 159/84; PULSE 68; RESP 18; O2SAT 96; BMI 30.3
--- NOTE | 2024-12-10 11:49 | A.OFFVIS_ITS ---
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 The patient is a 69-year-old female presenting with left sacroiliac joint pain. The patient previously received left therapeutic sacroiliac joint injection, which provided pain relief for at least three months. The pain has since returned to the same area, specifically around the sacroiliac joint, she would like to repeat the injection. The patient describes the pain as being associated with a sensation of a bump in the area, although the location differs slightly from the previous year. Tenderness is noted upon palpation of the sacroiliac joint area, indicating localized discomfort. - Onset: Pain returned after three months of relief from previous injection - Quality: Associated with a sensation of a bump - Location: Sacroiliac joint area - Radiation: Pain radiates to surrounding areas - Exacerbating factors: Tenderness upon palpation - Relieving factors: Previous injection provided temporary relief - Affect: Not discussed - Analgesia: Previous injection provided relief for three months - Adverse Effects: Not discussed - Activities of Daily Living: Not discussed - Aberrant Drug Related Behaviors: Not discussed Previous note with Dr. Roberts: Imelda is very pleasant 68 years old female who presented in my office for the new appointment follow-up after therapeutic sacroiliac joint injection. This patient was referred to this office by Dr. Martin orthopedic surgeon. She reports that her pain started 2 years ago after accidental fall at home. She reports that cause of the problem is arthritis. She reports today minor ache in the projection of the LS trochanter. She denies low back pain associated with sacroiliitis has she had before. She admits pain in projection of the trochanter as 3/10. Because of her pain she reports that she could not sleep normally. She could not do activities of daily living she can take care of herself but she can not function normally. She stated that she is unemployed. She is 69 years old. Per the changes in movements aggravate her pain. Heat is the oral medications alleviate her pain. In terms of tissue damage he reports her pain is dull, sore, hurting, aching, heavy sensation. She had x-rays and CT scans of her lumbar spine. She had physical therapy. Her past medical history significant for hypertension asthma diabetes gallstones and arthritis. Her past surgical history significant for carotid endarterectomy, total knee replacement and gallbladder surgery. She denies smoking cigarettes drinking alcohol she admits coffee but not soda and she denies recreational drugs. [facility] Medical History Hyperkalemia Numbness of right hand Left knee pain Herpes zoster Ingrown nail Right wrist pain Right elbow pain Right otitis media Left hip pain Lumbar paraspinal muscle spasm Encounter for [facility] woman exam with routine gynecological exam Encounter for Medicare annual wellness exam Sacroiliitis Physical exam Encounter for annual routine gynecological examination Physical exam Sacroiliac joint dysfunction of left side DM2 (diabetes mellitus, type 2) Mild recurrent major depression Mild asthma Obesity due to excess calories Diarrhea Diabetes mellitus with hyperglycemia Hyperlipidemia LDL goal <100 Essential hypertension Knee osteoarthritis Surgical History History of left knee replacement S/P excision of lipoma (01/03/23) History of excision of lesion (05/09/17) History of surgery on right wrist (01/31/16) History of phacoemulsification of cataract of right eye with intraocular lens implantation History of phacoemulsification of cataract of left eye with intraocular lens implantation Hx of colonoscopy Hx of cholecystectomy (05/09/17) Hx of section Family History Father Ischemic cardiomyopathy CVD (cardiovascular disease) Mother No problems noted. 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 Answers questions appropriately. Fully engaged in examination. Skin: warm, dry, intact HEENT: Normocephalic. Hearing intact. Cardiac: External chest normal in appearance. Respiratory: No cough, audible wheezing or stridor. Abdomen: without gross distension. MS: No obvious swelling or deformities. Able to transition from sit to stand unassisted. Ambulates with bilaterally normal heel strike and toe off Left SI: Tenderness over left PSIS. That thrust positive, SI compression positive, [place] positive. Neurological: Oriented to person, place, time and situation. Thought process intact. No gait abnormalities appreciated. Psychiatric: Appropriate mood and affect. Good judgment and insight. Assessment & Plan Assessment & Plan (1) Sacroiliitis: Code(s): M46.1 - Sacroiliitis, not elsewhere classified Category: Medical (2) Chronic pain syndrome: Code(s): G89.4 - Chronic pain syndrome Category: Medical Plan The plan is to submit a request to the insurance for approval of a repeat left sacroiliac joint injection to provide pain relief. Once approved, the patient will be contacted to schedule the procedure. Further discussions regarding potential surgical options, such as fusion or stimulation, will be considered post-procedure if necessary. Patient was informed and verbally consented to the use of an ambient scribe for clinic note documentation during this visit. Patient Instructions: - Wait for a call regarding the approval and scheduling of the injection. - Consider discussing further treatment options, such as surgery, after the injection if pain persists. Coding Level of Care Code Est Pt Level 3 (36747) Complex EM visit Add On G2211 Diagnoses Sacroiliitis M46.1 Chronic pain syndrome G89.4
--- OUTSIDE RECORDS SUMMARY | 2024-12-10 12:53 | XMS_ITS | Clinical Summary ---
Author Organization [employer] Address [address] [place] [address] Care Team Providers Care Parking Meter Collector Name Role Phone Unavailable Primary Care Provider [...] MM misc 5 Active TRUEplus Lancets 33G [facility] TEST BLOOD SUGAR THREE TIMES DAILY 4 [...] patient's age to complete this topic Insurance [facility] STANDARD MEDICARE
== END 2024-12-10 14:16 | disposition home or self-care (01) ==
PROVIDERS: PCP Internal Medicine; Visit Provider Registered Nurse Emergency
DX: M46.1 Sacroiliitis, not elsewhere classified (principal); G89.4 Chronic pain syndrome
CPT/HCPCS: 99213; G2211

== ENCOUNTER → 2024-12-10 11:22 | Outpatient (BNVA) | payer OTHER, SELFPAY | PROVIDERS: PCP Internal Medicine; Visit Provider Anesthesiology | DX: M46.1 Sacroiliitis, not elsewhere classified (principal); G89.4 Chronic pain syndrome | CPT/HCPCS: 99212 ==

== ENCOUNTER 2024-12-21 11:29 | Outpatient (REF) | payer OTHER, SELFPAY | END 2024-12-21 11:30 | disposition home or self-care (01) | LOC: HO.MAMMO 11:29 | PROVIDERS: PCP Internal Medicine; Visit Provider Internal Medicine | DX: Z12.31 Encounter for screening mammogram for malignant neoplasm of breast (principal) | CPT/HCPCS: 77063; 77067 ==

== ENCOUNTER → 2024-12-21 12:00 | Outpatient (BNV) | payer OTHER, SELFPAY | PROVIDERS: PCP Internal Medicine; Visit Provider Internal Medicine | DX: Z12.31 Encounter for screening mammogram for malignant neoplasm of breast (principal) | CPT/HCPCS: 77063; 77067 ==

== ENCOUNTER 2024-12-29 08:48 | Outpatient (AMB) | payer OTHER, SELFPAY ==
--- NOTE | 2024-12-29 08:53 | MHC.PC.OV ---
Vital Signs 12/29/24 08:55 Height 5 ft 6 in Weight 189 lb BMI 30.5 BP 130/82 Blood Pressure Location Lt brachial Position Sitting Intake Visit Reasons: Kristen jefferson/Dr. Martin 02/23/25 Leasing Consultant Required: No Accompanied by: Spouse Allergies penicillin G (Penicillin G) Allergy (Severe, Verified 12/29/24 08:53) RASH,SWELLING atorvastatin Allergy (Intermediate, Verified 12/29/24 08:53) myalgia, muscle cramps latex (LATEX) Allergy (Intermediate, Verified 12/29/24 08:53) ITCHY,SKIN TEARS simvastatin Allergy (Intermediate, Verified 12/29/24 08:53) sedation Tobacco use date assessed: 12/08/24 Fall risk assessment: No Falls in past year Last assessed Fall Risk: 12/29/24 Dental Screening Dental Screen Date: 12/08/24 HPI HPI Comments History of Present Illness Details The patient is a 69-year-old female presenting for preoperative evaluation for left shoulder replacement. She has 5-7 Mets of ADLs. EKG pending for medical clearance. The patient has a history of Type 2 Diabetes Mellitus, with a recent HbA1c of 8.7% as of December 08, which is an improvement from a previous level of 9.3%. Her blood glucose levels have been noted to be high, with a reading of 199 mg/dL noted recently. The patient's insulin dosage of Lantus has been increased from 36 to 38 units to better manage her blood glucose levels. The patient also has hyperlipidemia, with an LDL cholesterol level of 147 mg/dL as of November. She is currently on rosuvastatin for cholesterol management. The patient has a history of hypertension, for which she is taking valsartan. Additionally, she has a history of depression, managed with sertraline. Her surgical history includes a left knee replacement in 2016 and excision of a lipoma. She has also undergone a cholecystectomy and two sections, the latter performed in [place]. The patient does not smoke and consumes alcohol occasionally. She reports being able to climb stairs with some difficulty, indicating a need for an electrocardiogram as part of her preoperative assessment. Preventative care measures include a colonoscopy last performed in 2018, with the next one due in 2028. [facility] Medical History (Updated 12/29/24 @ 11:42 by Carolina Mahoney MD) Hyperkalemia Numbness of right hand Left knee pain Herpes zoster Ingrown nail Right wrist pain Right elbow pain Right otitis media Left hip pain Lumbar paraspinal muscle spasm Encounter for well woman exam with routine gynecological exam Encounter for Medicare annual wellness exam Sacroiliitis Physical exam Encounter for annual routine gynecological examination Physical exam Sacroiliac joint dysfunction of left side DM2 (diabetes mellitus, type 2) Mild recurrent major depression Mild asthma Obesity due to excess calories Diarrhea Diabetes mellitus with hyperglycemia Hyperlipidemia LDL goal <100 Essential hypertension Knee osteoarthritis Surgical History History of left knee replacement S/P excision of lipoma (01/03/23) History of excision of lesion (05/09/17) History of surgery on right wrist (01/31/16) History of phacoemulsification of cataract of right eye with intraocular lens implantation History of phacoemulsification of cataract of left eye with intraocular lens implantation Hx of colonoscopy Hx of cholecystectomy (05/09/17) Hx of section Family History Father Ischemic cardiomyopathy CVD (cardiovascular disease) Mother No problems noted. 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 Haroon Valencia, Colleen Tam, Jose Guadalupe Castellanos and colleagues, with an educational varinder from [employer]. Review of Systems Const All systems reviewed & are unremarkable except as noted in HPI and below Card Denies chest pain at rest, Denies chest pain with activity, Denies edema, Denies irregular heart rhythm, Denies claudication, Denies dyspnea, Denies dyspnea on exertion, Denies orthopnea, Denies paroxysmal nocturnal dyspnea and Denies slow heart rate Resp Denies cough, Denies dyspnea and Denies dyspnea on exertion Physical exam (Primary Care) Vital Signs: Last Vital Signs BP 130/82 12/29/24 08:55 BMI result Body Mass Index 30.5 Tobacco/Smoking Status: Tobacco use Status Tobacco use date assessed 12/08/24 12/29/24 08:56 Patient Tobacco Use Status Never used Tobacco 12/29/24 08:56 e-Cigarette/Vaping Use Never Used 12/29/24 08:56 Thrive Assessment: Date of Thrive Assessment Date Thrive assessed 08/10/24 12/29/24 08:56 Resp Effort & Inspection: normal respiratory effort Auscultation: clear to auscultation bilaterally Cardio Jugular venous distension: no JVD Rate: regular rate Rhythm: regular rhythm Heart sounds: S1 normal heart sound present and S2 normal heart sound present Extrem General: Yes full ROM Coding Level of Care Code Est Pt Level 4 (59134) Complex EM visit Add On G2211 Diagnoses Pre-op evaluation Z01.818 Mild recurrent major depression F33.0 Essential hypertension I10 Hyperlipidemia LDL goal <70 E78.5 Type 2 diabetes mellitus with hyperglycemia, with long-term current use of insulin E11.65; Z79.4 Diabetes mellitus long term acute care registered nurse insulin use: with fdc use Diabetes mellitus complication status: with hyperglycemia Osteoarthritis of left shoulder M19.012 Time Spent (min) 24 Assessment & Plan Assessment & Plan (1) Pre-op evaluation: Code(s): Z01.818 - Encounter for other preprocedural examination Category: Medical (2) Mild recurrent major depression: Code(s): F33.0 - Major depressive disorder, recurrent, mild Category: Medical (3) Essential hypertension: Code(s): I10 - Essential (primary) hypertension Category: Medical (4) Hyperlipidemia LDL goal <70: Code(s): E78.5 - Hyperlipidemia, unspecified Category: Medical (5) DM2 (diabetes mellitus, type 2): Code(s): E11.9 - Type 2 diabetes mellitus without complications Category: Medical Qualifiers: Diabetes mellitus fdc insulin use: with fdc use Diabetes mellitus complication status: with hyperglycemia Qualified Code(s): E11.65 - Type 2 diabetes mellitus with hyperglycemia; Z79.4 - custodial (current) use of insulin (6) Osteoarthritis of left shoulder: Code(s): M19.012 - Primary osteoarthritis, left shoulder Category: Medical Plan The patient is scheduled for a left shoulder replacement on February 23, requiring preoperative clearance. An electrocardiogram is necessary, and the last available ECG is from 2022. For diabetes management, the patient's Lantus dosage has been increased to 38 units to improve glycemic control, as her HbA1c remains elevated at 8.7%. The patient is advised to maintain her current medication regimen, including metformin and rosuvastatin, to manage her diabetes and hyperlipidemia, respectively. The patient should continue taking valsartan for hypertension and sertraline for depression. Preventative care includes a colonoscopy, last performed in 2018, with the next due in 2028. Patient was informed and verbally consented to the use of an ambient scribe for clinic note documentation during this visit. Orders: Orders ECG 12 lead EKG Today Z01.818 - Encounter for other preprocedural examination Medications: New [nonslip bath mat] As directed 1 ea 0RF M53.3 - Sacrococcygeal disorders, not elsewhere classified [shower chair] As directed 1 ea 0RF M53.3 - Sacrococcygeal disorders, not elsewhere classified [hand held shower head] As directed 1 ea 0RF M53.3 - Sacrococcygeal disorders, not elsewhere classified commode As directed 1 ea 0RF M70.62 - Trochanteric bursitis, left hip, N39.41 - Urge incontinence Changed From insulin glargine (Lantus Solostar U-100 Insulin) 36 units (0.36 mL) subcut DAILY 90 days 32.4 mL 3RF E11.65 - Type 2 diabetes mellitus with hyperglycemia, Z79.4 - custodial (current) use of insulin To insulin glargine (Lantus Solostar U-100 Insulin) 38 units (0.38 mL) subcut DAILY 34.2 mL 3RF 90 days E11.65 - Type 2 diabetes mellitus with hyperglycemia, Z79.4 - custodial (current) use of insulin Refilled ezetimibe 10 mg PO DAILY 90 tabs 1RF E78.5 - Hyperlipidemia, unspecified
[2024-12-29 08:55] VITALS: BP 130/82; BMI 30.5
--- OUTSIDE RECORDS SUMMARY | 2024-12-29 09:04 | XMS_ITS | Clinical Summary ---
Author Organization [employer] Address [address] [facility] [address] [place] [address] Care Team Providers Care Nail Puller Name Role Phone Unavailable Primary Care Provider [...] MM misc 5 Active TRUEplus Lancets 33G [facility] [place] TEST BLOOD SUGAR THREE TIMES DAILY 4 [...] 10/27/2020, Additional history exists Influenza Vaccine (#1) 2025 , 06/15/2021, 09/14/2020, Additional history exists DTaP/Tdap/Td Vaccines [...] patient's age to complete this topic Insurance [facility] STANDARD MEDICARE
== END 2024-12-29 09:51 | disposition home or self-care (01) ==
LOC: HO.HMCH 08:48
PROVIDERS: PCP Internal Medicine; Visit Provider Internal Medicine
DX: E11.65 Type 2 diabetes mellitus with hyperglycemia (principal); Z79.4 Long term (current) use of insulin; Z01.818 Encounter for other preprocedural examination; F33.0 Major depressive disorder, recurrent, mild; I10 Essential (primary) hypertension; E78.5 Hyperlipidemia, unspecified; M19.012 Primary osteoarthritis, left shoulder

== ENCOUNTER → 2024-12-29 08:48 | Outpatient (BNVA) | payer OTHER, SELFPAY | PROVIDERS: PCP Internal Medicine; Visit Provider Internal Medicine | DX: Z01.818 Encounter for other preprocedural examination (principal); M19.012 Primary osteoarthritis, left shoulder; F33.0 Major depressive disorder, recurrent, mild; I10 Essential (primary) hypertension; E78.5 Hyperlipidemia, unspecified; E11.65 Type 2 diabetes mellitus with hyperglycemia; Z79.4 Long term (current) use of insulin; Z79.899 Other long term (current) drug therapy | CPT/HCPCS: 99212 ==

== ENCOUNTER → 2025-01-04 14:06 | Outpatient (REF) | payer OTHER, SELFPAY ==
--- NOTE | 2025-01-04 14:16 | ECG_ITS ---
Test Reason : PRE OP Blood Pressure : */* mmHG Vent. Rate : 59 BPM Atrial Rate : 59 BPM P-R Int : 158 ms QRS Dur : 78 ms QT Int : 428 ms P-R-T Axes : 49 38 59 degrees QTcB Int : 423 ms Sinus bradycardia Otherwise normal ECG When compared with ECG of 06-Nov-2022 11:33, T wave inversion no longer evident in Inferior leads Referred By: Carolina Mahoney Electronically Signed By: FERNIE ARMENDARIZ
--- OUTSIDE RECORDS SUMMARY | 2025-01-04 15:28 | XMS_ITS | Clinical Summary ---
Author Organization [employer] Address [address] [facility] [address] [place] [address] Care Team Providers Care Relay Tester Name Role Phone Unavailable Primary Care Provider [...] MM misc 5 Active TRUEplus Lancets 33G [facility] [place] TEST BLOOD SUGAR THREE [...] patient's age to complete this topic Insurance [facility] STANDARD MEDICARE
== END ==
LOC: HO.CARD 14:06
PROVIDERS: Visit Provider Internal Medicine
DX: Z01.818 Encounter for other preprocedural examination (principal)
CPT/HCPCS: 93005

== ENCOUNTER → 2025-01-04 14:16 | Outpatient (BNV) | payer OTHER, SELFPAY | PROVIDERS: Visit Provider Internal Medicine | DX: R00.1 Bradycardia, unspecified (principal) | CPT/HCPCS: 93010 ==

== ENCOUNTER 2025-01-06 13:36 | Outpatient (AMB) | payer OTHER, SELFPAY ==
--- NOTE | 2025-01-06 13:39 | MHC.OFFVIS ---
Vital Signs 01/06/25 13:43 Height 5 ft 6 in Weight 191 lb 12.835 oz BMI 31.0 BP 142/75 H Blood Pressure Location Lt brachial Position Sitting Pulse 66 Intake Visit Reasons: eval LInvess CIC R/S from 11/19/24 Intake Note: Dot presents in the office as a eval for linzess and CIC. CC: She states that she has some pains in the LLQ but she feels like it is constipation. Orthodontist Small Business Owner Required: Yes Orthodontist Small Business Owner Name: [id number] Allergies penicillin G (Penicillin G) Allergy (Severe, Verified 01/06/25 13:45) RASH,SWELLING atorvastatin Allergy (Intermediate, Verified 01/06/25 13:45) myalgia, muscle cramps latex (LATEX) Allergy (Intermediate, Verified 01/06/25 13:45) ITCHY,SKIN TEARS simvastatin Allergy (Intermediate, Verified 01/06/25 13:45) sedation HPI HPI eval LInvess CIC R/S from 11/19/24: Details: Assessment & Plan (1) GERD (gastroesophageal reflux disease): Code(s): K21.9 - Gastro-esophageal reflux disease without esophagitis Category: Medical (2) Chronic idiopathic constipation: Code(s): K59.04 - Chronic idiopathic constipation Category: Medical Plan Wolof #Carlotta Live She is now much more constipated, and she shows me a picture of her rectum that appears to be a rectal prolapse. She has failed MOM, Miralax, colace, fiber, senna and bisacodyl so we will progress to LInzess 145mcg and titrate to effect or s/e. She continues on her pantoprazole and her bentyl. ROV next avail. Orders: Orders TSH reflex Free T4 Today K59.04 - Chronic idiopathic constipation Medications: New linaclotide (Linzess) Take first thing in the morning with a full glass of water. 145 mcg PO QAM 30 caps 3RF K58.1 - Irritable bowel syndrome with constipation Refilled magnesium hydroxide (Milk of Magnesia) 5 mL PO BEDTIME 355 mL 6RF On Hold bisacodyl Hold Comment: Doctor's Order 10 mg (2 x 5 mg) PO BEDTIME 60 tabs 6RF sennosides (senna) Hold Comment: Doctor's Order 8.6 mg PO BEDTIME 30 days PRN 30 tabs 1RF constipation Laboratory Tests 12/09/24 09:56 TSH 2.46 TODAYS VISIT Wolof #James Live She is on pantoprazole, bentyl and now Linzess 145mcg. She likes the Linzess, however she is having incomplete evacuation only moving her bowels little bits at a time throughout the day. With this I think we need to increase to the 290 micro g dose. We will continue to titrate this. She continues on her pantoprazole along with her dicyclomine with good control of her cramping and her GERD. I let her know that her thyroid appears to be normal so I do not think this is a contributing factor to her constipation. Return office visit in the 5-6 week range [facility] Medical History (Updated 01/06/25 @ 14:06 by JOSE FRANCISCO Bradley) Hyperkalemia Numbness of right hand Left knee pain Herpes zoster Ingrown nail Right wrist pain Right elbow pain Right otitis media Left hip pain Lumbar paraspinal muscle spasm Encounter for [facility] woman exam with routine gynecological exam Encounter for Medicare annual wellness exam Sacroiliitis Physical exam Encounter for annual routine gynecological examination Physical exam Sacroiliac joint dysfunction of left side DM2 (diabetes mellitus, type 2) Mild recurrent major depression Mild asthma Obesity due to excess calories Diabetes mellitus with hyperglycemia Hyperlipidemia LDL goal <100 Essential hypertension Knee osteoarthritis Surgical History History of left knee replacement S/P excision of lipoma (01/03/23) History of excision of lesion (05/09/17) History of surgery on right wrist (01/31/16) History of phacoemulsification of cataract of right eye with intraocular lens implantation History of phacoemulsification of cataract of left eye with intraocular lens implantation Hx of colonoscopy Hx of cholecystectomy (05/09/17) Hx of section Family History Father Ischemic cardiomyopathy CVD (cardiovascular disease) Mother No problems noted. 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 Cognitive needs: Yes Hearing needs: No Vision needs: Yes Review of Systems Const Denies fatigue, Denies fever(s), Denies night sweats, Denies poor appetite and Denies weight loss Eyes Details: glasses Reports requires corrective lenses ENT Reports Normal hearing present, Denies dental pain, Denies dysphagia, Denies hearing loss, Denies mouth pain, Denies odynophagia, Denies throat swelling, Denies tongue swelling and Reports other (Dentition adequate) Card Reports no additional complaints Resp Reports no additional complaints GI Details: Denies abdominal pain, Denies melena, Denies bloating, Denies hematochezia, Reports constipation, Reports GI cramping, Denies dysphagia, Denies excessive flatus, Denies early satiety, Reports heartburn, Denies diarrhea, Denies nausea, Denies odynophagia, Denies vomiting and Denies hematemesis Skin/Breast Denies pruritus, Denies lesions, Denies rash and Denies jaundice Neuro Reports Normal hearing present and Denies Abnormal speech present Endo Denies fatigue Aller/Immun Denies throat swelling and Denies tongue swelling Physical Exam Vital Signs: Last Vital Signs Pulse 66 01/06/25 13:43 BP 142/75 H 01/06/25 13:43 BMI result Body Mass Index 31.0 Const General: cooperative, no acute distress, well developed and well groomed Nutritional Appearance: well nourished and obese Orientation/consciousness: oriented to person, oriented to place and oriented to time Limitations: language barrier HEENT Head: Yes normocephalic and Yes atraumatic Eyes General: appearance normal, both eyes and all related structures Pupils: Equal, round and reactive pupils present Neck Neck: Yes normal visual inspection and Yes no lymphadenopathy Thyroid: Thyroid normal Resp Effort & Inspection: normal respiratory effort and able to speak in complete sentences Auscultation: clear to auscultation bilaterally Cardio Rate: regular rate Rhythm: regular rhythm Heart sounds: Normal, physiologic split S2 sound present Peripheral pulses: radial pulses present and posterior tibial pulses present GI Inspection: No distended, Yes Abdominal panniculus present and Yes obesity Palpation (GI): Soft to palpation, nontender, no guarding, not rigid and No hepatosplenomegaly present Percussion: Yes normal to percussion Auscultation: normal bowel sounds Rectal Exam - Female: deferred Skin General skin exam: no rashes or lesions noted, turgor normal, skin not dry, no jaundice, No spider nevi and no striae Rashes: no rashes Nails: normal Neuro General: oriented to person, oriented to place and oriented to time Cranial nerves: Yes Equal, round and reactive pupils present and Yes Normal hearing present Speech: No Abnormal speech present Extrem General: Yes normal to inspection, No clubbing, No cyanosis and No edema Psych Appearance: grossly normal and well kempt Mental Status: mental status grossly normal Speech and movement: Normal speech and movement present Affect: normal affect Attitude: cooperative Thought process: Normal thought process present and not confabulating Thought content: Normal thought content present Insight: Limited insight present (Psych) Judgement: Limited judgement present (Psych) Assessment & Plan Assessment & Plan (1) Chronic idiopathic constipation: Code(s): K59.04 - Chronic idiopathic constipation Category: Medical Plan Wolof #James Live She is on pantoprazole, bentyl and now Linzess 145mcg. She likes the Linzess, however she is having incomplete evacuation only moving her bowels little bits at a time throughout the day. With this I think we need to increase to the 290 micro g dose. We will continue to titrate this. She continues on her pantoprazole along with her dicyclomine with good control of her cramping and her GERD. I let her know that her thyroid appears to be normal so I do not think this is a contributing factor to her constipation. Return office visit in the 5-6 week range Medications: New linaclotide (Linzess) 290 mcg PO QAM 30 caps 6RF 30 days K59.04 - Chronic idiopathic constipation Refilled pantoprazole 40 mg PO BID 60 tabs 6RF 30 days K21.9 - Gastro-esophageal reflux disease without esophagitis dicyclomine 20 mg (2 x 10 mg) PO QID PRN 240 caps 1RF for cramps Discontinued linaclotide (Linzess) Discontinued Reason: Doctor's Order 145 mcg PO QAM 30 caps 3RF K58.1 - Irritable bowel syndrome with constipation Coding Level of Care Code Est Pt Level 3 (83368) Diagnoses Chronic idiopathic constipation K59.04
[2025-01-06 13:43] VITALS: BP 142/75; PULSE 66; BMI 31.0
--- OUTSIDE RECORDS SUMMARY | 2025-01-06 14:27 | XMS_ITS | Clinical Summary ---
Author Organization [employer] Address [address] [facility] [address] [place] [address] Care Team Providers Care Critical Care Cns Name Role Phone Unavailable Primary Care Provider [...] 5 Active TRUEplus Lancets 33[place] [facility] [place] BLOOD SUGAR THREE TIMES DAILY 4 [...] patient's age to complete this topic Insurance [facility] STANDARD MEDICARE
== END 2025-01-06 14:05 | disposition home or self-care (01) ==
PROVIDERS: PCP Internal Medicine; Visit Provider Nurse Practitioner
DX: K59.04 Chronic idiopathic constipation (principal)
CPT/HCPCS: 99213

== ENCOUNTER → 2025-01-06 13:36 | Outpatient (BNVA) | payer OTHER, SELFPAY | PROVIDERS: PCP Internal Medicine; Visit Provider Nurse Practitioner | DX: K59.04 Chronic idiopathic constipation (principal); K21.9 Gastro-esophageal reflux disease without esophagitis; K58.1 Irritable bowel syndrome with constipation | CPT/HCPCS: 99212 ==

== ENCOUNTER 2025-01-07 09:33 | Outpatient (AMB) | payer OTHER, SELFPAY ==
--- NOTE | 2025-01-07 09:46 | HO.NEPHOV_ITS ---
Vital Signs 01/07/25 09:53 Height 5 ft 6 in Weight 193 lb 2 oz BMI 31.2 BP 132/80 Blood Pressure Location Rt brachial Position Sitting Pulse 68 Pulse Source Pulse Oximeter Pulse Oximetry (%) 96 Oxygen Delivery Method Room Air Intake Visit Reasons: INP: Proteinuria/ Conf Flare Breaker Required: Yes Flare Breaker Language: Pollution Control Technician Name: Parvin [id number] Information Interpreted: clinical only Accompanied by: Spouse Allergies penicillin G (Penicillin G) Allergy (Severe, Verified 01/07/25 10:00) RASH,SWELLING atorvastatin Allergy (Intermediate, Verified 01/07/25 10:00) myalgia, muscle cramps latex (LATEX) Allergy (Intermediate, Verified 01/07/25 10:00) ITCHY,SKIN TEARS simvastatin Allergy (Intermediate, Verified 01/07/25 10:00) sedation Do you need a note to return to daycare/school/sports/work: No HPI Comments Details: 69-year-old lady with past medical history of hypertension, diabetes mellitus, hyperlipidemia, obesity is here to establish care for proteinuria here with [facility] Hypertension: Over 40 years; On amlodipine 10 mg and valsartan 160 mg Diabetes mellitus: Over 15 years; On Lantus 38 units, metformin; HbA1c 8.7. Carotid stenosis: On aspirin and rosuvastatin 40 mg daily [facility] Medical History (Updated 01/07/25 @ 10:48 by Cosme Telles MD) Hyperkalemia Numbness of right hand Left knee pain Herpes zoster Ingrown nail Right wrist pain Right elbow pain Right otitis media Left hip pain Lumbar paraspinal muscle spasm Encounter for well woman exam with routine gynecological exam Encounter for Medicare annual wellness exam Sacroiliitis Physical exam Encounter for annual routine gynecological examination Physical exam Sacroiliac joint dysfunction of left side DM2 (diabetes mellitus, type 2) Mild recurrent major depression Mild asthma Obesity due to excess calories Diabetes mellitus with hyperglycemia Hyperlipidemia LDL goal <100 Essential hypertension Knee osteoarthritis Surgical History History of left knee replacement S/P excision of lipoma (01/03/23) History of excision of lesion (05/09/17) History of surgery on right wrist (01/31/16) History of phacoemulsification of cataract of right eye with intraocular lens implantation History of phacoemulsification of cataract of left eye with intraocular lens implantation Hx of colonoscopy Hx of cholecystectomy (05/09/17) Hx of section Family History Father Ischemic cardiomyopathy CVD (cardiovascular disease) Mother No problems noted. 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 Cognitive needs: Yes Hearing needs: No Vision needs: Yes Review of Systems Const Details: Const Denies body aches, Denies fatigue Eyes Denies blurry vision and Denies change in vision ENT Denies bleeding gums and Denies change in voice Card Denies chest pain and Denies leg ulcers Resp Denies cough and Denies phlegm GI Denies abdominal pain and Denies bloating Denies hematuria, Denies urinary frequency and Denies difficulty voiding Musc Denies abnormal gait Neuro Denies Neuro-related abnormal movements, Denies abnormal gait and Denies behavioral changes Psych Denies behavioral changes and Denies change in appetite Endo Denies change in body appearance, Denies cold intolerance Physical Exam General: Pleasant elderly lady, comfortable sitting in the chair Nutritional Appearance: well nourished and overweight Eyes: appearance normal, both eyes and all related structures; Alignment and Position: alignment normal and position normal Neck: No lymphadenopathy, no thyromegaly Resp: bilateral air entry equal, no added sounds present Cardio: Regular rate, regular rhythm; Heart sounds: S1 normal heart sound present and S2 normal heart sound present, no edema GI: soft, nontender, no guarding, no hepatosplenomegaly : bladder normal to inspection, bladder normal to palpation, no renal angle tenderness Skin: no rashes or lesions noted and elasticity normal Neuro: oriented to person, oriented to place, oriented to time and moves all extremities Assessment & Plan Assessment & Plan (1) Essential hypertension: Code(s): I10 - Essential (primary) hypertension Category: Medical (2) Asymptomatic proteinuria: Code(s): R80.9 - Proteinuria, unspecified Category: Medical (3) Diabetic kidney disease: Code(s): E11.21 - Type 2 diabetes mellitus with diabetic nephropathy Category: Medical Plan Chronic kidney disease stage II A2 : - possibly secondary to diabetic kidney disease, however we will rule out other etiologies. Although obesity might be contributing for some of the proteinuria, her proteinuria increased to despite losing weight. - USC are 179.9 up from 47.8 in 04/2024.lost about 80lbs - no family history of CKD, no history of renal stones in the past, NSAID use. - creatinine 0.7 , GFR >60 - Urinalysis shows - avoid nephrotoxic medications not limited to NSAIDs, contrast etc. - importance of diet, weight loss, adequate blood pressure control, stopped smoking we will explained to patient - will get: hepatitis panel, HIV, ARAVIND, ANCA, SPEP, UPEP, serum free light chains - will increase valsartan to 320mg and add Jardiance. Possible side effects including recurrent UTI and poor healing of foot wound. Hypertension: - target blood pressures less than 130/90 mm Hg - compliance: Good - continue: We will increase nighttime valsartan to 320 mg, a.m. amlodipine. Asked the patient to check blood pressures 1st thing in the morning if the systolic blood pressures are less than 100 stop Valsartan. Will followup in 3 months Time spent is about 35 minutes, 15 minutes on chart review, 15 minutes on the encounter and 5 minutes on the documentation Orders: Orders ARAVIND Reflex Titer and Pattern 1 Week E11. - Type 2 diabetes mellitus with diabetic nephropathy, I10 - Essential (primary) hypertension, R80.9 - Proteinuria, unspecified Protein Electrophoresis, Serum 1 Week E11. - Type 2 diabetes mellitus with diabetic nephropathy, I10 - Essential (primary) hypertension, R80.9 - Proteinuria, unspecified [place]/Lambda Light Chain Serum 1 Week E11. - Type 2 diabetes mellitus with diabetic nephropathy, I10 - Essential (primary) hypertension, R80.9 - Proteinuria, unspecified Protein Electrophoresis,Ran Ur 1 Week E11. - Type 2 diabetes mellitus with diabetic nephropathy, I10 - Essential (primary) hypertension, R80.9 - Proteinuria, unspecified Phospholipase A2 Receptor Pnl 1 Week E11. - Type 2 diabetes mellitus with diabetic nephropathy, I10 - Essential (primary) hypertension, R80.9 - Proteinuria, unspecified Total Protein Urine Random 3 Months . - Type 2 diabetes mellitus with diabetic nephropathy, I10 - Essential (primary) hypertension, R80.9 - Proteinuria, unspecified Creatinine Urine 3 Months E11.21 - Type 2 diabetes mellitus with diabetic nephropathy, I10 - Essential (primary) hypertension, R80.9 - Proteinuria, unspecified Hepatitis B,C Profile 1 Week E11.21 - Type 2 diabetes mellitus with diabetic nephropathy, I10 - Essential (primary) hypertension, R80.9 - Proteinuria, unspecified HIV Ab/Ag 1 Week E11.21 - Type 2 diabetes mellitus with diabetic nephropathy, I10 - Essential (primary) hypertension, R80.9 - Proteinuria, unspecified ANCA Vasculitides 1 Week E11.21 - Type 2 diabetes mellitus with diabetic nephropathy, I10 - Essential (primary) hypertension, R80.9 - Proteinuria, unspecified UA and rflx microscopic 1 Week E11. - Type 2 diabetes mellitus with diabetic nephropathy, I10 - Essential (primary) hypertension, R80.9 - Proteinuria, unspecified Total Protein Urine Random 1 Week E11. - Type 2 diabetes mellitus with diabetic nephropathy, I10 - Essential (primary) hypertension, R80.9 - Proteinuria, unspecified Creatinine Urine 1 Week E11. - Type 2 diabetes mellitus with diabetic nephropathy, I10 - Essential (primary) hypertension, R80.9 - Proteinuria, unspecified Microalbumin, Random (w Creat) 3 Months E11. - Type 2 diabetes mellitus with diabetic nephropathy, I10 - Essential (primary) hypertension, R80.9 - Proteinuria, unspecified UA and rflx microscopic 3 Months E11.21 - Type 2 diabetes mellitus with diabetic nephropathy, I10 - Essential (primary) hypertension, R80.9 - Proteinuria, unspecified Coding Level of Care Code New Pt Level 4 (13721) Diagnoses Essential hypertension I10 Asymptomatic proteinuria R80.9 Diabetic kidney disease E11.
--- OUTSIDE RECORDS SUMMARY | 2025-01-07 09:50 | XMS_ITS | Clinical Summary ---
Author Organization [employer] Address [address] [place] [address] Care Team Providers Care Territory Service Representative Name Role Phone Unavailable Primary Care Provider [...] patient's age to complete this topic Insurance [facility] STANDARD MEDICARE
[2025-01-07 09:53] VITALS: BP 132/80; PULSE 68; O2SAT 96; BMI 31.2
== END 2025-01-07 10:42 | disposition home or self-care (01) ==
LOC: HO.HKA 09:33
PROVIDERS: PCP Internal Medicine; Referring Provider Internal Medicine; Visit Provider Internal Medicine Critical Care Medicine
DX: I10 Essential (primary) hypertension (principal); R80.9 Proteinuria, unspecified; E11.21 Type 2 diabetes mellitus with diabetic nephropathy
CPT/HCPCS: 99204

== ENCOUNTER → 2025-01-07 09:33 | Outpatient (BNVA) | payer OTHER, SELFPAY | PROVIDERS: PCP Internal Medicine; Referring Provider Internal Medicine; Visit Provider Internal Medicine Critical Care Medicine | DX: I10 Essential (primary) hypertension (principal); R80.9 Proteinuria, unspecified; E11.21 Type 2 diabetes mellitus with diabetic nephropathy | CPT/HCPCS: 99202 ==

== ENCOUNTER 2025-01-14 07:55 | Outpatient (REF) | payer OTHER, SELFPAY ==
--- NOTE | ~2025-01-14 | XR_ITS ---
EXAMINATION: XR KNEE, RIGHT CLINICAL INFORMATION: M25.561 - Pain in right knee COMPARISON: 10/31/2023. 08/07/2018. TECHNIQUE: AP view bilateral knees standing, lateral and patellofemoral views right knee. FINDINGS: LEFT KNEE: Total left knee arthroplasty. Femoral and tibial components intact and anatomically aligned. No periprosthetic complication. Normal soft tissues. RIGHT KNEE: No fracture, dislocation, or suspicious bone lesion. Moderate to severe tricompartmental osteoarthrosis present, with subchondral sclerosis and marginal osteophytic spurring in all 3 compartments. Spurring of the tibial spines. Limited assessment for joint effusion due to flexion of the knee. No large effusion seen. No soft tissue abnormality. XR/XR knee RT 3V IMPRESSION: 1. Right knee demonstrating moderate to severe tricompartmental osteoarthrosis. 2. Left knee demonstrating total left knee arthroplasty without complication evident. Electronically signed by: Twin Rucker MD 01/14/2025 10:57 AM EDT
--- OUTSIDE RECORDS SUMMARY | 2025-01-14 07:58 | XMS_ITS | Clinical Summary ---
Author Organization [employer] Address [address] [place] [address] Care Team Providers Care Area Mechanic Name Role Phone Unavailable Primary Care Provider [...] MM misc 5 Active [employer] Lancets 33G [facility] [place] TEST BLOOD SUGAR [...]
== END 2025-01-14 07:56 | disposition home or self-care (01) ==
LOC: HO.HOSX 07:55
PROVIDERS: Visit Provider Orthopaedic Surgery
DX: M17.0 Bilateral primary osteoarthritis of knee (principal); M25.561 Pain in right knee; Z96.652 Presence of left artificial knee joint
CPT/HCPCS: 20610; 73562; 99212; J0665; J1100; J2003

== ENCOUNTER 2025-01-14 10:31 | Outpatient (AMB) | payer OTHER, SELFPAY ==
--- NOTE | 2025-01-14 10:46 | MHC.OFFVIS ---
Vital Signs 01/14/25 10:47 Height 5 ft 6 in Weight 193 lb BMI 31.1 Intake Visit Reasons: New prob- Right knee pain Intake Note: Dot is a 69 year old male who presents today for a New Problem visit with complaints of right knee pain. Patient reports pain has been going on for about 5-6 months. Pain is constant throughout the knee. Denies any injury and treatment. She has tried topical creams and has iced the knee, with mild relief. Upcoming L TSA w/NE 02/23/25 Allergies penicillin G (Penicillin G) Allergy (Severe, Verified 01/14/25 10:53) RASH,SWELLING atorvastatin Allergy (Intermediate, Verified 01/14/25 10:53) myalgia, muscle cramps latex (LATEX) Allergy (Intermediate, Verified 01/14/25 10:53) ITCHY,SKIN TEARS simvastatin Allergy (Intermediate, Verified 01/14/25 10:53) sedation HPI HPI New prob- Right knee pain: Details: Dot is a 69 year old male who presents today for a New Problem visit with complaints of right knee pain. Patient reports pain has been going on for about 5-6 months. Pain is constant throughout the knee. Denies any injury and treatment. She has tried topical creams and has iced the knee, with mild relief. She has a left TKA in place and that is doing well. SHe has a left TSA scheduled in February. [facility] Medical History Hyperkalemia Numbness of right hand Left knee pain Herpes zoster Ingrown nail Right wrist pain Right elbow pain Right otitis media Left hip pain Lumbar paraspinal muscle spasm Encounter for well woman exam with routine gynecological exam Encounter for Medicare annual wellness exam Sacroiliitis Physical exam Encounter for annual routine gynecological examination Physical exam Sacroiliac joint dysfunction of left side DM2 (diabetes mellitus, type 2) Mild recurrent major depression Mild asthma Obesity due to excess calories Diabetes mellitus with hyperglycemia Hyperlipidemia LDL goal <100 Essential hypertension Knee osteoarthritis Surgical History History of left knee replacement S/P excision of lipoma (01/03/23) History of excision of lesion (05/09/17) History of surgery on right wrist (01/31/16) History of phacoemulsification of cataract of right eye with intraocular lens implantation History of phacoemulsification of cataract of left eye with intraocular lens implantation Hx of colonoscopy Hx of cholecystectomy (05/09/17) Hx of section Family History Father Ischemic cardiomyopathy CVD (cardiovascular disease) Mother No problems noted. 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 Cognitive needs: Yes Hearing needs: No Vision needs: Yes Physical Exam Vital Signs: BMI result Body Mass Index 31.1 Extrem Other: Right knee with medial compartment tenderness to palpation. There is 3-130 deg motion. Stable ligamentous exam. DP+2 Office Procedures Joint Inj/Aspir; Non-Pain Clin Joint Injection/Drain Details: Injected 1 mL of Decadron and 3 mL 1% lidocaine and 3 mL of 0.25% Marcaine. Site was prepped using aseptic technique. Patient tolerated the procedure well. Shoulders, Hips, Knees, Knee Large Joint Injection [id number]: Right Knee Coding Procedure code (CPT) selection complete Results Reviewed Results Reviewed: I personally reviewed relevant radiographs. Severe medial compartment OA right knee Left total knee arthroplasty in expected post operative position with no hardware complications or evidence of loosening Assessment & Plan Assessment & Plan (1) Knee osteoarthritis: Code(s): M17.10 - Unilateral primary osteoarthritis, unspecified knee Category: Medical Qualifiers: Osteoarthritis type: primary Laterality: bilateral Qualified Code(s): M17.0 - Bilateral primary osteoarthritis of knee Plan: This is a 69 yo F with right knee OA. I injected her right knee., She may follow up in 3 months for this. Orders: Orders XR knee RT 3V 01/14/25 M25.561 - Pain in right knee Coding Level of Care Code Est Pt Level 3 (86202) Diagnoses Primary osteoarthritis of both knees M17.0 Osteoarthritis type: primary Laterality: bilateral CPT Codes Shoulders, Hips, Knees, - Knee Large Joint Injection [id number]: Right Knee ([id number])
[2025-01-14 10:47] VITALS: BMI 31.1
== END 2025-01-14 11:22 | disposition home or self-care (01) ==
LOC: HO.HOS 10:32
PROVIDERS: PCP Internal Medicine; Visit Provider Orthopaedic Surgery
DX: M17.0 Bilateral primary osteoarthritis of knee (principal)
CPT/HCPCS: 20610; 99213

== ENCOUNTER → 2025-01-14 10:38 | Outpatient (BNV) | payer OTHER, SELFPAY | PROVIDERS: Visit Provider Radiology Diagnostic Radiology | DX: M17.11 Unilateral primary osteoarthritis, right knee (principal) | CPT/HCPCS: 73562 ==

== ENCOUNTER → 2025-01-25 08:42 | Outpatient (BNVA) | payer OTHER, SELFPAY | PROVIDERS: PCP Internal Medicine | DX: Z01.811 Encounter for preprocedural respiratory examination (principal); J45.40 Moderate persistent asthma, uncomplicated; K21.9 Gastro-esophageal reflux disease without esophagitis | CPT/HCPCS: 99212 ==

== ENCOUNTER 2025-01-25 12:14 | Outpatient (AMB) | payer MEDICARE, MEDICAID, SELFPAY ==
[2025-01-25 13:04] VITALS: BP 142/80; PULSE 64; O2SAT 98; BMI 31.3
--- NOTE | 2025-01-25 13:04 | MHC.OFFVIS ---
Vital Signs 01/25/25 13:04 Height 5 ft 6 in Weight 194 lb BMI 31.3 BP 142/80 H Blood Pressure Location Rt brachial Position Sitting Pulse 64 Pulse Source Pulse Oximeter Pulse Oximetry (%) 98 Oxygen Delivery Method Room Air Intake Visit Reasons: Kristen jefferson/Dr. Martin 02/23/25 General Accounting Clerk Required: Yes General Accounting Clerk Name: Griselda Ayoub C.L.M Allergies penicillin G (Penicillin G) Allergy (Severe, Verified 01/25/25 13:07) RASH,SWELLING atorvastatin Allergy (Intermediate, Verified 01/25/25 13:07) myalgia, muscle cramps latex (LATEX) Allergy (Intermediate, Verified 01/25/25 13:07) ITCHY,SKIN TEARS simvastatin Allergy (Intermediate, Verified 01/25/25 13:07) sedation HPI HPI Kristen jefferson/Dr. Martin 02/23/25: Details: 69-year-old lady, nonsmoker, now followed for asthma, environmental allergies, and cough with significant GERD component. Her symptoms are well controlled on current regimen of Trelegy, duo nebs, albuterol MDI, and b.i.d. PPI. She denies recent exacerbations. Patient is planned for the left shoulder replacement. [facility] Medical History Hyperkalemia Numbness of right hand Left knee pain Herpes zoster Ingrown nail Right wrist pain Right elbow pain Right otitis media Left hip pain Lumbar paraspinal muscle spasm Encounter for well woman exam with routine gynecological exam Encounter for Medicare annual wellness exam Sacroiliitis Physical exam Encounter for annual routine gynecological examination Physical exam Sacroiliac joint dysfunction of left side DM2 (diabetes mellitus, type 2) Mild recurrent major depression Mild asthma Obesity due to excess calories Diabetes mellitus with hyperglycemia Hyperlipidemia LDL goal <100 Essential hypertension Knee osteoarthritis Surgical History History of left knee replacement S/P excision of lipoma (01/03/23) History of excision of lesion (05/09/17) History of surgery on right wrist (01/31/16) History of phacoemulsification of cataract of right eye with intraocular lens implantation History of phacoemulsification of cataract of left eye with intraocular lens implantation Hx of colonoscopy Hx of cholecystectomy (05/09/17) Hx of section Family History Father Ischemic cardiomyopathy CVD (cardiovascular disease) Mother No problems noted. 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 Cognitive needs: Yes Hearing needs: No Vision needs: Yes Review of Systems Const Denies daytime sleepiness, Denies excessive sweating, Denies fatigue, Denies fever(s), Denies lethargy, Denies malaise, Denies night sweats, Denies snoring and Denies weight loss Eyes Denies blurry vision and Denies itchy eyes ENT Denies nasal congestion, Denies post nasal drip, Denies sinus pain, Denies sinus pressure and Denies other ( Thrush) Card Denies chest pain, Denies pedal edema, Denies dyspnea, Denies orthopnea and Denies paroxysmal nocturnal dyspnea Resp Denies cough, Denies hemoptysis, Denies excessive phlegm production, Denies dyspnea, Denies snoring and Denies wheezing GI Denies abdominal pain and Denies heartburn Musc Denies myalgias, Denies arthralgias and Denies joint swelling Skin/Breast Denies rash Neuro Denies memory loss and Denies seizure-like activity Psych Denies abnormal sleep pattern, Denies anxiety and Denies memory loss Endo Denies excessive sweating, Denies fatigue and Denies heat intolerance Shaan/Lymph Denies easy bruising Aller/Immun Denies itchy eyes, Denies seasonal rhinorrhea and Denies wheezing Physical Exam Vital Signs: Last Vital Signs Pulse 64 01/25/25 13:04 BP 142/80 H 01/25/25 13:04 Pulse Ox 98 01/25/25 13:04 Oxygen Delivery Method Room Air 01/25/25 13:04 BMI result Body Mass Index 31.3 Const General: no acute distress and alert Nutritional Appearance: not obese Orientation/consciousness: Other orientation findings ( oriented) HEENT Head: Yes atraumatic Eyes General: appearance normal, both eyes and all related structures Sclerae: sclerae normal EOM: EOMs intact bilaterally Neck Neck: Yes supple Lymphatic: no lymphadenopathy noted Resp Effort & Inspection: normal respiratory effort and no use of accessory muscles Auscultation: clear to auscultation bilaterally Cardio Rate: regular rate Rhythm: regular rhythm Heart sounds: no gallops, no murmurs and no rubs Skin General skin exam: other ( warm) Extrem General: No clubbing, No cyanosis and No edema Assessment & Plan Assessment & Plan (1) Moderate persistent asthma: Code(s): J45.40 - Moderate persistent asthma, uncomplicated Category: Medical Plan: Well controlled on current regimen of trilogy, duo nebs, Singulair, and albuterol MDI. Continue current regimen. (2) GERD (gastroesophageal reflux disease): Code(s): K21.9 - Gastro-esophageal reflux disease without esophagitis Category: Medical Plan: Well controlled on b.i.d. PPI. Continue current regimen. (3) Preop pulmonary/respiratory exam: Code(s): Z01.811 - Encounter for preprocedural respiratory examination Category: Medical Plan: At this time patient is at low risk for pulmonary perioperative complications for the proposed left shoulder replacement under general anesthesia. Coding Level of Care Code Est Pt Level 4 (59508) Complex EM visit Add On G2211 Diagnoses Moderate persistent asthma J45.40 GERD (gastroesophageal reflux disease) K21.9 Preop pulmonary/respiratory exam Z01.811
== END 2025-01-25 13:20 | disposition home or self-care (01) ==
LOC: HO.HPS 12:15
PROVIDERS: PCP Internal Medicine; Visit Provider Internal Medicine Pulmonary Disease
DX: J45.40 Moderate persistent asthma, uncomplicated (principal); K21.9 Gastro-esophageal reflux disease without esophagitis; Z01.811 Encounter for preprocedural respiratory examination
CPT/HCPCS: 99214; G2211

== ENCOUNTER 2025-01-26 | Outpatient (REF) | payer OTHER, SELFPAY ==
--- OUTSIDE RECORDS SUMMARY | 2025-01-12 11:52 | XMS_ITS | Clinical Summary ---
Author Organization [employer] Address [address] [place] [address] Care Team Providers Care Paper Roll Machine Operator Name Role Phone Unavailable Primary [...] MM misc 5 Active [employer] Lancets 33G [facility] [place] TEST BLOOD SUGAR THREE TIMES DAILY 4 [...] patient's age to complete this topic Insurance [facility] STANDARD MEDICARE
[2025-01-26 11:46] VITALS: BP 149/78; PULSE 57; RESP 16; O2SAT 98; BMI 34.5
--- NOTE | 2025-01-26 12:20 | P.CONAN_ITS ---
HPI - Anesthesia Eval Consult details Narrative: 69yo F for Left Shoulder Total Arthroplasty, pending A1C redraw Medically optimized per PCP Pulmo optimized. [facility] Pulmo for asthma, environmental allergies, and cough with significant GERD component. Stable and well controlled at 01/2025 preop eval. Vascular optimized. Follows [facility] vascular for hx left ICA aneurysm s/p repair with a saphenous vein bypass back in 2005.? No recent illness No CP/SOB with minimal activity r/t knee pain IDDM: A1C 8.1, FBS ~ 120-140, transiently elevated post steroidal knee injection at ortho (last injection 01/14/25) Asthma: Ventolin inhaler ~ 3 x weekly MARÍA: No CPAP Anesthesia Pre-Procedure Meds Is the patient on any of the following meds?: SGLT2 Inhib PMFSH Active Problems Active Problems: All Active Problems Preop pulmonary/respiratory exam (Acute) Diabetic kidney disease (Acute) Asymptomatic proteinuria (Acute) Pre-op evaluation (Acute) Pre-op evaluation (Acute) Microalbuminuria (Acute) Chronic idiopathic constipation (Acute) Osteoarthritis of left shoulder (Acute) Environmental allergies (Acute) Moderate persistent asthma (Acute) Urge urinary incontinence (Acute) Chronic pain syndrome (Acute) Trochanteric bursitis, left hip (Acute) Left-sided temporomandibular joint pain-dysfunction syndrome (Acute) Piriformis syndrome of left side (Acute) Trochanteric bursitis, left hip (Acute) Tension headache (Acute) Carpal tunnel syndrome of right wrist (Acute) Right lateral epicondylitis (Acute) Medial epicondylitis of right elbow (Acute) Right sided sciatica (Acute) Hyperlipidemia LDL goal <70 (Acute) Lipoma (Acute) Lactose intolerance (Acute) GERD (gastroesophageal reflux disease) (Acute) Sacroiliac joint dysfunction of left side (Acute) DM2 (diabetes mellitus, type 2) (Acute) Mild recurrent major depression (Acute) Essential hypertension (Acute) Obesity due to excess calories (Acute) Knee osteoarthritis (Acute) Past Medical History Medical History Pre-op evaluation Pre-op evaluation Environmental allergies Seasonal allergies Asthma MARÍA (obstructive sleep apnea) Hyperkalemia Numbness of right hand Left knee pain Herpes zoster Ingrown nail Right wrist pain Right elbow pain Right otitis media Left hip pain Lumbar paraspinal muscle spasm Encounter for well woman exam with routine gynecological exam Encounter for Medicare annual wellness exam Sacroiliitis Physical exam Encounter for annual routine gynecological examination Physical exam Sacroiliac joint dysfunction of left side DM2 (diabetes mellitus, type 2) Mild recurrent major depression Mild asthma Obesity due to excess calories Diabetes mellitus with hyperglycemia Hyperlipidemia LDL goal <100 Essential hypertension Knee osteoarthritis Family History Family History Father Ischemic cardiomyopathy CVD (cardiovascular disease) Mother No problems noted. Brother Diabetes Family history of problems with anesthesia: No Surgical History Surgical History Hx of vascular surgery (2005) History of left knee replacement S/P excision of lipoma (01/03/23) History of excision of lesion (05/09/17) History of surgery on right wrist (01/31/16) History of phacoemulsification of cataract of right eye with intraocular lens implantation History of phacoemulsification of cataract of left eye with intraocular lens implantation Hx of colonoscopy Hx of cholecystectomy (05/09/17) Hx of section History of Problems with Anesthesia: No Social History Social History Household Members: Family Housing: Apartment Are you a primary student career development specialist to a significant other at home: No Do you presently have visiting nurse or other home services: Yes (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 Cognitive needs: Yes Hearing needs: No Vision needs: Yes Meds Allergies Allergy/AdvReac Type Severity Reaction Status Date / Time penicillin G (Penicillin G) Allergy Severe RASH,SWELLI Verified 02/17/25 14:45 NG atorvastatin Allergy Intermediate myalgia, Verified 02/17/25 14:45 muscle cramps latex (LATEX) Allergy Intermediate ITCHY,SKIN Verified 02/17/25 14:45 TEARS simvastatin Allergy Intermediate sedation Verified 02/17/25 14:45 Home Medications ?Medication ?Instructions ?Recorded ?Confirmed ?Last Taken ?Type clonazepam 1 mg tablet 1 mg PO BID PRN anxiety 10/0 01/1001/26/25 Unknown History peg [id number] 1 1 drp ophthalmic (eye) DAILY PRN 03/30/20 01/26/25 Unknown History %-0.2 %-0.2 % eye drops Dry Eye(S) sertraline 100 mg tablet 200 mg PO QAM 03/30/2001/26 Unknown History zolpidem 10 mg tablet 10 mg PO BEDTIME PRN Insomni a 03/30/20 01/26/25 Unknown History insulin glargine 100 unit/mL (3 36 unit subcut DAILY 0 01/26/25 01/26/25 Unknown History mL) subcutaneous pen (Lantus Solostar U-100 Insulin) valacyclovir 1 gram tablet 1,000 mg PO Q8H PRN Cold So res 01/26/25 01/26/25 Unknown History Exam Height,Weight and Vital Signs: Height 5 ft 2.99 in Weight 88.4 kg Last Vital Signs Pulse 57 01/26/25 11:46 Resp 16 01/26/25 11:46 BP 149/78 H 01/26/25 11:46 Pulse Ox 98 01/26/25 11:46 O2 Del Method Room Air 01/26/25 11:46 Narrative Narrative: EKG 12/2024 Vent. Rate : 59 BPM Atrial Rate : 59 BPM P-R Int : 158 ms QRS Dur : 78 ms QT Int : 428 ms P-R-T Axes : 49 38 59 degrees QTcB Int : 423 ms Sinus bradycardia Otherwise normal ECG When compared with ECG of 06-Nov-2022 11:33, T wave inversion no longer evident in Inferior leads Airway Mallampati Class: I TM Dist: >3cm Neck ROM: Full Loose/Missing/Broken Teeth: Yes (Molars extracted) Heart: RRR Lungs: CTAB Assessment and Plan Assessment Anesthesia Assessment: Anesthesia Plan Discussed and PAT Visit Final Anesthetic Review Family History of Problems with Anesthesia: No History of Problems with Anesthesia: No
[2025-01-26 14:00] LABS: MRSA Nasal PCR NEGATIVE (Negative); SA Nasal PCR POSITIVE (Negative)
[2025-01-26 14:25] LABS: Hemoglobin A1C 310.7213 umol/L; Total Hemoglobin (HGBA1C) 4764.5364 umol/L
--- OUTSIDE RECORDS SUMMARY | 2025-04-05 08:54 | XMS_ITS | Clinical Summary ---
Author Organization [employer] Address [address] [facility] [address] [place] [address] Care Team Providers Care Through Freight Engineer Name Role Phone Unavailable Primary Care Provider [...] MM misc 5 Active [employer] Lancets 33G [facility] TEST BLOOD SUGAR THREE TIMES DAILY 4 [...] 06/10/2018, 02/10/2007 COVID-19 Vaccine ( - season) 2025 01/23/2022, 06/12/2021, 10/27/2020, Additional history exists Influenza Vaccine (#1) 2025 3, 06/15/2021, 09/14/2020, Additional history exists DTaP/Tdap/Td [...] patient's age to complete this topic Insurance [facility] STANDARD MEDICARE
--- OUTSIDE RECORDS SUMMARY | 2025-04-05 08:54 | XMS_ITS | Encounter Summary ---
Author Organization [employer] Address [address] [place] [address] [address] [place] [address] Care Team Providers Care Online Content Editor Name Role Phone Unavailable Primary Care Provider Unavailabl e Encounter Details Date Type Department Care Team (Late st Contact Info) Description 11/29/2022 Abstract [facility] [address] [place] [address] Lazaro Edmonds MD Social History Tobacco Use [...]
== END 2025-01-26 00:01 | disposition home or self-care (01) ==
LOC: HO.PAT
PROVIDERS: Nurse Practitioner; Physician Assistant; PCP Internal Medicine; Visit Provider Orthopaedic Surgery
DX: Z01.812 Encounter for preprocedural laboratory examination (principal); Z13.1 Encounter for screening for diabetes mellitus; M19.012 Primary osteoarthritis, left shoulder
CPT/HCPCS: 36415; 83036; 87640; 87641

== ENCOUNTER 2025-02-17 14:09 | Outpatient (AMB) | payer OTHER, SELFPAY ==
--- NOTE | 2025-02-17 14:10 | MHC.OFFVIS ---
Vital Signs 02/17/25 14:39 Height 5 ft 6 in Weight 190 lb 7.67 oz BMI 30.7 BP 141/78 H Blood Pressure Location Lt brachial Position Sitting Pulse 77 Intake Visit Reasons: CIC Intake Note: Patient is seen in office for follow up visit, CIC. Pt c/o: per pt is doing well with maniging constipation with meds Cigar Head Puncher Required: Yes Cigar Head Puncher Language: Doll Repairer Services: Cigar Head Puncher Present Information Interpreted: non-clinical & clinical Accompanied by: Self / Same As Patient Allergies penicillin G (Penicillin G) Allergy (Severe, Verified 02/17/25 14:45) RASH,SWELLING atorvastatin Allergy (Intermediate, Verified 02/17/25 14:45) myalgia, muscle cramps latex (LATEX) Allergy (Intermediate, Verified 02/17/25 14:45) ITCHY,SKIN TEARS simvastatin Allergy (Intermediate, Verified 02/17/25 14:45) sedation HPI HPI CIC: Details: Assessment & Plan (1) Chronic idiopathic constipation: Code(s): K59.04 - Chronic idiopathic constipation Category: Medical Plan Telugu #James Live She is on pantoprazole, bentyl and now Linzess 145mcg. She likes the Linzess, however she is having incomplete evacuation only moving her bowels little bits at a time throughout the day. With this I think we need to increase to the 290 micro g dose. We will continue to titrate this. She continues on her pantoprazole along with her dicyclomine with good control of her cramping and her GERD. I let her know that her thyroid appears to be normal so I do not think this is a contributing factor to her constipation. Return office visit in the 5-6 week range Medications: New linaclotide (Linzess) 290 mcg PO QAM 30 caps 6RF 30 days K59.04 - Chronic idiopathic constipation Refilled pantoprazole 40 mg PO BID 60 tabs 6RF 30 days K21.9 - Gastro-esophageal reflux disease without esophagitis dicyclomine 20 mg (2 x 10 mg) PO QID PRN 240 caps 1RF for cramps Discontinued linaclotide (Linzess) Discontinued Reason: Doctor's Order 145 mcg PO QAM 30 caps 3RF K58.1 - Irritable bowel syndrome with constipation TODAY'S VISIT Telugu #James Live She is on pantoprazole, bentyl and now Linzess 290 micro g. With this she is satisfied with her GI regimen. She will be having shoulder surgery next month and I wish her the best of luck. She can contact me if the surgery in anyway complicates her constipation management. Return office visit in 6 months [facility] Medical History Pre-op evaluation Pre-op evaluation Environmental allergies Seasonal allergies Asthma MARÍA (obstructive sleep apnea) Hyperkalemia Numbness of right hand Left knee pain Herpes zoster Ingrown nail Right wrist pain Right elbow pain Right otitis media Left hip pain Lumbar paraspinal muscle spasm Encounter for well woman exam with routine gynecological exam Encounter for Medicare annual wellness exam Sacroiliitis Physical exam Encounter for annual routine gynecological examination Physical exam Sacroiliac joint dysfunction of left side DM2 (diabetes mellitus, type 2) Mild recurrent major depression Mild asthma Obesity due to excess calories Diabetes mellitus with hyperglycemia Hyperlipidemia LDL goal <100 Essential hypertension Knee osteoarthritis Surgical History Hx of vascular surgery (2005) History of left knee replacement S/P excision of lipoma (01/03/23) History of excision of lesion (05/09/17) History of surgery on right wrist (01/31/16) History of phacoemulsification of cataract of right eye with intraocular lens implantation History of phacoemulsification of cataract of left eye with intraocular lens implantation Hx of colonoscopy Hx of cholecystectomy (05/09/17) Hx of section Family History Father Ischemic cardiomyopathy CVD (cardiovascular disease) Mother No problems noted. 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) 75 years or older and lives alone: No Alcohol intake: never Patient Tobacco Use Status: Never used Tobacco e-Cigarette/Vaping Use: Never Used Second Hand Smoke Exposure: No service: No Current occupational status: disabled Current occupation: rt hand Cognitive needs: Yes Hearing needs: No Vision needs: Yes Review of Systems Const Denies fatigue, Denies fever(s), Denies night sweats, Denies poor appetite and Denies weight loss Eyes Details: GLASSES Reports requires corrective lenses ENT Reports Normal hearing present, Denies dental pain, Denies dysphagia, Denies hearing loss, Denies mouth pain, Denies odynophagia, Denies throat swelling, Denies tongue swelling and Reports other (Dentition adequate) Card Reports no additional complaints Resp Reports no additional complaints GI Details: Denies abdominal pain, Denies melena, Denies bloating, Denies hematochezia, Reports constipation, Denies GI cramping, Denies dysphagia, Denies excessive flatus, Denies early satiety, Denies heartburn, Denies diarrhea, Denies nausea, Denies odynophagia, Denies vomiting and Denies hematemesis Skin/Breast Denies pruritus, Denies lesions, Denies rash and Denies jaundice Neuro Reports Normal hearing present and Denies Abnormal speech present Endo Denies fatigue Aller/Immun Denies throat swelling and Denies tongue swelling Physical Exam Vital Signs: Last Vital Signs Pulse 77 02/17/25 14:39 BP 141/78 H 02/17/25 14:39 BMI result Body Mass Index 30.7 Const General: cooperative, no acute distress, well developed and well groomed Nutritional Appearance: well nourished and obese Orientation/consciousness: oriented to person, oriented to place and oriented to time Limitations: language barrier HEENT Head: Yes normocephalic and Yes atraumatic Eyes General: appearance normal, both eyes and all related structures Pupils: Equal, round and reactive pupils present Neck Neck: Yes normal visual inspection and Yes no lymphadenopathy Thyroid: Thyroid normal Resp Effort & Inspection: normal respiratory effort and able to speak in complete sentences Auscultation: clear to auscultation bilaterally Cardio Rate: regular rate Rhythm: regular rhythm Heart sounds: Normal, physiologic split S2 sound present Peripheral pulses: radial pulses present and posterior tibial pulses present GI Inspection: No distended, Yes Abdominal panniculus present and Yes obesity Palpation (GI): Soft to palpation, nontender, no guarding, not rigid and No hepatosplenomegaly present Percussion: Yes normal to percussion Auscultation: normal bowel sounds Rectal Exam - Female: deferred Skin General skin exam: no rashes or lesions noted, turgor normal, skin not dry, no jaundice, No spider nevi and no striae Rashes: no rashes Nails: normal Neuro General: oriented to person, oriented to place and oriented to time Cranial nerves: Yes Equal, round and reactive pupils present and Yes Normal hearing present Speech: No Abnormal speech present Extrem Other: Can anesthesia tape left upper arm General: No clubbing, No cyanosis and No edema Left upper extremity: shoulder/upper arm Details: inspection abnormal and abnormal ROM Details: pain with active ROM Psych Appearance: grossly normal and well kempt Mental Status: mental status grossly normal Speech and movement: Normal speech and movement present Affect: normal affect Attitude: cooperative Thought process: Normal thought process present and not confabulating Thought content: Normal thought content present Insight: Fair insight present (Psych) Judgement: Fair judgement present (Psych) Assessment & Plan Assessment & Plan (1) Chronic idiopathic constipation: Code(s): K59.04 - Chronic idiopathic constipation Category: Medical (2) Lactose intolerance: Code(s): E73.9 - Lactose intolerance, unspecified Category: Medical (3) GERD (gastroesophageal reflux disease): Code(s): K21.9 - Gastro-esophageal reflux disease without esophagitis Category: Medical Plan Telugu #James Live She is on pantoprazole, bentyl and now Linzess 290 micro g. With this she is satisfied with her GI regimen. She will be having shoulder surgery next month and I wish her the best of luck. She can contact me if the surgery in anyway complicates her constipation management. Return office visit in 6 months Medications: Refilled dicyclomine 20 mg (2 x 10 mg) PO QID PRN 240 caps 1RF for cramps pantoprazole 40 mg PO BID 60 tabs 6RF 30 days K21.9 - Gastro-esophageal reflux disease without esophagitis linaclotide (Linzess) 290 mcg PO QAM 30 caps 6RF 30 days K59.04 - Chronic idiopathic constipation Discontinued sennosides (senna) Discontinued Reason: Doctor's Order 8.6 mg PO BEDTIME 30 days PRN 30 tabs 1RF constipation Coding Level of Care Code Est Pt Level 3 (95662) Diagnoses Chronic idiopathic constipation K59.04 Lactose intolerance E73.9 GERD (gastroesophageal reflux disease) K21.9
[2025-02-17 14:39] VITALS: BP 141/78; PULSE 77; BMI 30.7
--- OUTSIDE RECORDS SUMMARY | 2025-02-17 15:10 | XMS_ITS | Encounter Summary ---
Author Organization [employer] Address [address] [place] [address] [address] [place] [address] Care Team Providers Care Personal Computer Specialist Name Role Phone Unavailable Primary Care Provider Unavailabl e Encounter Details Date Type Department Care Team (Late st Contact Info) Description 11/29/2022 Abstract [facility] [address] [place] [address] Lazaro Edmonds MD Social History Tobacco Use [...]
--- OUTSIDE RECORDS SUMMARY | 2025-02-17 15:10 | XMS_ITS | Clinical Summary ---
Author Organization [employer] Address [address] [facility] [address] [place] [address] Care Team Providers Care Notching Machine Operator Name Role Phone Unavailable Primary [...] MM misc 5 Active TRUEplus Lancets 33G [facility] TEST BLOOD SUGAR THREE TIMES [...] patient's age to complete this topic Insurance [facility] STANDARD MEDICARE
== END 2025-02-17 15:22 | disposition home or self-care (01) ==
LOC: HO.HGI 14:09
PROVIDERS: PCP Internal Medicine; Visit Provider Nurse Practitioner
DX: K59.04 Chronic idiopathic constipation (principal); E73.9 Lactose intolerance, unspecified; K21.9 Gastro-esophageal reflux disease without esophagitis
CPT/HCPCS: 99213

== ENCOUNTER → 2025-02-17 14:09 | Outpatient (BNVA) | payer OTHER, SELFPAY | PROVIDERS: PCP Internal Medicine; Visit Provider Nurse Practitioner | DX: K21.9 Gastro-esophageal reflux disease without esophagitis (principal); K59.04 Chronic idiopathic constipation; E73.9 Lactose intolerance, unspecified | CPT/HCPCS: 99212 ==

== ENCOUNTER 2025-04-13 14:09 | Outpatient (AMB) | payer OTHER, SELFPAY ==
[2025-04-13 14:17] VITALS: BP 152/88; PULSE 62; RESP 18; TEMP 36.2; O2SAT 97; BMI 30.6
--- NOTE | 2025-04-13 14:17 | MHC.PC.OV ---
Vital Signs 04/13/25 14:17 Height 5 ft 6 in Weight 189 lb 6 oz BMI 30.6 BP 152/88 H Blood Pressure Location Rt brachial Position Sitting Respiration 18 Pulse 62 Pulse Source Pulse Oximeter Temp 97.1 F Temp Source Temporal Artery Scan Pulse Oximetry (%) 97 Oxygen Delivery Method Room Air Intake Visit Reasons: dm Activities Coordinator Required: No Accompanied by: Self / Same As Patient Allergies penicillin G (Penicillin G) Allergy (Severe, Verified 04/13/25 14:38) RASH,SWELLING atorvastatin Allergy (Intermediate, Verified 04/13/25 14:38) myalgia, muscle cramps latex (LATEX) Allergy (Intermediate, Verified 04/13/25 14:38) ITCHY,SKIN TEARS simvastatin Allergy (Intermediate, Verified 04/13/25 14:38) sedation empagliflozin (From Jardiance) Adverse Reaction (Intermediate, Verified 04/13/25 14:44) vaginal candidiasis Medication List - Last Reconciled 04/13/25 by Carolina Mahoney MD alcohol swabs (Alcohol Prep Pads) 1 pad topical DAILY amlodipine 10 mg PO DAILY aspirin 81 mg PO BEDTIME barium sulfate 2%(w/v) (Readi-Cat 2) 150 mL PO ONCE 3 days betamethasone valerate 0.1% 1 appl topical DAILY PRN 2 weeks blood pressure monitor As directed blood sugar diagnostic (FreeStyle Lite Strips) 1 strip miscellaneous QID 30 days blood sugar diagnostic (FreeStyle Lite Strips) As directed twice a day blood-glucose meter (FreeStyle Lite Meter kit) As directed 2 times a day spqeibnuuf-hrmifhxmkixqc-rhpd 50-325-40 mg 1 tab PO Q6H PRN 30 days cane As directed cholecalciferol (vitamin D3) 50 mcg PO DAILY 90 days clonazepam 1 mg PO BID PRN clotrimazole 1% 1 appl topical BID commode As directed [diabetic sandals As directed] [diabetic shoes with inserts with template As directed] [diabetic sneakers As directed] diclofenac sodium 75 mg PO BID dicyclomine 20 mg (2 x 10 mg) PO QID PRN empagliflozin 25 mg PO QAM ezetimibe 10 mg PO DAILY fluticasone propionate 50 mcg/actuation (Flonase Allergy Relief) 1 spray intranasal BID 30 days bnmajxwpneu-gxbbesaqw-jtavbqaq 200-62.5-25 mcg (Trelegy Ellipta) 1 inh inhalation DAILY [hand held shower head As directed] hydrocortisone 2.5% 1 appl topical BID PRN insulin glargine (Lantus Solostar U-100 Insulin) 36 units subcut DAILY ipratropium-albuterol 0.5 mg-3 mg(2.5 mg base)/3 mL 3 mL inhalation Q4-6H PRN lancets (TRUEplus Lancets) 1 gauge miscellaneous BID 30 days linaclotide (Linzess) 290 mcg PO QAM 30 days metformin 1,000 mg (2 x 500 mg) PO BID miconazole nitrate 2% 1 appl topical DAILY PRN 30 days montelukast 10 mg PO QPM [nonslip bath mat As directed] oxycodone-acetaminophen 5-325 mg 1 tab PO Q6H PRN 30 days pantoprazole 40 mg PO BID 30 days peg 325-venwtkgzhqgp-antnbbft 1-0.2-0.2 % 1 drp ophthalmic (eye) DAILY PRN pen needle, diabetic As directed [pillow As directed] rosuvastatin 40 mg PO DAILY 90 days sertraline 200 mg PO QAM [shower chair As directed] underpads As directed underpads (Bed Underpads) Use 10 disposable bedpads daily valacyclovir 1,000 mg PO Q8H PRN valsartan 320 mg PO DAILY Ventolin HFA 90 mcg/actuation (albuterol sulfate) 2 puffs inhalation Q6H PRN 30 days NS zolpidem 10 mg PO BEDTIME PRN Tobacco use date assessed: 04/13/25 Fall risk assessment: No Falls in past year Last assessed Fall Risk: 04/13/25 Dental Screening Dental Screen Date: 04/13/25 Did you have a dental visit in the last 12 months?: No Did you have a dental problem in the last 6 months where you did not have access to dental care?: No Was dental information given to patient?: No HPI HPI Comments History of Present Illness Details The patient is a 70-year-old female presenting with the management of multiple chronic conditions including diabetes mellitus, hypertension, and hyperlipidemia, along with addressing acute issues such as abscess formation and candidiasis. The patient reports recurrent abscess formation in various locations, including the buttocks and throat, which do not consistently appear in the same location. She describes the abscesses as painful and debilitating, affecting her ability to walk when they occur. The patient has a history of microalbuminuria, which is being monitored by a hose mender. She is currently on valsartan to manage this condition. The patient experiences episodes of candidiasis, which she associates with the use of Jardiance, a medication for her diabetes. She reports that the condition is uncomfortable and distressing. Her diabetes management includes monitoring her blood glucose levels, with recent readings of 122 mg/dL and 143 mg/dL. Her last HbA1c was 8.1%, showing improvement from previous levels of 9.3% and 8.7%. The patient is also managing hyperlipidemia with rosuvastatin and reports muscle pain associated with atorvastatin use in the past. She has a history of hypertension, currently managed with amlodipine and valsartan. The patient reports migraines, which are alleviated by Fioricet, although there are issues with insurance coverage for this medication. [facility] Medical History (Updated 04/13/25 @ 15:13 by Carolina Mahoney MD) Pre-op evaluation Pre-op evaluation Environmental allergies Seasonal allergies Asthma MARÍA (obstructive sleep apnea) Hyperkalemia Numbness of right hand Left knee pain Herpes zoster Ingrown nail Right wrist pain Right elbow pain Right otitis media Left hip pain Lumbar paraspinal muscle spasm Encounter for well woman exam with routine gynecological exam Encounter for Medicare annual wellness exam Sacroiliitis Physical exam Encounter for annual routine gynecological examination Physical exam Sacroiliac joint dysfunction of left side DM2 (diabetes mellitus, type 2) Mild recurrent major depression Mild asthma Obesity due to excess calories Diabetes mellitus with hyperglycemia Hyperlipidemia LDL goal <100 Essential hypertension Knee osteoarthritis Surgical History Hx of vascular surgery (2005) History of left knee replacement S/P excision of lipoma (01/03/23) History of excision of lesion (05/09/17) History of surgery on right wrist (01/31/16) History of phacoemulsification of cataract of right eye with intraocular lens implantation History of phacoemulsification of cataract of left eye with intraocular lens implantation Hx of colonoscopy Hx of cholecystectomy (05/09/17) Hx of section Family History Father Ischemic cardiomyopathy CVD (cardiovascular disease) Mother No problems noted. Brother Diabetes Social History Household Members: Family Housing: Apartment Are you a primary hospice care transitions coordinator to a significant other at home: No Do you presently have visiting nurse or other home services: Yes (CLERK ENTRY LEVEL 24/7 family member) 75 years or older and lives alone: No Alcohol intake: never Patient Tobacco Use Status: Never used Tobacco e-Cigarette/Vaping Use: Never Used Second Hand Smoke Exposure: No service: No Current occupational status: disabled Current occupation: rt hand Cognitive needs: Yes Hearing needs: No Vision needs: Yes Questionnaire Thrive Questionnaire Date Thrive assessed: 08/10/24 ROBERTA-7 AMB Questionnaire ROBERTA-7 Date ROBERTA - 7 assessed: 08/10/24 Source: Developed by Drs. Haroon Valencia, Colleen Tam, Jose Guadalupe Castellanos and colleagues, with an educational varinder from [employer] (formerly [employer]). Review of Systems Const All systems reviewed & are unremarkable except as noted in HPI and below Card Denies chest pain at rest, Denies chest pain with activity, Denies edema, Denies irregular heart rhythm, Denies claudication, Denies dyspnea, Denies dyspnea on exertion, Denies orthopnea, Denies paroxysmal nocturnal dyspnea and Denies slow heart rate Resp Denies cough, Denies dyspnea and Denies dyspnea on exertion Physical exam (Primary Care) Vital Signs: Last Vital Signs Temp 97.1 F 04/13/25 14:17 Pulse 62 04/13/25 14:17 Resp 18 04/13/25 14:17 BP 152/88 H 04/13/25 14:17 Pulse Ox 97 04/13/25 14:17 Oxygen Delivery Method Room Air 04/13/25 14:17 BMI result Body Mass Index 30.6 BMI Assessment/Plan discussion: High BMI High, discussed plan: lifestyle, weight reduction, dietary and physical activity Tobacco/Smoking Status: Tobacco use Status Tobacco use date assessed 04/13/25 04/13/25 14:22 Patient Tobacco Use Status Never used Tobacco 04/13/25 14:22 e-Cigarette/Vaping Use Never Used 04/13/25 14:22 Thrive Assessment: Date of Thrive Assessment Date Thrive assessed 08/10/24 04/13/25 14:22 Resp Effort & Inspection: normal respiratory effort Auscultation: clear to auscultation bilaterally Cardio Jugular venous distension: no JVD Rate: regular rate Rhythm: regular rhythm Heart sounds: S1 normal heart sound present and S2 normal heart sound present Extrem General: Yes full ROM Coding Level of Care Code Est Pt Level 4 (89181) Complex EM visit Add On G2211 Diagnoses Abscess L02.91 Mild recurrent major depression F33.0 Essential hypertension I10 Hyperlipidemia LDL goal <70 E78.5 Type 2 diabetes mellitus with hyperglycemia, with long-term current use of insulin E11.65; Z79.4 Diabetes mellitus snf insulin use: with rn long term care use Diabetes mellitus complication status: with hyperglycemia Microalbuminuria R80.9 Time Spent (min) 23 Assessment & Plan Assessment & Plan (1) Abscess: Code(s): L02.91 - Cutaneous abscess, unspecified Category: Medical (2) Mild recurrent major depression: Code(s): F33.0 - Major depressive disorder, recurrent, mild Category: Medical (3) Essential hypertension: Code(s): I10 - Essential (primary) hypertension Category: Medical (4) Hyperlipidemia LDL goal <70: Code(s): E78.5 - Hyperlipidemia, unspecified Category: Medical (5) DM2 (diabetes mellitus, type 2): Code(s): E11.9 - Type 2 diabetes mellitus without complications Category: Medical Qualifiers: Diabetes mellitus snf insulin use: with snf use Diabetes mellitus complication status: with hyperglycemia Qualified Code(s): E11.65 - Type 2 diabetes mellitus with hyperglycemia; Z79.4 - joint terminal attack controller (current) use of insulin (6) Microalbuminuria: Code(s): R80.9 - Proteinuria, unspecified Category: Medical Plan Plan 1. Cutaneous abscess, unspecified L02.91 The patient experiences recurrent abscesses in various locations, which are painful and affect mobility. A course of antibiotics, specifically Bactrim, was discussed as a treatment option, despite potential interactions with valsartan. 2. Proteinuria, unspecified R80.9 The patient has microalbuminuria, which is being managed with valsartan and monitored by a hose mender. 3. Hyperlipidemia, unspecified E78.5 The patient is managing hyperlipidemia with rosuvastatin, having experienced muscle pain with atorvastatin previously. 4. Essential (primary) hypertension I10 The patient's hypertension is controlled with amlodipine and valsartan. 5. Type 2 diabetes mellitus without complications E11.9 HCC 19 The patient's diabetes is being managed with Jardiance and insulin, with recent improvements in HbA1c levels. 6. Migraine, unspecified, not intractable, without status migrainosus G43.909 The patient uses Fioricet for migraine relief, though there are issues with insurance coverage for this medication. Orders: Orders Microalbumin, Random (w Creat) 4 Months R80.9 - Proteinuria, unspecified Comprehensive [place]. Panel Fast 4 Months E11.65 - Type 2 diabetes mellitus with hyperglycemia, Z79.4 - nursing home (current) use of insulin Lipid Panel 4 Months E78.5 - Hyperlipidemia, unspecified Medications: New sulfamethoxazole-trimethoprim 800-160 mg (Bactrim DS) 1 tab PO BID 20 tabs 0RF 10 days [cushion] As directed 1 ea 0RF M53.3 - Sacrococcygeal disorders, not elsewhere classified Changed From insulin glargine (Lantus Solostar U-100 Insulin) 36 units subcut DAILY To insulin glargine (Lantus Solostar U-100 Insulin) 40 units (0.4 mL) subcut DAILY 36 mL 1RF 90 days Refilled okxgqjihye-yxnltamudjlym-kgqy 50-325-40 mg 1 tab PO Q6H PRN 30 tabs 0RF pain 30 days Discontinued empagliflozin Discontinued Reason: Patient Completed Course 25 mg PO QAM 30 tabs 3RF
--- OUTSIDE RECORDS SUMMARY | 2025-04-13 19:05 | XMS_ITS | Clinical Summary ---
Author Organization [employer] Address [address] [place] [address] Care Team Providers Care Lean Leader Name Role Phone Unavailable Primary Care Provider [...] MM misc 5 Active TRUEplus Lancets 33G [facility] TEST BLOOD SUGAR THREE TIMES DAILY 4 [...] patient's age to complete this topic Insurance [facility] STANDARD MEDICARE
--- OUTSIDE RECORDS SUMMARY | 2025-04-13 19:05 | XMS_ITS | Encounter Summary ---
Author Organization [employer] Address [address] [place] [address] 7 [place] [address] Care Team Providers Care Branch Customer Service Representative Name Role Phone Unavailable Primary Care Provider Unavailabl e Encounter Details Date Type Department Care Team (Late st Contact Info) Description 11/29/2022 Abstract [place] [facility] [address] [place] [address] Lazaro Edmonds MD Social History Tobacco Use [...]
== END 2025-04-13 14:55 | disposition home or self-care (01) ==
LOC: HO.HMCH 14:10
PROVIDERS: PCP Internal Medicine; Visit Provider Internal Medicine
DX: I10 Essential (primary) hypertension (principal); L02.91 Cutaneous abscess, unspecified; E11.65 Type 2 diabetes mellitus with hyperglycemia; Z79.4 Long term (current) use of insulin; F33.0 Major depressive disorder, recurrent, mild; E78.5 Hyperlipidemia, unspecified; R80.9 Proteinuria, unspecified

== ENCOUNTER → 2025-04-13 14:09 | Outpatient (BNVA) | payer OTHER, SELFPAY | PROVIDERS: PCP Internal Medicine; Visit Provider Internal Medicine | DX: I10 Essential (primary) hypertension (principal); E78.5 Hyperlipidemia, unspecified; R80.9 Proteinuria, unspecified; B37.9 Candidiasis, unspecified; G43.909 Migraine, unspecified, not intractable, without status migrainosus; L02.91 Cutaneous abscess, unspecified; F33.0 Major depressive disorder, recurrent, mild; E11.65 Type 2 diabetes mellitus with hyperglycemia; Z79.4 Long term (current) use of insulin; Z79.899 Other long term (current) drug therapy | CPT/HCPCS: 99212 ==

== ENCOUNTER 2025-04-15 10:19 | Outpatient (AMB) | payer OTHER, SELFPAY ==
[2025-04-15 10:32] VITALS: BMI 30.5
--- NOTE | 2025-04-15 10:32 | A.OFFVIS_ITS ---
Vital Signs 04/15/25 10:32 Height 5 ft 6 in Weight 189 lb BMI 30.5 Intake Visit Reasons: OV-Right knee pain Intake Note: Dot is a 70 year old female who presents today for a follow up of her Right Knee OA, Last injected 01/14/25. Patient reports that the injection was helpful. She reports that she has pain in the right gluteus that is radiating down the leg, interested in an injection. She is not taking anything as she is already taking pain madication for other problems. Allergies penicillin G (Penicillin G) Allergy (Severe, Verified 04/13/25 14:38) RASH,SWELLING atorvastatin Allergy (Intermediate, Verified 04/13/25 14:38) myalgia, muscle cramps latex (LATEX) Allergy (Intermediate, Verified 04/13/25 14:38) ITCHY,SKIN TEARS simvastatin Allergy (Intermediate, Verified 04/13/25 14:38) sedation empagliflozin (From Jardiance) Adverse Reaction (Intermediate, Verified 04/13/25 14:44) vaginal candidiasis HPI HPI OV-Right knee pain: Details: Dot is a 70 year old female who presents today for a follow up of her Right Knee OA, Last injected 01/14/25. Patient reports that the injection was helpful. She reports that she has pain in the right gluteus that is radiating down the leg, interested in an injection. She is not taking anything as she is already taking pain madication for other problems. [facility] Medical History Pre-op evaluation Pre-op evaluation Environmental allergies Seasonal allergies Asthma MARÍA (obstructive sleep apnea) Hyperkalemia Numbness of right hand Left knee pain Herpes zoster Ingrown nail Right wrist pain Right elbow pain Right otitis media Left hip pain Lumbar paraspinal muscle spasm Encounter for well woman exam with routine gynecological exam Encounter for Medicare annual wellness exam Sacroiliitis Physical exam Encounter for annual routine gynecological examination Physical exam Sacroiliac joint dysfunction of left side DM2 (diabetes mellitus, type 2) Mild recurrent major depression Mild asthma Obesity due to excess calories Diabetes mellitus with hyperglycemia Hyperlipidemia LDL goal <100 Essential hypertension Knee osteoarthritis Surgical History Hx of vascular surgery (2005) History of left knee replacement S/P excision of lipoma (01/03/23) History of excision of lesion (05/09/17) History of surgery on right wrist (01/31/16) History of phacoemulsification of cataract of right eye with intraocular lens implantation History of phacoemulsification of cataract of left eye with intraocular lens implantation Hx of colonoscopy Hx of cholecystectomy (05/09/17) Hx of section Family History Father Ischemic cardiomyopathy CVD (cardiovascular disease) Mother No problems noted. Brother Diabetes Social History Household Members: Family Housing: Apartment Are you a primary care manager cna to a significant other at home: No Do you presently have visiting nurse or other home services: Yes (RECREATIONAL PROGRAMS DIRECTOR 24/7 family member) 75 years or older and lives alone: No Alcohol intake: never Patient Tobacco Use Status: Never used Tobacco e-Cigarette/Vaping Use: Never Used Second Hand Smoke Exposure: No service: No Current occupational status: disabled Current occupation: rt hand Cognitive needs: Yes Hearing needs: No Vision needs: Yes Physical Exam Vital Signs: BMI result Body Mass Index 30.5 Extrem Other: Right knee with medial compartment tenderness to palpation. There is 3-130 deg motion. Stable ligamentous exam. DP+2 Assessment & Plan Assessment & Plan (1) Osteoarthritis of left shoulder: Code(s): M19.012 - Primary osteoarthritis, left shoulder Category: Medical Plan: Continued left shoulder pain. Her hemoglobin A1c was over 8 last visit and so or left shoulder surgery was postponed. She is working to keep this under control. She will see me back after she gets her next hemoglobin A1c. Coding Level of Care Code Est Pt Level 3 (15421) Diagnoses Osteoarthritis of left shoulder M19.012
--- OUTSIDE RECORDS SUMMARY | 2025-04-15 12:17 | XMS_ITS | Encounter Summary ---
Author Organization [employer] Address [address] [place] [address] 7 [place] [address] Care Team Providers Care Lollypop Machine Operator Name Role Phone Unavailable Primary Care Provider Unavailabl e Encounter Details Date Type Department Care Team (Late st Contact Info) Description 11/29/2022 Abstract [place] [facility] [address] [place] [address] Lazaro Edmonds MD Social History Tobacco Use [...]
--- OUTSIDE RECORDS SUMMARY | 2025-04-15 12:17 | XMS_ITS | Clinical Summary ---
Author Organization [employer] Address [address] [place] [address] Care Team Providers Care Package Yarns Drying Machine Operator Name Role Phone Unavailable Primary [...] patient's age to complete this topic Insurance [facility] STANDARD MEDICARE
== END 2025-04-15 11:44 | disposition home or self-care (01) ==
LOC: HO.HOS 10:20
PROVIDERS: Visit Provider Orthopaedic Surgery
DX: M19.012 Primary osteoarthritis, left shoulder (principal)
CPT/HCPCS: 99213

== ENCOUNTER → 2025-04-15 10:19 | Outpatient (BNVA) | payer OTHER, SELFPAY | PROVIDERS: Visit Provider Orthopaedic Surgery | DX: M17.11 Unilateral primary osteoarthritis, right knee (principal); M19.012 Primary osteoarthritis, left shoulder | CPT/HCPCS: 99212 ==

== ENCOUNTER 2025-04-27 06:12 | Outpatient (REF) | payer OTHER, SELFPAY ==
--- NOTE | ~2025-04-27 | FL_ITS ---
EXAMINATION: XR FLUOROSCOPY WITH IMAGES CLINICAL INFORMATION: Sacrococcygeal disorder COMPARISON: None available. TECHNIQUE: Fluoroscopy time: 30 seconds DAP 10 mgy Images: 4 FINDINGS: Fluoroscopic images project needle and contrast in the region of bilateral SI joints. FL/FL guidance in treatment room IMPRESSION: Fluoroscopy for procedure. Please see procedure report for details. Electronically signed by: Delbert Rodriguez MD 04/28/2025 01:51 PM EST
--- OUTSIDE RECORDS SUMMARY | 2025-04-27 06:14 | XMS_ITS | Clinical Summary ---
Author Organization [employer] Address [address] [facility] [address] [place] [address] Care Team Providers Care Carton Forming Machine Helper Name Role Phone Unavailable Primary Care [...] MM misc 5 Active TRUEplus Lancets 33G [facility] TEST BLOOD SUGAR THREE TIMES DAILY 4 [...] patient's age to complete this topic Insurance [facility] STANDARD MEDICARE
--- OUTSIDE RECORDS SUMMARY | 2025-04-27 06:14 | XMS_ITS | Encounter Summary ---
Author Organization [employer] Address [address] [place] [address] 7 [place] [address] Care Team Providers Care Portal Administrator Name Role Phone Unavailable Primary Care Provider Unavailabl e Encounter Details Date Type Department Care Team (Late st Contact Info) Description 11/29/2022 Abstract [place] [facility] [address] [place] [address] Lazaro Edmonds MD Social History Tobacco Use [...]
== END 2025-04-27 06:13 | disposition home or self-care (01) ==
LOC: CF 06:12
PROVIDERS: Visit Provider Anesthesiology
DX: M53.3 Sacrococcygeal disorders, not elsewhere classified (principal)
CPT/HCPCS: 27096; J2003; J2795; J3301; Q9967

== ENCOUNTER 2025-04-27 07:48 | Outpatient (AMB) | payer OTHER, SELFPAY ==
--- NOTE | 2025-04-27 07:50 | MHC.OFFVIS ---
Vital Signs 04/27/25 07:57 04/27/25 08:17 Height 5 ft 6 in Weight 189 lb BMI 30.5 BP 128/93 H 140/88 H Blood Pressure Location Rt brachial Rt brachial Position Sitting Sitting Respiration 16 16 Pulse 67 61 Pulse Source Pulse Oximeter Pulse Oximeter Pulse Oximetry (%) 95 98 Oxygen Delivery Method Room Air Room Air Intake Visit Reasons: LEFT THERAPEUTIC SIJ INJECTION Allergies penicillin G (Penicillin G) Allergy (Severe, Verified 04/13/25 14:38) RASH,SWELLING atorvastatin Allergy (Intermediate, Verified 04/13/25 14:38) myalgia, muscle cramps latex (LATEX) Allergy (Intermediate, Verified 04/13/25 14:38) ITCHY,SKIN TEARS simvastatin Allergy (Intermediate, Verified 04/13/25 14:38) sedation empagliflozin (From Jardiance) Adverse Reaction (Intermediate, Verified 04/13/25 14:44) vaginal candidiasis PFSH Medical History Pre-op evaluation Pre-op evaluation Environmental allergies Seasonal allergies Asthma MARÍA (obstructive sleep apnea) Hyperkalemia Numbness of right hand Left knee pain Herpes zoster Ingrown nail Right wrist pain Right elbow pain Right otitis media Left hip pain Lumbar paraspinal muscle spasm Encounter for well woman exam with routine gynecological exam Encounter for Medicare annual wellness exam Sacroiliitis Physical exam Encounter for annual routine gynecological examination Physical exam Sacroiliac joint dysfunction of left side DM2 (diabetes mellitus, type 2) Mild recurrent major depression Mild asthma Obesity due to excess calories Diabetes mellitus with hyperglycemia Hyperlipidemia LDL goal <100 Essential hypertension Knee osteoarthritis Surgical History Hx of vascular surgery (2005) History of left knee replacement S/P excision of lipoma (01/03/23) History of excision of lesion (05/09/17) History of surgery on right wrist (01/31/16) History of phacoemulsification of cataract of right eye with intraocular lens implantation History of phacoemulsification of cataract of left eye with intraocular lens implantation Hx of colonoscopy Hx of cholecystectomy (05/09/17) Hx of section Family History Father Ischemic cardiomyopathy CVD (cardiovascular disease) Mother No problems noted. Brother Diabetes Social History Household Members: Family Housing: Apartment Are you a primary outdoor emergency care technician to a significant other at home: No Do you presently have visiting nurse or other home services: Yes (PESTICIDE CONTROL INSPECTOR 24/7 family member) 75 years or older and lives alone: No Alcohol intake: never Patient Tobacco Use Status: Never used Tobacco e-Cigarette/Vaping Use: Never Used Second Hand Smoke Exposure: No service: No Current occupational status: disabled Current occupation: rt hand Cognitive needs: Yes Hearing needs: No Vision needs: Yes Physical Exam Vital Signs: Last Vital Signs Pulse 61 04/27/25 08:17 Resp 16 04/27/25 08:17 BP 140/88 H 04/27/25 08:17 Pulse Ox 98 04/27/25 08:17 Oxygen Delivery Method Room Air 04/27/25 08:17 BMI result Body Mass Index 30.5 Assessment & Plan Assessment & Plan (1) Sacroiliac joint dysfunction of both sides: Code(s): M53.3 - Sacrococcygeal disorders, not elsewhere classified Category: Medical Plan Bilateral therapeutic sacroiliac joint injection. Dot is very pleasant 70 years old ol female suffering from sacroiliitis and bilateral sacroiliac joint dysfunction . She came today to the operating room to receive bilateral therapeutic SI joint injection. Informed consent was thoroughly explained to the patient risks and benefits were explained. The patient was positioned prone on the operating table with pillow under her abdomen. The lower back and upper buttocks were prepped with ChloraPrep and draped with sterile self adhesive utility towels. C-arm was brought over the operating field and sq picture of the bilateral sacroiliac joints were sequentially demonstrated on the screen. Tilting C-arm contralateral to the right and to the left the posterior silhouette of the sacroiliac joint was superimposed on anterior silhouette of the sacroiliac joint. Slightly medial to the projection of the joints to the skin injection of the local anesthetic lidocaine 2% mixed with ropivacaine 0.5% was performed. After that 22 gauge 3-1/2 inch needle was driven to were the point of interest in tunnel vision fashion. When tip of the needle entered posterior capsule of the joint injection of the contrast was performed delineating arthrogram. After that injection of the ropivacaine 0.5% 4 cc mixed with Kenalog 40 mg was performed 1st on the right and after that on the left. Upon completion of the injection needle was withdrawn sterile Band-Aid was applied. The patient tolerated the procedure well. Orders: Orders FL guidance in treatment room Today M53.3 - Sacrococcygeal disorders, not elsewhere classified Coding Level of Care Code Procedure Only Diagnoses Sacroiliac joint dysfunction of both sides M53.3
[2025-04-27 07:57] VITALS: BP 128/93; PULSE 67; RESP 16; O2SAT 95; BMI 30.5
[2025-04-27 08:17] VITALS: BP 140/88; PULSE 61; RESP 16; O2SAT 98
== END 2025-04-27 08:25 | disposition home or self-care (01) ==
PROVIDERS: PCP Internal Medicine; Visit Provider Anesthesiology
DX: M53.3 Sacrococcygeal disorders, not elsewhere classified (principal)
CPT/HCPCS: 27096

== ENCOUNTER 2025-05-24 12:15 | Outpatient (REF) | payer OTHER, SELFPAY ==
--- NOTE | ~2025-05-24 | MR_ITS ---
EXAMINATION: MRI Shoulder without contrast, left TECHNIQUE: Multiplanar multisequence MR imaging through an upper extremity joint without contrast. INDICATION: M19.012 - Primary osteoarthritis, left shoulder, osteochondromatosis. PRIOR: CT October 26, 2024 and x-ray September 14, 2024 FINDINGS: Rotator Cuff: There is a deep undersurface tear of anterior supraspinatus tendon possibly extending full-thickness. The tear is complex with a delamination component that extends to 2.5 cm into the tendon medial from the footprint. The undersurface of infraspinatus tendon is frayed. Labrum: Labrum is degenerated, frayed, and torn. Long biceps tendon: Long biceps tendon is thickened with increased signal in the rotator interval. Otherwise, it is intact and not displaced from the groove. Acromioclavicular joint: There is complex fluid in the AC joint. AC joint is intact. Acromial morphology is flat, type I. There is trace fluid in the subacromial subdeltoid bursa. Axillary pouch: The axillary pouch is intact. However, it contains numerous intra-articular bodies measuring up to 7 x 17 mm. There are also intra-articular bodies in the subcoracoid recess measuring up to 11 x 20 mm. On x-ray, these appear to be ossified. Articular cartilage: There is diffuse full-thickness cartilage loss across most of the glenoid, minimally sparing the peripheral margins. Humeral head also demonstrates diffuse full-thickness articular cartilage loss. Moderate marginal osteophyte is are present involving glenoid and humeral head. Bones/Marrow: There is flattening of the glenoid articular surface as well as the medial humeral head consistent with chronic remodeling. There is mild subchondral cystic change and mild reactive marrow signal change involving glenoid and humeral head. Minimal degenerative marrow signal is present in the posterior greater tuberosity. Soft tissues: There is no muscle edema. There is generalized fatty streaking of shoulder musculature is consistent with deconditioning. MR/MR shoulder LT wo con IMPRESSION: Severe degenerative changes in the left shoulder joint with osteochondromatosis. There is a deep undersurface tear involving supraspinatus tendon. Tear involves more than half the tendon thickness. There is also a delamination component of the tear extending medially into the tendon 2.5 cm. The undersurface of infraspinatus tendon is minimally degenerated and frayed. The labrum is diffusely degenerated, frayed, torn. There is mild focal tendinopathy/partial tear of long biceps tendon in the rotator interval. Electronically signed by: Arthur Astudillo MD 05/24/2025 01:31 PM JEIMY
--- OUTSIDE RECORDS SUMMARY | 2025-05-24 15:58 | XMS_ITS | Encounter Summary ---
Author Organization [employer] Address [address] [place] [address] [address] [place] [address] Care Team Providers Care Looseleaf Binder Coverer Name Role Phone Unavailable Primary Care Provider Unavailabl e Encounter Details Date Type Department Care Team (Late st Contact Info) Description 11/29/2022 Abstract [facility] [address] [place] [address] Lazaro Edmonds MD Social History Tobacco Use [...]
--- OUTSIDE RECORDS SUMMARY | 2025-05-24 15:58 | XMS_ITS | Clinical Summary ---
Author Organization [employer] Address [address] [facility] [address] [place] [address] Care Team Providers Care Die Repair Machinist Name Role Phone Unavailable Primary Care Provider [...] MM misc 5 Active TRUEplus Lancets 33G [facility] [place] TEST BLOOD SUGAR THREE TIMES DAILY 4 [...] 1968 Hepatitis C Screening 1974 Mammogram 1996 RSV Patients and Patients Aged 60 years or older (1 - Risk 50-74 years 1-dose series) 2006 Zoster Vaccines (1 of 2) 2006 Pneumococcal Vaccine: 50+ Years (2 of 2 - PCV) 06/10/2019 06/10/2018, 02/10/2007 COVID-19 Vaccine ( season) 2025 01/23/2022, 06/12/2021, 10/27/2020, Additional history [...] patient's age to complete this topic Insurance [facility] STANDARD MEDICARE
== END 2025-05-24 12:16 | disposition home or self-care (01) ==
LOC: HO.MRI 12:15
PROVIDERS: PCP Internal Medicine; Visit Provider Orthopaedic Surgery
DX: M19.012 Primary osteoarthritis, left shoulder (principal)
CPT/HCPCS: 73221

== ENCOUNTER → 2025-05-24 12:29 | Outpatient (BNV) | payer OTHER, SELFPAY | PROVIDERS: PCP Internal Medicine; Visit Provider Radiology Diagnostic Radiology | DX: M19.012 Primary osteoarthritis, left shoulder (principal) | CPT/HCPCS: 73221 ==

== ENCOUNTER 2025-05-28 09:07 | Outpatient (AMB) | payer OTHER, SELFPAY ==
[2025-05-28 09:25] VITALS: BP 154/82; PULSE 73; RESP 16; O2SAT 97; BMI 30.7
--- NOTE | 2025-05-28 09:25 | MHC.OFFVIS ---
Vital Signs 05/28/25 09:25 Height 5 ft 6 in Weight 190 lb BMI 30.7 BP 154/82 H Blood Pressure Location Rt brachial Position Sitting Respiration 16 Pulse 73 Pulse Source Pulse Oximeter Pulse Oximetry (%) 97 Oxygen Delivery Method Room Air Intake Visit Reasons: S/P LEFT THERAPEUTIC SIJ INJECTION Administrative Office Specialist Required: Yes Administrative Office Specialist Language: Tearoom Host Services: Administrative Office Specialist Present Administrative Office Specialist Name: Mitul [phone] Accompanied by: Self / Same As Patient Allergies penicillin G (Penicillin G) Allergy (Severe, Verified 05/28/25 09:27) RASH,SWELLING atorvastatin Allergy (Intermediate, Verified 05/28/25 09:27) myalgia, muscle cramps latex (LATEX) Allergy (Intermediate, Verified 05/28/25 09:27) ITCHY,SKIN TEARS simvastatin Allergy (Intermediate, Verified 05/28/25 09:27) sedation empagliflozin (From Jardiance) Adverse Reaction (Intermediate, Verified 05/28/25 09:27) vaginal candidiasis HPI Comments Details: Visit completed with social media sr strategy manager Mitul #[phone] The patient is a 70-year-old female presenting for a follow-up visit for sacroiliac joint pain. She underwent a bilateral sacroiliac joint steroid injection one month ago. Following the injection, she experienced 100% pain relief for three weeks. After that period, the pain slowly returned. During the initial three weeks of relief, she had no pain. The patient's pain is exacerbated by sitting, walking, and ascending or descending stairs. She notes improvement when standing, such as while doing dishes or cooking. She has previously used Tylenol, ibuprofen, patches, and heat packs for her pain. - Location: Pain is located in the bilateral sacroiliac joints, described as being in the butt cheeks. - Radiation: The pain radiates down her leg to the knee. - Exacerbating factors: Sitting, walking, and ascending/descending stairs worsen the pain. - Relieving factors: Pain is improved when standing to do dishes or cook. - Prior treatments: The patient had a bilateral sacroiliac joint steroid injection one month prior, which provided complete pain relief for three weeks. - Analgesia: The patient received bilateral sacroiliac joint steroid injections one month ago, which provided pain relief for three weeks before wearing off. Previous therapeutic injection provided more than 3 months of pain relief. - She has also used Tylenol, ibuprofen, patches, and heat packs. - Activities of Daily Living: Pain interferes with sitting, walking, and using stairs. - Affect: Not discussed. - Adverse Effects: Not discussed. - Aberrant Drug-Related Behaviors: Not discussed. [facility] Medical History Pre-op evaluation Pre-op evaluation Environmental allergies Seasonal allergies Asthma MARÍA (obstructive sleep apnea) Hyperkalemia Numbness of right hand Left knee pain Herpes zoster Ingrown nail Right wrist pain Right elbow pain Right otitis media Left hip pain Lumbar paraspinal muscle spasm Encounter for well woman exam with routine gynecological exam Encounter for Medicare annual wellness exam Sacroiliitis Physical exam Encounter for annual routine gynecological examination Physical exam Sacroiliac joint dysfunction of left side DM2 (diabetes mellitus, type 2) Mild recurrent major depression Mild asthma Obesity due to excess calories Diabetes mellitus with hyperglycemia Hyperlipidemia LDL goal <100 Essential hypertension Knee osteoarthritis Surgical History Hx of vascular surgery (2005) History of left knee replacement S/P excision of lipoma (01/03/23) History of excision of lesion (05/09/17) History of surgery on right wrist (01/31/16) History of phacoemulsification of cataract of right eye with intraocular lens implantation History of phacoemulsification of cataract of left eye with intraocular lens implantation Hx of colonoscopy Hx of cholecystectomy (05/09/17) Hx of section Family History Father Ischemic cardiomyopathy CVD (cardiovascular disease) Mother No problems noted. Brother Diabetes Social History Household Members: Family Housing: Apartment Are you a primary animal care taker to a significant other at home: No Do you presently have visiting nurse or other home services: Yes (SOUND RECORDING TECHNICIAN 24/7 family member) 75 years or older and lives alone: No Alcohol intake: never Patient Tobacco Use Status: Never used Tobacco e-Cigarette/Vaping Use: Never Used Second Hand Smoke Exposure: No service: No Current occupational status: disabled Current occupation: rt hand Cognitive needs: Yes Hearing needs: No Vision needs: Yes Review of Systems Narrative - Musculoskeletal: Reports bilateral sacroiliac joint pain that is exacerbated by walking and using stairs. Physical Exam Exam Exam: General: awake, alert, oriented. Answers questions appropriately. Fully engaged in examination. Skin: warm, dry, intact HEENT: Normocephalic. Hearing intact. Cardiac: External chest normal in appearance. Respiratory: No cough, audible wheezing or stridor. Abdomen: without gross distension. MS: No obvious swelling or deformities. Able to transition from sit to stand unassisted. Ambulates with bilaterally normal heel strike and toe off Bilateral SI: Tenderness over PSIS. Thigh thrust positive, SI compression positive, Gaenslen positive. Neurological: Oriented to person, place, time and situation. Thought process intact. No gait abnormalities appreciated. Psychiatric: Appropriate mood and affect. Good judgment and insight. Vital Signs: Last Vital Signs Pulse 73 05/28/25 09:25 Resp 16 05/28/25 09:25 BP 154/82 H 05/28/25 09:25 Pulse Ox 97 05/28/25 09:25 Oxygen Delivery Method Room Air 05/28/25 09:25 BMI result Body Mass Index 30.7 Results Reviewed Results Reviewed: 10/2023 EXAM: X-RAY LUMBAR SPINE X-RAY SACRUM/COCCYX CLINICAL INFORMATION: Back pain, sacrococcygeal disorders not otherwise classified. COMPARISON: X-ray lumbar spine 12/09/2017. TECHNIQUE: 3 views of the lumbar spine. 3 views of the sacrum/coccyx. FINDINGS: Lumbar spine: The bones are diffusely demineralized. S-shaped thoracolumbar scoliosis. Surgical clips in the right upper quadrant. Facet arthritis in the lower lumbar spine. Interval progression of multilevel degenerative changes in the lumbar spine. Multilevel lumbar spondylosis with advanced degenerative changes and loss of disc space height again most severe at L1-L2. Progression of loss of disc space height with degenerative changes at L4-L5 and L5-S1. Redemonstration of multilevel superior and inferior endplate concavities as previously noted most notable at L1 and L3. Sacrum/coccyx: Moderate degenerative changes in the bilateral sacroiliac joints. Pubic symphysis is maintained. Multiple rounded calcifications in the pelvis. IMPRESSION: 1. Interval progression of multilevel degenerative changes in the lumbar spine. 2. Moderate degenerative changes in the bilateral sacroiliac joints. 3. MRI recommended for further evaluation if there is clinical concern for fracture or other underlying pathology. EMG 09/26/23: IMPRESSION: 1. This is an abnormal study. 2. There is electrodiagnostic evidence for right moderate-severe median neuropathy at the wrist, consistent with carpal tunnel syndrome. 3. There is no electrodiagnostic evidence for ulnar neuropathy, brachial plexopathy, or cervical radiculopathy. Assessment & Plan Assessment & Plan (1) Sacroiliac joint dysfunction of both sides: Code(s): M53.3 - Sacrococcygeal disorders, not elsewhere classified Category: Medical (2) Chronic pain syndrome: Code(s): G89.4 - Chronic pain syndrome Category: Medical Plan The patient's significant but temporary relief from bilateral sacroiliac (SI) joint injections confirms the diagnosis of SI joint dysfunction as the primary pain generator. Given the predictable return of pain as the steroid wears off, a more definitive treatment is indicated. For immediate management, the patient was provided with a sacroiliac belt to be worn as needed during the day to provide stability. She will continue with conservative measures including heat, ice, and ibuprofen as needed. I will proceed with ordering a CT scan of her lower back and pelvis, which is required to obtain insurance authorization for an SI joint stabilization procedure (fusion). The patient will be contacted to schedule the imaging once approved. Following completion of the CT scans, my office will submit for insurance authorization for the SI joint fusion. The plan is to perform the procedure one side at a time, beginning with the more painful side (left). Patient was informed and verbally consented to the use of an ambient scribe for clinic note documentation during this visit. Orders: Orders CT lumbar spine wo IV con Today G89.4 - Chronic pain syndrome, M53.3 - Sacrococcygeal disorders, not elsewhere classified CT pelvis wo IV con Today G89.4 - Chronic pain syndrome, M53.3 - Sacrococcygeal disorders, not elsewhere classified Patient Instructions: - We have given you a sacroiliac belt to help with your pain. - Wear this belt as often as you like when you are up and about, but take it off when you go to sleep. - Continue using heat, ice, and [id number] medications like ibuprofen for pain management. - We are ordering a CT scan of your lower back and pelvis. - You will receive a call to schedule this appointment once it is approved by your insurance. - After the CT scan is done, we will work on getting approval for a surgery to fix your joint pain. - You can look at the website we provided to find more information about the surgery, which may have information in [place]. Coding Level of Care Code Est Pt Level 3 (74004) Complex visit Add On G2211 Diagnoses Sacroiliac joint dysfunction of both sides M53.3 Chronic pain syndrome G89.4
--- OUTSIDE RECORDS SUMMARY | 2025-05-28 09:43 | XMS_ITS | Clinical Summary ---
Author Organization [employer] Address [address] [facility] [address] [place] [address] Care Team Providers Care Aircraft Electronics Technical Officer Name Role Phone Unavailable Primary Care Provider [...] misc 5 Active TRUEplus Lancets 33G [facility] TEST BLOOD SUGAR THREE TIMES DAILY 4 [...] patient's age to complete this topic Insurance [facility] STANDARD MEDICARE
--- OUTSIDE RECORDS SUMMARY | 2025-05-28 09:43 | XMS_ITS | Encounter Summary ---
Author Organization [employer] Address [address] [place] [address] [address] [place] [address] Care Team Providers Care Transit Department Clerk Name Role Phone Unavailable Primary Care Provider Unavailabl e Encounter Details Date Type Department Care Team (Late st Contact Info) Description 11/29/2022 Abstract [facility] [address] [place] [address] Lazaro Edmonds MD Social History Tobacco Use [...]
== END 2025-05-28 09:50 | disposition home or self-care (01) ==
LOC: HO.PMC 09:08
PROVIDERS: PCP Internal Medicine; Visit Provider Registered Nurse Emergency
DX: M53.3 Sacrococcygeal disorders, not elsewhere classified (principal); G89.4 Chronic pain syndrome
CPT/HCPCS: 99213; G2211

== ENCOUNTER → 2025-05-28 09:07 | Outpatient (BNVA) | payer OTHER, SELFPAY | PROVIDERS: PCP Internal Medicine; Visit Provider Registered Nurse Emergency | DX: G89.4 Chronic pain syndrome (principal); M53.3 Sacrococcygeal disorders, not elsewhere classified | CPT/HCPCS: 99212 ==